=== PATIENT | female | born 1990 | race Caucasian/White ===

== ENCOUNTER 2019-08-29 10:24 | Emergency (ER) | payer OTHER, SELFPAY ==
[2019-08-29 10:51] VITALS: BP 126/85; PULSE 92; RESP 24; TEMP 36.7; O2SAT 100
--- NOTE | 2019-08-29 11:19 | ED.DENTAL ---
HPI - Dental/Oral General Chief complaint: Dental/Oral Stated complaint: . Time Seen by Provider: 08/29/19 11:19 Source: patient and family History of Present Illness HPI Narrative: NO FEVER. NO JAW SWELLING. NO NECK SWELLING. NO LIMITATION WITH SPEAKING OR SWALLOWING. HAS A HISTORY OF DENTAL CARIES. HAS NOT SEEN A DENTIST RECENTLY. 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 But was unable to get in any sooner. Location: Tooth # (31 [phone] 10) Related Data Allergies Allergy/AdvReac Type Severity Reaction Status Date / Time No Known Allergies Allergy Verified 08/29/19 10:59 Review of Systems Review of Systems: Narrative: CONSTITUTIONAL: Denies fever, chills, or sweats. EYES: Denies visual changes, redness, or discharge. ENT: Denies rhinorrhea, congestion, sore throat, or otalgia. NO FEVER. NO JAW SWELLING. NO NECK SWELLING. NO LIMITATION WITH SPEAKING OR SWALLOWING. HAS A HISTORY OF DENTAL CARIES. HAS NOT SEEN A DENTIST RECENTLY. CARDIOVASCULAR: Denies chest pain, palpitations, or edema. RESPIRATORY: Denies cough or dyspnea. GASTROINTESTINAL: Denies abdominal pain, nausea, vomiting, or diarrhea. GENITOURINARY: Denies dysuria or hematuria. SKIN: Denies rash or itching. MUSCULOSKELETAL: Denies back pain, joint pain, or myalgia. NEUROLOGIC: Denies headache, numbness, or weakness. PSYCHIATRIC: Denies anxiety or depression. PMFSH Past Medical History Medical History Anxiety Asthma Depression Gastroesophageal reflux disease Menometrorrhagia Migraine Morbid obesity with BMI of 50.0-59.9, adult Family History Family History Mother Family history of bipolar disorder Father Family history of chronic obstructive pulmonary disease Social History Social History Smoking status: Never smoker Second hand tobacco smoke exposure: Yes Alcohol intake: never Comments At time of signature, agree with nursing past medical, surgical, social and family history. There is no relevant family history pertinent to the presenting complaint Exam Narrative: Exam Narrative: GENERAL: Well-appearing, well-nourished, and in no acute distress. HEAD: Normocephalic, atraumatic. EYES: PERRLA and EOMI. ENT: Nares clear, no rhinorrhea or epistaxis. Mucous membranes moist. NO ALAYNA APICAL SWELLING, TOOTH TENDER TO PALPATION. NO FACIAL SWELLING. NO TRISMUS. ABLE TO OPEN MOUTH FULLY. NO NECK SWELLING OR LISA'S ANGINA. NO ABSCESS TO BE DRAINED. no drooling, trismus, facial asymmetry or significant neck swelling NECK: Supple. CHEST: Clear to auscultation. No respiratory distress. HEART: Regular rate and rhythm. No murmur heard. Normal peripheral pulses. ABDOMEN: Soft, nontender, nondistended, normal active bowel sounds. EXTREMITIES: Normal range of motion. No edema. SKIN: Warm, dry, no rash. NEURO: No focal deficits. Alert and oriented x3. [place] Coma Scale Eye Opening: Spontaneous 4 [place] Coma Scale Motor: Obeys Commands 6 [place] Coma Scale Verbal: Oriented 5 Larry Coma Scale Total 15 Course Vital Signs Vital signs: Vital Signs Temperature 36.7 C 08/29/19 10:51 Pulse Rate 92 08/29/19 10:51 Respiratory Rate 24 H 08/29/19 10:51 Blood Pressure 126/85 08/29/19 10:51 Pulse Oximetry 100 08/29/19 10:51 Temperature 36.7 C 08/29/19 10:51 Pulse Rate 92 08/29/19 10:51 Respiratory Rate 24 H 08/29/19 10:51 Blood Pressure 126/85 08/29/19 10:51 Pulse Oximetry 100 08/29/19 10:51 Please RICO schedule a followup visit with your personal physician for further evaluation and treatment. Including recheck and discussion of your blood pressure. If your symptoms persist, change or worsen significantly before you can contact your personal physician then please, without delay, go to the emergency department for further evaluation YURI [place]
== END 2019-08-29 11:26 | disposition home or self-care (01) ==
PROVIDERS: Emergency Provider Nurse Practitioner Family; PCP Internal Medicine
DX: K02.9 Dental caries, unspecified (principal); K08.89 Other specified disorders of teeth and supporting structures; J45.909 Unspecified asthma, uncomplicated; F32.9 Major depressive disorder, single episode, unspecified; K21.9 Gastro-esophageal reflux disease without esophagitis; E66.01 Morbid (severe) obesity due to excess calories; Z68.43 Body mass index [BMI] 50.0-59.9, adult
CPT/HCPCS: 99213; G0463

== ENCOUNTER 2019-10-09 10:21 | Outpatient (CLI) | payer OTHER, SELFPAY ==
[2019-10-09 11:02] LABS: Basophils Percent Auto 0.8 % (0.2-1.2); Eosinophils Absolute Auto 0.1 K/mm3 (0-0.3); Eosinophils Percent Auto 1.6 % (0-4.4); Hematocrit 42.1 % (37.0-47.0); Hemoglobin 12.7 g/dL (12.0-15.0); Immature Granulocyte Absolute 0.01 K/mm3 (0.00-0.031); Immature Granulocyte Percent A 0.3 % (0-0.5); Lymphocytes Absolute Auto 1.39 K/mm3 (0.9-3.2); Lymphocytes Percent Auto 37.5 % (18.3-44.2); Mean Corpuscular HGB Conc 30.2 g/dl (32-36); Mean Corpuscular Volume 86.3 fl (80-100); Mean Platelet Volume 9.9 fl (7.4-10.4); Monocytes Absolute Auto 0.4 K/mm3 (0.1-0.6); Monocytes Percent Auto 11.6 % (2.6-8.5); Neutrophils Absolute Auto 1.8 K/mm3 (1.3-6.7); Neutrophils Percent Auto 48.2 % (45.5-73.1); Platelet Count Result 248 k/mm3 (150-375); Red Blood Count 4.88 M/mm3 (4.2-5.4); Red Cell Distribution Width 14.6 % (11.5-14.5); White Blood Count 3.7 K/mm3 (4.5-10.0)
== END 2019-10-09 10:22 | disposition home or self-care (01) ==
LOC: ANHSURGERY 10:26
PROVIDERS: PCP Internal Medicine; Visit Provider Obstetrics & Gynecology
DX: R10.2 Pelvic and perineal pain (principal)
CPT/HCPCS: 36415; 85025; 86850; 86900; 86901

== ENCOUNTER 2019-11-02 01:51 | Day surgery (SDC) | payer OTHER, SELFPAY ==
[2019-10-04 11:31] VITALS: BMI 56.8
--- NOTE | 2019-10-31 09:16 | PM.IMHP ---
H&P: HPI History of Present Illness Chief complaint: Pain, Prolapse, Irregular Bleeding, Failed Ablatio Narrative: Merle Madrid is a 29 year old female 4 para 2 who was admitted for robotic total vessels rectum E and bilateral salpingo check to me he has. She complains of pain. She has irregular bleeding and has failed an ablation. She also has uterine prolapse. She has required narcotic pain medicine and is thus admitted for definitive repair. Risks and benefits. Risks and benefits of were reviewed including but not exclusive of , aspiration pneumonia bleeding, transfusion, perforation injury to bowel, bladder, ureters, or other internal organs with need for open laparotomy. She voiced good understanding. She had all questions answered. She received the [employer] handout entitled hysterectomy. She received CV the div and she handout concerning robotic hysterectomy technique. She had all questions answered. She asked to proceed Review of Systems Review of Systems: All systems reviewed & are unremarkable except as noted in HPI and below PMFSH Past Medical History Medical History Anxiety Asthma Depression Gastroesophageal reflux disease Menometrorrhagia Migraine Morbid obesity with BMI of 50.0-59.9, adult Family History Family History Mother Family history of bipolar disorder Father Family history of chronic obstructive pulmonary disease Social History Social History Smoking status: Never smoker Second hand tobacco smoke exposure: Yes Alcohol intake: never Meds Home Medications and Allergies Home Medications Medication Instructions Recorded Confirmed Type albuterol sulfate [ProAir HFA] 1 inh INHALATION QID PRN 10/04/19 10/29/19 History multivitamin 1 tablet PO DAILY 10/04/19 10/29/19 History hydrocodone-acetaminophen 1 tablet PO Q6H PRN 10/29/19 10/29/19 History Allergies Allergy/AdvReac Type Severity Reaction Status Date / Time No Known Allergies Allergy Verified 10/04/19 11:32 Exam Const: General: no acute distress Eyes: General: appearance normal, both eyes and all related structures Neck: Neck: supple and no JVD Thyroid: thyroid normal Resp: Effort & Inspection: normal respiratory effort Auscultation: clear to auscultation bilaterally Cardio: Rate: regular rate Rhythm: regular rhythm GI: Inspection: non-distended GI Palp: Yes Soft to palpation, No Tenderness to palpation present (GI) and No Guarding due to palpation present (GI) Auscultation: normal bowel sounds : General: Yes bladder normal to inspection External Female Exam: normal external appearance Speculum Exam - Vagina: normal appearance of the vagina Speculum Exam - Cervix: normal appearance of the cervix Bimanual exam- vagina & uterus: uterine size normal ( uterus is 12 weeks in size. Second-degree prolapse present) Skin: General skin exam: no rashes or lesions noted Extrem: General: normal to inspection and no edema Psych: Mental Status: mental status grossly normal Affect: normal affect Assessment and Plan Additional Plan impression: Pelvic pain, uterine prolapse, irregular bleeding following failed ablation, Plan: Robotic total vaginal hysterectomy and bilateral salpingectomies
--- NOTE | 2019-11-01 15:56 | P.PNAN_ITS ---
Anes - Initial Pre Proc Eval Procedure: Operation Date: 11/02/19 11:30 Proposed Procedures p Robotic Assisted Total Vaginal Hysterectomy, With Bilateral Salpingectomy - Tiago Lees MD Date/Time: 11/01/19 15:56 Surgeon: Tiago Lees MD Pre Op Diagnosis: Pain, Prolapse, Irregular Bleeding, Failed Ablatio Patient Data Age: 29 Gender: F Height: 1.55 m Weight: 136.53 kg Allergies Allergy/AdvReac Type Severity Reaction Status Date / Time No Known Allergies Allergy Verified 11/02/19 10:02 Home Medications Medication Instructions Recorded Confirmed Type albuterol sulfate [ProAir HFA] 1 inh INHALATION QID PRN 10/04/19 10/29/19 History multivitamin 1 tablet PO DAILY 10/04/19 11/02/19 History hydrocodone-acetaminophen 1 tablet PO Q6H PRN 10/29/19 10/29/19 History hydrocodone-acetaminophen [[place]] 1 tablet PO Q4H PRN #30 tablet 11/02/19 Rx Patient hx anesthesia problems: none Family hx anesthesia problems: none PMFSH Past Medical History Medical History (Updated 11/01/19 @ 15:57 by Bar Rivas MD) Abnormal uterine bleeding Anxiety Asthma Bipolar 1 disorder Depression Gastroesophageal reflux disease Kidney stones, calcium oxalate Menometrorrhagia Migraine Morbid obesity with BMI of 50.0-59.9, adult Family History Family History Mother Family history of bipolar disorder Father Family history of chronic obstructive pulmonary disease Social History Social History Smoking status: Never smoker Second hand tobacco smoke exposure: Yes Alcohol intake: never Anes - Eval Final PreProcedure Day of Procedure 11/01/19 15:56 Patient weight: morbidly obese Heart: regular rate and rhythm Lungs: clear to auscultation and normal air movement Airway: Mallampati scale class II Neurological: alert and oriented Last oral intake: >/= 8 hours ASA classification: III Emergent: no Anesthetic plan: proceed Anesthesia type and monitoring: general ETT Informed Consent: The patient's anesthetic plan and its attendant risks and benefits were discussed with the patient/family/POA. Questions were solicited and answers provided to the satisfaction of the patient/family/POA.
[2019-11-02] VITALS (14 sets, daily range): BP systolic 118–143; BP diastolic 74–89; PULSE 77–111; RESP 12–25; TEMP 36.2–36.9; O2SAT 96–100
--- NOTE | 2019-11-02 06:43 | WPDHPUPDATE1 ---
History and Physical Update Update Date/Time: 11/02/19 06:43 History and Physical has been reviewed, including an updated exam of the patient. There are NO changes in the patient's condition. Risks, benefits, and alternatives have been discussed and questions answered. Patient agrees to proceed with procedure.
[2019-11-02] MEDS: LACTATED RINGERS 1,000 ML 30 ML IV CONT ×2 (09:30→14:28)
[2019-11-02] MEDS: MIDAZOLAM HCL 2 MG/2 ML VIAL IV PUSH (10:05)
[2019-11-02] MEDS: ceFAZolin 3 GM/D5W 100 ML 100 ML IVPB (11:26)
--- NOTE | 2019-11-02 14:14 | PM.PROC ---
Procedure Note - Detailed Date of procedure: 11/02/19 Pre-op diagnosis: Pain, Prolapse, Irregular Bleeding, Failed Ablatio Surgeon: Tiago Lees MD Postop diagnosis: Pelvic pain, prolapse, irregular bleeding following failed ablation Procedure: Robotic supracervical hysterectomy bilateral salpingectomy and and lysis of adhesions EBL 600 Findings: Marked amount of adhesions. Enlarged uterus. Markedly obese abdomen which required a supracervical approach after difficulty in getting to the uterosacral ligaments. Complications: A supracervical hysterectomy was performed in light of the difficulty in removing her uterus Description of procedure: Patient was prepped and draped in the normal sterile fashion and placed in the dorsal lithotomy position. Under excellent general endotracheal anesthesia weighted speculum placed in posterior fornix vagina. Anterior lip of the cervix was grasped with a single-tooth tenaculum. Uterus sounded to 10cm. The 10. SVETLANA and the 3. And cold cup were placed. A 16 [place] catheter was then placed. The main instruments removed gloves were changed. A supraumbilical incision was made and the Veress needle passed in the abdomen. The abdomen was filled with CO2 gas [id number]. The 12mm trocar was advanced in the abdomen downside visualized with no injury seen. Left and right lateral quadrant incision made 8mm trocars advanced under direct position. A 10mm trocar was advanced in the right upper quadrant direct visualization assuring no injury. The robot was docked. Attention was turned to the treatment counselor. There was a marked amount of adhesions from the omentum to the anterior abdominal wall. Sharp dissection was necessary to bring this down and free the colon and omentum from the anterior wall uterus and the anterior wall. Once this was finally able to be undertaken left fallopian tube was excised passed off the table. The right fallopian tube was then incised past through the 12mm port. Next the left the left round ligament was grasped, burned, cut. Incision was made in the peritoneum and reflecting the bladder caudally away from the cervix and uterus. This was brought to the opposite round ligament which was clamped, burned, cut. Next conserving the left ovary is the utero-ovarian ligament was clamped, burned, cut and brought to the level of previously cut round ligament. In like fashion conserved in the right ovary the the utero-ovarian ligaments clamped, burned, cut. There was a fair amount adhesions and the patient's narrow pelvis made difficult due to her morbid obesity. The cardinal broad ligaments on the left were serially clamped, burned, cut and brought down the lateral edge of the cervix. the left uterine vessels were clamped were then grasped, burned, cut. In like fashion the cardinal and broad ligaments on the right were serially skeletonized. These were clamped, burned, cut and brought down lateral edge of the uterus until the uterine vessels were seen. These were serially clamped, burned, cut. Due to the marked amount of obesity and the preponderance of colon and omentum present it was not felt feasible to remove the entire cervix and uterus through the vagina. A supra [place]oul cervical incision was then made. And this was placed in an Endo-Catch. This was then brought through the 12 mm incision. On this required increase incision in the fascia. The fascia was then closed with continuous running 0V lock from lateral edge to lateral edge and back to the opposite edge again. Hemostasis was assured remainder of the sites were removed. The incision the robot was undocked. The incisions were then closed with 4 O Monocryl and glue throughout. Blood loss was estimated [id number]. All sponge, needle, instrument counts were correct. There were no immediate complications
--- NOTE | 2019-11-02 14:18 | SUR.OPER ---
Tck=[id number]
[2019-11-02] MEDS: HYDROMORPHONE HCL 1 MG/ML INJ 0.25 MG IV PUSH ×4 (14:39→15:02)
[2019-11-02] MEDS: ONDANSETRON INJ 4 MG/2 ML VIAL IV PUSH (15:08)
[2019-11-02] MEDS: KETOROLAC 30 MG/ML VIAL (*BKC) IV PUSH (17:27)
[2019-11-02] MEDS: IBUPROFEN 600 MG TABLET PO (23:01)
[2019-11-03 00:30] VITALS: BP 124/73; PULSE 110; RESP 12; TEMP 36.7
[2019-11-03] MEDS: IBUPROFEN 600 MG TABLET PO (05:13)
[2019-11-03 05:55] LABS: Basophils Percent Auto 0.1 % (0.2-1.2); Hematocrit 36.1 % (37.0-47.0); Hemoglobin 11.1 g/dL (12.0-15.0); Immature Granulocyte Absolute 0.05 K/mm3 (0.00-0.031); Immature Granulocyte Percent A 0.4 % (0-0.5); Lymphocytes Absolute Auto 1.59 K/mm3 (0.9-3.2); Lymphocytes Percent Auto 11.4 % (18.3-44.2); Mean Corpuscular HGB Conc 30.7 g/dl (32-36); Mean Corpuscular Hemoglobin 25.7 pg (26-34); Mean Corpuscular Volume 83.6 fl (80-100); Mean Platelet Volume 9.7 fl (7.4-10.4); Monocytes Absolute Auto 1.2 K/mm3 (0.1-0.6); Monocytes Percent Auto 8.3 % (2.6-8.5); Neutrophils Absolute Auto 11.2 K/mm3 (1.3-6.7); Neutrophils Percent Auto 79.8 % (45.5-73.1); Platelet Count Result 225 k/mm3 (150-375); Red Blood Count 4.32 M/mm3 (4.2-5.4); Red Cell Distribution Width 14.6 % (11.5-14.5)
[2019-11-03 06:13] VITALS: BP 121/61; PULSE 102; RESP 12; TEMP 36.6
[2019-11-03 07:45] VITALS: BP 140/84; PULSE 88; RESP 20; TEMP 36.7; O2SAT 97
[2019-11-03] MEDS: DOCUSATE SODIUM 100 MG CAPSULE PO (08:57)
--- NOTE | 2019-11-03 09:04 | PM.GYNPNOP ---
TELEVISION [employer]INTE[employer]CE [employer] - A/P Postoperative Procedures: Procedures Operation Date: 11/02/19 11:30 Actual Procedures Side Surgeon p Robotic Assisted SuperCervical Hysterectomy, With Bilateral Salpingectomy & Lysis of adhesions Bilateral Tiago Lees MD A: POD#1, doing well. P: Home to f/u 2 weeks. Time Spent With Patient Time with patient: less than 15 minutes [employer]LEVISION [employer]INTE[employer]- PN:Subj Post-Op Subjective Date/time seen: 11/03/19 09:04 Interval history: Pain OK. Tolerating diet. Voiding. Would like to go home. Exam Narrative: Exam Narrative: AVSS I/O OK ABD soft, nontender. Incisions c/d/i. EXT nontender [employer]VISION MAINTE[employer] - PN: Obj Data Vital Signs Vital Signs: Vital Signs - 24 hr 11/02/19 09:10 11/02/19 14:28 11/02/19 14:40 Temperature 36.2 C L 36.6 C Pulse Rate 77 85 84 Respiratory Rate 14 25 H 24 H Blood Pressure 142/86 H 139/82 135/80 Pulse Oximetry 98 98 100 11/02/19 14:55 11/02/19 15:10 11/02/19 15:25 Temperature Pulse Rate 87 88 94 Respiratory Rate 25 H 23 H 22 H Blood Pressure 133/84 118/78 139/84 Pulse Oximetry 100 98 99 11/02/19 15:45 11/02/19 15:52 11/02/19 16:00 Temperature 36.6 C Pulse Rate 96 81 Respiratory Rate 14 14 Blood Pressure 137/84 124/80 Pulse Oximetry 99 99 97 11/02/19 16:15 11/02/19 16:30 11/02/19 17:00 Temperature Pulse Rate 95 98 90 Respiratory Rate 14 14 16 Blood Pressure 138/81 134/82 143/89 H Pulse Oximetry 96 97 98 11/02/19 17:30 11/02/19 21:00 11/03/19 00:30 Temperature 36.9 C 36.7 C Pulse Rate 102 H 111 H 110 H Respiratory Rate 16 12 12 Blood Pressure 129/74 133/80 124/73 Pulse Oximetry 11/03/19 06:13 Temperature 36.6 C Pulse Rate 102 H Respiratory Rate 12 Blood Pressure 121/61 Pulse Oximetry Intake/Output Intake/Output: Intake & Output 10/31/19 11/01/19 11/02/19 11/03/19 23:59 23:59 23:59 23:59 Intake Total 400 1600 Output Total 120 2000 Balance 280 -400 Meds/Results Medications: Active Medications Generic Name Dose Route Start Last Admin Trade Name Freq PRN Reason Stop Dose Admin Hydrocodone Bitart/Acetaminophen 1 tab 11/02/19 15:37 [place] 5-325 Mg PO Q3H PRN Pain Rated 5 or Less Hydrocodone Bitart/Acetaminophen 1 tab 11/02/19 15:37 11/03/19 09:00 [place] 10-325 Mg PO 1 tab Q3H PRN Administration Pain Rated 6 or Greater Diphenhydramine HCl 50 mg 11/02/19 18:51 Benadryl Inj IV PUSH Q4H PRN Itching Diphenhydramine HCl 50 mg 11/02/19 18:52 Benadryl Cap PO Q6H PRN Itching Docusate Sodium 100 mg 11/02/19 17:00 11/03/19 08:57 Colace Capsule PO 100 mg BID CEDRIC Administration Enoxaparin Sodium 40 mg 11/03/19 09:00 Lovenox SUB-Q DAILY [facility] Dextrose/Lactated Ringer's 1,000 mls @ 125 mls/hr 11/02/19 15:37 Dextrose 5%/Lactated Ringers IV CONT .Q8H CEDRIC Ibuprofen 600 mg 11/02/19 15:37 11/03/19 05:13 Motrin PO 600 mg Q6H PRN Administration Cramping Ketorolac Tromethamine 30 mg 11/02/19 15:37 11/02/19 17:27 Toradol Inj IV PUSH 11/07/19 15:38 30 mg Q6H PRN Administration Pain Rated 4-6 Morphine Sulfate 4 mg 11/02/19 15:37 Morphine Sulfate Inj IV PUSH Q4H PRN Severe breakthrough pain Naloxone HCl 0.1 mg 11/02/19 15:37 Narcan IV PUSH Q2M PRN Respiratory rate less than 10 Ondansetron HCl 4 mg 11/02/19 15:37 Zofran Inj IV PUSH Q6H PRN Nausea And Vomiting Simethicone 80 mg 11/02/19 15:37 Mylicon PO Q2H PRN Gas Labs CBC & Chem 7: 11/03/19 05:17 Labs: Laboratory Results - last 24 hr 11/02/19 11/03/19 09:45 05:17 WBC 14.0 H RBC 4.32 Hgb 11.1 L Hct 36.1 L MCV 83.6 MCH 25.7 L MCHC 30.7 L RDW 14.6 H Plt Count 225 MPV 9.7 Immature Gran % (Auto) 0.4 Neut % (Auto) 79.8 H Lymph % (Auto) 11.4 L [place] % (Auto) 8.3 Eos % (Auto) 0.0 Baso % (Auto) 0.1 L Lymph # (Auto) 1.59 [place]
--- NOTE | 2019-11-03 09:05 | P.DS_ITS ---
DS: Diagnosis Admitting Diagnosis Admitting Diagnosis: Pelvic and perineal pain Discharge Diagnosis (1) Menometrorrhagia: Code(s): N92.1 - Excessive and frequent menstruation with irregular cycle Status: Acute DS: Summary Time Spent with Patient Time attestation: Total time spent providing and/or coordinating discharge services: DS: Data Data Completed and Pending Pending studies at discharge: Pending at discharge 11/02/19 12:58 Surgical [PTH] Routine Labs on day of discharge: Labs from last 24 hours 11/03/19 11/02/19 05:17 09:45 WBC 14.0 H RBC 4.32 Hgb 11.1 L Hct 36.1 L MCV 83.6 MCH 25.7 L MCHC 30.7 L RDW 14.6 H Plt Count 225 MPV 9.7 Immature Gran % (Auto) 0.4 Neut % (Auto) 79.8 H Lymph % (Auto) 11.4 L [place] % (Auto) 8.3 Eos % (Auto) 0.0 Baso % (Auto) 0.1 L Lymph # (Auto) 1.59 [place] # (Auto) 1.2 H Eos # (Auto) 0.0 Baso # (Auto) 0.0 Abs Immat Gran (auto) 0.05 H Absolute Neuts (auto) 11.2 H Absolute Nucleated RBC 0.0 Nucleated RBC % 0.0 Blood Type O Positive Antibody Screen Negative Discharge Plan Discharge Patient Disposition: Home, Self-Care Discharge Instructions: Call or return if temperature above 100.4? F, increased abdominal pain, increased vaginal bleeding or any new problems. Follow-up/Referrals: Tiago Lees MD [Physician] - (2 weeks) Discharge Medications: New hydrocodone-acetaminophen [[place]] 5-325 mg tablet 1 tablet PO Q4H PRN (Reason: pain) Qty: 30 RF: 0 No Action multivitamin Tablet 1 tablet PO DAILY RF: 0 albuterol sulfate [ProAir HFA] 90 mcg/actuation Hfa Aerosol Inhaler 1 inh INHALATION QID PRN (Reason: Shortness Of Breath) RF: 0 hydrocodone-acetaminophen 5-325 mg tablet 1 tablet PO Q6H PRN (Reason: Pain) RF: 0 Primary Care Provider: Antoni Galan Jr. Attending physician on admission: Tiago Lees
== END 2019-11-03 10:27 | disposition home or self-care (01) ==
LOC: ANHSURGERY 09:35 → ANHOB2 15:40
PROVIDERS: PCP Internal Medicine; Visit Provider Obstetrics & Gynecology
PROC: (CPT 58542; principal; 2019-11-02 11:30)
DX: N92.1 Excessive and frequent menstruation with irregular cycle (principal); R10.2 Pelvic and perineal pain; N81.4 Uterovaginal prolapse, unspecified; N73.6 Female pelvic peritoneal adhesions (postinfective); J45.909 Unspecified asthma, uncomplicated; K21.9 Gastro-esophageal reflux disease without esophagitis; F31.9 Bipolar disorder, unspecified; F41.9 Anxiety disorder, unspecified; E66.01 Morbid (severe) obesity due to excess calories; Z68.43 Body mass index [BMI] 50.0-59.9, adult
CPT/HCPCS: 58542; S2900; 36415; 85025; 86850; 86900; 86901; 88307; 99199; A9270; J0330; J0690; J1100; J1170; J1885; J2250; J2405; J2704; J2710; J3010; J7030; J7120

== ENCOUNTER 2020-02-07 13:27 | Outpatient (CLI) | payer OTHER, SELFPAY ==
--- NOTE | 2020-02-07 15:00 | NEURO_ITS ---
Patient Number: [id number] Impression: # Complains of pain and cramping of left hand. # Evolving left Carpal Tunnel Syndrome. # No ulnar neuropathy. # Needle/EMG exam not requested. Nerve Conduction Studies Anti Sensory Summary Table Stim Site NR Peak (ms) P-T Amp (?V) Site1 Site2 Delta-P (ms) Dist (cm) Mike (m/s) Left Median Anti Sensory (2-3nd Digit) Wrist 2.5 88.9 Wrist 2-3nd Digit 2.5 14.0 56 Wrist 2.6 95.7 Wrist 2-3nd Digit 2.5 14.0 56 Right Median Anti Sensory (2-3nd Digit) Wrist 2.4 94.1 Wrist 2-3nd Digit 2.4 14.0 58 Wrist 2.3 80.9 Wrist 2-3nd Digit 2.4 14.0 58 Left Radial Anti Sensory (Base 1st Digit) Wrist 1.7 23.6 Wrist Base 1st Digit 1.7 0.0 Right Radial Anti Sensory (Base 1st Digit) Wrist 1.8 33.5 Wrist Base 1st Digit 1.8 0.0 Left Ulnar Anti Sensory (5th Digit) Wrist 1.8 52.4 Wrist 5th Digit 1.8 14.0 78 Right Ulnar Anti Sensory (5th Digit) Wrist 1.8 84.2 Wrist 5th Digit 1.8 14.0 78 Motor Summary Table Stim Site NR Onset (ms) O-P Amp (mV) Site1 Site2 Delta-0 (ms) Dist (cm) Mike (m/s) Left Median Motor (Abd Poll Brev) Wrist 3.0 4.1 Elbow Wrist 4.3 27.0 63 Elbow 7.3 4.3 Right Median Motor (Abd Poll Brev) Wrist 2.8 7.7 Elbow Wrist 4.2 25.0 60 Elbow 7.0 6.9 Left Ulnar Motor (Abd Dig Minimi) Wrist 1.9 5.8 A Elbow Wrist 4.5 28.0 62 A Elbow 6.4 2.9 Right Ulnar Motor (Abd Dig Minimi) Wrist 2.1 5.8 A Elbow Wrist 4.2 26.0 62 A Elbow 6.3 4.6 F Wave Studies NR F-Lat (ms) L-R F-Lat (ms) Left Median (Mrkrs) (Abd Poll Brev) 24.92 0.39 Right Median (Mrkrs) (Abd Poll Brev) 25.31 0.39 Left Ulnar (Mrkrs) (Abd Dig Min) 24.06 0.00 Right Ulnar (Mrkrs) (Abd Dig Min) 24.06 0.00 MTDD
== END 2020-02-07 13:28 | disposition home or self-care (01) ==
LOC: ANHNEURO 13:30
PROVIDERS: PCP Internal Medicine; Visit Provider Plastic Surgery
DX: R53.1 Weakness (principal); R20.2 Paresthesia of skin; G56.02 Carpal tunnel syndrome, left upper limb
CPT/HCPCS: 95911

== ENCOUNTER 2020-02-19 08:09 | Emergency (ER) | payer OTHER, SELFPAY ==
[2020-02-19 08:15] VITALS: BP 145/78; PULSE 88; RESP 20; TEMP 36.3; O2SAT 99
--- NOTE | 2020-02-19 08:30 | ED.URI ---
HPI - URI/Sore Throat General Chief Complaint: Upper Respiratory Infection Stated Complaint: ear nose and throat Time Seen by Provider: 02/19/20 08:31 Source: patient and RN notes reviewed History of Present Illness HPI Narrative: Patient is a 29-year-old female who presents the urgent care with complaints of sore throat and bilateral ear pain. Patient states that it started approximately 2 days ago and she has been using Benadryl for her symptoms. Patient states that her kids were positive for strep approximately 1 week ago but she assumed her symptoms were due to allergies. Denies of any known fever, nausea, vomiting, abdominal pain. No other acute complaints. No acute distress noted. Patient read the plan of care. Related Data Allergies Allergy/AdvReac Type Severity Reaction Status Date / Time No Known Allergies Allergy Verified 02/19/20 08:25 Review of Systems Review of Systems: Narrative: CONSTITUTIONAL: Denies fever, chills, or sweats. EYES: Denies visual changes, redness, or discharge. ENT: Reports of sore throat, bilateral ear pain and postnasal drainage CARDIOVASCULAR: Denies chest pain, palpitations, or edema. RESPIRATORY: Denies cough or dyspnea. GASTROINTESTINAL: Denies abdominal pain, nausea, vomiting, or diarrhea. GENITOURINARY: Denies dysuria or hematuria. SKIN: Denies rash or itching. MUSCULOSKELETAL: Denies back pain, joint pain, or myalgia. NEUROLOGIC: Denies headache, numbness, or weakness. All other systems reviewed are negative, except as documented in HPI. [facility] Past Medical History Medical History (Updated 02/19/20 @ 08:48 by MITCH Wang) Abnormal uterine bleeding Anxiety Asthma Bipolar 1 disorder Depression Gastroesophageal reflux disease Kidney stones, calcium oxalate Menometrorrhagia Migraine Morbid obesity with BMI of 50.0-59.9, adult Social History Social History Smoking status: Never smoker Second hand tobacco smoke exposure: Yes Alcohol intake: never Comments At the time of my signature, I reviewed and agree with the nursing past medical, surgical, social, and family history. There is no relevant family history pertinent to the patient complaint. Exam Narrative: Exam Narrative: GENERAL: This is a well-nourished, well-developed patient, in no apparent distress. HEAD: normocephalic, atraumatic. EYES: PERRL. Sclera clear/white. Vision is grossly intact. EARS: External ears normal, auditory canals clear and without drainage, moderate fluid noted behind bilateral TMs,, TMs normal without perforation. Hearing grossly intact. NOSE: External nose normal with no obvious nasal discharge, nares without redness, no rhinorrhea. THROAT: Mucous membranes moist, moderate erythema noted posterior oropharynx with mild bilateral tonsillar edema without exudate or ulceration NECK: Neck supple CARDIOVASCULAR: Regular rate and rhythm without murmurs, gallops, or rubs. RESPIRATORY: Clear to auscultation. Breath sounds equal bilaterally. No wheezes, rales, or rhonchi. SKIN: warm, intact with no suspicious lesions or rash, good texture and turgor. NEURO: awake, alert, and oriented to person, place and time. There were no obvious focal neurologic abnormalities. EXTREMITIES: No clubbing, cyanosis, or edema. Course Vital Signs Vital signs: Vital Signs Temperature 97.3 F L 02/19/20 08:15 Pulse Rate 88 02/19/20 08:15 Respiratory Rate 20 02/19/20 08:15 Blood Pressure 145/78 H 02/19/20 08:15 Pulse Oximetry 99 02/19/20 08:15 Temperature 97.3 F L 02/19/20 08:15 Pulse Rate 88 02/19/20 08:15 Respiratory Rate 20 02/19/20 08:15 Blood Pressure 145/78 H 02/19/20 08:15 Pulse Oximetry 99 02/19/20 08:15 Reviewed-patient is informed that they may have pre-hypertension or hypertension based on a blood pressure reading in the department. I recommend the patient call the primary care provider listed on their discharge
== END 2020-02-19 08:50 | disposition home or self-care (01) ==
PROVIDERS: Emergency Provider Nurse Practitioner Family; PCP Internal Medicine
DX: J02.0 Streptococcal pharyngitis (principal); J45.909 Unspecified asthma, uncomplicated; K21.9 Gastro-esophageal reflux disease without esophagitis; E66.01 Morbid (severe) obesity due to excess calories; Z68.43 Body mass index [BMI] 50.0-59.9, adult
CPT/HCPCS: 87880; 99213; G0463

== ENCOUNTER 2020-03-17 00:19 | Outpatient (CLI) | payer OTHER, SELFPAY ==
[2020-03-17 19:34] LABS: SARS-CoV-2 RNA PCR Negative
== END 2020-03-17 00:20 | disposition home or self-care (01) ==
LOC: ANHCOVIDDT 00:19
PROVIDERS: PCP Internal Medicine; Visit Provider Plastic Surgery
DX: Z01.812 Encounter for preprocedural laboratory examination (principal); Z11.59 Encounter for screening for other viral diseases
CPT/HCPCS: 87635; C9803; U0003

== ENCOUNTER 2020-03-19 02:07 | Day surgery (SDC) | payer OTHER, SELFPAY ==
[2020-03-03 14:25] VITALS: BMI 54.1
--- NOTE | 2020-03-16 20:09 | P.HP_ITS ---
H&P: [facility] History of Present Illness Date/Time: 03/16/20 20:09 Chief complaint: Left Cubital Tunnel Syndrome Narrative: Merle Madrid is a 29 year old female with right cubital tunnel syndrome. She has had right cubital tunnel surgery and bilateral carpal tunnel surgery over the years. She is aware of complications such as nerve or tendon injury, infection, hematoma, scaring, persistent symptoms, possible anesthetic risks. Review of Systems Review of Systems: All systems reviewed & are unremarkable except as noted in HPI and below Eyes: Eyes: Reports no additional eye complaints ENT: Reports system reviewed and no additional complaints, except as documented Cardiovascular: Cardiovascular: Reports no additional cardiovascular complaints Respiratory: Respiratory: Reports no additional respiratory complaints Gastrointestinal: Gastrointestinal: Reports no additional gastrointestinal complaints Genitourinary: Genitourinary: Reports no additional female genitourinary complaints Musculoskeletal: Musculoskeletal: Reports as per HPI Integumentary/Breasts: Skin/Breast: Reports system reviewed and no additional complaints, except as docu Neurologic: Reports as per HPI Psychiatric: Psychiatric: Reports no additional psychiatric complaints [facility] Past Medical History Medical History (Updated 02/20/20 @ 00:00 by Background Adrianna) Abnormal uterine bleeding Anxiety Asthma Bipolar 1 disorder Depression Gastroesophageal reflux disease Kidney stones, calcium oxalate Menometrorrhagia Migraine Morbid obesity with BMI of 50.0-59.9, adult Social History Social History Smoking status: Never smoker Second hand tobacco smoke exposure: Yes Alcohol intake: never Drinks per week: 0 Substance use: never Gender identity (if verbalized by the patient): Female Spiritual care concerns: No Meds Home Medications and Allergies Home Medications Medication Instructions Recorded Confirmed Type No Home Medications 03/03/20 03/03/20 History Allergies Allergy/AdvReac Type Severity Reaction Status Date / Time No Known Allergies Allergy Verified 03/03/20 14:51 Exam Narrative: Exam Narrative: Thenar pain. Difficulty flexing thumb. Diffculty apposing thumb.. Tinel's at the wrist. Provocative wrist pain Const: General: no acute distress HENMT: Ears: TM's normal bilaterally Eyes: General: appearance normal, both eyes and all related structures Neck: Neck: no JVD Resp: Auscultation: clear to auscultation bilaterally Cardio: Rate: regular rate Rhythm: regular rhythm GI: GI Palp: Yes Soft to palpation : External Female Exam: normal external appearance Skin: General skin exam: normal color Psych: Mental Status: mental status grossly normal Assessment and Plan Additional Plan Right cubital tunnel syndrome. Release under sedation anesthetic.
--- NOTE | 2020-03-18 12:42 | P.PNAN_ITS ---
Anes - Initial Pre Proc Eval Procedure: Operation Date: 03/19/20 07:30 Proposed Procedures p Left Ulnar Neuroplasty At The Elbow - Nimesh Araujo MD Date/Time: 03/18/20 12:42 Surgeon: Nimesh Araujo MD Pre Op Diagnosis: Left Cubital Tunnel Syndrome Patient Data Age: 29 Gender: F Height: 5 ft 1 in Weight: 130 kg Allergies Allergy/AdvReac Type Severity Reaction Status Date / Time No Known Allergies Allergy Verified 03/03/20 14:51 Home Medications Medication Instructions Recorded Confirmed Type No Home Medications 03/03/20 03/03/20 History Patient hx anesthesia problems: none Family hx anesthesia problems: none PMFSH Past Medical History Medical History (Updated 02/20/20 @ 00:00 by Background Dacarlito) Abnormal uterine bleeding Anxiety Asthma Bipolar 1 disorder Depression Gastroesophageal reflux disease Kidney stones, calcium oxalate Menometrorrhagia Migraine Morbid obesity with BMI of 50.0-59.9, adult Social History Social History Smoking status: Never smoker Second hand tobacco smoke exposure: Yes Alcohol intake: never Drinks per week: 0 Substance use: never Living arrangements: with family Gender identity (if verbalized by the patient): Female Spiritual care concerns: No Anes - Eval Final PreProcedure Day of Procedure 03/18/20 12:42 Patient weight: super morbidly obese Heart: regular rate and rhythm Lungs: clear to auscultation Airway: Mallampati scale class III Neurological: alert and oriented Last oral intake: >/= 8 hours ASA classification: III Emergent: no Anesthetic plan: proceed Anesthesia type and monitoring: general (may use LMA if needed) GIVS and standard monitoring Informed Consent: The patient's anesthetic plan and its attendant risks and benefits were discussed with the patient/family/POA. Questions were solicited an d answers provided to the satisfaction of the patient/family/POA.
[2020-03-19] VITALS (8 sets, daily range): BP systolic 113–129; BP diastolic 62–105; PULSE 81–104; RESP 16–24; TEMP 36.2–36.5; O2SAT 94–100
[2020-03-19] MEDS: LACTATED RINGERS 1,000 ML 30 ML IV CONT ×2 (06:34→08:23)
--- NOTE | 2020-03-19 07:21 | WPDHPUPDATE1 ---
History and Physical Update Update Date/Time: 03/19/20 07:21 History and Physical has been reviewed, including an updated exam of the patient. There are NO changes in the patient's condition. Risks, benefits, and alternatives have been discussed and questions answered. Patient agrees to proceed with procedure.
--- NOTE | 2020-03-19 07:21 | WPDHPUPDATE1 ---
History and Physical Update Update Date/Time: 03/19/20 07:21The patient has come left cubital tunnel release. History and Physical has been reviewed, including an updated exam of the patient. There are NO changes in the patient's condition. Risks, benefits, and alternatives have been discussed and questions answered. Patient agrees to proceed with procedure.
[2020-03-19] MEDS: LIDO 1%/EPINEPHRINE 1:100,000 20 ML VIAL INFILTRATE (07:52)
--- NOTE | 2020-03-19 08:20 | PM.OP ---
Procedure Note - Brief Procedure Note - Brief Date of procedure: 03/19/20 Pre-op diagnosis: Left Cubital Tunnel Syndrome Post-op diagnosis: same Procedure performed: Left ulnar neuroplasty Anesthesia: MAC Surgeon: Nimesh Araujo MD Estimated blood loss (mL): 5 Tourniquet time (min): 30 Drains: No Packing: No Pathology: none sent Complications: No immediate complications Condition: stable Disposition: same day
--- NOTE | 2020-03-19 08:56 | P.OP_ITS ---
Procedure Note - Detailed Date of procedure: 03/19/20 Pre-op diagnosis: Left Cubital Tunnel Syndrome Post-op diagnosis: same Procedure performed: Left ulnar neuroplasty at the elbow Description of procedure: the site on the elbow was marked in preop. She was taken to the operating room and placed supine on the operating table. A time- out was held and confirmed. She was given IV sedation and the extremity was prepped and draped in usual fashion. The site was marked for the incision and locally infiltrated with 1% lidocaine with epinephrine. The elbow was supported on folded towels and externally rotated and flexed. The tourniquet was inflated to 250 mmHg. The incision was made as marked and dissection was carried carefully down to the interspace between the medial epicondyle and the olecranon. The cubital tunnel was accessed just proximal to the medial epicondyle. Rincon ligament was freed throughout its length. Additional exposure distally and proximally was accomplished to be sure no additional points of compression remained . Bleeding points were electrocoagulated on . The wound margins were approximated with intradermal 3-0 Monocryl suture and multiple points. The tourniquet was released and the wound was closed with a running intradermal 3-0 Monocryl. The usual bulky bandage was applied she was discharged with instructions in wound care and follow-up. She has a prescription for hydrocodone number 12 Surgeon: Nimesh Araujo MD
--- NOTE | 2020-03-19 09:48 | PM.OP ---
Procedure Note - Brief Procedure Note - Brief Date of procedure: 03/19/20 Pre-op diagnosis: Left Cubital Tunnel Syndrome Left cubital and carpal tunnel syndrom. Post-op diagnosis: same Procedure performed: Left carpal tunnel release and left ulnar neuroplasty at the elbow. Anesthesia: MAC Surgeon: Nimesh Araujo MD Estimated blood loss (mL): 10 Tourniquet time (min): 26 Drains: No Packing: No Pathology: none sent Complications: No immediate complications Condition: stable Disposition: same day
== END 2020-03-19 10:30 | disposition home or self-care (01) ==
PROVIDERS: PCP Internal Medicine; Visit Provider Plastic Surgery
PROC: (CPT 64718; principal; 2020-03-19 07:30)
DX: G56.22 Lesion of ulnar nerve, left upper limb (principal); F41.9 Anxiety disorder, unspecified; F31.9 Bipolar disorder, unspecified; E66.01 Morbid (severe) obesity due to excess calories; Z68.43 Body mass index [BMI] 50.0-59.9, adult
CPT/HCPCS: 64718; A9270; J1100; J2250; J2405; J2704; J3010; J7120

== ENCOUNTER 2020-04-22 10:51 | Outpatient (CLI) | payer OTHER, SELFPAY ==
--- NOTE | ~2020-04-22 | US_ITS ---
EXAMINATION: US soft tissue UE LT DATE: 04/22/2020 11:21 INDICATION: Left forearm mass TECHNIQUE: Multiple grayscale and Doppler ultrasound images of the region of concern at the left fore arm were obtained. COMPARISON: None FINDINGS: At the region of concern at the left forearm there is thickening and heterogeneous reticular pattern of decreased echogenicity in the subcutaneous fat suggesting edema. This extends over approximately 5 x 4 cm region. No discrete masses identified. No organized fluid collection to suggest abscess. The underlying musculature is unremarkable. IMPRESSION: 1. Nonspecific thickened edematous appearance to the subcutaneous fat suggestive of cellulitis extend ing over a 5 x 4 cm region at the site of the palpable abnormality. No discrete masses or loculated f luid collections identified. Reviewed, dictated and finalized at location A. IMPRESSION: 1. Nonspecific thickened edematous appearance to the subcutaneous fat suggestiv e of cellulitis extending over a 5 x 4 cm region at the site of the palpable ab normality. No discrete masses or loculated fluid collections identified.
--- NOTE | ~2020-04-22 | XR_ITS ---
XR forearm LT 2V DATE: 04/22/2020 11:23 INDICATION: Localized swelling, mass or lump of left upper extremity TECHNIQUE: AP and lateral views COMPARISON: None FINDINGS: There is nonspecific soft tissue swelling and subcutaneous adipose tissue soft tissue infil tration of the dorsal aspect of the forearm. No subcutaneous emphysema or radiopaque foreign body is identified. No fracture or dislocation, periosteal reaction or bone destruction of the radius or ulna. Normal ali gnment at the elbow and wrist joints. IMPRESSION: Nonspecific soft tissue swelling of the dorsal aspect of the forearm Reviewed, dictated and finalized at location B. IMPRESSION: Nonspecific soft tissue swelling of the dorsal aspect of the forear m
== END 2020-04-22 10:52 | disposition home or self-care (01) ==
PROVIDERS: PCP Internal Medicine; Visit Provider Internal Medicine
DX: R22.32 Localized swelling, mass and lump, left upper limb (principal)
CPT/HCPCS: 73090; 76882

== ENCOUNTER 2020-06-09 09:53 | Emergency (ER) | payer OTHER, SELFPAY ==
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
[2020-06-09 10:00] VITALS: BP 138/90; PULSE 84; RESP 18; TEMP 37.1; O2SAT 99
== END 2020-06-09 10:22 | disposition home or self-care (01) ==
PROVIDERS: Emergency Provider Nurse Practitioner Family; PCP Internal Medicine
DX: K08.89 Other specified disorders of teeth and supporting structures (principal); S02.5XXA Fracture of tooth (traumatic), initial encounter for closed fracture; X58.XXXA Exposure to other specified factors, initial encounter; J45.909 Unspecified asthma, uncomplicated; K21.9 Gastro-esophageal reflux disease without esophagitis; E66.01 Morbid (severe) obesity due to excess calories; Z68.43 Body mass index [BMI] 50.0-59.9, adult
CPT/HCPCS: 99213; G0463

== ENCOUNTER 2020-07-19 14:48 | Emergency (ER) | payer OTHER, SELFPAY ==
--- NOTE | ~2020-07-19 | XR_ITS ---
EXAMINATION: XR chest 2V 07/19/2020 16:06 INDICATION: Cough with upper respiratory infection PROCEDURE: 2 view chest COMPARISON: Comparison to multiple prior studies sequentially, with oldest reviewed study dated 11/01. FINDINGS: The lungs are clear. The cardiomediastinal silhouette is within normal limits. There are no pleural effusions. There is no pneumothorax suspected. IMPRESSION: 1: NO ACUTE CARDIOPULMONARY DISEASE. Reviewed, dictated and finalized at location A. 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
[2020-07-19 14:48] VITALS: BP 127/51; PULSE 98; RESP 18; TEMP 37.6; O2SAT 99
--- NOTE | 2020-07-19 15:48 | ED.URI ---
HPI - URI/Sore Throat General Chief Complaint: Upper Respiratory Infection Stated Complaint: sore throat ear pain Time Seen by Provider: 07/19/20 15:48 Source: patient Mode of arrival: ambulatory Limitations: no limitations History of Present Illness HPI Narrative: Merle Madrid is a 30 yo female with no PMH who is started developing fatigue shortness of breath cough 4 days ago and has progressively felt more fatigued. Denies nausea vomiting diarrhea. Has dry cough; does not smoke Related Data Home Medications Medication Instructions Recorded Confirmed estradiol 1 mg PO DAILY 07/19/20 07/19/20 Allergies Allergy/AdvReac Type Severity Reaction Status Date / Time cheese Allergy Severe angioedema Verified 06/09/20 10:12 Review of Systems Review of Systems: Narrative: CONSTITUTIONAL: Denies fever, chills, sweats. EYES: Denies visual changes, redness, discharge. ENT: Denies rhinorrhea, congestion, has sore throat, has bilateral otalgia. CARDIOVASCULAR: Denies chest pain, palpitations, edema. RESPIRATORY: Has dyspnea, wheezing, has cough GASTROINTESTINAL: Denies abdominal pain, nausea, vomiting, diarrhea. GENITOURINARY: Denies dysuria, hematuria, abnormal discharge SKIN: Denies rash or itching. NEUROLOGIC: Denies numbness, or focal weakness. PSYCHIATRIC: Denies anxiety or depression. PMFSH Past Medical History Medical History Abnormal uterine bleeding Anxiety Asthma Bipolar 1 disorder Depression Gastroesophageal reflux disease Kidney stones, calcium oxalate Mass of left forearm Menometrorrhagia Migraine Morbid obesity with BMI of 50.0-59.9, adult Family History Family History Mother Family history of bipolar disorder Father Family history of chronic obstructive pulmonary disease Social History Social History Smoking status: Never smoker Second hand tobacco smoke exposure: Yes Alcohol intake: never Drinks per week: 0 Substance use: never Gender identity (if verbalized by the patient): Female Spiritual care concerns: No Comments At time of signature, I agree with nursing past medical, surgical, social and family history. There is no relevant family history pertinent to the presenting complaint. Exam Narrative: Exam Narrative: GENERAL: This is a well-nourished, well-developed patient, in mild distress. HEAD: normocephalic, atraumatic. EYES: Sclera clear/white. Vision is grossly intact. EARS: External ears normal, auditory canals erythematous and with drainage, TMs normal without perforation. Hearing grossly intact. NOSE: External nose normal without nasal discharge, nares without redness, no rhinorrhea. THROAT: Mucous membranes moist, posterior pharynx mild erythema NECK: Neck supple, non-tender CARDIOVASCULAR: Regular rate and rhythm without murmurs, gallops, or rubs. RESPIRATORY: Diminished to auscultation. Breath sounds equal bilaterally. No wheezes, rales, or rhonchi. GASTROINTESTINAL: Abdomen soft, non-tender, SKIN: warm, intact with no suspicious lesions or rash, good texture and turgor. NEURO: awake, alert, and oriented to person, place and time. There were no obvious focal neurologic abnormalities. Steady gait EXTREMITIES: Normal range of motion. 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
== END 2020-07-19 16:13 | disposition home or self-care (01) ==
PROVIDERS: Emergency Provider Nurse Practitioner; PCP Internal Medicine
DX: Z20.828 Contact with and (suspected) exposure to other viral communicable diseases (principal); R05 Cough; H92.03 Otalgia, bilateral; J45.909 Unspecified asthma, uncomplicated; K21.9 Gastro-esophageal reflux disease without esophagitis
CPT/HCPCS: 71046; 87081; 87804; 87880; 99213; G0463

== ENCOUNTER 2020-11-14 19:10 | Emergency (ER) | payer OTHER, SELFPAY ==
[2020-11-14 19:15] VITALS: BP 149/74; PULSE 90; RESP 16; TEMP 37.2; O2SAT 100
--- NOTE | 2020-11-14 19:38 | ED.WOUNDLAC ---
HPI - Wound/Laceration General Chief Complaint: Wound/Laceration Stated Complaint: left hand lac Time Seen by Provider: 11/14/20 19:38 Source: patient and RN notes reviewed Mode of arrival: ambulatory Limitations: no limitations History of Present Illness HPI narrative: 30-year-old female presents to the [facility] with a laceration in the web between fingers 2 and 3 of the left hand approximately 0.5 cm. Patient reports approximately 45 minutes prior to arrival patient was opening a box with a kitchen knife and it slipped into her hand. States she is up-to-date on tetanus, 2019 she believes. Bleeding is controlled. Area is clean. Full range of motion of all 5 fingers. Sensation intact in all 5 fingers. Capillary refill under 2 seconds. Related Data Home Medications Medication Instructions Recorded Confirmed estradiol 1 mg PO DAILY 07/19/20 11/14/20 Allergies Allergy/AdvReac Type Severity Reaction Status Date / Time cheese Allergy Severe angioedema Verified 11/14/20 19:41 Review of Systems Review of Systems: Narrative: CONSTITUTIONAL: Denies fever, chills, or sweats. CARDIOVASCULAR: Denies chest pain, palpitations, or edema. RESPIRATORY: Denies cough or dyspnea. SKIN: Denies rash or itching. Laceration between fingers 2 and 3 left hand MUSCULOSKELETAL: Denies back pain, joint pain, or myalgia. NEUROLOGIC: Denies headache, numbness, or weakness. PSYCHIATRIC: Denies anxiety or depression. All other systems reviewed are negative, except as documented in HPI. [facility] Past Medical History Medical History Abnormal uterine bleeding Anxiety Asthma Bipolar 1 disorder Depression Gastroesophageal reflux disease Kidney stones, calcium oxalate Mass of left forearm Menometrorrhagia Migraine Morbid obesity with BMI of 50.0-59.9, adult Family History Family History Mother Family history of bipolar disorder Father Family history of chronic obstructive pulmonary disease Social History Social History Smoking status: Never smoker Second hand tobacco smoke exposure: Yes Alcohol intake: never Drinks per week: 0 Substance use: never Gender identity (if verbalized by the patient): Female Spiritual care concerns: No Comments At the time of my signature, I reviewed and agree with the nursing past medical, surgical, social, and family history. There is no relevant family history pertinent to the patient complaint. Exam Narrative: Exam Narrative: GENERAL: This is a well-nourished, well-developed patient, in no apparent distress. CARDIOVASCULAR: Regular rate and rhythm without murmurs, gallops, or rubs. RESPIRATORY: Clear to auscultation. Breath sounds equal bilaterally. No wheezes, rales, or rhonchi. SKIN: warm, Dry with no suspicious lesions or rash, good texture and turgor. 0.5 cm laceration between fingers 2 and 3, left hand, bleeding controlled, superficial NEURO: awake, alert, and oriented to person, place and time. There were no obvious focal neurologic abnormalities. EXTREMITIES: No joint tenderness, effusion, or edema noted. No calf tenderness. Negative Homans sign bilaterally. BACK: Nontender without deformity. No CVA tenderness. Course Vital Signs Vital signs: Vital Signs Temperature 98.9 F 11/14/20 19:15 Pulse Rate 90 11/14/20 19:15 Respiratory Rate 16 11/14/20 19:15 Blood Pressure 149/74 H 11/14/20 19:15 Pulse Oximetry 100 11/14/20 19:15 Temperature 98.9 F 11/14/20 19:15 Pulse Rate 90 11/14/20 19:15 Respiratory Rate 16 11/14/20 19:15 Blood Pressure 149/74 H 11/14/20 19:15 Pulse Oximetry 100 11/14/20 19:15 Reviewed Procedures Laceration Laceration 1: Date: 11/14/20 Time: 19:46 Site: hand (Web area between second and third finger left side) Side (If applicable): left Size (cm):
== END 2020-11-14 19:54 | disposition home or self-care (01) ==
PROVIDERS: Emergency Provider Nurse Practitioner
DX: S61.412A Laceration without foreign body of left hand, initial encounter (principal); W26.0XXA Contact with knife, initial encounter; J45.909 Unspecified asthma, uncomplicated; K21.9 Gastro-esophageal reflux disease without esophagitis; E66.01 Morbid (severe) obesity due to excess calories; Z68.43 Body mass index [BMI] 50.0-59.9, adult
CPT/HCPCS: 12001; 99212; G0463

== ENCOUNTER 2020-11-18 08:40 | Emergency (ER) | payer OTHER, SELFPAY ==
--- NOTE | 2020-11-18 08:42 | ED.URI ---
HPI - URI/Sore Throat General Chief Complaint: Upper Respiratory Infection Stated Complaint: chest congestion Time Seen by Provider: 11/18/20 08:42 Source: patient and RN notes reviewed History of Present Illness HPI Narrative: Patient is a 30-year-old female who presents the urgent care with complaints of chest congestion, face congestion, and ear pain, sore throat, postnasal drainage and cough. Reports of symptoms started on Tuesday. Patient states her cough has been slightly productive with green to yellow sputum. Patient states that her workplace was specifically requesting a rapid Covid swab. Patient denies of any fever, chills, body aches, nausea, vomiting. Patient has taken Tylenol for her ear pain. Denies of anyone else in the home that has been sick. Denies of any known exposure to Covid, flu or strep. No other acute complaints. No acute distress noted. Patient aware of the plan of care. Some parts of this dictation were generated by voice recognition software and may contain typographical and/or grammatical inaccuracies. Related Data Home Medications Medication Instructions Recorded Confirmed estradiol 1 mg PO DAILY 07/19/20 11/14/20 Allergies Allergy/AdvReac Type Severity Reaction Status Date / Time cheese Allergy Severe angioedema Verified 11/18/20 09:06 Review of Systems Review of Systems: Narrative: CONSTITUTIONAL: Denies fever, chills, or sweats. EYES: Denies visual changes, redness, or discharge. ENT: Reports of sinus congestion, sore throat and otalgia CARDIOVASCULAR: Denies chest pain, palpitations, or edema. RESPIRATORY: Reports a productive green to yellow cough without dyspnea GASTROINTESTINAL: Denies abdominal pain, nausea, vomiting, or diarrhea. GENITOURINARY: Denies dysuria or hematuria. SKIN: Denies rash or itching. MUSCULOSKELETAL: Denies back pain, joint pain, or myalgia. NEUROLOGIC: Denies headache, numbness, or weakness. All other systems reviewed are negative, except as documented in HPI. [facility] Past Medical History Medical History Abnormal uterine bleeding Anxiety Asthma Bipolar 1 disorder Depression Gastroesophageal reflux disease Kidney stones, calcium oxalate Mass of left forearm Menometrorrhagia Migraine Morbid obesity with BMI of 50.0-59.9, adult Family History Family History Mother Family history of bipolar disorder Father Family history of chronic obstructive pulmonary disease Social History Social History Smoking status: Never smoker Second hand tobacco smoke exposure: Yes Alcohol intake: never Drinks per week: 0 Substance use: never Gender identity (if verbalized by the patient): Female Spiritual care concerns: No Comments At the time of my signature, I reviewed and agree with the nursing past medical, surgical, social, and family history. There is no relevant family history pertinent to the patient complaint. Exam Narrative: Exam Narrative: GENERAL: This is a well-nourished, well-developed patient, morbidly obese HEAD: normocephalic, atraumatic. Mild frontal sinus tenderness EYES: PERRL. Sclera clear/white. Vision is grossly intact. EARS: External ears normal, auditory canals clear and without drainage, mild fluid noted behind bilateral TMs without otitis. TMs normal without perforation. Hearing grossly intact. NOSE: External nose normal with no obvious nasal discharge, mild bilateral erythemic nares with clear rhinorrhea. THROAT: Mucous membranes moist, mild erythema noted to posterior oropharynx without ulceration or exudate. NECK: Neck supple, non-tender without lymphadenopathy CARDIOVASCULAR: Regular rate and rhythm without murmurs, gallops, or rubs. RESPIRATORY: Clear to auscultation. Breath sounds equal bilaterally. No wheezes, rales, or rhonchi. SKIN: warm, intact with no suspicious lesions or loiue
[2020-11-18 08:46] VITALS: BP 136/71; PULSE 94; RESP 20; TEMP 37.1; O2SAT 99
== END 2020-11-18 09:12 | disposition home or self-care (01) ==
PROVIDERS: Emergency Provider Nurse Practitioner Family
DX: J32.9 Chronic sinusitis, unspecified (principal); J45.909 Unspecified asthma, uncomplicated; K21.9 Gastro-esophageal reflux disease without esophagitis; E66.01 Morbid (severe) obesity due to excess calories; Z68.43 Body mass index [BMI] 50.0-59.9, adult
CPT/HCPCS: 87081; 87804; 87880; 99213; G0463

== ENCOUNTER 2021-05-01 08:31 | Emergency (ER) | payer OTHER, SELFPAY ==
--- NOTE | ~2021-05-01 | CT_ITS ---
EXAMINATION: CT abdomen pelvis wo con EXAM DATE: 05/01/2021 09:27 INDICATION: Left flank pain, history kidney stones. TECHNIQUE: Spiral CT of the abdomen and pelvis was performed without contrast. Axial, coronal and sag ittal images were reviewed. The dose-length product (DLP) for this examination was 1613.44 mGy-cm. The exposure was tailored according to patient size (auto mA exposure control), and iterative reconst ruction (ASIR) was used as additional dose reduction technique. Comparison is made to prior examinati on from 02/07/2012. FINDINGS: There is no nephrolithiasis or hydronephrosis. The uterus is unremarkable. The bladder is unremarkable. The liver, spleen, adrenal glands and pancreas are unremarkable. There is a poorl y calcified gallstone identified, gallbladder otherwise unremarkable. There is no retroperitoneal or pelvic lymphadenopathy. Small umbilical fat-containing hernia. The appendix is normal. The stomach and small bowel are unremarkable. There is expected amount of c olonic stool. No free intraperitoneal gas. The heart is normal in size. There are no pericardial or pleural effusions. The lung bases are unremarkable. There are no osteoblastic or osteolytic les ions identified. IMPRESSION: No nephrolithiasis, hydronephrosis or acute intra-abdominal findings. Cholelithiasis. Reviewed, dictated and finalized at location G. IMPRESSION: No nephrolithiasis, hydronephrosis or acute intra-abdominal finding s. Cholelithiasis.
[2021-05-01 08:56] VITALS: BP 149/97; PULSE 80; RESP 18; TEMP 36.8; O2SAT 100
--- NOTE | 2021-05-01 09:03 | ED.ABDPAIN ---
HPI - Abdominal Pain General Chief Complaint: Abdominal Pain Stated Complaint: vag bleeding Time Seen by Provider: 05/01/21 08:42 Source: patient Mode of arrival: ambulatory Limitations: no limitations History of Present Illness HPI narrative: 31 years old white female presents with left abdominal pain, left flank pain started 2 days ago, pink color on the wipes after she urinate since yesterday, associated with nausea. Patient denies aggravating or relieving factors. History of section x2, complete hysterectomy and tubal ligation plus kidney stone. Patient drove herself to the emergency room this morning. Related Data Home Medications Medication Instructions Recorded Confirmed estradiol 1 mg PO DAILY 07/19/20 11/18/20 Allergies Allergy/AdvReac Type Severity Reaction Status Date / Time cheese Allergy Severe angioedema Verified 11/18/20 09:06 sulfamethoxazole Allergy Anaphylactic Verified 05/01/21 09:00 [From Bactrim] Shock trimethoprim [From Bactrim] Allergy Anaphylactic Verified 05/01/21 09:00 Shock Review of Systems Review of Systems: CONSTITUTIONAL: Denies fever, chills, or sweats. EYES: Denies visual changes, redness, or discharge. ENT: Denies rhinorrhea, congestion, sore throat, or otalgia. CARDIOVASCULAR: Denies chest pain, palpitations, or edema. RESPIRATORY: Denies cough or dyspnea. GASTROINTESTINAL: Denies abdominal pain, nausea, vomiting, or diarrhea. GENITOURINARY: Denies dysuria or hematuria. SKIN: Denies rash or itching. MUSCULOSKELETAL: Denies back pain, joint pain, or myalgia. NEUROLOGIC: Denies headache, numbness, or weakness. PSYCHIATRIC: Denies anxiety or depression. [facility] Past Medical History Medical History Abnormal uterine bleeding Anxiety Asthma Bipolar 1 disorder Depression Gastroesophageal reflux disease Kidney stones, calcium oxalate Mass of left forearm Menometrorrhagia Migraine Morbid obesity with BMI of 50.0-59.9, adult Family History Family History Mother Family history of bipolar disorder Father Family history of chronic obstructive pulmonary disease Social History Social History Smoking status: Never smoker Second hand tobacco smoke exposure: Yes Alcohol intake: never Drinks per week: 0 Substance use: never Gender identity (if verbalized by the patient): Female Spiritual care concerns: No Exam Narrative: General appearance: Well-developed, well-nourished, morbidly obese Skin: Normal color Head: Normocephalic, nontraumatic Eyes: Clear conjunctiva ENT: Oropharynx normal, ears normal, nose normal Neck: Supple, nontender Chest and respiratory: Airway patent, no respiratory distress, no accessory muscle use Heart: Regular rate/rhythm Abdomen: Diffuse tenderness left lower quadrant and left flank area Vascular: Normal peripheral pulses, normal capillary refill. Musculoskeletal: Normal range of motion, nontender back Neurologic: Alert and oriented ?3, PUBLIC AID ELIGIBILITY ASSISTANT is normal as tested, no gross motor deficit Course Course Emergency Course: Stable Vital Signs Vital signs: Vital Signs Temperature 36.8 C 05/01/21 08:56 Pulse Rate 80 05/01/21 08:56 Respiratory Rate 18 05/01/21 08:56 Blood Pressure 149/97 H 05/01/21 08:56 Pulse Oximetry 100 05/01/21 08:56 Temperature 36.8 C 05/01/21 08:56 Pulse Rate 80 05/01/21 08:56 Respiratory Rate 18 05/01/21 08:56 Blood Pressure 149/97 H 05/01/21 08:56 Pulse Oximetry 100 05/01/21 08:56 MDM - Abdominal Pain MDM Narrative Medical decis
[2021-05-01 09:35] LABS: Basophils Percent Auto 0.7 % (0.2-1.2); Eosinophils Absolute Auto 0.1 K/mm3 (0-0.3); Eosinophils Percent Auto 1.8 % (0-4.4); Hematocrit 42.7 % (37.0-47.0); Hemoglobin 13.3 g/dL (12.0-15.0); Immature Granulocyte Absolute 0.01 K/mm3 (0.00-0.031); Immature Granulocyte Percent A 0.2 % (0-0.5); Lymphocytes Absolute Auto 1.63 K/mm3 (0.9-3.2); Lymphocytes Percent Auto 37.3 % (18.3-44.2); Mean Corpuscular HGB Conc 31.1 g/dl (32-36); Mean Corpuscular Hemoglobin 26.6 pg (26-34); Mean Corpuscular Volume 85.4 fl (80-100); Mean Platelet Volume 9.8 fl (7.4-10.4); Monocytes Absolute Auto 0.4 K/mm3 (0.1-0.6); Monocytes Percent Auto 9.2 % (2.6-8.5); Neutrophils Absolute Auto 2.2 K/mm3 (1.3-6.7); Neutrophils Percent Auto 50.8 % (45.5-73.1); Platelet Count Result 247 k/mm3 (150-375); Red Cell Distribution Width 14.1 % (11.5-14.5); White Blood Count 4.4 K/mm3 (4.5-10.0)
[2021-05-01 09:49] LABS: Alanine Aminotransferase 37 U/L (4-35); Albumin Level 4.3 g/dL (3.5-5.1); Alkaline Phosphatase 98 U/L (38-126); Anion Gap 6 mmol/L (8-16); Aspartate Amino Transferase 30 U/L (14-36); Bilirubin,Total 0.2 mg/dL (0.2-1.3); Blood Urea Nitrogen 10 mg/dL (7-17); Calcium 8.8 mg/dL (8.4-10.2); Carbon Dioxide 30 mmol/L (22-30); Chloride 104 mmol/L (98-107); Estimated CRCL calculation 128 ml/min; Estimated Glomerular Filt Rate > 60; Glucose 105 mg/dL (65-110); Lipase 64 U/L (23-300); Potassium 3.8 mmol/L (3.4-5.0); Sodium 140 mmol/L (137-145)
[2021-05-01] MEDS: HYDROmorphone HCL INJ (*CRX) 1 MG/ML SYR 0.5 MG IV PUSH (10:02)
[2021-05-01] MEDS: SODIUM CHLORIDE 0.9% IV 1,000 ML 999 ML IV CONT (10:02)
[2021-05-01] MEDS: ONDANSETRON INJ 4 MG/2 ML VIAL IV PUSH (10:02)
--- NOTE | 2021-05-01 10:12 | PC.NURSE ---
Patient states she is still unable to urinate at this time.
[2021-05-01 10:32] VITALS: TEMP 36.8
[2021-05-01 10:44] VITALS: PULSE 86; RESP 18; O2SAT 97
[2021-05-01 11:24] LABS: Add Urine Microscopic? YES; Appearance Urine Cloudy (Clear); Bilirubin Urine Negative (Negative); Blood Urine Negative (Negative); Color Urine Yellow (Yellow); Glucose Urine UA Negative (Negative); Ketones Urine Negative (Negative); Leukocyte Esterase Ur Negative LEU/UL (Negative); Mucus Urine Rare /lpf; Nitrate Urine Negative (Negative); Protein Urine Negative (Negative); RBC Urine 0-2 /hpf (0-2); Squamous Epithelial Cell Urine Moderate /hpf (Few); Urobilinogen Urine Negative mg/dL (<2.0)
[2021-05-01 12:40] VITALS: BP 154/83; PULSE 76; RESP 18; O2SAT 98
== END 2021-05-01 12:40 | disposition home or self-care (01) ==
PROVIDERS: Emergency Provider Emergency Medicine; PCP Nurse Practitioner Adult Health
DX: R10.12 Left upper quadrant pain (principal); K21.9 Gastro-esophageal reflux disease without esophagitis; Z87.442 Personal history of urinary calculi; J45.909 Unspecified asthma, uncomplicated; E66.01 Morbid (severe) obesity due to excess calories; Z68.43 Body mass index [BMI] 50.0-59.9, adult; K80.20 Calculus of gallbladder without cholecystitis without obstruction
CPT/HCPCS: 36415; 74176; 80053; 81001; 83690; 85025; 96361; 96374; 96375; 99284; J1170; J2405; J7030

== ENCOUNTER 2021-05-28 14:25 | Outpatient (CLI) | payer OTHER, SELFPAY ==
--- NOTE | 2021-05-28 14:36 | ECG_ITS ---
Measurements Intervals Eighty Four Rate: 84 P: 43 PA: 162 QRS: 27 QRSD: 97 T: 38 QT: 378 QTc: 447 Interpretive Statements SINUS RHYTHM NORMAL ECG Electronically Signed On 05-28-2021 15:16:43 CDT by Nikhil Giang D.O.
== END 2021-05-28 14:26 | disposition home or self-care (01) ==
LOC: ANHSURGERY 14:34
PROVIDERS: PCP Nurse Practitioner Adult Health; Visit Provider Obstetrics & Gynecology
DX: Z01.818 Encounter for other preprocedural examination (principal); R10.2 Pelvic and perineal pain; E11.9 Type 2 diabetes mellitus without complications
CPT/HCPCS: 36415; 86850; 86900; 86901; 93005

== ENCOUNTER 2021-06-01 01:22 | Day surgery (SDC) | payer OTHER, SELFPAY ==
[2021-05-25 11:56] VITALS: BMI 52.0
--- NOTE | 2021-05-25 12:13 | PC.NURSE ---
Report to the Outpatient Waiting Room, entrance under the green pavilion located off [facility], at time 7:00 on date 06/01/21. OR Time: 9:00 - You and your visitor will be asked a series of questions to screen for COVID 19 for your protection. - A mask is required within the hospital. - Only one visitor is allowed at this time. Patient visitors will be guided where to wait when not with patient. Preoperative COVID Testing Requirements: No COVID Test needed if: (proof is required; if not received patient will have Rapid Test prior to entry) - Patient has received COVID Vaccine at least 14 days prior to procedure date or - Patient has positive COVID test result within last 90 days of surgery date. COVID Test needed if above criteria is not met If not COVID vaccinated a COVID test must be conducted within 72 hours of surgery and patient is asked to isolate self from time of testing until procedure. You will go to the [facility] for your COVID testing. The [facility] is located at the corner of [address] [facility]. You will only be called if COVID results are positive and your surgeon may reschedule your elective surgery date. Patients may have clear liquids (water, carbonated beverages, clear teas, apple juice) until 3 hours prior to surgery with a maximum of 20 ounces. - No food from midnight until time of surgery - Infants may have breast milk until 4 hours before surgery, infant formula 6 hours prior to surgery. - Children will be allowed to drink immediately following surgery. If applicable, please bring a bottle or sippy cup to assist with drinking. Juice, water, soda, and popsicles are readily available. For infants on formula, please bring formula the day of surgery. Pacifiers are allowed. Take the following medications with a SIP of water the morning of surgery: LEVOTHYROXINE, PAIN PILL Medications to discontinue per physician N/A Date to take last dose Please no make-up, nail ghanaian, hairspray, perfume, deodorant, or body powder the day of surgery. No jewelry (including any body piercings) or valuables the day of surgery, leave them at home. Please take a shower or bath the night before, or the morning of, surgery with an antibacterial soap. Wear comfortable, loose fitting clothing. Children are encouraged to wear pajamas. - Jewelry must be removed prior to entering the operating room. Rings and piercings that are not removed may be cut off. - The hospital will not accept responsibility for valuables. - Please leave all valuables, including medications, at home the day of surgery. If you are going home after surgery, a licensed route salesman and driver must drive you home. - NO public transportation without another adult. - We recommend that an adult stay with you for 24 hours following discharge. - We also recommend that you do not drive, make important decision, drink alcoholic beverages, or take any drugs that were not prescribed by your health care provider for at least 24 hours after your discharge time. For Pediatric surgeries, we recommend two adults accompany the child home (only one inside the building at this time). Follow any additional instructions given to you from your surgeon. Telephone instructions given to SUSANNA MOYA and asked if any additional questions and then verbalized understanding. Patient advised to call surgeon office or pre surgery nurse liaison [phone] if any additional questions.
--- NOTE | 2021-05-26 14:31 | PM.IMHP ---
H&P: HPI History of Present Illness Date/Time: 05/26/21 14:31 This is a 22-year-old 3 para 2 admitted for diagnostic laparoscopy. She has had pain discomfort and dyspareunia. She is status post supracervical hysterectomy has had some spotty bleeding as. The pain appears to be on the left than right. She has an ultrasound which shows remaining cervix appearing and but neither ovary was clearly seen. In light of her severe pain she is admitted for diagnostic laparoscopy. Risks and benefits reviewed including but not exclusive of , aspiration pneumonia, bleeding, transfusion, perforation injury to bowel, bladder, ureters, or other internal organs with the need for open laparotomy. She received the [employer] handout entitled laparoscopy. She had all questions answered. She asked to proceed Chief Complaint: Pelvic pain and dyspareunia Review of Systems Review of Systems: All systems reviewed & are unremarkable except as noted in HPI and below PMFSH Past Medical History Medical History Abnormal uterine bleeding Anxiety Asthma Bipolar 1 disorder Depression Gastroesophageal reflux disease Kidney stones, calcium oxalate Mass of left forearm Menometrorrhagia Migraine Morbid obesity with BMI of 50.0-59.9, adult Family History Family History Mother Family history of bipolar disorder Father Family history of chronic obstructive pulmonary disease Social History Social History Years smoked: 3 Smoking status: Former smoker Tobacco type: cigarettes and e-cigarettes/vaping Second hand tobacco smoke exposure: Yes Alcohol intake: current Drinks per week: 0 Alcohol use details: 3/YEAR Substance use: never Substance use type: does not use Gender identity (if verbalized by the patient): Female Spiritual care concerns: No Meds Home Medications and Allergies Home Medications Medication Instructions Recorded Confirmed Type acetaminophen-codeine 1 tablet PO Q6H PRN 05/25/21 05/25/21 History dextroamphetamine-amphetamine 25 mg PO DAILY 05/25/21 05/25/21 History [Adderall XR] hydrocodone-acetaminophen 1 tablet PO Q6H PRN 05/25/21 05/25/21 History levothyroxine 75 mcg PO DAILY 05/25/21 05/25/21 History phentermine 37.5 mg PO DAILY 05/25/21 05/25/21 History sitagliptin [Januvia] 100 mg PO DAILY 05/25/21 05/25/21 History Allergies Allergy/AdvReac Type Severity Reaction Status Date / Time sulfamethoxazole Allergy Anaphylactic Verified 05/25/21 11:54 [From Bactrim] Shock trimethoprim [From Bactrim] Allergy Anaphylactic Verified 05/25/21 11:54 Shock Exam Const: General: no acute distress Eyes: General: appearance normal, both eyes and all related structures Neck: Neck: supple and no JVD Thyroid: thyroid normal Resp: Effort & Inspection: normal respiratory effort Auscultation: clear to auscultation bilaterally Cardio: Rate: regular rate Rhythm: regular rhythm GI: Inspection: non-distended GI Palp: Yes Soft to palpation, No Tenderness to palpation present (GI) and No Guarding due to palpation present (GI) Auscultation: normal bowel sounds : Speculum Exam - Vagina: normal appearance of the vagina Speculum Exam - Cervix: normal appearance of the cervix Bimanual exam- vagina & uterus: uterus absent Bimanual Exam- Adnexa, other: tender bilaterally Skin: General skin exam: no rashes or lesions noted Extrem: General: normal to inspection and no edema Psych: Mental Status: mental status grossly normal Affect: normal affect Assessment and Plan Additional Plan Impression: Pelvic pain in a patient status post supracervical hysterectomy Plan: Diagnostic laparoscopy
[2021-06-01] VITALS (11 sets, daily range): BP systolic 126–148; BP diastolic 69–95; PULSE 61–88; RESP 8–20; TEMP 36.2–36.4; O2SAT 97–100
--- NOTE | 2021-06-01 07:11 | WPDHPUPDATE1 ---
History and Physical Update Update Date/Time: 06/01/21 07:11 History and Physical has been reviewed, including an updated exam of the patient. There are NO changes in the patient's condition. Risks, benefits, and alternatives have been discussed and questions answered. Patient agrees to proceed with procedure.
[2021-06-01] MEDS: LACTATED RINGERS 1,000 ML 30 ML IV CONT ×2 (07:23→10:02)
[2021-06-01] MEDS: KETOROLAC 15 MG/ML VIAL (*BKC) IV PUSH (07:24)
[2021-06-01] MEDS: ACETAMINOPHEN 500 MG TABLET 1000 MG PO (07:24)
[2021-06-01 07:26] LABS: Glucose Point of Care 89 mg/dl (65-105)
--- NOTE | 2021-06-01 07:28 | P.PNAN_ITS ---
Anes - Initial Pre Proc Eval Procedure: Operation Date: 06/01/21 09:00 Proposed Procedures p Diagnostic Laparoscopy - Tiago Lees MD Date/Time: 06/01/21 07:28 Surgeon: Tiago Lees MD Pre Op Diagnosis: pelvic pain, dyspareunia Patient Data Age: 31 Gender: F Height: 1.55 m Weight: 124.75 kg Allergies Allergy/AdvReac Type Severity Reaction Status Date / Time sulfamethoxazole Allergy Anaphylactic Verified 06/01/21 07:34 [From Bactrim] Shock trimethoprim [From Bactrim] Allergy Anaphylactic Verified 06/01/21 07:34 Shock Home Medications Medication Instructions Recorded Confirmed Type acetaminophen-codeine 1 tablet PO Q6H PRN 05/25/21 06/01/21 History dextroamphetamine-amphetamine 25 mg PO DAILY 05/25/21 06/01/21 History [Adderall XR] hydrocodone-acetaminophen 1 tablet PO Q6H PRN 05/25/21 06/01/21 History levothyroxine 75 mcg PO DAILY 05/25/21 06/01/21 History phentermine 37.5 mg PO DAILY 05/25/21 06/01/21 History sitagliptin [Januvia] 100 mg PO DAILY 05/25/21 06/01/21 History hydrocodone-acetaminophen 1 tablet PO Q4H PRN #20 tablet 06/01/21 Rx Laboratory Tests 06/01/21 07:20 POC Capillary Glucose 89 mg/dl mg/dl (65-105) Patient hx anesthesia problems: none Family hx anesthesia problems: none Results Review: All pre-operative results and documents have been reviewed as part of the pre-operative evaluation. [facility] Past Medical History Medical History Abnormal uterine bleeding Anxiety Asthma Bipolar 1 disorder Depression Gastroesophageal reflux disease Kidney stones, calcium oxalate Mass of left forearm Menometrorrhagia Migraine Morbid obesity with BMI of 50.0-59.9, adult Family History Family History Mother Family history of bipolar disorder Father Family history of chronic obstructive pulmonary disease Social History Social History Years smoked: 3 Smoking status: Former smoker Tobacco type: cigarettes and e-cigarettes/vaping Second hand tobacco smoke exposure: Yes Alcohol intake: current Drinks per week: 0 Alcohol use details: 3/YEAR Substance use: never Substance use type: does not use Living arrangements: with family Gender identity (if verbalized by the patient): Female Spiritual care concerns: No Anes - Eval Final PreProcedure Day of Procedure 06/01/21 07:28 Patient weight: super morbidly obese Heart: regular rate and rhythm Lungs: clear to auscultation and normal air movement Airway: Mallampati scale class II Neurological: alert and oriented Last oral intake: >/= 8 hours ASA classification: III Emergent: no Anesthetic plan: proceed Anesthesia type and monitoring: general ETT Results Review: All pre-operative results and documents have been reviewed as part of the pre-operative evaluation. Informed Consent: The patient's anesthetic plan and its attendant risks and benefits were discussed with the patient/family/POA. Questions were solicited and answers provided to the satisfaction of the patient/family/POA.
[2021-06-01] MEDS: ceFAZolin SODIUM 1 GM VIAL 3 GM IV PUSH (09:38)
--- NOTE | 2021-06-01 09:56 | W.PM.PROC2 ---
Procedure Note - Detailed Date of Procedure 06/01/21 Pre-op Diagnosis pelvic pain, dyspareunia Post-op Diagnosis other (adhesions) Procedure Performed Laparoscopic lysis of adhesions Surgeon Tiago Lees MD Anesthesia general Findings Uterus was surgically absent. The tubes were surgically absent. Been benign ovarian cyst were present. Adhesions on the left adnexa and right adnexa. This was consistent with findings on ultrasound. Description of Procedure The patient was prepped draped in normal sterile fashion placed in the dorsal lithotomy position. Under excellent general trach anesthesia weighted speculum placed in posterior fornix vagina. Anterior lip of the cervix grasped with a single-tooth tenaculum. In the bladder drained of clear urine. The weighted speculum was removed. Gloves were changed An infraumbilical incision made the Veress needle passed in the abdomen. The abdomen filled with CO2 gas [id number]. The 8mm trocar advanced under direct visualization assuring no injury. A left upper quadrant incision made assuring no injury. e 5mm trocar advanced under direct visualization 5mm trocar was advanced under direct visualization the left lower quadrant. Adhesions were seen to from the anterior abdominal wall which clotted visualization. Sharp dissection was undertaken and eventually this was cleared the left adnexa was completely encased in omentum and the bowel. Sharp dissection was undertaken avoiding injury to the underlying bowel. The left ovary appeared grossly within normal limits and photo documentation was undertaken. Vaginal cuff was adherent with adhesions and sharp dissection was used to. The cul-de-sac appeared within normal limits and cervical stump appeared within normal limits. The right lower quadrant was sharply dissected of adhesions and the right ovary appeared within normal limits. Photo documentation was undertaken. No evidence of endometriosis or other abnormalities were seen and irrigation undertaken until clear. The lower sites removed. The gas removed from the abdomen. The upper site removed and the incisions closed with 4 Monocryl and glue. The patient was awakened and went to recovery in satisfactory condition. All sponge, needle, instrument counts were correct. There were no immediate complications Estimated Blood Loss 5 Drains No Packing No Pathology none sent Complications No immediate complications Condition stable
[2021-06-01] MEDS: fentaNYL CITRATE INJ (*CRX) 100 MCG/2 ML VIAL 25 MCG IV PUSH ×4 (10:22→10:51)
--- NOTE | 2021-06-01 10:29 | SUR.PHASEI ---
Simple mask removed at 1028.
[2021-06-01] MEDS: oxyCODONE HCL (*CRX) 5 MG TAB IR PO (11:36)
== END 2021-06-01 12:25 | disposition home or self-care (01) ==
PROVIDERS: PCP Nurse Practitioner Adult Health; Visit Provider Obstetrics & Gynecology
PROC: (CPT 49320; principal; 2021-06-01 09:00)
DX: R10.2 Pelvic and perineal pain (principal); N94.10 Unspecified dyspareunia; E03.9 Hypothyroidism, unspecified; F41.9 Anxiety disorder, unspecified; J45.909 Unspecified asthma, uncomplicated; F31.9 Bipolar disorder, unspecified; F41.8 Other specified anxiety disorders; K21.9 Gastro-esophageal reflux disease without esophagitis; Z87.891 Personal history of nicotine dependence; E66.01 Morbid (severe) obesity due to excess calories; Z68.43 Body mass index [BMI] 50.0-59.9, adult; N83.209 Unspecified ovarian cyst, unspecified side; N73.6 Female pelvic peritoneal adhesions (postinfective); Z79.899 Other long term (current) drug therapy
CPT/HCPCS: 58660; 82948; A9270; J0330; J0690; J1100; J1885; J2250; J2405; J2704; J3010; J7030; J7120

== ENCOUNTER 2021-10-12 17:31 | Emergency (ER) | payer OTHER, SELFPAY ==
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
[2021-10-12 17:40] VITALS: BP 113/77; PULSE 76; RESP 16; TEMP 36.8; O2SAT 100
[2021-10-12 17:52] VITALS: BP 113/77; PULSE 76; RESP 16; TEMP 36.8; O2SAT 100
== END 2021-10-12 18:05 | disposition home or self-care (01) ==
PROVIDERS: Emergency Provider Nurse Practitioner Family; PCP Nurse Practitioner Adult Health
DX: R51.9 Headache, unspecified (principal); V49.40XA Driver injured in collision with unspecified motor vehicles in traffic accident, initial encounter; F41.9 Anxiety disorder, unspecified; K21.9 Gastro-esophageal reflux disease without esophagitis; E66.01 Morbid (severe) obesity due to excess calories; Z68.42 Body mass index [BMI] 45.0-49.9, adult; F17.210 Nicotine dependence, cigarettes, uncomplicated; F17.290 Nicotine dependence, other tobacco product, uncomplicated
CPT/HCPCS: 99213; G0463

== ENCOUNTER 2021-11-16 10:10 | Emergency (ER) | payer OTHER, SELFPAY ==
[2021-11-16 10:14] VITALS: BP 126/83; PULSE 109; RESP 20; TEMP 36.9; O2SAT 99
--- NOTE | 2021-11-16 10:14 | ED.URI ---
HPI - URI/Sore Throat General Chief Complaint: Upper Respiratory Infection Stated Complaint: congestion sore throat aches fever Time Seen by Provider: 11/16/21 10:15 Source: patient and RN notes reviewed History of Present Illness HPI Narrative: Patient is a 31-year-old female who presents the urgent care with complaints of congestion, body aches, sore throat, fever and cough. Patient states that started 4 days ago and she is also had a terrible headache that was worse today. Patient states she has been having a mild productive cough. Patient has been taking Tylenol, DayQuil and NyQuil. Denies of any known exposures. States that her last known temperature was 101.2 Fahrenheit. No other complaints. No acute distress noted. Patient aware of the plan of care. Some parts of this dictation were generated by voice recognition software and may contain typographical and/or grammatical inaccuracies. Related Data Home Medications Medication Instructions Recorded Confirmed dextroamphetamine-amphetamine 25 mg PO DAILY 05/25/21 10/12/21 [Adderall XR] levothyroxine 75 mcg PO DAILY 05/25/21 10/12/21 sitagliptin [Januvia] 100 mg PO DAILY 05/25/21 10/12/21 albuterol 90 mcg INHALATION Q4H PRN 10/12/21 10/12/21 alprazolam 0.25 mg PO DAILY 10/12/21 10/12/21 Allergies Allergy/AdvReac Type Severity Reaction Status Date / Time sulfamethoxazole Allergy Anaphylactic Verified 11/16/21 10:24 [From Bactrim] Shock trimethoprim [From Bactrim] Allergy Anaphylactic Verified 11/16/21 10:24 Shock Review of Systems Review of Systems: CONSTITUTIONAL: Reports a fever EYES: Denies visual changes, redness, or discharge. ENT: Reports of nasal congestion, sore throat CARDIOVASCULAR: Denies chest pain, palpitations, or edema. RESPIRATORY: Reports of cough without dyspnea GASTROINTESTINAL: Denies abdominal pain, nausea, vomiting, or diarrhea. GENITOURINARY: Denies dysuria or hematuria. SKIN: Denies rash or itching. MUSCULOSKELETAL: Denies back pain, joint pain. Reports of body aches NEUROLOGIC: Denies headache, numbness, or weakness. All other systems reviewed are negative, except as documented in HPI. [facility] Past Medical History Medical History Abnormal uterine bleeding Anxiety Asthma Bipolar 1 disorder Depression Gastroesophageal reflux disease Kidney stones, calcium oxalate Mass of left forearm Menometrorrhagia Migraine Morbid obesity with BMI of 50.0-59.9, adult Family History Family History Mother Family history of bipolar disorder Father Family history of chronic obstructive pulmonary disease Social History Social History Years smoked: 3 Smoking status: Former smoker Tobacco type: cigarettes and e-cigarettes/vaping Second hand tobacco smoke exposure: Yes Alcohol intake: current Drinks per week: 0 Alcohol use details: 3/YEAR Substance use: never Substance use type: does not use Gender identity (if verbalized by the patient): Female Spiritual care concerns: No Comments At the time of my signature, I reviewed and agree with the nursing past medical, surgical, social, and family history. There is no relevant family history pertinent to the patient complaint. Exam Narrative: GENERAL: This is a well-nourished, well-developed patient, in no apparent distress. HEAD: normocephalic, atraumatic. EYES: PERRL. Sclera clear/white. Vision is grossly intact. EARS: External ears normal, auditory canals clear and without drainage, TMs normal without perforation. Hearing grossly intact. NOSE: External nose normal with no obvious nasal discharge, nares without redness, no rhinorrhea. THROAT: Mucous membranes moist. Scattered ulcerations noted posterior oropharynx with moderate erythema and moderate postnasal drainage. No exudate NECK: Neck sup
== END 2021-11-16 11:29 | disposition home or self-care (01) ==
PROVIDERS: Emergency Provider Nurse Practitioner Family; PCP Nurse Practitioner Adult Health
DX: B34.9 Viral infection, unspecified (principal); Z20.822 Contact with and (suspected) exposure to COVID-19; K21.9 Gastro-esophageal reflux disease without esophagitis; F41.9 Anxiety disorder, unspecified; E66.01 Morbid (severe) obesity due to excess calories; Z68.42 Body mass index [BMI] 45.0-49.9, adult; J45.909 Unspecified asthma, uncomplicated
CPT/HCPCS: 87081; 87426; 87804; 87880; 99213; C9803; G0463

== ENCOUNTER 2021-12-25 10:21 | Emergency (ER) | payer OTHER, SELFPAY ==
[2021-12-25 10:25] VITALS: BP 146/67; PULSE 91; RESP 20; TEMP 36.6; O2SAT 99
--- NOTE | 2021-12-25 10:25 | ED.URI ---
HPI - URI/Sore Throat General Chief Complaint: Upper Respiratory Infection Stated Complaint: sore throat hard to swallow Time Seen by Provider: 12/25/21 10:25 Source: patient and RN notes reviewed History of Present Illness HPI Narrative: Patient is a 31-year-old female who presents the urgent care with complaints of a sore throat, difficulty swallowing and bilateral otalgia. Patient states that started 4 days ago and she has been using Advil and Chloraseptic spray. Denies any fever or vomiting. States that she is had intermittent nausea due to the pain. Denies of any exposures to illness. No other acute complaints. No acute distress noted. Patient aware of the plan of care. Some parts of this dictation were generated by voice recognition software and may contain typographical and/or grammatical inaccuracies. Related Data Home Medications Medication Instructions Recorded Confirmed dextroamphetamine-amphetamine ER 25 mg PO DAILY 05/25/21 12/25/21 25 mg 24hr capsule,extend release (Adderall XR) alprazolam 0.25 mg tablet 0.25 mg PO DAILY 10/12/21 12/25/21 albuterol sulfate 90 mcg/actuation 2 puff inhalation QID PRN 12/25/21 12/25/21 aerosol inhaler Shortness Of Breath Or Wheezing Allergies Allergy/AdvReac Type Severity Reaction Status Date / Time sulfamethoxazole Allergy Anaphylactic Verified 12/25/21 10:30 [From Bactrim] Shock trimethoprim [From Bactrim] Allergy Anaphylactic Verified 12/25/21 10:30 Shock Review of Systems Review of Systems: CONSTITUTIONAL: Denies fever, chills, or sweats. EYES: Denies visual changes, redness, or discharge. ENT: Reports of sore throat, difficulty swallowing and bilateral otalgia CARDIOVASCULAR: Denies chest pain, palpitations, or edema. RESPIRATORY: Denies cough or dyspnea. GASTROINTESTINAL: Denies abdominal pain, nausea, vomiting, or diarrhea. GENITOURINARY: Denies dysuria or hematuria. SKIN: Denies rash or itching. MUSCULOSKELETAL: Denies back pain, joint pain, or myalgia. NEUROLOGIC: Denies headache, numbness, or weakness. All other systems reviewed are negative, except as documented in HPI. [facility] Past Medical History Medical History Abnormal uterine bleeding Anxiety Asthma Bipolar 1 disorder Depression Gastroesophageal reflux disease Kidney stones, calcium oxalate Mass of left forearm Menometrorrhagia Migraine Morbid obesity with BMI of 50.0-59.9, adult Family History Family History Mother Family history of bipolar disorder Father Family history of chronic obstructive pulmonary disease Social History Social History Years smoked: 3 Smoking status: Former smoker Tobacco type: cigarettes and e-cigarettes/vaping Second hand tobacco smoke exposure: Yes Alcohol intake: current Drinks per week: 0 Alcohol use details: 3/YEAR Substance use: never Substance use type: does not use Gender identity (if verbalized by the patient): Female Spiritual care concerns: No Comments At the time of my signature, I reviewed and agree with the nursing past medical, surgical, social, and family history. There is no relevant family history pertinent to the patient complaint. Exam Narrative: GENERAL: This is a well-nourished, well-developed patient, in no apparent distress. HEAD: normocephalic, atraumatic. EYES: PERRL. Sclera clear/white. Vision is grossly intact. EARS: External ears normal, auditory canals clear and without drainage, TMs normal without perforation. Hearing grossly intact. NOSE: External nose normal with no obvious nasal discharge, nares without redness, no rhinorrhea. THROAT: Mucous membranes moist. Moderate erythema to the posterior pharynx with mild postnasal drainage NECK: Neck supple, non-tender without lymphadenopathy CARDIOVASCULAR: Regular rate and rhythm
== END 2021-12-25 10:57 | disposition home or self-care (01) ==
PROVIDERS: Emergency Provider Nurse Practitioner Family; PCP Nurse Practitioner Adult Health
DX: J02.9 Acute pharyngitis, unspecified (principal); Z20.822 Contact with and (suspected) exposure to COVID-19; J45.909 Unspecified asthma, uncomplicated; K21.9 Gastro-esophageal reflux disease without esophagitis; E66.01 Morbid (severe) obesity due to excess calories; Z68.42 Body mass index [BMI] 45.0-49.9, adult
CPT/HCPCS: 87081; 87426; 87880; 99213; C9803; G0463

== ENCOUNTER 2022-01-04 17:02 | Emergency (ER) | payer OTHER, SELFPAY ==
[2022-01-04 17:14] VITALS: BP 132/83; PULSE 93; RESP 20; O2SAT 100
[2022-01-04 17:30] VITALS: TEMP 36.7
--- NOTE | 2022-01-04 17:43 | ED.DENTAL ---
HPI - Dental/Oral General Chief complaint: Dental/Oral Stated complaint: tooth pain Time Seen by Provider: 01/04/22 17:40 Source: patient Mode of arrival: ambulatory Limitations: no limitations History of Present Illness HPI Narrative: 31-year-old female presents with concern for dental pain. She reports she had a broken tooth on the lower right side, reports that it broke more yesterday and she began having acute pain. She reports also left upper dental pain. She reports she has been taking Tylenol and ibuprofen like it is candy . She reports the pain is lessened briefly with those medications. She reports she has a dentist appointment on Tuesday. She denies trouble swallowing, fever, headache. MD Complaint: tooth pain Related Data Home Medications Medication Instructions Recorded Confirmed dextroamphetamine-amphetamine ER 25 mg PO DAILY 05/25/21 01/04/22 25 mg 24hr capsule,extend release (Adderall XR) alprazolam 0.25 mg tablet 0.25 mg PO DAILY 10/12/21 01/04/22 albuterol sulfate 90 mcg/actuation 2 puff inhalation QID PRN 12/25/21 01/04/22 aerosol inhaler Shortness Of Breath Or Wheezing Allergies Allergy/AdvReac Type Severity Reaction Status Date / Time sulfamethoxazole Allergy Anaphylactic Verified 01/04/22 17:41 [From Bactrim] Shock trimethoprim [From Bactrim] Allergy Anaphylactic Verified 01/04/22 17:41 Shock Review of Systems Review of Systems: CONSTITUTIONAL: Denies malaise, chills, sweats, or fever. EYES: Denies visual changes ENT: Denies rhinorrhea, congestion, sinus pain, otalgia or sore throat. Reports right lower dental pain, left upper dental pain CARDIOVASCULAR: Denies chest pain, palpitations RESPIRATORY: Denies cough or dyspnea. SKIN: Denies rash or itching. MUSCULOSKELETAL: Denies myalgia. NEUROLOGIC: Denies numbness, weakness, or headache. All systems reviewed & are unremarkable except as noted in HPI and below PMFSH Past Medical History Medical History Abnormal uterine bleeding Anxiety Asthma Bipolar 1 disorder Depression Gastroesophageal reflux disease Kidney stones, calcium oxalate Mass of left forearm Menometrorrhagia Migraine Morbid obesity with BMI of 50.0-59.9, adult Family History Family History Mother Family history of bipolar disorder Father Family history of chronic obstructive pulmonary disease Social History Social History Years smoked: 3 Smoking status: Former smoker Tobacco type: cigarettes and e-cigarettes/vaping Second hand tobacco smoke exposure: Yes Alcohol intake: current Drinks per week: 0 Alcohol use details: 3/YEAR Substance use: never Substance use type: does not use Gender identity (if verbalized by the patient): Female Spiritual care concerns: No Comments At time of signature, agree with nursing past medical, surgical, social and family history. There is no relevant family history pertinent to the presenting complaint Exam Narrative: GENERAL: Well-appearing, well-nourished, and in no acute distress. HEAD: Normocephalic, atraumatic. EYES: PERRLA, sclera clear ENT: Nares clear, turbinates pink, no rhinorrhea or epistaxis. Mucous membranes moist. TM pearly mix with sharp light reflex bilaterally; no tragal tenderness. Oropharynx without erythema or lesions. Tonsils not enlarged and without exudate. Missing teeth, broken teeth, caries thoroughly tooth #30 is broken with purulent material NECK: Supple. No lymphadenopathy. CHEST: No respiratory distress. Speaks in full sentences. HEART: Regular rate and rhythm. SKIN: Warm, dry, no visible rash. NEURO: Alert and oriented x3. PSYCH: Normal mood and affect Course Course Emergency Course: Patient dental block, she refused Patient is aware of diagnosis, understands and agrees to treatmen
== END 2022-01-04 17:56 | disposition home or self-care (01) ==
PROVIDERS: Emergency Provider Nurse Practitioner; PCP Nurse Practitioner Adult Health
DX: K08.89 Other specified disorders of teeth and supporting structures (principal); J45.909 Unspecified asthma, uncomplicated; E66.01 Morbid (severe) obesity due to excess calories; Z68.42 Body mass index [BMI] 45.0-49.9, adult; F41.9 Anxiety disorder, unspecified
CPT/HCPCS: 99213; G0463

== ENCOUNTER 2022-04-26 19:09 | Emergency (ER) | payer OTHER, SELFPAY ==
[2022-04-26 19:37] VITALS: BP 132/78; PULSE 88; RESP 18; TEMP 36.5; O2SAT 100
[2022-04-26 20:22] LABS: Basophils Percent Auto 0.4 % (0.2-1.2); Eosinophils Absolute Auto 0.1 K/mm3 (0-0.3); Eosinophils Percent Auto 1.2 % (0-4.4); Hematocrit 43.5 % (37.0-47.0); Hemoglobin 13.7 g/dL (12.0-15.0); Immature Granulocyte Absolute 0.02 K/mm3 (0.00-0.031); Immature Granulocyte Percent A 0.3 % (0-0.5); Lymphocytes Absolute Auto 2.39 K/mm3 (0.9-3.2); Mean Corpuscular HGB Conc 31.5 g/dl (32-36); Mean Corpuscular Hemoglobin 27.9 pg (26-34); Mean Corpuscular Volume 88.6 fl (80-100); Mean Platelet Volume 9.1 fl (7.4-10.4); Monocytes Absolute Auto 0.5 K/mm3 (0.1-0.6); Monocytes Percent Auto 7.1 % (2.6-8.5); Neutrophils Absolute Auto 4.4 K/mm3 (1.3-6.7); Platelet Count Result 282 k/mm3 (150-375); Red Blood Count 4.91 M/mm3 (4.2-5.4); Red Cell Distribution Width 13.7 % (11.5-14.5); White Blood Count 7.5 K/mm3 (4.5-10.0)
[2022-04-26 20:43] LABS: Alanine Aminotransferase 26 U/L (6-35); Albumin Level 4.6 g/dL (3.5-5.1); Alkaline Phosphatase 109 U/L (38-126); Anion Gap 8 mmol/L (8-16); Aspartate Amino Transferase 25 U/L (14-36); Bilirubin,Total 0.4 mg/dL (0.2-1.3); Blood Urea Nitrogen 16 mg/dL (7-17); Calcium 8.9 mg/dL (8.4-10.2); Carbon Dioxide 27 mmol/L (22-30); Chloride 104 mmol/L (98-107); Estimated CRCL calculation 107 ml/min; Estimated Glomerular Filt Rate > 60; Glucose 96 mg/dL (65-110); Lipase 56 U/L (23-300); Potassium 3.8 mmol/L (3.4-5.0); Sodium 139 mmol/L (137-145)
[2022-04-26 21:14] LABS: Appearance Urine Cloudy (Clear); Bilirubin Urine Negative (Negative); Blood Urine 2+ (Negative); Color Urine Yellow (Yellow); Glucose Urine UA Negative (Negative); Ketones Urine Trace mg/dL (Negative); Leukocyte Esterase Ur Negative LEU/UL (Negative); Nitrate Urine Negative (Negative); Protein Urine Negative (Negative); Specific Grav Ur >= 1.030 (1.001-1.035)
[2022-04-26 21:21] LABS: Bacteria Urine Trace /hpf; Mucus Urine Moderate /lpf; Squamous Epithelial Cell Urine Many /hpf (Few)
[2022-04-26 21:32] LABS: Add Urine Microscopic? YES
--- NOTE | 2022-04-26 22:07 | PC.NURSE ---
Pt called for room, no answer.
--- NOTE | 2022-04-26 22:15 | PC.NURSE ---
Pt called for room for second time, no answer.
== END 2022-04-26 22:07 | disposition left against medical advice (07) ==
LOC: ANHED 22:21
PROVIDERS: Emergency Provider Emergency Medicine; PCP Nurse Practitioner Adult Health
DX: N93.9 Abnormal uterine and vaginal bleeding, unspecified (principal)
CPT/HCPCS: 36415; 80053; 81001; 83690; 85025; 87086; 87088; 99199

== ENCOUNTER 2022-10-16 14:20 | Emergency (ER) | payer OTHER, SELFPAY ==
[2022-10-16 14:30] VITALS: BP 143/86; PULSE 100; RESP 20; TEMP 36.8; O2SAT 99
--- NOTE | 2022-10-16 14:36 | ED.URI ---
HPI - URI/Sore Throat General Chief Complaint: Upper Respiratory Infection Stated Complaint: sinus pressure chest congestion throat Time Seen by Provider: 10/16/22 14:38 History of Present Illness HPI Narrative: Patient presents with a 4 day history of nasal congestion and runny nose. Patient has tried 1 dose of Claritin with minimal relief in her symptoms. No shortness of breath no chest pain normally healthy individual. Patient states she did home COVID-19 test yesterday and today and both were negative. Patient denies any exposure is eating and drinking well. Related Data Home Medications Medication Instructions Recorded Confirmed dextroamphetamine-amphetamine ER 25 mg PO DAILY 05/25/21 01/04/22 25 mg 24hr capsule,extend release (Adderall XR) alprazolam 0.25 mg tablet 0.25 mg PO DAILY 10/12/21 01/04/22 albuterol sulfate 90 mcg/actuation 2 puff inhalation QID PRN 12/25/21 01/04/22 aerosol inhaler Shortness Of Breath Or Wheezing albuterol sulfate 90 mcg/actuation inhalation 10/16/22 aerosol inhaler cyclobenzaprine 10 mg tablet mg 10/16/22 dextroamphetamine-amphetamine ER PO 10/16/22 25 mg 24hr capsule,extend release fluoxetine 40 mg capsule mg 10/16/22 levothyroxine 100 mcg tablet mcg 10/16/22 quetiapine 50 mg tablet mg 10/16/22 Allergies Allergy/AdvReac Type Severity Reaction Status Date / Time sulfamethoxazole Allergy Anaphylactic Verified 04/26/22 19:41 [From Bactrim] Shock trimethoprim [From Bactrim] Allergy Anaphylactic Verified 04/26/22 19:41 Shock Review of Systems Review of Systems: CONSTITUTIONAL: Denies chills, or sweats. Reports fever and generalized body aches EYES: Denies visual changes, redness, or discharge. ENT: Denies otalgia. Reports nasal congestion runny nose and sore throat CARDIOVASCULAR: Denies chest pain, palpitations, or edema. RESPIRATORY: Denies dyspnea. Reports occasional cough GASTROINTESTINAL: Denies abdominal pain, nausea, vomiting, or diarrhea. GENITOURINARY: Denies dysuria or hematuria. SKIN: Denies rash or itching. MUSCULOSKELETAL: Denies back pain, joint pain, or myalgia. Reports generalized body aches NEUROLOGIC: Denies headache, numbness, or weakness. PSYCHIATRIC: Denies anxiety or depression. [facility] Past Medical History Medical History Abnormal uterine bleeding Anxiety Asthma Bipolar 1 disorder Depression Gastroesophageal reflux disease Kidney stones, calcium oxalate Mass of left forearm Menometrorrhagia Migraine Morbid obesity with BMI of 50.0-59.9, adult Family History Family History Mother Family history of bipolar disorder Father Family history of chronic obstructive pulmonary disease Social History Social History Years smoked: 3 Smoking status: Former smoker Tobacco type: cigarettes and e-cigarettes/vaping Second hand tobacco smoke exposure: Yes Alcohol intake: current Drinks per week: 0 Alcohol use details: 3/YEAR Substance use: never Substance use type: does not use Living arrangements: with family Gender identity (if verbalized by the patient): Female Spiritual care concerns: No Comments At time of signature, agree with nursing past medical, surgical, social and family history. There is no relevant family history pertinent to the presenting complaint Exam Narrative: The patient is a well-developed, well-nourished in no acute distress. SKIN: Skin is warm and dry without erythema, swelling or exudate. There is good turgor. No tenting. HEAD: Atraumatic. Normocephalic. No temporal or scalp tenderness. EYES: Moist and bright. Sclera and conjunctivae normal. No discharge. PERRLA. Extraocular motions intact. Gross visual acuity intact. EARS: Pinna is normal shape and contour. Clear external auditory canals. TM pearly holder with goo
== END 2022-10-16 14:41 | disposition home or self-care (01) ==
PROVIDERS: Emergency Provider Nurse Practitioner Family
DX: J06.9 Acute upper respiratory infection, unspecified (principal); Z87.891 Personal history of nicotine dependence; J45.909 Unspecified asthma, uncomplicated; K21.9 Gastro-esophageal reflux disease without esophagitis; E66.01 Morbid (severe) obesity due to excess calories; Z68.43 Body mass index [BMI] 50.0-59.9, adult; F41.9 Anxiety disorder, unspecified
CPT/HCPCS: 99211; G0463

== ENCOUNTER 2022-12-15 07:29 | Outpatient (CLI) | payer OTHER, SELFPAY ==
--- NOTE | ~2022-12-15 | NM_ITS ---
EXAMINATION: NM hepatobiliary wo pharm DATE: 12/15/2022 12:35 INDICATION: Abdominal discomfort. COMPARISON: CT 05/01/2021 TECHNIQUE: 5 mCi Tc-99m mebrofenin (Choletec) was administered intravenously. Scintigraphic images o f the abdomen were obtained for one hour. Then, the patient drank 8 oz Ensure, and imaging was contin ued for 60 minutes. FINDINGS: There is normal clearance of radiotracer from the blood pool. There is homogeneous tracer u ptake by the liver. Activity progresses to the bowel and gallbladder. Gallbladder ejection fraction (GBEF) was 53%. Note that with this technique, normal GBEF >= 33%. IMPRESSION: 1. Normal hepatobiliary scintigraphy. Reviewed, dictated and finalized at location A.
== END 2022-12-15 07:30 | disposition home or self-care (01) ==
PROVIDERS: Visit Provider Internal Medicine
DX: R10.9 Unspecified abdominal pain (principal); K80.20 Calculus of gallbladder without cholecystitis without obstruction
CPT/HCPCS: 78226; A9537

== ENCOUNTER 2023-01-24 10:24 | Emergency (ER) | payer OTHER, SELFPAY ==
--- NOTE | 2023-01-24 10:30 | ED.URI ---
HPI - URI/Sore Throat General Chief Complaint: Upper Respiratory Infection Stated Complaint: cough/chest congestion Source: patient and RN notes reviewed History of Present Illness HPI Narrative: 32 yo F Presents to urgent care with complaints of a productive cough x 4 days. Pt states she will cough so hard, she has vomited. Pt states she was up all night last night coughing and needs a work note for today. Pt reports associated SOB and upper chest pain that worsens with coughing. Denies any congestion, ear pain, sore throat, diarrhea, fevers, or chills. Pt has attempted taking Mucinex, [place]qu[place], and a humidifier in the bedroom without relief. Related Data Home Medications Medication Instructions Recorded Confirmed dextroamphetamine-amphetamine ER 25 mg PO DAILY 05/25/21 01/04/22 25 mg 24hr capsule,extend release (Adderall XR) alprazolam 0.25 mg tablet 0.25 mg PO DAILY 10/12/21 01/04/22 albuterol sulfate 90 mcg/actuation 2 puff inhalation QID PRN 12/25/21 01/04/22 aerosol inhaler Shortness Of Breath Or Wheezing albuterol sulfate 90 mcg/actuation inhalation 10/16/22 aerosol inhaler cyclobenzaprine 10 mg tablet mg 10/16/22 dextroamphetamine-amphetamine ER PO 10/16/22 25 mg 24hr capsule,extend release fluoxetine 40 mg capsule mg 10/16/22 levothyroxine 100 mcg tablet mcg 10/16/22 quetiapine 50 mg tablet mg 10/16/22 Allergies Allergy/AdvReac Type Severity Reaction Status Date / Time sulfamethoxazole Allergy Anaphylactic Verified 04/26/22 19:41 [From Bactrim] Shock trimethoprim [From Bactrim] Allergy Anaphylactic Verified 04/26/22 19:41 Shock Review of Systems Review of Systems: Pertinent positives and pertinent negatives per HPI. [facility] Past Medical History Medical History Abnormal uterine bleeding Anxiety Asthma Bipolar 1 disorder Depression Gastroesophageal reflux disease Kidney stones, calcium oxalate Mass of left forearm Menometrorrhagia Migraine Morbid obesity with BMI of 50.0-59.9, adult Family History Family History Mother Family history of bipolar disorder Father Family history of chronic obstructive pulmonary disease Social History Social History Years smoked: 3 Smoking status: Former smoker Tobacco type: cigarettes and e-cigarettes/vaping Second hand tobacco smoke exposure: Yes Alcohol intake: current Drinks per week: 0 Alcohol use details: 3/YEAR Substance use: never Substance use type: does not use Living arrangements: with family Gender identity (if verbalized by the patient): Female Spiritual care concerns: No Comments At the time of my signature, I reviewed and agree with the nursing past medical, surgical, social, and family history. There is no relevant family history pertinent to the patient complaint. Exam Narrative: GENERAL: This is a well-nourished, well-developed patient, in no apparent distress. HEAD: normocephalic, atraumatic. EYES: Sclera clear/white. Vision is grossly intact. EARS: External ears normal, auditory canals clear and without drainage. Hearing grossly intact. NOSE: External nose normal with no obvious nasal discharge, nares without redness, no rhinorrhea. THROAT: Mucous membranes moist, posterior pharynx clear. NECK: Neck supple, non-tender without lymphadenopathy, masses or thyromegaly. CARDIOVASCULAR: Regular rate and rhythm without murmurs, gallops, or rubs. RESPIRATORY: Clear to auscultation. Breath sounds equal bilaterally. No wheezes, rales, or rhonchi. GASTROINTESTINAL: Abdomen soft, non-tender, nondistended. Bowel sounds are active. No hepato-splenomegaly, or palpable masses. No guarding. SKIN: warm, intact with no suspicious lesions or rash, good texture and turgor. NEURO: awake, alert, and oriented to person, place and time. Th
[2023-01-24 10:34] VITALS: BP 138/73; PULSE 73; RESP 16; TEMP 36.2; O2SAT 100
== END 2023-01-24 10:45 | disposition home or self-care (01) ==
PROVIDERS: Emergency Provider Nurse Practitioner Family
DX: J40 Bronchitis, not specified as acute or chronic (principal); Z87.891 Personal history of nicotine dependence; J45.909 Unspecified asthma, uncomplicated; K21.9 Gastro-esophageal reflux disease without esophagitis; E66.01 Morbid (severe) obesity due to excess calories; F41.9 Anxiety disorder, unspecified
CPT/HCPCS: 99213; G0463

== ENCOUNTER 2023-02-10 19:25 | Emergency (ER) | payer OTHER, SELFPAY ==
[2023-02-10 19:33] VITALS: BP 128/94; PULSE 112; RESP 16; TEMP 36.6; O2SAT 100
--- NOTE | 2023-02-10 19:38 | ED.BURNSMOKE ---
HPI - Burn/Smoke Inhalation General Chief complaint: Burn/Smoke Inhalation Stated complaint: burn on breast Time Seen by Provider: 02/10/23 19:38 Source: patient Mode of arrival: ambulatory Limitations: no limitations Related Data Home Medications Medication Instructions Recorded Confirmed dextroamphetamine-amphetamine ER 25 mg PO DAILY 05/25/21 01/04/22 25 mg 24hr capsule,extend release (Adderall XR) alprazolam 0.25 mg tablet 0.25 mg PO DAILY 10/12/21 01/04/22 albuterol sulfate 90 mcg/actuation 2 puff inhalation QID PRN 12/25/21 01/04/22 aerosol inhaler Shortness Of Breath Or Wheezing albuterol sulfate 90 mcg/actuation inhalation 10/16/22 aerosol inhaler cyclobenzaprine 10 mg tablet mg 10/16/22 dextroamphetamine-amphetamine ER PO 10/16/22 25 mg 24hr capsule,extend release fluoxetine 40 mg capsule mg 10/16/22 levothyroxine 100 mcg tablet mcg 10/16/22 quetiapine 50 mg tablet mg 10/16/22 doxycycline hyclate 100 mg capsule mg 02/10/23 Allergies Allergy/AdvReac Type Severity Reaction Status Date / Time sulfamethoxazole Allergy Anaphylactic Verified 04/26/22 19:41 [From Bactrim] Shock trimethoprim [From Bactrim] Allergy Anaphylactic Verified 04/26/22 19:41 Shock PMFSH Past Medical History Medical History Abnormal uterine bleeding Anxiety Asthma Bipolar 1 disorder Depression Gastroesophageal reflux disease Kidney stones, calcium oxalate Mass of left forearm Menometrorrhagia Migraine Morbid obesity with BMI of 50.0-59.9, adult Family History Family History Mother Family history of bipolar disorder Father Family history of chronic obstructive pulmonary disease Social History Social History Years smoked: 3 Smoking status: Former smoker Tobacco type: cigarettes and e-cigarettes/vaping Second hand tobacco smoke exposure: Yes Alcohol intake: current Drinks per week: 0 Alcohol use details: 3/YEAR Substance use: never Substance use type: does not use Living arrangements: with family Gender identity (if verbalized by the patient): Female Spiritual care concerns: No Course Vital Signs Vital signs: Vital Signs Temperature 36.6 C 02/10/23 19:33 Pulse Rate 112 H 02/10/23 19:33 Respiratory Rate 16 02/10/23 19:33 Blood Pressure 128/94 H 02/10/23 19:33 Pulse Oximetry 100 02/10/23 19:33 Oxygen Delivery Room Air 02/10/23 19:33 Temperature 36.6 C 02/10/23 19:33 Pulse Rate 112 H 02/10/23 19:33 Respiratory Rate 16 02/10/23 19:33 Blood Pressure 128/94 H 02/10/23 19:33 Pulse Oximetry 100 02/10/23 19:33 Oxygen Delivery Room Air 02/10/23 19:33 Discharge Plan Discharge Prescriptions: No Action alprazolam 0.25 mg Tablet 0.25 mg PO DAILY benzonatate 200 mg capsule 200 mg PO TID PRN (Reason: cough) Qty: 20 0RF prednisone 20 mg tablet 40 mg PO DAILY 5 Days Qty: 10 0RF albuterol sulfate 90 mcg/actuation Hfa Aerosol Inhaler 2 puff INHALATION QID PRN (Reason: Shortness Of Breath Or Wheezing) fluoxetine 40 mg capsule cyclobenzaprine 10 mg tablet levothyroxine 100 mcg tablet albuterol sulfate 90 mcg/actuation HFA aerosol inhaler INHALATION dextroamphetamine-amphetamine 25 mg capsule,extended release 24hr PO quetiapine 50 mg tablet doxycycline hyclate 100 mg capsule dextroamphetamine-amphetamine [Adderall XR] 25 mg Capsule,Extended Release 24hr 25 mg PO DAILY Follow-up/Referrals: PHYSICIAN[facility] [Primary Care Provider] -
--- NOTE | 2023-02-10 19:42 | ED.SKABFB ---
HPI - Skin/Abscess/Foreign Bdy General Chief complaint: Burn/Smoke Inhalation Stated complaint: burn on breast Time Seen by Provider: 02/10/23 19:38 History of Present Illness HPI narrative: 32 yo F presents with c/o sunburn to R breast for 1 wk. Pt states has been peeling and shes been scratching it. Past two days pain worse with increased redness. Pt states she did wear sunscreeen but that it was low SPF and did not reapply. All systems reviewed and negative except as noted above. Related Data Home Medications Medication Instructions Recorded Confirmed dextroamphetamine-amphetamine ER 25 mg PO DAILY 05/25/21 02/10/23 25 mg 24hr capsule,extend release (Adderall XR) alprazolam 0.25 mg tablet 0.25 mg PO DAILY 10/12/21 02/10/23 fluoxetine 40 mg capsule 40 mg PO DAILY 10/16/22 02/10/23 levothyroxine 100 mcg tablet 100 mcg PO DAILY 10/16/22 02/10/23 lamotrigine 100 mg tablet 100 mg PO DAILY 02/10/23 02/10/23 Allergies Allergy/AdvReac Type Severity Reaction Status Date / Time sulfamethoxazole Allergy Anaphylactic Verified 02/10/23 19:42 [From Bactrim] Shock trimethoprim [From Bactrim] Allergy Anaphylactic Verified 02/10/23 19:42 Shock Review of Systems Review of Systems: CONSTITUTIONAL: Denies fever, chills, or sweats. EYES: Denies visual changes, redness, or discharge. ENT: Denies rhinorrhea, congestion, sore throat, or otalgia. CARDIOVASCULAR: Denies chest pain, palpitations, or edema. RESPIRATORY: Denies cough or dyspnea. GASTROINTESTINAL: Denies abdominal pain, nausea, vomiting, or diarrhea. GENITOURINARY: Denies dysuria or hematuria. SKIN: Denies rash or itching. Reports redness and pain to R breast from sunburn MUSCULOSKELETAL: Denies back pain, joint pain, or myalgia. NEUROLOGIC: Denies headache, numbness, or weakness. PSYCHIATRIC: Denies anxiety or depression. All other systems reviewed are negative, except as documented in HPI. [facility] Past Medical History Medical History Abnormal uterine bleeding Anxiety Asthma Bipolar 1 disorder Depression Gastroesophageal reflux disease Kidney stones, calcium oxalate Mass of left forearm Menometrorrhagia Migraine Morbid obesity with BMI of 50.0-59.9, adult Family History Family History Mother Family history of bipolar disorder Father Family history of chronic obstructive pulmonary disease Social History Social History Years smoked: 3 Smoking status: Former smoker Tobacco type: cigarettes and e-cigarettes/vaping Second hand tobacco smoke exposure: Yes Alcohol intake: current Drinks per week: 0 Alcohol use details: 3/YEAR Substance use: never Substance use type: does not use Living arrangements: with family Gender identity (if verbalized by the patient): Female Spiritual care concerns: No Comments At time of signature, agree with nursing past medical, surgical, social and family history. There is no relevant family history pertinent to the presenting complaint. Exam Narrative: GENERAL: This is a well-nourished, well-developed patient, in no apparent distress. HEAD: normocephalic, atraumatic. EYES: PERRL. Sclera clear/white. Vision is grossly intact. EARS: External ears normal NOSE: External nose normal NECK: Neck supple, non-tender without lymphadenopathy, masses or thyromegaly. CARDIOVASCULAR: Regular rate and rhythm without murmurs, gallops, or rubs. RESPIRATORY: Clear to auscultation. Breath sounds equal bilaterally. No wheezes, rales, or rhonchi. SKIN: warm, Dry, intact with no suspicious lesions or rash, good texture and turgor. erythema to R breast. skin peeling. mild swelling, warm on palpation. no fluctuance or drainage. NEURO: awake, alert, and oriented to person, place and time. There were no obvious focal neurologic abnormalities
== END 2023-02-10 19:54 | disposition home or self-care (01) ==
PROVIDERS: Emergency Provider Nurse Practitioner Family
DX: L55.9 Sunburn, unspecified (principal); N61.0 Mastitis without abscess; Z87.891 Personal history of nicotine dependence; J45.909 Unspecified asthma, uncomplicated; K21.9 Gastro-esophageal reflux disease without esophagitis; E66.01 Morbid (severe) obesity due to excess calories; Z68.43 Body mass index [BMI] 50.0-59.9, adult; F41.9 Anxiety disorder, unspecified; F31.9 Bipolar disorder, unspecified
CPT/HCPCS: 99213; G0463

== ENCOUNTER 2023-06-06 08:01 | Emergency (ER) | payer OTHER, SELFPAY ==
--- NOTE | 2023-06-06 08:09 | ED.URI ---
HPI - URI/Sore Throat General Chief Complaint: Upper Respiratory Infection Stated Complaint: Sore Throat/Sinus Congestion Time Seen by Provider: 06/06/23 08:31 Source: patient and RN notes reviewed Mode of arrival: ambulatory Limitations: no limitations History of Present Illness HPI Narrative: 33-year-old female presents with concern for 3-4 day history of nasal congestion, rhinorrhea, sore throat, ear pain, cough, body aches, fever. Reports her daughter has similar symptoms. Reports she has taken multiple [id number] medications without relief. Reports she took negative COVID test yesterday MD elicited complaint: cough and sore throat Related Data Home Medications Medication Instructions Recorded Confirmed dextroamphetamine-amphetamine ER 25 mg PO DAILY 05/25/21 06/06/23 25 mg 24hr capsule,extend release (Adderall XR) alprazolam 0.25 mg tablet 0.25 mg PO DAILY 10/12/21 06/06/23 fluoxetine 40 mg capsule 40 mg PO DAILY 10/16/22 06/06/23 levothyroxine 100 mcg tablet 100 mcg PO DAILY 10/16/22 06/06/23 lamotrigine 100 mg tablet 200 mg PO DAILY 02/10/23 06/06/23 Allergies Allergy/AdvReac Type Severity Reaction Status Date / Time sulfamethoxazole Allergy Anaphylactic Verified 06/06/23 08:28 [From Bactrim] Shock trimethoprim [From Bactrim] Allergy Anaphylactic Verified 06/06/23 08:28 Shock Review of Systems Review of Systems: CONSTITUTIONAL: Reports malaise, fever. EYES: Denies visual changes, redness, or discharge. ENT: Reports rhinorrhea, congestion, otalgia and sore throat. CARDIOVASCULAR: Denies chest pain, palpitations, or edema. RESPIRATORY: Reports cough. Denies dyspnea. GASTROINTESTINAL: Denies abdominal pain, nausea, vomiting, diarrhea SKIN: Denies rash or itching. MUSCULOSKELETAL: Reports myalgia. NEUROLOGIC: Reports headache. All systems reviewed & are unremarkable except as noted in HPI and below PMFSH Past Medical History Medical History Abnormal uterine bleeding Anxiety Asthma Bipolar 1 disorder Depression Gastroesophageal reflux disease Kidney stones, calcium oxalate Mass of left forearm Menometrorrhagia Migraine Morbid obesity with BMI of 50.0-59.9, adult Family History Family History Mother Family history of bipolar disorder Father Family history of chronic obstructive pulmonary disease Social History Social History Years smoked: 3 Smoking status: Former smoker Tobacco type: cigarettes and e-cigarettes/vaping Second hand tobacco smoke exposure: Yes Alcohol intake: current Drinks per week: 0 Alcohol use details: 3/YEAR Substance use: never Substance use type: does not use Living arrangements: with family Gender identity (if verbalized by the patient): Female Spiritual care concerns: No Comments At time of signature, agree with nursing past medical, surgical, social and family history. There is no relevant family history pertinent to the presenting complaint Exam Narrative: GENERAL: Nontoxic-appearing and in no acute distress. HEAD: Normocephalic EYES: PERRLA, conjunctivae clear ENT: Nares clear, turbinates edematous and erythematous, clear discharge. Mucous membranes moist. TM pearly mix with sharp light reflex bilaterally; no tragal tenderness. Oropharynx not erythematous without lesions. Tonsils not enlarged and without exudate, no drooling, no hoarseness, no trismus, uvula midline. NECK: Supple. No lymphadenopathy CHEST: Clear to auscultation, breath sounds equal. No wheezing, rhonchi, rales, or stridor. No respiratory distress, speaks in full sentences. HEART: Regular rate and rhythm. No murmur heard. SKIN: Warm, dry, no rash. NEURO: Alert and oriented x3. PSYCH: Normal mood and affect Course Course Emergency Course: Patient is aware of diagnosis,
[2023-06-06 08:14] VITALS: BP 114/72; PULSE 78; RESP 20; TEMP 36.6; O2SAT 98
== END 2023-06-06 09:12 | disposition home or self-care (01) ==
PROVIDERS: Emergency Provider Nurse Practitioner
DX: J11.1 Influenza due to unidentified influenza virus with other respiratory manifestations (principal); Z20.822 Contact with and (suspected) exposure to COVID-19; F17.210 Nicotine dependence, cigarettes, uncomplicated; F17.290 Nicotine dependence, other tobacco product, uncomplicated; J45.909 Unspecified asthma, uncomplicated; K21.9 Gastro-esophageal reflux disease without esophagitis; E66.01 Morbid (severe) obesity due to excess calories; Z68.43 Body mass index [BMI] 50.0-59.9, adult; F41.9 Anxiety disorder, unspecified; F31.9 Bipolar disorder, unspecified
CPT/HCPCS: 87081; 87426; 87804; 87880; 99213; C9803; G0463

== ENCOUNTER 2024-01-04 14:20 | Emergency (ER) | payer OTHER, SELFPAY ==
[2024-01-04 14:25] VITALS: BP 132/89; PULSE 89; RESP 14; TEMP 36.9; O2SAT 99
--- NOTE | 2024-01-04 14:58 | ED.URI ---
HPI - URI/Sore Throat General Chief Complaint: Upper Respiratory Infection Stated Complaint: Chest Contestion/Cough/Sore Throat/Ear Pain Time Seen by Provider: 01/04/24 14:59 Source: patient Mode of arrival: ambulatory Limitations: no limitations History of Present Illness HPI Narrative: 33-year-old female presented for complaint of cough and chest congestion for about 4 days. Endorses exposure to influenza. Denies shortness of breath, wheezing nausea, vomiting, diarrhea, fevers or chills. She has a history of asthma and has been using her albuterol inhaler, Sudafed and Tylenol without significant improvement symptoms. She states the cough is forceful, nonproductive, feels like she is about to vomit. Related Data Home Medications Medication Instructions Recorded Confirmed alprazolam 0.25 mg tablet 0.25 mg PO DAILY 10/12/21 01/04/24 fluoxetine 40 mg capsule 40 mg PO DAILY 10/16/22 01/04/24 levothyroxine 100 mcg tablet 100 mcg PO DAILY 10/16/22 01/04/24 lamotrigine 100 mg tablet 200 mg PO DAILY 02/10/23 01/04/24 dextroamphetamine-amphetamine ER 30 mg PO DAILY 01/04/24 01/04/24 30 mg 24hr capsule,extend release Allergies Allergy/AdvReac Type Severity Reaction Status Date / Time sulfamethoxazole Allergy Severe Anaphylactic Verified 01/04/24 14:44 [From Bactrim] Shock trimethoprim [From Bactrim] Allergy Severe Anaphylactic Verified 01/04/24 14:44 Shock Review of Systems Review of Systems: CONSTITUTIONAL: Denies body aches, fever, chills, or sweats. EYES: Denies visual changes, redness, or discharge. ENT: Reports rhinorrhea, congestion, denies sore throat, or otalgia. CARDIOVASCULAR: Denies chest pain, palpitations, or edema. RESPIRATORY: Reports cough, denies sob, wheezing. GASTROINTESTINAL: Denies abdominal pain, nausea, vomiting, or diarrhea. SKIN: Denies rash, itching, or wounds. MUSCULOSKELETAL: Denies back pain, joint pain, or myalgia. NEUROLOGIC: Denies headache, numbness, tingling, or weakness. All systems reviewed & are unremarkable except as noted in HPI and below PMFSH Past Medical History Medical History Abnormal uterine bleeding Anxiety Asthma Bipolar 1 disorder Depression Gastroesophageal reflux disease Kidney stones, calcium oxalate Mass of left forearm Menometrorrhagia Migraine Morbid obesity with BMI of 50.0-59.9, adult Family History Family History Mother Family history of bipolar disorder Father Family history of chronic obstructive pulmonary disease Social History Social History Years smoked: 3 Smoking status: Former smoker Tobacco type: cigarettes and e-cigarettes/vaping Second hand tobacco smoke exposure: Yes Alcohol intake: current Drinks per week: 0 Alcohol use details: 3/YEAR Substance use: never Substance use type: does not use Living arrangements: with family Gender identity (if verbalized by the patient): Female Spiritual care concerns: No Comments At time of signature, I have reviewed and agree with nursing past medical, surgical, social and family history unless otherwise noted. Please see nursing chart for further information. There is no relevant family history pertinent to the presenting complaint Exam Narrative: GENERAL: Well-appearing, in no acute distress. EYES: EOMI. No redness or drainage. Conjunctivae normal. ENT: Mucous membranes pink and moist. No rhinorrhea. right TM normal, left TM intact with clear effusion; canal not erythematous, no drainage. Throat normal. Uvula midline. NECK: Normal AROM. Supple. CHEST: No respiratory distress. lungs clear to all pereira. HEART: Regular rate and rhythm. No murmur appreciated. ABDOMEN: Soft, nontender, nondistended, normal active bowel sounds. SKIN: Warm, dry, no rash. Capillary refill normal. Normal
== END 2024-01-04 15:06 | disposition home or self-care (01) ==
PROVIDERS: Emergency Provider Nurse Practitioner Family; PCP Internal Medicine
DX: B34.9 Viral infection, unspecified (principal); Z20.822 Contact with and (suspected) exposure to COVID-19; J45.909 Unspecified asthma, uncomplicated; K21.9 Gastro-esophageal reflux disease without esophagitis; F41.9 Anxiety disorder, unspecified; F31.9 Bipolar disorder, unspecified
CPT/HCPCS: 87426; 87804; 99213; G0463

== ENCOUNTER 2024-07-14 09:29 | Emergency (ER) | payer OTHER, SELFPAY ==
[2024-07-14 09:44] VITALS: BP 124/78; PULSE 72; RESP 18; TEMP 36.2; O2SAT 100
--- NOTE | 2024-07-14 09:54 | ED.URI ---
HPI - URI/Sore Throat General Chief Complaint: Upper Respiratory Infection Stated Complaint: Cough/Chest Congestion Time Seen by Provider: 07/14/24 09:54 Source: patient, RN notes reviewed and old records reviewed Mode of arrival: ambulatory Limitations: no limitations History of Present Illness HPI Narrative: 34-year-old female presents to [facility] care with complaints of cough and some fevers for the past 3 days with fatigue and sinus congestion and drainage. Patient reports that she does have history of asthma and has been using her inhaler. She reports that she has been taking Flaqu[place] cold medication and also has been taking NyQuil. Patient reports no acute shortness of breath with respirations nonlabored and no tachypnea, SAO2 100% on room air. MD elicited complaint: cough and other (Congestion) Onset (ago): day(s) (3) Severity: moderate Able to tolerate fluids by mouth: Yes Treatments prior to arrival: cold medicine and other (NyQuil and inhaler) Related Data Home Medications ?Medication ?Instructions ?Recorded ?Confirmed ?Last Taken ?Type alprazolam 0.25 mg tablet 0.25 mg PO DAILY 10/12/21 01/04/24 Unknown History fluoxetine 40 mg capsule 40 mg PO DAILY 10/16/22 01/04/24 Unknown History lamotrigine 100 mg tablet 200 mg PO DAILY 02/10/23 01/04/24 Unknown History dextroamphetamine-amphetamine ER 30 mg PO DAILY 01/04/24 01/04/24 Unknown History 30 mg 24hr capsule,extend release Allergies Allergy/AdvReac Type Severity Reaction Status Date / Time sulfamethoxazole (From Allergy Severe Anaphylactic Verified 01/04/24 14:44 Bactrim) Shock trimethoprim (From Bactrim) Allergy Severe Anaphylactic Verified 01/04/24 14:44 Shock Review of Systems Review of Systems: CONSTITUTIONAL:Reports malaise, chills, sweats, or fever. EYES: Denies visual changes, redness, or discharge. ENT: Reports rhinorrhea, congestion, no sinus pain,no otalgia and no sore throat. CARDIOVASCULAR: Denies chest pain, palpitations, or edema. RESPIRATORY: Reports cough.? Denies dyspnea. GASTROINTESTINAL: Denies abdominal pain, nausea, vomiting, diarrhea SKIN: Denies rash or itching. MUSCULOSKELETAL: Denies myalgia. NEUROLOGIC: Denies headache. All systems reviewed & are unremarkable except as noted in HPI and below PMFSH Past Medical History Medical History Mass of left forearm Kidney stones, calcium oxalate Abnormal uterine bleeding Bipolar 1 disorder Menometrorrhagia Depression Anxiety Gastroesophageal reflux disease Asthma Migraine Morbid obesity with BMI of 50.0-59.9, adult Family History Family History Mother Family history of bipolar disorder Father Family history of chronic obstructive pulmonary disease Social History Social History Years smoked: 3 Smoking status: Current every day smoker Tobacco type: e-cigarettes/vaping Second hand tobacco smoke exposure: Yes Additional smoking assessment comments: former cigarette smoker now vapes Alcohol intake: current Drinks per week: 0 Alcohol use details: 3/YEAR Substance use: never Substance use type: does not use Living arrangements: with family Gender identity (if verbalized by the patient): Female Spiritual care concerns: No Comments At time of signature, agree with nursing past medical, surgical, social and family history. There is no relevant family history pertinent to the presenting complaint Exam Narrative: GENERAL: Well-appearing, well-nourished,morbidly obese, and in no acute distress. HEAD: Normocephalic EYES: PERRLA, conjunctivae clear ENT: Nares clear, turbinates edematous and erythematous, yellow discharge. Mucous membranes moist. TM pearly mix with dull light reflex bilaterally; no tragal tenderness. Oropharynx erythematous without lesions. Tonsils not enlarged and without exudate, no drooling, no hoarseness, no trismus, uvula midline.post nasal drainage NECK: Supple. No lymphadenopathy CHEST: Clear to auscultation, breath sounds equal. No wheezing, rhonchi, rales, or stridor. No respiratory distress, speaks in full sentences.cough present SAO2 100% on room air HEART: Regular rate and rhythm. No murmur heard. SKIN: Warm, dry, no rash. NEURO: Alert and oriented x3. PSYCH: Normal mood and affect Course Course Emergency Course: Patient is aware of diagnosis, understands and agrees to treatment plan.? Anticipatory guidance given.? Patient agrees to follow-up as directed and is aware of reasons to seek care at the emergency department. Portions of this record may have been created with voice recognition software Level of Care: Express Care Visit Vital Signs Vital signs: Vital Signs Temperature 36.2 C L 07/14/24 09:44 Pulse Rate 72 07/14/24 09:44 Respiratory Rate 18 07/14/24 09:44 Blood Pressure 124/78 07/14/24 09:44 Pulse Oximetry 100 07/14/24 09:44 Oxygen Delivery Room Air 07/14/24 09:44 Temperature 36.2 C L 07/14/24 09:44 Pulse Rate 72 07/14/24 09:44 Respiratory Rate 18 07/14/24 09:44 Blood Pressure 124/78 07/14/24 09:44 Pulse Oximetry 100 07/14/24 09:44 Oxygen Delivery Room Air 07/14/24 09:44 Reviewed MDM - URI/Sore Throat MDM Narrative Medical decision making narrative: Differential diagnosis considered: Davila virus, strep pharyngitis, allergic rhinitis, upper respiratory tract infection, sinusitis, rhinosinusitis, nasopharyngitis. viral pharyngitis, otitis media, otitis externa, pneumonia, bronchitis, viral cough syndrome, viral syndrome, and influenza.? Exam findings show no acute concerns or changes; patient is non-toxic appearing and is in no distress.? Patient is appropriate for outpatient treatment and follow-up. Differential Diagnosis Differential diagnosis: Likely upper respiratory infection, viral infection, bronchitis, influenza, pharyngitis and other (strep pharyngitis, COVID) Medical Records Attestation: I reviewed the patient's medical records. Lab Data Attestation: I reviewed the patient's lab results. Lab results narrative: strep screen negative, culture sent,Influenza A negative, Influenza B negative, COVID antigen negative Labs: Lab Results 07/14/24 Range/Units 09:45 POC Influenza A Ag Negative (Negative) POC Influenza B Ag Negative (Negative) POC SARS CoV-2 Ag Negative (Negative) POC Grp A Strep Screen Negative (Negative) Critical Care Time Critical Care Time Critical Care Time: No Discharge Plan Discharge Clinical Impression: Upper respiratory infection with cough and congestion Patient Disposition: Home, Self-Care Condition: Stable Instructions: Antibiotic Form, Upper Respiratory Infection (ED) Additional Instructions: Increase fluids especially juices and water [id number] cough and cold medicine of your choice for your symptoms Zyrtec or Claritin daily or Sharon Continue your inhaler/nebulizer as directed Steroids as directed--take with food heat to the face 20-30 minutes 4-6 times a day for pain Salt water gargles, throat lozenges or throat sprays as desired If your symptoms persist, change or worsen significantly before you can contact your personal physician then please, without delay, go to the emergency department for further evaluation. Follow-up with PCP in 7-10 days or sooner if needed Follow up with PCP soon in regards to your blood pressure which is elevated above threshold for referral. Blood pressure above 120/80 may indicate pre-hypertension. STOP VAPING Patient Language: Romanian Prescriptions: New prednisone 20 mg tablet 20 mg PO BID Qty: 10 0RF cetirizine [Zyrtec] 10 mg tablet 10 mg PO DAILY Qty: 30 0RF No Action alprazolam 0.25 mg Tablet 0.25 mg PO DAILY fluoxetine 40 mg capsule 40 mg PO DAILY lamotrigine 100 mg Tablet 200 mg PO DAILY dextroamphetamine-amphetamine 30 mg capsule,extended release 24hr 30 mg PO DAILY Follow-up/Referrals: Barry Beltran MD [Primary Care Provider] - Time of Disposition: 10:19 Quality Larry Coma Scale Eyes: Open Verbal: Oriented and Alert Motor: Follows Commands [place] Coma Total Score: 15
[2024-07-14 10:19] LABS: EDCOVIDSCREEN Negative (Negative); EDINFLUASCREEN Negative (Negative); EDINFLUBSCREEN Negative (Negative); EDSTREPNEGPOS1 Negative (Negative)
--- OUTSIDE RECORDS SUMMARY | 2024-07-21 11:33 | XMS_ITS ---
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
--- OUTSIDE RECORDS SUMMARY | 2024-07-21 11:35 | XMS_ITS | Encounter Summary ---
Author Organization [facility] Address [address] [place] [address]. [place], [place] [id number] [place] [id number] Care Team Providers Care Junior Assistant Manager Name Role Phone Barry Beltran MD Primary Care Provider [phone] Reason for Visit * Reason Comments Headache Vomiting Diarrhea Encounter Details Date Type Department Care Team (Late st Contact Info) Description 03/17/2023 11:12 PM CDT - 03/18/2023 12:47 AM CDT Emergency [facility] Emergency Room [address] [place] [address] Barbara Yan MD [address] [place] [id number] Headache; Vomiting; Diarrhea Discharge Disposition: Home or Self Care (Routine Discharge) Social History Tobacco Use Types Packs/Day Years Used Date Smoking Tobacco: Never Assessed Comments No Sex and Gender Information Value Date Recorded Sex Assigned at Female 03/14/2024 7:53 AM CDT Legal Sex Female 10:22 PM [employer] Gender Identity Female 03/14/2024 7:53 AM CDT Sexual Orientation Lesbian 03/14/2024 7: 53 AM CDT documented as of this encounter Last Filed Vital Signs Vital Sign Reading Time Taken Comments Blood Pressure 135/59 03/17/2023 11:15 PM CDT Pulse 71 03/17/2023 11:15 PM CDT Temperature 36.9 ??C (98.4 ??F) 03/17/2023 11:15 PM C DT Respiratory Rate 20 03/17/2023 11:15 PM CDT Oxygen Saturation 97% 03/17/2023 11:15 PM CDT Inhaled Oxygen Concentration - - Weight - - Height - - Body Mass Index - - documented in this encounter Discharge Instructions * Discharge Instructions* Barbara Yan MD - 03/18/2023 12:33 AM CDT Please followup with your PCP. Drink plenty of fluids. Good handwashing. Return to ED if worse in any way * Attachments The following attachments cannot be sent through Care Everywhere. * Migraines Discharge Instructions (Montenegrin) * Diarrhea, Adult ED (Montenegrin) documented in this encounter ED Notes * Barbara Yan MD - 03/17/2023 11:14 PM CDT Chief Complaint Chief Complaint Patient presents with Headache Vomiting Diarrhea History of Present Illness 32yo female with hx of migraines presenting with migraine headache with nausea and also complains of diarrhea that have been going on for the last 5 days. Denies any recent antibiotics. Denies any photophobia or phonophobia. States this feels like previous migraines except for the diarrhea. She denies this being the worst headache of her life. Denies any fevers or chills. Denies any abdominal pain. Denies any neck pain. Medical History ALLERGIES: Review of patient's allergies indicates: Allergen Reactions Bactrim [Sulfamethoxazole-Trimethoprim] Anaphylaxis MEDICATIONS: Prior to Admission medications Not on File PAST MEDICAL HISTORY: No past medical history on file. PAST SURGICAL HISTORY: No past surgical history on file. FAMILY HISTORY: No family history on file. SOCIAL HISTORY: Review of Systems Review of Systems Constitutional: Negative for chills and fever. HENT: Negative for congestion, ear pain, sinus pain and sore throat. Eyes: Negative for photophobia and visual disturbance. Respiratory: Negative for chest tightness and shortness of breath. Cardiovascular: Negative for chest pain. Gastrointestinal: Positive for diarrhea and nausea. Negative for vomiting. Genitourinary: Negative for dysuria. Neurological: Positive for headaches. Negative for weakness. All other systems reviewed and are negative. Physical Exam Filed Vitals: 03/17/23 2315 BP: 135/59 Pulse: 71 Resp: 20 Temp: 98.4 ??F (36.9 ??C) SpO2: 97% Physical Exam Vitals and nursing note reviewed. Constitutional: Appearance: Normal appearance. HENT: Head: Normocephalic and atraumatic. Right Ear: External ear normal. Left Ear: External ear normal. Nose: Nose normal. Mouth/Throat: Mouth: Mucous membranes are moist. Eyes: Conjunctiva/sclera: Conjunctivae normal. Pupils: Pupils are equal, round, and reactive to light. Cardiovascular: Rate and Rhythm: Normal rate and regular rhythm. Pulses: Normal pulses. Pulmonary: Effort: Pulmonary effort is normal. Breath sounds: Normal breath sounds. Abdominal: General: Bowel sounds are normal. Palpations: Abdomen is soft. Tenderness: There is no abdominal tenderness. There is no right CVA tenderness, left CVA tenderness, guarding or rebound. Musculoskeletal: General: Normal range of motion. Cervical back: Normal range of motion and neck supple. No rigidity. Skin: General: Skin is warm and dry. Capillary Refill: Capillary refill takes less than 2 seconds. Neurological: Mental Status: She is alert and oriented to person, place, and time. Diagnostic Studies / Procedures ELECTROCARDIOGRAMS: No results found for this visit on 03/17/23. LABORATORY STUDIES: Results for orders placed or performed during the hospital encounter of 03/17/23 CBC W/DIFF AUTOMATED Result Value Ref Range WBC 6.04 4.4 - 11.0 x10'3/uL RBC 4.63 4.50 - 5.10 x10'6/uL HGB 12.7 12.3 - 15.3 G/DL HCT 39.8 35.9 - 44.6 % MCV 86.0 80.0 - 96.0 FL MCH 27.4 25.3 - 30.9 PG MCHC 31.9 31.0 - 34.1 G/DL RDW 13.5 12.4 - 15.1 % PLT 223 151 - 353 x10'3/uL MPV 9.7 9.6 - 12.0 FL RBC MORPHOLOGY NORMAL PLT MORPH. NORMAL WBC MORPHOLOGY NORMAL LYMPHOCYTES 33.8 15.8 - 45.0 % NEUTROPHILS 54.7 42.1 - 71.9 % MONOCYTES 8.8 5.7 - 12.5 % EOSINOPHILS 1.7 0.0 - 5.6 % BASOPHILS 0.7 0.0 - 1.3 % ABS. NEUTROPHILS 3.31 1.40 - 6.00 x10'3/uL IMMATURE GRANS 0.3 0.0 - 0.5 % ABS. LYMPHOCYTES 2.04 0.80 - 4.70 x10'3/uL COMPREHENSIVE METABOLIC PANEL Result Value Ref Range GLUCOSE 97 70 - 99 MG/DL BUN 9 7 - 18 MG/DL CREATININE S/P/B 0.79 0.55 - 1.02 MG/DL SODIUM S/P/B 144 136 - 145 MMOL/L POTASSIUM S/P/B 3.4 (L) 3.5 - 5.1 MMOL/L CHLORIDE S/P/B 108 100 - 108 MMOL/L CO2 28.5 21 - 32 MMOL/L CALCIUM S/P/B 8.6 8.5 - 10.1 MG/DL BILIRUBIN TOTAL S/P/B 0.2 0.2 - 1.2 MG/DL TOTAL PROTEIN S/P/B 6.5 6.4 - 8.2 G/DL ALBUMIN S/P/B 3.1 (L) 3.4 - 5.0 G/DL AST 23 15 - 37 U/L ALT 39 14 - 55 U/L ALKALINE PHOSPHATASE S/P/B 89 50 - 136 U/L ANION GAP 7.5 5 - 15 MMOL/L BUN CREATININE RATIO 11.4 6 - 26 A/G RATIO 0.9 (L) 1.0 - 2.0 RATIO GFR ESTIMATE >90 >90 ML/MIN/1.73 M2 MAGNESIUM Result Value Ref Range MAGNESIUM 1.7 (L) 1.8 - 2.4 MG/DL IMAGING STUDIES No orders to display ED Course / Medical Decision Making Medical Decision Making 32-year-old female presenting with migraine and diarrhea. Regarding the diarrhea, I do wonder if this is more of a viral illness. She does not have any abdominal tenderness on exam and her vital signs are stable without fevers or chills and also denies any recent antibiotics or travel. Laboratory studies will be obtained to evaluate for possible dehydration or electrolyte abnormalities. Patient will be given IV fluids in regards to her migraine as well as Toradol, Benadryl, Compazine. This is not the worst headache of her life so I think it is unlikely to be a subarachnoid hemorrhage. She is not experiencing any meningismus or neck pain or fevers or chills so I think this is unlikely to be m eningitis. Amount and/or Complexity of Data Reviewed Independent Historian: spouse External Data Reviewed: notes. Details: previous visits for migraine Labs: ordered. Decision-making details documented in ED Course. Risk Prescription drug management. ED Course as of 03/18/23 003TueMar 18, 2023 0027 MAGNESIUM(!) Magnesium mildly low at 1.7 [GJ] 0027 POTASSIUM S/P/B(!): 3.4 K mildly low at 3.4 [GJ] 0027 Will replete both K and Mag orally [GJ] 0028 COMPREHENSIVE METABOLIC PANEL(!) Normal creatinine. Normal bicarb. Normal anion gap. Patient does not show evidence of dehydration on her laboratory studies [GJ] 0031 CBC W/DIFF AUTOMATED No leukocytosis. No anemia [GJ] 0031 Patient feeling improved on re-evaluation. She requests a work note for today which will be provided. Encouraged followup with PCP and discussed reasons to return to ED. Discharged home in stable condition [GJ] ED Course User Index [GJ] Barbara Yan MD Clinical Impression Migraine without status migrainosus, not intractable, unspecified migraine type (Primary) Diarrhea, unspecified type Disposition: Discharge Barbara Yan MD 03/18/2333 documented in this encounter Plan of Treatment Not on file documented as of this encounter Procedures Procedure Name Priority Date/Time Associated Diagnosis Comments COMPREHENSIVE METABOLIC PANEL STAT 03/18/2023 12:05 AM CDT CBC W/DIFF AUTOMATED STAT 03/18/2023 12:05 AM CDT MAGNESIUM STAT 03/18/2023 12:05 AM CDT documented in this encounter Results * (ABNORMAL) MAGNESIUM (03/18/2023 12:05 AM CDT) MAGNESIUM 1.7(L) 1.8 - 2.4 MG/DL 03/18/2023 12:26 AM CDT [facility] 03/18/2023 12:0 5 AM CDT us Barbara Yan MD LABORATORY Final Resu lt [facility] [address] [place] [address], [place] [phone] * (ABNORMAL) COMPREHENSIVE METABOLIC PANEL (03/18/2023 12:05 AM CDT) [facility] GLUCOSE 97 70 - 99 MG/DL 03/18/2023 12:26 AM CDT [facility] BUN 9 7 - 18 MG/DL 03/18/2023 12:26 AM T [facility] CREATININE S/P/B 0.79 0.55 - 1.02 MG/DL 03/18/2023 12:26 AM CDT [facility] SODIUM S/P/B 144 136 - 145 MMOL/L 03/18/2023 12:26 AM T [facility] POTASSIUM S/P/B 3.4(L) 3.5 - 5.1 MMOL/L 03/18/2023 12:26 AM T [facility] CHLORIDE S/P/B 108 100 - 108 MMOL/L 03/18/2023 12:26 AM T [facility] CO2 28.5 21 - 32 MMOL/L 03/18/2023 12:26 AM T [facility] CALCIUM S/P/B 8.6 8.5 - 10.1 MG/DL 03/18/2023 12:26 AM T [facility] BILIRUBIN TOTAL S/P/B 0.2 0.2 - 1.2 MG/DL 03/18/2023 12:26 AM T [facility] TOTAL PROTEIN S/P/B 6.5 6.4 - 8.2 G/DL 03/18/2023 12:26 AM T [facility] ALBUMIN S/P/B 3.1(L) 3.4 - 5.0 G/DL 03/18/2023 12:26 AM CDT [facility] AST 23 15 - 37 U/L 03/18/2023 12:26 AM CDT [facility] ALT 39 14 - 55 U/L 03/18/2023 12:26 AM CDT [facility] ALKALINE PHOSPHATASE S/P/B 89 50 - 136 U/L 03/18/2023 12:26 AM CDT [facility] ANION GAP 7.5 5 - 15 MMOL/L 03/18/2023 12:26 AM T [facility] BUN CREATININE RATIO 11.4 6 - 26 03/18/2023 12:26 AM T [facility] A/G RATIO 0.9(L) 1.0 - 2.0 RATIO 03/18/2023 12:26 AM T [facility] GFR ESTIMATE >90 >90 ML/MIN/1.7 3 M2 03/18/2023 12:26 AM T [facility] Comment: NOTE: eGFR is not calculated for patients <18 years of age. This is an estimated GFR calculation using the new CKD EPI creatinine equation without race and so does not require a correction factor for race. This estimated GFR should not be used for calculating drug doses. 03/18/2023 12:0 5 AM CDT us Barbara Yan MD LABORATORY Final Resu lt [facility] [address] [place] [address], * CBC W/DIFF AUTOMATED (03/18/2023 12:05 AM CDT) WBC 6.04 4.4 - 11.0 x10'3/uL 03/18/2023 12:29 AM CDT [facility] RBC 4.63 4.50 - 5.10 x10'6/uL 03/18/2023 12:29 AM CDT [facility] HGB 12.7 12.3 - 15.3 G/DL 03/18/2023 12:29 AM CDT [facility] HCT 39.8 35.9 - 44.6 % 03/18/2023 12:29 AM CDT [facility] MCV 86.0 80.0 - 96.0 FL 03/18/2023 12:29 AM CDT [facility] MCH 27.4 25.3 - 30.9 PG 03/18/2023 12:29 AM CDT [facility] MCHC 31.9 31.0 - 34.1 G/DL 03/18/2023 12:29 AM T [facility] RDW 13.5 12.4 - 15.1 % 03/18/2023 12:29 AM T [facility] PLT 223 151 - 353 x10'3/uL 03/18/2023 12:29 AM T [facility] MPV 9.7 9.6 - 12.0 FL 03/18/2023 12:29 AM CDT [facility] RBC MORPHOLOGY NORMAL 03/18/2023 12:29 AM T [facility] PLT MORPH. NORMAL 03/18/2023 12:29 AM T [facility] WBC MORPHOLOGY NORMAL 03/18/2023 12:29 AM T [facility] LYMPHOCYTES % 33.8 15.8 - 45.0 % 03/18/2023 12:29 AM CDT [facility] NEUTROPHILS % 54.7 42.1 - 71.9 % 03/18/2023 12:29 AM CDT [facility] MONOCYTES % 8.8 5.7 - 12.5 % 03/18/2023 12:29 AM CDT [facility] EOSINOPHILS 1.7 0.0 - 5.6 % 03/18/2023 12:29 AM CDT [facility] BASOPHILS 0.7 0.0 - 1.3 % 03/18/2023 12:29 AM CDT [facility] ABS. NEUTROPHILS 3.31 1.40 - 6.00 x10'3/uL 03/18/2023 12:29 AM CDT [facility] IMMATURE GRANS % 0.3 0.0 - 0.5 % 03/18/2023 12:29 AM CDT [facility] ABS. LYMPHOCYTES 2.04 0.80 - 4.70 x10'3/uL 03/18/2023 12:29 AM CDT [facility] 03/18/2023 12:0 5 AM CDT us Barbara Yan MD LABORATORY Final Resu lt [facility] [address] [place] [id number], documented in this encounter Visit Diagnoses Diagnosis Migraine without status migrainosus, not intractable, unspecified migraine type- Primary Diarrhea, unspecified type documented in this encounter Administered Medications Inactive Administered Medications - up to 3 most recent administrations Medication Order MAR Action Action Date Dose Rate Site diphenhydrAMINE (BENADRYL) injection 25 mg 25 mg, Intravenous, Once, 1 dose, On Naomi 03/17/23 at 2330, For IV administration, give no faster than 25 mg/min. Given 03/18/2023 12:09 AM CDT 25 mg ketorolac (TORADOL) injection 15 mg 15 mg, Intravenous, Once, 1 dose, On Naomi 8/24/23 at 2330, For IV administration, give over 15 seconds. Given 03/18/2023 12:08 AM CDT 15 mg magnesium oxide (MAG-OX) tablet 400 mg 400 mg, Oral, Once, 1 dose, On Tue03/18/23 at 0030 Given 03/18/2023 12:41 AM CDT 400 mg potassium chloride CR (KLOR-CON M) tablet 20 mEq 20 mEq, Oral, Once, 1 dose, On Tue03/18/23 at 0030, Do not chew, crush, or suck on tablet. May break in half. May dissolve whole tablet in 120 mL of water and drink immediately. Given 03/18/2023 12:41 AM CDT 20 mEq prochlorperazine (COMPAZINE) injection 10 mg 10 mg, Intravenous, Once, 1 dose, On Naomi 03/17/23 at 2330, If giving IV, administer diluted or undiluted by slow IV push at a maximum rate of 5 mg/minute. To reduce the risk of hypotension the patient must remain lying down and be observed for 30 minutes after receiving the medication. Given 03/18/2023 12:08 AM CDT 10 mg sodium chloride 0.9% bolus infusion 1,000 mL 1,000 mL, Intravenous, Administer over 60 Minutes, Once, 1 dose, On Naomi 03/17/23 at 2330 New Bag 03/18/2023 12:08 AM CDT 1,000 mLs documented in this encounter Active and Recently Administered Medications Times are shown in CDT. Scheduled Medication Order 03/16/2023 03/17/2023 03/18/2023 diphenhydrAMINE (BENADRYL) injection 25 mg (COMPLETED) 25 mg, Intravenous, Once, 1 dose, On Naomi 03/17/23 at 2330, For IV administration, give no faster than 25 mg/min. 0009 (Given - Provid er: Saulo Henderson RN) ketorolac (TORADOL) injection 15 mg (COMPLETED) 15 mg, Intravenous, Once, 1 dose, On Naomi 03/17/23 at 2330, For IV administration, give over 15 seconds. 0008 (Given - Provid er: Saulo Henderson RN) magnesium oxide (MAG-OX) tablet 400 mg (COMPLETED) 400 mg, Oral, Once, 1 dose, On Tue03/18/23 at 0030 0041 (Given - Provid er: Bree Fraser RN) potassium chloride CR (KLOR-CON M) tablet 20 mEq (COMPLETED) 20 mEq, Oral, Once, 1 dose, On 03/18/23 at 0030, Do not chew, crush, or suck on tablet. May break in half. May dissolve whole tablet in 120 mL of water and drink immediately. 0041 (Given - Provid er: Bree Fraser RN) prochlorperazine (COMPAZINE) injection 10 mg (COMPLETED) 10 mg, Intravenous, Once, 1 dose, On Naomi 03/17/23 at 2330, If giving IV, administer diluted or undiluted by slow IV push at a maximum rate of 5 mg/minute. To reduce the risk of hypotension the patient must remain lying down and be observed for 30 minutes after receiving the medication. 0008 (Given - Provid er: Saulo Henderson RN) sodium chloride 0.9% bolus infusion 1,000 mL (COMPLETED) 1,000 mL, Intravenous, Administer over 60 Minutes, Once, 1 dose, On Naomi 03/17/23 at 2330 0008 (New Bag - Prov ider: Saulo Henderson RN)0035 (Infusion Stop Time - Provider: Bree Fraser RN) documented in this encounter Care Teams Junior Assistant Manager Relationship Specialty Start Date End Date Barry Beltran MD [address] [facility] [address] [place] [id number] PCP - General INTERNAL MEDICINE 03/17/23 documented as of this encounter
--- OUTSIDE RECORDS SUMMARY | 2024-07-21 11:35 | XMS_ITS | Encounter Summary ---
Author Organization [facility] Address [address] [place] [address]. [place] [address] [place] [address] Care Team Providers Care Tobacco Stripper Name Role Phone Unavailable Primary Care Provider Unavailabl e Encounter Details Date Type Department Care Team (Late st Contact Info) Description 06/15/2018 Abstract [facility] Emergency Room [address] [place], [place] [id number] Jorge Luis Montilla MD [address] [place] [id number] Social History Tobacco Use Types Packs/Day Years Used Date Smoking Tobacco: Never Assessed Comments Unknown Sex and Gender Information Value Date Recorded Sex Assigned at Female 03/14/2024 7:53 AM CDT Legal Sex Female 10:22 PM TRANSMISSIONS SYSTEMS OPERATOR Gender Identity Female 03/14/2024 7:53 AM CDT Sexual Orientation Lesbian 03/14/2024 7 :53 AM CDT documented as of this encounter Plan of Treatment Not on file documented as of this encounter Procedures Procedure Name Priority Date/Time Associated Diagnosis Comments URINALYSIS WI REFLEX TO CULTURE STAT 06/15/2018 10:29 PM TRANSMISSIONS SYSTEMS OPERATOR COMPREHENSIVE METABOLIC PANEL STAT 06/15/2018 10:29 PM TRANSMISSIONS SYSTEMS OPERATOR HCG QUANT (SERUM)-CHORIONIC GONADOTROPIN STAT 06/15/2018 10:29 PM TRANSMISSIONS SYSTEMS OPERATOR CBC W/DIFF AUTOMATED STAT 06/15/2018 10:29 PM TRANSMISSIONS SYSTEMS OPERATOR documented in this encounter Results * URINALYSIS WI REFLEX TO CULTURE (06/15/2018 10:29 PM TRANSMISSIONS SYSTEMS OPERATOR) COLOR (U) YELLOW 06/16/2018 12:22 AM [facility] TRANSPARENCY CLEAR 06/16/2018 12:22 AM [facility] SPECIFIC GRAVITY (U) 1.020 1.000 - 1.030 06/16/2018 12:22 AM [facility] U PH 5.5 5.0 - 9.0 06/16/2018 12:22 AM [facility] LEUKOCYTES (U) NEGATIVE NEGATIVE 06/16/2018 12:22 AM [facility] NITRITES NEGATIVE NEGATIVE 06/16/2018 12:22 AM [facility] PROTEIN (U) NEGATIVE NEGATIVE 06/16/2018 12:22 AM [facility] URINE GLUCOSE NEGATIVE NEGATIVE 06/16/2018 12:22 AM [facility] KETONES MG/DL (U) NEGATIVE NEGATIVE 06/16/2018 12:22 AM [facility] BILIRUBIN (U) NEGATIVE NEGATIVE 06/16/2018 12:22 AM [facility] BLOOD (U) NEGATIVE NEGATIVE 06/16/2018 12:22 AM [facility] WBC/HPF NONE SEEN 0 - 5 /HPF 06/16/2018 12:22 AM [facility] RBC/HPF NONE SEEN 0 - 5 /HPF 06/16/2018 12:22 AM [facility] EPI/HPF FEW /HPF 06/16/2018 12:22 AM [facility] CULTURE & SENSITIVITY INDICATED? CULTURE IS NOT INDICATED 06/16/2018 12:22 AM [facility] 06/15/2018 10:2 9 PM TRANSMISSIONS SYSTEMS OPERATOR 06/15/2018 11:30 PM TRANSMISSIONS SYSTEMS OPERATOR us Generic Conversion Md ZABALA URINE ORDERABLES Final Result [facility] [address] [place] [address], [place] [phone] * (ABNORMAL) COMPREHENSIVE METABOLIC PANEL (06/15/2018 10:29 PM TRANSMISSIONS SYSTEMS OPERATOR) GLUCOSE 87 70 - 99 MG/DL 06/16/2018 12:05 AM [facility] BUN 7 7 - 18 MG/DL 06/16/2018 12:05 AM [facility] CREATININE S/P/B 0.77 0.55 - 1.02 MG/DL 06/16/2018 12:05 AM [facility] SODIUM S/P/B 137 136 - 145 MMOL/L 06/16/2018 12:05 AM [facility] POTASSIUM S/P/B 3.9 3.5 - 5.1 MMOL/L 06/16/2018 12:05 AM [facility] CHLORIDE S/P/B 102 100 - 108 MMOL/L 06/16/2018 12:05 AM [facility] CO2 27.2 21 - 32 MMOL/L 06/16/2018 12:05 AM [facility] CALCIUM S/P/B 9.0 8.5 - 10.1 MG/DL 06/16/2018 12:05 AM [facility] BILIRUBIN TOTAL S/P/B 0.2 0.2 - 1.2 MG/DL 06/16/2018 12:05 AM [facility] TOTAL PROTEIN S/P/B 7.4 6.4 - 8.2 G/DL 06/16/2018 12:05 AM [facility] ALBUMIN S/P/B 3.4 3.4 - 5.0 G/DL 06/16/2018 12:05 AM [facility] AST 18 15 - 37 U/L 06/16/2018 12:05 AM [facility] ALT 42 14 - 55 U/L 06/16/2018 12:05 AM [facility] ALKALINE PHOSPHATASE S/P/B 85 50 - 136 U/L 06/16/2018 12:05 AM [facility] ANION GAP 11.7 8 - 20 MMOL/L 06/16/2018 12:05 AM [facility] BUN CREATININE RATIO 9.1 6 - 26 06/16/2018 12:05 AM [facility] A/G RATIO 0.8(L) 1.0 - 2.0 RATIO 06/16/2018 12:05 AM [facility] EGFR NON-AFR. AMER. >90 >90 ML/MIN/1.7 3 M2 06/16/2018 12:05 AM [facility] EGFR AFR. AMER. >90 >90 ML/MIN/1.7 3 M2 06/16/2018 12:05 AM [facility] Comment: NOTE: eGFR is not calculated for patients <18 years of age. This is an estimated GFR (CKD EPI) and should not be used for calculating drug doses. 06/15/2018 10:2 9 PM TRANSMISSIONS SYSTEMS OPERATOR 06/15/2018 11:30 PM TRANSMISSIONS SYSTEMS OPERATOR us Generic Conversion Md ZABALA LABORATORY Final R esult [facility] [address] [place] [address], * CBC W/DIFF AUTOMATED (06/15/2018 10:29 PM TRANSMISSIONS SYSTEMS OPERATOR) WBC 8.8 4.4 - 11.0 x10'3/uL 06/15/2018 11:34 PM [facility] RBC 4.92 4.50 - 5.10 x10'6/uL 06/15/2018 11:34 PM [facility] HGB 13.4 12.3 - 15.3 G/DL 06/15/2018 11:34 PM [facility] HCT 42.4 35.9 - 44.6 % 06/15/2018 11:34 PM [facility] MCV 86.2 80.0 - 96.0 FL 06/15/2018 11:34 PM [facility] MCH 27.2 25.3 - 30.9 PG 06/15/2018 11:34 PM [facility] MCHC 31.6 31.0 - 34.1 G/DL 06/15/2018 11:34 PM [facility] RDW 14.3 12.4 - 15.1 % 06/15/2018 11:34 PM [facility] PLT 279 151 - 353 x10'3/uL 06/15/2018 11:34 PM [facility] MPV 10.0 9.6 - 12.0 FL 06/15/2018 11:34 PM [facility] RBC MORPHOLOGY NORMAL 06/15/2018 11:34 PM [facility] PLT MORPH. NORMAL 06/15/2018 11:34 PM [facility] WBC MORPHOLOGY NORMAL 06/15/2018 11:34 PM [facility] LYMPHOCYTES % 29.7 15.8 - 45.0 % 06/15/2018 11:34 PM [facility] NEUTROPHILS % 59.9 42.1 - 71.9 % 06/15/2018 11:34 PM [facility] MONOCYTES % 8.9 5.7 - 12.5 % 06/15/2018 11:34 PM [facility] EOSINOPHILS 0.8 0.0 - 5.6 % 06/15/2018 11:34 PM [facility] BASOPHILS 0.5 0.0 - 1.3 % 06/15/2018 11:34 PM [facility] ABS. NEUTROPHILS TOTAL 5.28 1.40 - 6.00 x10'3/uL 06/15/2018 11:34 PM [facility] IMMATURE GRANS % 0.2 0.0 - 0.5 % 06/15/2018 11:34 PM [facility] ABS. LYMPHOCYTES 2.62 0.80 - 4.70 x10'3/uL 06/15/2018 11:34 PM [facility] 06/15/2018 10:2 9 PM TRANSMISSIONS SYSTEMS OPERATOR 06/15/2018 11:30 PM TRANSMISSIONS SYSTEMS OPERATOR us Generic Conversion Md ZABALA LABORATORY Final R esult [facility] [address] [place] [address], * (ABNORMAL) HCG QUANT (SERUM)-CHORIONIC GONADOTROPIN (06/15/2018 10:29 PM TRANSMISSIONS SYSTEMS OPERATOR) HCG QUANTITATIVE 54,869(H) 0 - 6 MIU/ML 06/16/2018 12:05 AM [facility] Comment: WEEKS OF ? REFERENCE RANGES NON- FEMALE ?0-6 ?0.2 - 1 ? 5 - 50 ? 1 - 2 ? 50 - 500 ? 2 - 3 ?100 - 5000 ? 3 - 4 ? 500 - 10,000 ? 4 - 5 ?1000 - 50,000 ? 5 - 6 ? 10,000 - 100,000 ? 6 - 8 ? 15,000 - 200,000 ? 2 - 3 MONTHS ?10,000 - 100,000 SERUM OR PLASMA SPECIMEN / Unknown 06/15/2018 10:29 PM TRANSMISSIONS SYSTEMS OPERATOR 06/15/2018 11:30 PM TRANSMISSIONS SYSTEMS OPERATOR us Generic Conversion Md ZABALA LABORATORY Final R esult Performing Organization Address City/State/[facility] Co de Phone Number [facility] [address] [place] [address], documented in this encounter Visit Diagnoses Diagnosis Other specified diseases and conditions complicating , childbirth and the puerperium documented in this encounter
--- OUTSIDE RECORDS SUMMARY | 2024-07-21 11:35 | XMS_ITS | Encounter Summary ---
Author Organization [facility] Address [address] [place] [address]. 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
--- OUTSIDE RECORDS SUMMARY | 2024-07-21 11:35 | XMS_ITS | Clinical Summary ---
Author Organization [facility] Address [address] [place] [address]. 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 Gender Identity Female 03/14/2024 7:53 AM CDT Sexual Orientation Lesbian 03/14/2024 7: 53 AM CDT Last Filed Vital Signs Vital Sign Reading Time Taken Comments Blood Pressure 135/59 03/17/2023 11:15 PM CDT Pulse 71 03/17/2023 11:15 PM CDT Temperature 36.9 ??C (98.4 ??F) 03/17/2023 11:15 PM C DT Respiratory Rate 20 03/17/2023 11:15 PM CDT Oxygen Saturation 97% 03/17/2023 11:15 PM CDT Inhaled Oxygen Concentration - - Weight - - Height - - Body Mass Index - - Plan of Treatment Health Maintenance Due Date Last Done Comments Cervical Cancer Screening Pap Smear (Age 30 to 64) Every 3 Years 1992 Annual Physical 1995 Hepatitis C 2010 Cervical Cancer Screening Pap with HPV Testing (Age 30 to 64) Every 5 Years 2022 Cervical Cancer Screening with HPV 2022 COVID-19 Vaccine ( season) 2024 11/12/2022, 02/11/2022, 04/06/2021, Additional history exists Influenza Adult (#1) 2024 06/07/2022, 06/15/2021, 05/02/2018 DTaP, Tdap and Td Vaccines (8 - Td or Tdap) 12/06/2028 12/06/2018, 07/06/2005, 04/12/2003, Additional history exists Hepatitis B Vaccines Completed 08/24/1993, 1992, 1992 HPV Vaccines Aged Out No longer eligi ble based on patient's age to complete this topic Meningococcal Vaccine Aged Out No marv catherine eligible based on patient's age to complete this topic Pneumococcal Vaccine: Pediatrics (0 to 5 Years) and At-Risk Patients (6 to 64 Years) Aged Out No longer eligible based on patient's age to complete this topic RSV Immunizations Under 20 Months Aged Out No longer eligible based on patient's age to complete this topic Insurance [employer] Care Teams Fine Grader Relationship Specialty Start Date End Date Barry Beltran MD [address] [address] PCP - General INTERNAL MEDICINE 03/17/23
--- OUTSIDE RECORDS SUMMARY | 2024-07-21 11:36 | XMS_ITS | Referral Summary ---
Author Organization [facility] Address [address] [place] [address] Care Team Providers Care Juice Weigher Name Role Phone Barry Beltran MD Primary Care Provider [phone] Allergies Active Allergy Reactions Criticality Noted Date Comments Sulfa (Sulfonamide Antibiotics) Other (See comments) Low 06/09/2020 Sulfamethoxazole-Trimethoprim Anaphylaxis High 08/16 Medications EPINEPHrine (EpiPen) 0.3 mg/0.3 mL auto-injection syringeIndications :Anaphylaxis Inject 0.3 mL (0.3 mg total) into the muscle as instructed as needed for anaphylaxis 1 each 1 05/04/20 20 Active ALPRAZolam (XANAX) 0.25 mg tablet Take 0.5 tablets (0.125 mg total) by mouth 2 (two) times a day 08/14/19 23 Active cyanocobalamin (Vitamin B-12) 1,000 mcg/mL injection 1 mL (1,000 mcg total) Active nystatin powder Nystop 100,000 unit/gram topical powder APPLY TO THE AFFECTED AREA TWICE DAILY Active traMADoL (ULTRAM) 50 mg tablet Take 1 tablet (50 mg total) by mouth every 8 (eight) hours as needed 04/27/20 22 Active albuterol HFA (PROVENTIL HFA,VENTOLIN HFA,PROAIR HFA) 90 mcg/actuation inhaler Inhale 2 puffs every 4 (four) hours as needed for wheezing 1 each 3 08/16/19 23 Active dextroamphetamine- amphetamine XR (ADDERALL XR) 25 mg 24 hr capsule Take 1 capsule (25 mg total) by mouth every morning 30 capsule 08/16/19 23 Active FLUoxetine (PROzac) 40 mg capsule Take 1 capsule (40 mg total) by mouth nightly 90 capsule 3 08/16/19 Active levothyroxine (SYNTHROID) 100 mcg tablet Take 1 tablet (100 mcg total) by mouth inseam trimmer before breakfast 90 tablet 3 08/16/19 Active orphenadrine ER (NORFLEX) 100 mg 12 hr tabletIndications: Muscle Spasm Take 1 tablet (100 mg total) by mouth 2 (two) times a day for 5 days 10 tablet 09/30/19 Active ondansetron ODT (ZOFRAN-ODT) 4 mg disintegrating tablet Dissolve 1 tablet oral every 4 hours as needed for nausea or vomiting. 15 tablet 01/25/20 24 Active HYDROcodone-acetam inophen (NORCO) 5-325 mg per tabletIndications: Pain Take 1 tablet by mouth every 8 (eight) hours as needed for pain for up to 8 doses 8 tablet 04/19/20 24 Active Active Problems Problem Noted Date Diagnosed Date Gallstones 11/02/2022 Assessment & Plan (11/02/2022 1:36 PM CDT): Asymptomatic galstone. Remedy diet and return prn Acquired hypothyroidism 08/19/2022 Anxiety and depression 08/19/2022 Attention deficit hyperactiv ity disorder (ADHD), predominantly inattentive type 08/19/2022 Chronic right-sided low back pain with right-joss ed sciatica 08/19/2022 Class 3 severe obesity due t o excess calories without serious comorbidity with body mass index (BMI) of 50.0 to 59.9 in adult 08/19/2022 Mild intermittent asthma without complication Social History Tobacco Use Types Packs/Day Years Used Date Smoking Tobacco: Former Cigarettes Q uit: 2016 Smokeless Tobacco: Never Tobacco Cessation:Counseling Given: Not Answered Alcohol Use Standard Drinks/Week Comments No 0 (1 standard drink = 0.6 oz pur e alcohol) AUDIT-C Answer Date Recorded Q1: How often do you have a drink containing alc ohol? Monthly or less 08/16/2022 Q2: How many drinks containi ng alcohol do you have on a typical day when you are drinking? 3 or 4 08/16/2022 Q3: How often do you have si x or more drinks on one occasion? Less than monthly 08/16/2022 PHQ-2 Answer Date Recorded PHQ-2 Total Score (If total score is 3 or more points, staff should administer the PHQ-9) 1 08/16/2022 Personal Safety Answer Date Recorded Have you ever been in or are you currently in a harmful physical or emotional relationship or is someone making you feel afraid or unsafe? 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 Gender Identity Female 10/26/2022 1:11 PM CDT Sexual Orientation Lesbian 10/26/2022 1: 11 PM CDT Last Filed Vital Signs Vital Sign Reading Time Taken Comments Blood Pressure 140/85 04/18/2024 10:15 PM CDT Pulse 94 04/18/2024 10:15 PM CDT Temperature 36.7 ??C (98 ??F) 04/18/2024 9:02 PM CDT Respiratory Rate 18 04/18/2024 10:15 PM CDT Oxygen Saturation 98% 04/18/2024 10:15 PM CDT Inhaled Oxygen Concentration - - Weight 145.6 kg (321 lb) 04/18/2024 9:02 PM CDT Height 154.9 cm (5' 1 ) 04/18/2024 9:02 PM CDT Body Mass Index 60.65 04/18/2024 9:02 PM CDT Plan of Treatment Not on file Insurance Pending sale to [facility] [address] Care Teams Juice Weigher Relationship Specialty Start Date End Date Barry Beltran MD [address] [place] [id number] PCP - General Internal Medicine 10/28/23
--- OUTSIDE RECORDS SUMMARY | 2024-07-21 11:36 | XMS_ITS | Encounter Summary ---
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 Name Role Phone Barry Beltran MD Primary Care Provider [phone] Reason for Visit * Reason Comments Abdominal Pain Encounter Details Date Type Department Care Team (Late st Contact Info) Description 01/25/2024 12:49 AM CDT - 01/25/2024 3:37 AM CDT Emergency [facility] Emergency Department [address] [place] [id number] Devin Lamar MD [address] [place] [id number] Viral gastroenteritis (Primary Dx) Discharge Disposition: Discharge to home or self care Social History Tobacco Use Types Packs/Day Years Used Date Smoking Tobacco: Former Cigarettes Q uit: 2016 Smokeless Tobacco: Never Alcohol Use Standard Drinks/Week Comments No 0 [...] making you feel afraid or unsafe? 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 Gender Identity Female 10/26/2022 1:11 PM CDT Sexual Orientation Lesbian 10/26/2022 1: 11 PM CDT documented as of this encounter Last Filed Vital Signs Vital Sign Reading Time Taken Comments Blood Pressure 133/86 01/25/2024 3:30 AM CDT Pulse 84 01/25/2024 3:30 AM CDT Temperature 36.4 ??C (97.6 ??F) 01/25/2024 1 2:50 AM CDT Respiratory Rate 18 01/25/2024 3:30 AM CDT Oxygen Saturation 98% 01/25/2024 3:30 AM CDT Inhaled Oxygen Concentration - - Weight 148.6 kg (327 lb 9.6 oz) 024 12:50 AM CDT Height 154.9 cm (5' 1 ) 01/25/2024 12:5 0 AM CDT Body Mass Index 61.9 01/25/2024 12:50 AM CDT documented in this encounter Discharge Instructions * Discharge Instructions* Devin Lamar MD - 01/25/2024 3:26 AM CDT Take nausea medicine as needed. Take pain medicine as needed. Follow up with your primary care doctor. Drink plenty of fluids. Avoid milk. * Attachments The following attachments cannot be sent through Care Everywhere. * Gastroenteritis, Viral (Adult) (Telugu) documented in this encounter Medications at Time of Discharge albuterol HFA (PROVENTIL HFA,VENTOLIN HFA,PROAIR HFA) 90 mcg/actuation inhaler Inhale 2 puffs every 4 (four) hours as needed for wheezing 1 each 3 08/16/2022 ALPRAZolam (XANAX) 0.25 mg tablet Take 0.5 tablets (0.125 mg total) by mouth 2 (two) times a day 08/14/2022 cyanocobalamin (Vitamin B-12) 1,000 mcg/mL injection 1 mL (1,000 mcg total) dextroamphetamine-a mphetamine XR (ADDERALL XR) 25 mg 24 hr capsule Take 1 capsule (25 mg total) by mouth every morning 30 capsule 08/16/2022 EPINEPHrine (EpiPen) 0.3 mg/0.3 mL auto-injection syringeIndications: Anaphylaxis Inject 0.3 mL (0.3 mg total) into the muscle as instructed as needed for anaphylaxis 1 each 1 05/04/2020 FLUoxetine (PROzac) 40 mg capsule Take 1 capsule (40 mg total) by mouth nightly 90 capsule 3 08/16/2022 levothyroxine (SYNTHROID) 100 mcg tablet Take 1 tablet (100 mcg total) 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 15 tablet 01/25/2024 traMADoL (ULTRAM) 50 mg tablet Take 1 tablet (50 mg total) by mouth every 8 (eight) hours as needed 04/27/2022 HYDROcodone-acetami nophen (NORCO) 5-325 mg per tabletIndications:P ain Take 1 tablet by mouth every 6 (six) hours as needed for pain 8 tablet 01/25/2024 04/18/20 24 documented as of this encounter Ordered Prescriptions Prescription Sig Dispense Quantity Refills Last Filled Start Date End Date ondansetron ODT (ZOFRAN-ODT) 4 mg disintegrating tablet Dissolve 1 tablet oral every 4 hours as needed for nausea or vomiting. 15 tablet 01/25/2024 HYDROcodone-acetamin ophen (NORCO) 5-325 mg per tabletIndications:Pa in Take 1 tablet by mouth every 6 (six) hours as needed for pain 8 tablet 01/25/2024 4 documented in this encounter Discharge Disposition Disposition Code Departure Means Destination Comment s Discharge to home or self care documented in this encounter ED Notes * Devin Lamar MD - 01/25/2024 1:00 AM CDT HPI Chief Complaint Patient presents with Abdominal Pain Patient started having diarrhea yesterday. Tonight she developed vomiting and abdominal pain. Pain is in the epigastric region radiating to right upper quadrant and left upper quadrant. No fever. No urinary difficulty. Patient taking Advil for the pain. Status post hysterectomy. 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 FETA cheese Anxiety and depression 08/19/2022 CTS (carpal tunnel syndrome) Kidney stone Migraine Recurrent loss, antepartum condition or complication Past Surgical History: Procedure Laterality Date ABLATION CARPAL TUNNEL RELEASE Right 2006 CARPAL TUNNEL RELEASE Left 2017 CARPAL TUNNEL RELEASE SECTION DILATION AND CURETTAGE OF UTERUS 2011 ELBOW SURGERY 2015 HYSTERECTOMY TONSILLECTOMY/ADENOIDECTOMY 1998 Family History Problem Relation Age of Onset Cancer Mother Social History Tobacco Use Smoking status: Former Current packs/day: 0.00 Types: Cigarettes Quit date: 2015 Years since quittin.5 Smokeless tobacco: Never Vaping Use Vaping status: Every Day Substance and Sexual Activity Alcohol use: No Drug use: No Sexual activity: Yes Partners: Male Social History Social History Narrative Not on file Review of Systems Review of Systems Constitutional: Negative for chills and fever. HENT: Negative for congestion, rhinorrhea and sore throat. Eyes: Negative for pain. Respiratory: Negative for cough and shortness of breath. Cardiovascular: Negative for chest pain and leg swelling. Gastrointestinal: Positive for abdominal pain, diarrhea, nausea and vomiting. Genitourinary: Negative for difficulty urinating. Musculoskeletal: Negative for myalgias. Skin: Negative for rash. Neurological: Negative for dizziness and headaches. Psychiatric/Behavioral: Negative for behavioral problems. Physical Exam ED Triage Vitals [01/25/24 0050] Temp Pulse Resp BP SpO2 36.4 ??C (97.6 ??F) 100 20 156/77 100 % Temp src Heart Rate Source Patient Position BP Location FiO2 (%) Oral -- -- -- -- Height Height Method Weight Weight Method 1.549 m (5' 1 ) Stated (!) 148.6 kg (327 lb 9.6 oz) Bed scale Physical Exam Vitals and nursing note reviewed. Constitutional: General: She is not in acute distress. Appearance: She is well-developed. HENT: Head: Normocephalic and atraumatic. Eyes: Conjunctiva/sclera: Conjunctivae normal. Cardiovascular: Rate and Rhythm: Normal rate and regular rhythm. Heart sounds: No murmur heard. Pulmonary: Effort: Pulmonary effort is normal. No respiratory distress. Breath sounds: Normal breath sounds. Abdominal: Palpations: Abdomen is soft. Tenderness: There is abdominal tenderness in the epigastric area. Musculoskeletal: General: No swelling. Cervical back: Neck supple. Skin: General: Skin is warm and dry. Capillary Refill: Capillary refill takes less than 2 seconds. Neurological: Mental Status: She is alert. Psychiatric: Mood and Affect: Mood normal. Labs Reviewed URINALYSIS AND REFLEX TO MICROSCOPIC AND CULTURE - Abnormal Result Value Color, ur Yellow Clarity, ur Turbid (*) Specific gravity, ur 1.031 (*) pH, urine 6.0 Protein, ur ql 1+ (*) Glucose, ur ql Negative Ketones, ur Negative Bilirubin, ur Negative Blood, ur Negative Urobilinogen, ur 2.0 (*) Nitrite, ur Negative Leukocyte esterase, ur Negative UA reflex comment Reflex to microscopic UA will be performed. CBC WITH AUTO DIFFERENTIAL - Abnormal WBC 7.8 Hgb 12.7 Hct 40.9 Plt 234 MPV 9.7 RBC 4.70 MCV 87.0 MCH 27.0 (*) MCHC 31.1 (*) RDW CV 14.0 RDW SD 44.4 NRBC abs 0.00 COMPREHENSIVE METABOLIC PANEL - Abnormal Sodium 140 Potassium, pl 3.7 Chloride 105 CO2 26 Anion gap 8 BUN 9 Creatinine 0.90 Glucose 124 Calcium 8.2 (*) Bilirubin, total 0.3 Protein, pl 5.6 (*) Albumin 3.4 (*) Alk phos 89 ALT 47 (*) AST 60 (*) URINALYSIS, MICROSCOPIC ONLY - Abnormal WBC, ur 0-5 RBC, ur 0-2 Epithelial cells, squamous, ur 21-50 (*) Bacteria, ur Trace (*) Mucous, ur Present (*) Calcium oxalate crystals, ur 1+ (*) Hyaline casts, ur 6-10 Culture Reflex Comment Value: Reflex conditions for urine culture (WBC >10) not met. LIPASE Lipase 29 DIFFERENTIAL AUTO Neutrophil abs 3.8 Imm gran abs 0.0 Lymphocyte abs 3.0 Monocyte abs 0.8 Eosinophil abs 0.1 Basophil abs 0.0 Neutrophil pct 49.4 Imm gran pct 0.5 Lymphocyte pct 37.9 Monocyte pct 9.9 Eosinophil pct 1.8 Basophil pct 0.[address] Abdomen Pelvis W Contrast Final Result MDM Medical Decision Making Patient presents with abdominal pain, diarrhea, vomiting. Amount and/or Complexity of Data Reviewed Labs: ordered. Details: ALT 47, AST 60 (likely fatty liver) Radiology: ordered. Details: CT abdomen: Negative Discussion of management or test interpretation with external provider(s): Differential diagnosis: Viral gastroenteritis, colitis, other abdominal infection. CT was negative. Patient improved. Will discharge on pain medicine, Zofran. Follow up with PCP. Risk Prescription drug management. Final diagnoses: Viral gastroenteritis Devin Lamar MD 01/25/24 0454 * Narda Christopher RN - 01/25/2024 12:49 AM CDT Pt arrives via AFD from home with c/o abdominal pain, n/v/d. 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 * Yen Roach EMT - 01/25/2024 12:49 AM CDT Bed: ED09 Expected date: 01/25/24 Expected time: Means of arrival: Comments: AFD 1842 Yen Roach 01/25/24 0049 documented in this encounter Plan of Treatment Not on file documented as of this encounter Procedures Procedure Name Priority Date/Time Associated Diagnosis Comments CT ABDOMEN PELVIS W CONTRAST ED 01/25/2024 2:07 AM CDT URINALYSIS AND REFLEX TO MICROSCOPIC AND CULTURE STAT 01/25/2024 1:57 AM CDT URINALYSIS, MICROSCOPIC ONLY STAT 01/25/2024 1:57 AM CDT EGFR STAT 01/25/2024 1:07 AM CDT DIFFERENTIAL AUTO STAT 01/25/2024 1:0 7 AM CDT CBC WITH AUTO DIFFERENTIAL STAT 01/25/2024 1:07 AM CDT LIPASE STAT 01/25/2024 1:07 AM CDT COMPREHENSIVE METABOLIC PANEL STAT 01/25/2024 1:07 AM CDT documented in this encounter Results * CT Abdomen Pelvis W Contrast (01/25/2024 2:07 AM CDT) Anatomical Region Laterality Modality Body N/A Computed Tomogra phy 01/25/2024 2:12 AM CDT Narrative 01/25/2024 2:28 AM CDT EXAM DESCRIPTION: ?? CT ABDOMEN PELVIS W CONTRAST REASON FOR STUDY: ?? Abdominal pain, acute, nonlocalized ?? Pt arrives via AFD from home with c/o abdominal pain, n/v/d. 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 ?? Hx of partial hysterectomy, section, and several ablations per pt. ??Hx of hypothyroidism ??Hx of renal stones ??No hx of cancer ?? TECHNIQUE: CT scan of the abdomen and pelvis was performed with intravenous and ?? without ??oral contrast using helical scanning technique with dynamic intravenous contrast injection. Reconstructed coronal and sagittal MPR images were reviewed. All images stored on PACS. Automated exposure control was used as a dose optimization technique for this examination. CONTRAST TYPE/DOSE: ?? 125mL of IOVERSOL 350 MG IODINE/ML INTRAVENOUS SYRINGE ?? injected via ?? right arm IV . COMPARISON: None Available . REFERENCE: Per ACR white paper recommendations, unless otherwise specified no follow-up imaging is recommended for incidental renal and adrenal lesions per consensus recommendations based on imaging criteria. Further lab evaluation could be pursued based on clinical findings. FINDINGS: LOWER CHEST: ?? No significant findings. LIVER: ?? Normal size. ??No cystic or solid masses. GALLBLADDER: ?? Unremarkable. BILE DUCTS: ?? No intrahepatic or extrahepatic biliary ductal dilatation. SPLEEN: ?? Normal size. ??No focal lesions. PANCREAS: ?? No cystic or solid masses. No significant calcifications. No adjacent inflammation or peripancreatic fluid collections. Pancreatic duct not dilated. ?? ADRENALS: ?? Normal. KIDNEYS/URINARY TRACT: ?? No significant cystic or solid masses. No evidence of nephrolithiasis. ??No hydronephrosis or hydroureter. Symmetric enhancement. ? The urinary bladder is unremarkable. GI: ?? No dilated bowel loops. No evidence of bowel wall thickening. ??No significant diverticular disease. ?? There is ??a normal ??appendix. PERITONEUM: ?? No ascites or pneumoperitoneum RETROPERITONEUM: ?? No mass or adenopathy. REPRODUCTIVE: ?? No adnexal masses. ??Uterus surgically absent. VASCULATURE: ?? No abdominal aortic aneurysm. MUSCULOSKELETAL: ?? No significant abnormality. OTHER: ?? Small periumbilical hernia containing fat. IMPRESSION: ??No acute findings in the abdomen or pelvis. THIS IS AN ELECTRONICALLY VERIFIED FINAL REPORT 01/25/2024 2:28 AM - Electronically signed by ??Hermilo Santiago M.D. RW: SANTIAGO D: ??01/25/2024 2:28 AM T: ??01/25/2024 2:28 AM Report ID: [id number] Reading Location: ??[id number] Procedure Note Hermilo Santiago MD - 01/25/2024 EXAM DESCRIPTION: CT ABDOMEN PELVIS W CONTRAST REASON FOR STUDY: Abdominal pain, acute, nonlocalized Pt arrives via AFD from home with c/o abdominal pain, n/v/d. 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 Hx of partial hysterectomy, section, and several ablations per pt. Hx of hypothyroidism Hx of renal stones No hx of cancer TECHNIQUE: CT scan of the abdomen and pelvis was performed withintravenous and without oral contrast using helical scanning technique with dynamic intravenous contrast injection. Reconstructed coronal and sagittal MPRimages were reviewed. All images stored on PACS. Automated exposure control was used as a dose optimization technique forthis examination. CONTRAST TYPE/DOSE: 125mL of IOVERSOL 350 MG IODINE/ML INTRAVENOUSSYRINGE injected via right arm IV . COMPARISON: None Available . REFERENCE: Per ACR white paper recommendations, unless otherwise specifiedno follow-up imaging is recommended for incidental renal and adrenal lesionsper consensus recommendations based on imaging criteria. Further labevaluation could be pursued based on clinical findings. FINDINGS: LOWER CHEST: No significant findings. LIVER: Normal size. No cystic or solid masses. GALLBLADDER: Unremarkable. BILE DUCTS: No intrahepatic or extrahepatic biliary ductal dilatation. SPLEEN: Normal size. No focal lesions. PANCREAS: No cystic or solid masses. No significant calcifications. No adjacent inflammation or peripancreatic fluid collections. Pancreatic ductnot dilated. ADRENALS: Normal. KIDNEYS/URINARY TRACT: No significant cystic or solid masses. Noevidence of nephrolithiasis. No hydronephrosis or hydroureter. Symmetric enhancement. The urinary bladder is unremarkable. GI: No dilated bowel loops. No evidence of bowel wall thickening. No significant diverticular disease. There is a normal appendix. PERITONEUM: No ascites or pneumoperitoneum RETROPERITONEUM: No mass or adenopathy. REPRODUCTIVE: No adnexal masses. Uterus surgically absent. VASCULATURE: No abdominal aortic aneurysm. MUSCULOSKELETAL: No significant abnormality. OTHER: Small periumbilical hernia containing fat. IMPRESSION: No acute findings in the abdomen or pelvis. THIS IS AN ELECTRONICALLY VERIFIED FINAL REPORT 01/25/2024 2:28 AM - Electronically signed by Hermilo Santiago M.D. RW: SANTIAGO Report ID: [id number] Reading Location: [id number] us Devin Lamar MD IMG CT PROCEDURES Final Resu lt * (ABNORMAL) Urinalysis, microscopic only (01/25/2024 1:57 AM CDT) WBC, ur 0-5 0 - 5 /HPF RBC, ur 0-2 0 - 2 /HPF [facility] ([place]) Epithelial cells, squamous, ur 21-50(A) 0 - 5 /HPF [facility] ([place]) Bacteria, ur Trace(A) [facility] ([place]) Mucous, ur Present(A) [facility] ([place]) Calcium oxalate crystals, ur 1+(A) [facility] ([place]) Hyaline casts, ur 6-10 0 - 10 /LPF [facility] ([place]) Culture Reflex Comment Reflex conditions for urine culture (WBC >10) not met. [facility] Urine 01/25/2024 1:57 AM CDT 01/25/2024 2:11 AM CDT us Devin Lamar MD LAB URINE ORDERABLES Final R esult [facility] ([place]) 1 [facility] Department [place] [address] * (ABNORMAL) Urinalysis reflex to microscopic and culture Urine (01/25/2024 1:57 AM CDT) Color, ur Yellow Yellow Clarity, ur Turbid(A) Clear [facility] ([place]) Specific gravity, ur 1.031(H) 1.003 - 1.030 [facility] ([place]) pH, urine 6.[address] [facility] ([place]) Comment: Interpretive Data ? Urine pH is affected by diet, medications, systemic acid-base disturbances, and renal tubular function. ??pH may affect urinary stone formation. ??For example, urine pH below 6.0 may help reduce the tendency for calcium phosphate stones and pH greater than 6.0 may reduce the tendency for uric acid stone formation. Source: [facility] [email or web address] Current Interpretive Data was last revised on 2017 Protein, ur ql 1+(A) Negative [facility] ([place]) Glucose, ur ql Negative Negative [facility] ([place]) Ketones, ur Negative Negative [facility] ([place]) Bilirubin, ur Negative Negative [facility] ([place]) Blood, ur Negative Negative [facility] ([place]) Urobilinogen, ur 2.0(A) <2.0 mg/dL [facility] ([place]) Nitrite, ur Negative Negative [facility] ([place]) Leukocyte esterase, ur Negative Negative [facility] ([place]) UA reflex comment Reflex to microscopic UA will be performed. [facility] ([place] Urine 01/25/2024 1:57 AM CDT 01/25/2024 2:11 AM CDT us Devin Lamar MD LAB MICROBIOLOGY - GENERAL O RDERABLES Final Result [facility] ([place] 1 [facility] Department [place] [address] * eGFR (01/25/2024 1:07 AM CDT) eGFR 88 >=60 mL/min/1. 73 m2 Comment: Interpretive Data Reference Interval Normal ?>/= 90 mL/min/1.73m2 Mildly decreased* ? 60 - 89 mL/min/1.73m2 Mildly to moderately decreased ?45 - 59 mL/min/1.73m2 Moderately to severely decreased ??30 - 44 mL/min/1.73m2 Severely decreased ?15 - 29 mL/min/1.73m2 Kidney Failure ?< 15 ??mL/min/1.73m2 *Relative to young adult level Estimated glomerular filtration rate is determined by the 2020 CKD-EPI equation recommended by the National Kidney Foundation (A Unifying Approach to GFR Estimation: Recommendations of the NKF-ASK Task Force on Reassessing the Inclusion of Race in Diagnosing Kidney Disease, JASN 202). The CKD-EPI equation should not be used for patients with unstable renal function and has not been validated in children and those over 70. Current interpretive data was last reviewed 2021. Blood 01/25/2024 1:07 AM CDT 01/25/2024 1:08 AM CDT us Devin Lamar MD LAB BLOOD ORDERABLES Final R esult [facility] ([place]) 1 [facility] Department [place] [address] * Differential, auto (01/25/2024 1:07 AM CDT) Neutrophil abs 3.8 1.5 - 6.5 K/cumm Imm gran abs 0.0 0.0 - 0.1 K/cumm [facility] ([place]) Lymphocyte abs 3.0 0.8 - 3.3 K/cumm [facility] ([place]) Monocyte abs 0.8 0.2 - 0.8 K/cumm [facility] ([place]) Eosinophil abs 0.1 0.0 - 0.5 K/cumm [facility] ([place]) Basophil abs 0.0 0.0 - 0.1 K/cumm [facility] ([place]) Neutrophil pct 49.4 % [facility] ([place]) Comment: Interpretive Data Percent cell count reference ranges are not reported, since discordance with absolute values may lead to misinterpretation of CBC data. Current Interpretive Data was last revised on 2017. Imm gran pct 0.5 % [facility] ([place]) Comment: Interpretive Data Percent cell count reference ranges are not reported, since discordance with absolute values may lead to misinterpretation of CBC data. Current Interpretive Data was last revised on 2017. Lymphocyte pct 37.9 % [facility] ([place]) Comment: Interpretive Data Percent cell count reference ranges are not reported, since discordance with absolute values may lead to misinterpretation of CBC data. Current Interpretive Data was last revised on 2017. Monocyte pct 9.9 % [facility] ([place]) Comment: Interpretive Data Percent cell count reference ranges are not reported, since discordance with absolute values may lead to misinterpretation of CBC data. Current Interpretive Data was last revised on 2017. Eosinophil pct 1.8 % [facility] ([place]) Comment: Interpretive Data Percent cell count reference ranges are not reported, since discordance with absolute values may lead to misinterpretation of CBC data. Current Interpretive Data was last revised on 2017. Basophil pct 0.5 % [facility] ([place]) Comment: Interpretive Data Percent cell count reference ranges are not reported, since discordance with absolute values may lead to misinterpretation of CBC data. Current Interpretive Data was last revised on 2017. Blood 01/25/2024 1:07 AM CDT 01/25/2024 1:08 AM CDT Devin Lamar MD LAB BLOOD ORDERABLES Final R esult Performing Organization Address City/[facility]/ZIP Co de Phone Number [facility] ([place]) 1 [facility] [email or web address] [address] * Lipase (01/25/2024 1:07 AM CDT) Lipase 29 10 - 99 Units/L Blood 01/25/2024 1:07 AM CDT 01/25/2024 1:08 AM CDT Devin Lamar MD LAB BLOOD ORDERABLES Final R esult Performing Organization Address City/[facility] de Phone Number [facility] ([place]) [address] [place] [address] * (ABNORMAL) Comprehensive metabolic panel (01/25/2024 1:07 AM CDT) Sodium 140 135 - 145 mmol/L Potassium, pl 3.7 3.3 - 4.9 mmol/L [facility] ([place]) Chloride 105 97 - 110 mmol/L [facility] ([place]) CO2 26 22 - 32 mmol/L [facility] ([place]) Anion gap 8 2 - 15 mmol/L [facility] ([place]) BUN 9 6 - 25 mg/dL [facility] ([place]) Creatinine 0.90 0.60 - 1.10 mg/dL [facility] ([place]) Glucose 124 70 - 199 mg/dL [facility] ([place]) Comment: Interpretive Data Fasting glucose >/= 126 mg/dl is diagnostic for diabetes. ?? Fasting is defined as no caloric intake for at least 8 hours. Fasting glucose between 100 mg/dl to 125 mg/dl is diagnostic of prediabetes. In a patient with classic symptoms of hyperglycemia or hyperglycemic crisis, a random glucose >/= 200 mg/dl is diagnostic for diabetes. In the absence of unequivocal hyperglycemia, results should be confirmed by repeat testing. The classification and Diagnosis of Diabetes Diabetes Care 2021; 46: S19-S40. Current interpretive data was last revised 2022. Calcium 8.2(L) 8.5 - 10.3 mg/dL [facility] ([place]) Bilirubin, total 0.3 0.1 - 1.2 mg/dL [facility] ([place]) Protein, pl 5.6(L) 6.5 - 8.5 g/dL [facility] ([place]) Albumin 3.4(L) 3.5 - 5.0 g/dL [facility] ([place]) Alk phos 89 40 - 130 Units/L [facility] ([place]) ALT 47(H) 7 - 45 Units/L [facility] ([place]) AST 60(H) 10 - 45 Units/L [facility] ([place]) Blood 01/25/2024 1:07 AM CDT 01/25/2024 1:08 AM CDT us Devin Lamar MD LAB BLOOD ORDERABLES Final R esult [facility] ([place] 1 [facility] Department [place] [address] * (ABNORMAL) CBC with auto differential (01/25/2024 1:07 AM CDT) WBC 7.8 3.8 - 9.9 K/cumm Hgb 12.7 11.9 - 15.5 g/dL [facility] ([place]) Hct 40.9 35.6 - 45.5 % [facility] ([place]) Plt 234 150 - 400 K/cumm [facility] ([place]) MPV 9.7 9.1 - 12.3 fL [facility] ([place]) RBC 4.70 3.90 - 5.20 M/cumm [facility] ([place]) MCV 87.0 81.3 - 96.4 fL [facility] ([place]) MCH 27.0(L) 27.1 - 33.3 pg [facility] ([place]) MCHC 31.1(L) 32.3 - 35.7 g/dL [facility] ([place]) RDW CV 14.0 11.1 - 14.9 % [facility] ([place]) RDW SD 44.4 35.7 - 48.1 fL [facility] ([place]) NRBC abs 0.00 0.00 - 0.01 K/cumm [facility] ([place]) Blood 01/25/2024 1:07 AM CDT 01/25/2024 1:08 AM CDT us Devin Lamar MD LAB BLOOD ORDERABLES Final R esult [facility] ([place]) [facility] [facility] Department [place] [address] documented in this encounter Visit Diagnoses Diagnosis Viral gastroenteritis- Primary Intestinal infection due to other organism, NEC documented in this encounter Administered Medications Inactive Administered Medications - up to 3 most recent administrations Medication Order MAR Action Action Date Dose Rate Site HYDROmorphone (DILAUDID) injection 0.5 mg 0.5 mg, intravenous, Administer over 2 Minutes, Once, On Tue01/25/24 at 0101, For 1 dose Given 01/25/2024 1:07 AM CDT 0.5 mg ioversoL (OPTIRAY 350) syringe 125 mL 125 mL, intravenous, Once in imaging, contrast, Starting on Tue01/25/24 at 0155, For 1 dose Contrast Given 01/25/2024 2:07 AM CDT 125 mL ondansetron (ZOFRAN) injection 4 mg 4 mg, intravenous, Administer over 2 Minutes, Once, On Tue01/25/24 at 0101, For 1 dose Given 01/25/2024 1:07 AM CDT 4 mg sodium chloride 0.9% bolus 1,000 mL 1,000 mL, intravenous, Once, On Tue01/25/24 at 0101, For 1 dose New Bag 01/25/2024 1:07 AM CDT 1,000 mL documented in this encounter Active and Recently Administered Medications Times are shown in CDT. Scheduled Medication Order 01/23/2024 01/24/2024 01/25/2024 HYDROmorphone (DILAUDID) injection 0.5 mg (COMPLETED) 0.5 mg, intravenous, Administer over 2 Minutes, Once, On Tue01/25/24 at 0101, For 1 dose 0107 (Given - Provid er: Carmella Freitas RN) ondansetron (ZOFRAN) injection 4 mg (COMPLETED) 4 mg, intravenous, Administer over 2 Minutes, Once, On Tue01/25/24 at 0101, For 1 dose 0107 (Given - Provid er: Carmella Freitas RN) sodium chloride 0.9% bolus 1,000 mL (COMPLETED) 1,000 mL, intravenous, Once, On Tue01/25/24 at 0101, For 1 dose 0107 (New Bag - Prov ider: Carmella Freitas RN)[id number] (Stopped - Provider: Carmella Freitas RN) PRN Medication Order 01/23/2024 01/24/2024 01/25/2024 ioversoL (OPTIRAY 350) syringe 125 mL (COMPLETED) 125 mL, intravenous, Once in imaging, contrast, Starting on Tue01/25/24 at 0155, For 1 dose 0207 (Contrast Given - Provider: Gertrude Walls, RT) documented in this encounter Care Teams Recreation Therapist Relationship Specialty Start Date End Date Barry Beltran MD [address] [place] [id number] PCP - General Internal Medicine 10/28/23 documented as of this encounter
--- OUTSIDE RECORDS SUMMARY | 2024-07-21 11:36 | XMS_ITS | Encounter Summary ---
Author Organization [facility] Address [address] [place] [address] Care Team Providers Care Research Kennel Supervisor Name Role Phone LenoraLizet Amanda GUTIERREZ Primary Care Provider Reason for Visit * Reason Comments Migraine Migraine x 4 days Encounter Details Date Type Department Care Team (Late st Contact Info) Description 01/25/2023 12:02 AM CDT - 01/25/2023 4:59 AM CDT Emergency [facility] Emergency Department [address] [place] [address] Helen Mulligan MD [address] [place] [address] Acute nonintractable headache, unspecified headache type (Primary Dx) Discharge Disposition: Discharge to home [...] making you feel afraid or unsafe? 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 Gender Identity Female 10/26/2022 1:11 PM CDT Sexual Orientation Lesbian 10/26/2022 1: 11 PM CDT documented as of this encounter Last Filed Vital Signs Vital Sign Reading Time Taken Comments Blood Pressure 125/68 01/24/2023 11:55 PM CDT Pulse 89 01/24/2023 11:55 PM CDT Temperature 36.7 ??C (98.1 ??F) 01/24/2023 11:55 PM C DT Respiratory Rate 18 01/24/2023 11:55 PM CDT Oxygen Saturation 96% 01/24/2023 11:55 PM CDT Inhaled Oxygen Concentration - - Weight 133.8 kg (295 lb) 01/24/2023 11:55 PM CDT Height 154.9 cm (5' 1 ) 01/24/2023 11:55 PM CDT Body Mass Index 55.74 01/24/2023 11:55 PM CDT documented in this encounter Discharge Instructions * Attachments The following attachments cannot be sent through Care Everywhere. * Migraine Headache (AfterCare(R) Instructions(ER/ED)) (Arabic) documented in this encounter Medications at Time of Discharge albuterol HFA (PROVENTIL HFA,VENTOLIN HFA,PROAIR HFA) 90 mcg/actuation inhaler Inhale 2 puffs every 4 (four) hours as needed for wheezing 1 each 3 08/16/2022 ALPRAZolam (XANAX) 0.25 mg tablet Take 0.5 tablets (0.125 mg total) by mouth 2 (two) times a day 08/14/2022 cyanocobalamin (Vitamin B-12) 1,000 mcg/mL injection 1 mL (1,000 mcg total) dextroamphetamin e-amphetamine XR (ADDERALL XR) 25 mg 24 hr capsule Take 1 capsule (25 mg total) by mouth every morning 30 capsule 08/16/2022 EPINEPHrine (EpiPen) 0.3 mg/0.3 mL auto-injection syringeIndicatio ns:Anaphylaxis Inject 0.3 mL (0.3 mg total) into the muscle as instructed as needed for anaphylaxis 1 each 1 05/04/2020 FLUoxetine (PROzac) 40 mg capsule Take 1 capsule (40 mg total) by mouth nightly 90 capsule 3 08/16/2022 levothyroxine (SYNTHROID) 100 mcg tablet Take 1 tablet (100 mcg total) by mouth early childhood coordinator before breakfast 90 tablet 3 08/16/2022 nystatin powder Nystop 100,000 unit/gram topical powder APPLY TO THE AFFECTED AREA TWICE DAILY traMADoL (ULTRAM) 50 mg tablet Take 1 tablet (50 mg total) by mouth every 8 (eight) hours as needed 04/27/2022 documented as of this encounter Discharge Disposition Disposition Code Departure Means Destination Comment s Discharge to home or self care documented in this encounter ED Notes * Helen Mulligan MD - 01/25/2023 4:34 AM CDT Triage Chief Complaint: Chief Complaint Patient presents with Migraine Migraine x 4 days HPI: Merle Tiwari is a 32 y.o. female with history of migraines who presents for headache that feels just like previous migraines that she is had for 4 days despite taking ibuprofen and acetaminophen. No numbness or weakness or changes in vision or fever or stiff neck. Not worst headache of life feels very similar to previous migraine headaches. Has seen Neurology previously for these migraines. Nursing Triage Notes Reviewed Physical Exam: ED Triage Vitals [01/24/23 2355] Temp Pulse Resp BP SpO2 36.7 ??C (98.1 ??F) 89 18 125/68 96 % Temp src Heart Rate Source Patient Position BP Location FiO2 (%) Tympanic -- -- -- -- Height Height Method Weight Weight Method 1.549 m (5' 1 ) Stated 133.8 kg (295 lb) -- GENERAL APPEARANCE: Awake and alert. No acute distress. HEAD: Normocephalic. Atraumatic. EYES: Sclera anicteric. ENT: Tolerates saliva. NECK: Supple. Trachea midline. No meningismus. LUNGS: Respirations unlabored. EXTREMITIES: No acute deformities. No lower extremity edema SKIN: Warm and dry, no visible rashes, appears well perfused. NEUROLOGICAL: No gross facial drooping. Moves all 4 extremities spontaneously. Normal speech and mental status. Symmetrical smile. Extraocular movements intact and pupils equal round responsive to light. Symmetrical 5/5 footwear stitcher strength. Normal gait. PSYCHIATRIC: Normal mood. Labs Reviewed - No data to display No orders to display Procedures ED COURSE/MDM/independent results review and interpretation/outside records review: ED Course as of 01/25/23433 Time: 01/25 433 Comment: Patient's symptoms have completely resolved she would like to be discharged home and needsa work note. By: Helen Mulligan MD Vitals: 01/24/23 2355 BP: 125/68 Pulse: 89 Resp: 18 Temp: 36.7 ??C (98.1 ??F) TempSrc: Tympanic SpO2: 96% Weight: 133.8 kg (295 lb) Height: 154.9 cm (5' 1 ) MDM: Not worst headache of life. No fevers. No neck stiffness. No numbness or weakness. No rash or jointpain. No syncope. No trauma. No jaw claudication. No vision changes. Normal/nonfocal reassuring neuro exam. I estimate there is LOW risk for BACTERIAL MENINGITIS & SUBARACHNOID HEMORRHAGE. Unlikely venous sinus thrombosis, giant cell arteritis, or other emergent cause of headache. No indicationfor head CT and LP at this time. I consider the discharge disposition reasonable. Merle Tiwari and I have discussed the diagnosis and risks, and we agree with discharging home with close follow-up. We also discussed returning to the Emergency Department immediately if new or worsening symptoms occur. We have discussed the symptoms which are most concerning that necessitate immediate return. Clinical Impression: 1. Acute nonintractable headache, unspecified headache type Disposition: Discharge (Please note that portions of this note may have been completed with a voice recognition program. Occasionally words are mis-transcribed.) Helen Mulligan MD 01/25/236 * Roberto Joseph RN - 01/24/2023 11:55 PM CDT Pt c/o migraine x 4 days documented in this encounter Plan of Treatment Not on file documented as of this encounter Visit Diagnoses Diagnosis Acute nonintractable headache, unspecified headache type- Primary documented in this encounter Administered Medications Inactive Administered Medications - up to 3 most recent administrations Medication Order MAR Action Action Date Dose Rate Site acetaminophen (TYLENOL) tablet 1,000 mg 1,000 mg, oral, Once, On Tue01/25/23 at 0229, For 1 dose Given 01/25/2023 2:55 AM CDT 1,000 mg dexAMETHasone (DECADRON) 4 mg/mL injection 6 mg 6 mg, intravenous, Administer over 2 Minutes, Once, On Tue01/25/23 at 0229, For 1 dose Given 01/25/2023 2:47 AM CDT 6 mg ketorolac (TORADOL) 15 mg/mL injection 15 mg 15 mg, intravenous, Once, On Tue01/25/23 at 022, For 1 dose, For Adult IV push, administer over 15 seconds, Indications: PainIndications:Pain Given 01/25/2023 2:44 AM CDT 15 mg magnesium sulfate 2 g/50 mL in water (premix) 2 g 2 g, intravenous, Administer over 60 Minutes, Once, On Tue01/25/23 at 0229, For 1 dose New Bag 01/25/2023 2:49 AM CDT 2 g prochlorperazine (COMPAZINE) injection 10 mg 10 mg, intravenous, Administer over 2 Minutes, Once, On Tue01/25/23 at 0229, For 1 dose Given 01/25/2023 2:47 AM CDT 10 mg sodium chloride 0.9% bolus 1,000 mL 1,000 mL, intravenous, at 1,000 mL/hr, Administer over 1 Hours, Once, On Tue01/25/23 at 0229, For 1 dose New Bag 01/25/2023 2:44 AM CDT 1,000 mL 1000 mL/hr documented in this encounter Active and Recently Administered Medications Times are shown in CDT. Scheduled Medication Order 01/23/2023 01/24/202301/25/2023 acetaminophen (TYLENOL) tablet 1,000 mg (COMPLETED) 1,000 mg, oral, Once, On Tue01/25/23 at 022, For 1 dose 0255 (Given - Provid er: Sharmaine Gomez RN) dexAMETHasone (DECADRON) 4 mg/mL injection 6 mg (COMPLETED) 6 mg, intravenous, Administer over 2 Minutes, Once, On Tue01/25/23 at 0229, For 1 dose 0247 (Given - Provid er: Sharmaine Gomez RN) ketorolac (TORADOL) 15 mg/mL injection 15 mg (COMPLETED) 15 mg, intravenous, Once, On Tue01/25/23 at 0229, For 1 dose, For Adult IV push, administer over 15 seconds, Indications: Pain 0244 (Given - Provid er: Sharmaine Gomez RN) magnesium sulfate 2 g/50 mL in water (premix) 2 g (COMPLETED) 2 g, intravenous, Administer over 60 Minutes, Once, On Tue01/25/23 at 022, For 1 dose 0249 (New Bag - Prov ider: Sharmaine Gomez RN)[id number] (Stopped - Provider: Sharmaine Gomez RN) prochlorperazine (COMPAZINE) injection 10 mg (COMPLETED) 10 mg, intravenous, Administer over 2 Minutes, Once, On Tue01/25/23 at 0229, For 1 dose 0247 (Given - Provid er: Sharmaine Gomez RN) sodium chloride 0.9% bolus 1,000 mL (COMPLETED) 1,000 mL, intravenous, at 1,000 mL/hr, Administer over 1 Hours, Once, On Tue01/25/23 at 0229, For 1 dose 0244 (New Bag - Prov ider: Sharmaine Gomez RN)[id number] (Stopped - Provider: Sharmaine Gomez RN) documented in this encounter Care Teams Research Kennel Supervisor Relationship Specialty Start Date End Date Lizet Cooley DNP PCP - General Family Medicine 11/02/22 10/27/23 documented as of this encounter
--- OUTSIDE RECORDS SUMMARY | 2024-07-21 11:36 | XMS_ITS | Clinical Summary ---
Author Organization [facility] Address [address] [place] [address] Care Team Providers Care Mold Shifter Name Role Phone Barry Beltran MD Primary Care Provider Allergies Active Allergy Reactions Criticality Noted Date [...] 1 tablet (100 mcg total) by mouth thaw shed heater tender before breakfast 90 tablet 3 08/16/19 23 Active orphenadrine ER (NORFLEX) 100 mg 12 hr tabletIndications: Muscle Spasm Take 1 tablet (100 mg total) by mouth 2 (two) times a day for 5 days 10 tablet 09/30/19 23 Active ondansetron ODT (ZOFRAN-ODT) 4 mg disintegrating [...] adult 08/19/2022 Mild intermittent asthma without complication Surgical History Surgery Date Site/Laterality Comments TONSILLECTOMY/ADENOIDECTOMY 07/25/1998 - 07/24/1999 CARPAL TUNNEL RELEASE 07/25/2005 - 07/24/2006 Right CARPAL TUNNEL RELEASE 07/25/2016 - 07/24/2017 Left ELBOW SURGERY 07/25/2014 - 07/24/2015 SECTION DILATION AND CURETTAGE OF UTERUS 07/25/2010 - 07/24/2011 HYSTERECTOMY CARPAL TUNNEL RELEASE ABLATION Medical History Medical History Date Comments CTS (carpal tunnel syndrome) Migraine Kidney stone Recurrent loss, 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 Acquired hypothyroidism 08/19/2022 Anxiety and depression 08/19/2022 Family History Medical History Relation Name Comments Cancer Mother Relation Name Status Comments Father Mother Alive Social History Tobacco Use Types Packs/Day Years [...] on file Legal Sex Female 2:59 PM MANAGER LAUNDRY Gender Identity Female 10/26/2022 1:11 PM CDT Sexual Orientation Lesbian 10/26/2022 1: 11 PM CDT Obstetrics History Para Term AB IAB SAB Ectopic Multiple Livin g Live Births 6 1 4 1 Date Outcome GA Total Labor Labor/2nd/3rd Weight Sex Type Anes PTL Doretha A1 A5 Name Clin AB AB AB AB Para Last Filed Vital Signs Vital Sign Reading [...] 04/18/2024 9:02 PM CDT Plan of Treatment Health Maintenance Due Date Last Done Comments Hepatitis C Screening 1992 Pneumococcal vaccine <65 (1 of 2 - PCV) 1998 Varicella Vaccines (1 of 2 - 13+ 2-dose series) 2005 Regular Well Visit/Exam 18-64 2010 Depression Screening 08/16/2023 08/16/2022 DTaP/Tdap/Td Vaccine (8 - Td or Tdap) 12/06/2028 12/06/2018, 07/06/2005, 04/12/2003, Additional history exists Influenza Vaccine Completed 05/17/2024, 05/02/2018 HPV Vaccines Aged Out No longer eligi ble based on patient's age to complete this topic [place] [address] [facility] Member Subscriber Plan / Payer (Ef fective 2018-Present) Name:Merle Tiwari Relation to Subscriber:Self Name:Merle Tiwari Payer ID:[id number] (NAIC) Group ID:Not on file Type:MEDICAID RISK OTHER [address]: [address] [place] [address] [place] [address] [place] [address] Member Subscriber Plan / Payer (Ef fective 2021-Present) Name:Te Mrele M Relation to Subscriber:Self Name:Merle Tiwari Soledad Payer ID:[id number] (NAIC) Group ID:Not on file Type:MEDICAID RISK OTHER Address: ATTN: CLAIMS DEPT [address] [facility] [place] [id number] Care Teams Mold Shifter Relationship Specialty Start Date End Date Barry Beltran MD [address] [place] [address] PCP - General Internal Medicine 10/28/23
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
--- OUTSIDE RECORDS SUMMARY | 2024-07-21 11:36 | XMS_ITS | Encounter Summary ---
Author Organization [facility] Healthcare Address [address] [place] [address] Care Team Providers Care Medical Insurance Claims Specialist Name Role Phone Barry Beltran MD Primary Care Provider [phone] Reason for Visit * Reason Comments Abdominal Pain Knee Pain Encounter Details Date Type Department Care Team (Late st Contact Info) Description 04/18/2024 9:03 PM CDT - 04/18/2024 11:36 PM CDT Emergency [facility] Emergency Department [address] [place] [address] Devin Lamar MD [address] [place] [id number] Knee effusion, left (Primary Dx); Abdominal pain, generalized Discharge Disposition: Discharge to home or self [...] on file 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 Follow up with your primary care doctor. Keep Erick wrap on. * Attachments The following attachments cannot be sent through Care Everywhere. 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 90 tablet 3 08/16/2022 nystatin [...] 6 (six) hours as needed for pain 12 tablet 04/18/2024 04/19/20 24 documented as of this encounter Ordered Prescriptions Prescription Sig Dispense Quantity Refills Last Filled Start Date End Date HYDROcodone-acetam inophen (NORCO) 5-325 mg per tabletIndications: Pain Take 1 tablet by mouth every 8 (eight) hours as needed for pain for up to 8 doses 8 tablet 04/19/2024 HYDROcodone-acetam inophen (NORCO) 5-325 mg per tabletIndications: Pain Take 1 tablet by mouth every 6 (six) hours as needed for pain 12 tablet 04/18/2024 04/19/2024 HYDROcodone-acetam inophen (NORCO) 5-325 mg per tabletIndications: Pain Take 1 tablet by mouth every 6 (six) hours as needed for pain 12 tablet 04/18/2024 04/18/2024 documented in this encounter Discharge Disposition Disposition Code Departure Means Destination Comment s Discharge to home or self care documented in this encounter ED Notes * Devin Lamar MD - 04/18/2024 9:20 PM CDT HPI Chief Complaint Patient presents with Abdominal Pain Knee Pain Patient fell yesterday. She tripped over her foot and fell up some concrete stairs. She has abdominal pain with some bruising to the abdomen. Also has swelling to left knee with some pain in the leftbig toe and little toe. Pain in the big toe is chronic. She is having some vaginal spotting. Patient History: Patient Active Problem List Diagnosis [...] Current packs/day: 0.00 Types: Cigarettes Quit date: 2016 Years since quittin.7 Smokeless tobacco: Never Vaping Use Vaping status: [...] and leg swelling. Gastrointestinal: Positive for abdominal pain. Negative for diarrhea, nausea and vomiting. Genitourinary: Positive for vaginal bleeding. Negative for difficulty urinating. Musculoskeletal: Positive for arthralgias. Negative for myalgias. Skin: Negative for rash. Neurological: Negative for dizziness and headaches. Psychiatric/Behavioral: Negative for behavioral problems. Physical Exam ED Triage Vitals [04/18/24 2102] Temp Pulse Resp BP SpO2 36.7 ??C (98 ??F) 100 18 158/89 99 % Temp src Heart Rate Source Patient Position BP Location FiO2 (%) -- -- -- -- -- Height Height Method Weight Weight Method 1.549 m (5' 1 ) Stated (!) 145.6 kg (321 lb) -- Physical Exam Vitals and nursing note reviewed. Constitutional: General: She is not in acute distress. Appearance: She is well-developed. She is obese. HENT: Head: Normocephalic and atraumatic. Eyes: Conjunctiva/sclera: Conjunctivae normal. Cardiovascular: Rate and Rhythm: Normal rate and regular rhythm. Heart sounds: No murmur heard. Pulmonary: Effort: Pulmonary effort is normal. No respiratory distress. Breath sounds: Normal breath sounds. Abdominal: Palpations: Abdomen is soft. Tenderness: There is generalized abdominal tenderness. Musculoskeletal: General: No swelling. Cervical back: Neck supple. Comments: Tenderness to left big toe. Tenderness, erythema, small laceration to left little toe. Tenderness, swelling to left knee. Skin: General: Skin is warm and dry. Capillary Refill: Capillary refill takes less than 2 seconds. Neurological: Mental Status: She is alert. Psychiatric: Mood and Affect: Mood normal. Labs Reviewed CBC WITH AUTO DIFFERENTIAL - Abnormal Result Value WBC 7.5 Hgb 13.2 Hct 42.0 Plt 247 MPV 9.4 RBC 4.85 MCV 86.6 MCH 27.2 MCHC 31.4 (*) RDW CV 13.4 RDW SD 42.6 NRBC abs 0.00 COMPREHENSIVE METABOLIC PANEL - Abnormal Sodium 138 Potassium, pl 3.9 Chloride 101 CO2 28 Anion gap 10 BUN 9 Creatinine 0.92 Glucose 124 Calcium 8.4 (*) Bilirubin, total <0.2 Protein, pl 6.2 (*) Albumin 3.6 Alk phos 94 ALT 37 AST 24 HCG, BLOOD, QUANTITATIVE hCG, quant <5.0 DIFFERENTIAL AUTO Neutrophil abs 4.1 Imm gran abs 0.0 Lymphocyte abs 2.5 Monocyte abs 0.7 Eosinophil abs 0.2 Basophil abs 0.1 Neutrophil pct 53.9 Imm gran pct 0.4 Lymphocyte pct 33.5 Monocyte pct 8.8 Eosinophil pct 2.7 Basophil pct 0.7 EGFR eGFR 85 XR Foot Left 3 or More Views Final Result XR Knee Left 1 or [address] Abdomen Pelvis W Contrast Final Result MDM Medical Decision Making Patient presents with fall, abdominal pain, knee pain, left foot pain. Amount and/or Complexity of Data Reviewed Labs: ordered. Radiology: ordered. Details: Left foot: Negative Left knee x-ray: Negative CT abdomen: Negative (fatty liver) Discussion of management or test interpretation with external provider(s): Differential diagnosis: Fracture, contusion, abdominal trauma. X-rays, CT negative. Will discharge on pain medicine. Risk Prescription drug management. Final diagnoses: Knee effusion, left Abdominal pain, generalized Devin Lamar MD 04/18/242326 * Alicia Ureña RN - 04/18/2024 9:00 PM CDT Fell up some concrete stairs yesterday. Hurt her L knee down to her foot. Pt is ambulatory on arrival. She is also having abdominal pain after hitting the stairs, and light bleeding. She has been rotating tyl and IBU. documented in this encounter Plan of Treatment Not on file documented as of this encounter Procedures Procedure Name Priority Date/Time Associated Diagnosis Comments XR FOOT LEFT 3 OR MORE VIEWS ED 04/18/2024 10:47 PM CDT XR KNEE LEFT 1 OR 2 VIEWS ED 04/18/2024 10:[address] ABDOMEN PELVIS W CONTRAST ED 04/18/2024 10:40 PM CDT EGFR STAT 04/18/2024 9:56 PM CDT DIFFERENTIAL AUTO STAT 04/18/2024 9:5 6 PM CDT CBC WITH AUTO DIFFERENTIAL STAT 04/18/2024 9:56 PM CDT HCG, BLOOD, QUANTITATIVE STAT 04/18/2024 9:56 PM CDT COMPREHENSIVE METABOLIC PANEL STAT 04/18/2024 9:56 PM CDT documented in this encounter Results * XR Knee Left 1 or 2 Views (04/18/2024 10:47 PM CDT) Anatomical Region Laterality Modality Lower Extremities, Knee Left Computed Radiography 04/18/2024 10:5 5 PM CDT Narrative 04/18/2024 10:56 PM CDT EXAM DESCRIPTION: XR KNEE LEFT 1 OR 2 VIEWS REASON FOR STUDY: accidental fall ?Fell up some concrete stairs yesterday. Hurt her L knee down to her foot. Pt is ambulatory on arrival. She is also having abdominal pain after hitting the stairs, and light bleeding. She has been rotating tyl and IBU. ? TECHNIQUE: ?? Frontal and lateral ??views of the ??left knee . COMPARISON: 10/11/2017 FINDINGS: BONES/JOINTS: ??No fracture, malalignment, or suspicious osseous lesion is identified. ?? Joint spaces are preserved. ?? SOFT TISSUES: ??Unremarkable. ?? IMPRESSION: No fracture or malalignment identified. ?? THIS IS AN ELECTRONICALLY VERIFIED FINAL REPORT 04/18/2024 10:56 PM - Electronically signed by ??Von Akhtar M.D. AR: FAN D: ??04/18/2024 10:56 PM T: ??04/18/2024 10:56 PM Report ID: [id number] Reading Location: ??[id number] Procedure Note Von Akhtar MD - 04/18/2024 EXAM DESCRIPTION: XR KNEE LEFT 1 OR 2 VIEWS REASON FOR STUDY: accidental fall Fell up some concrete stairs yesterday. Hurt her L knee down to herfoot. Pt is ambulatory on arrival. She is also having abdominal pain after hittingthe stairs, and light bleeding. She has been rotating tyl and IBU. TECHNIQUE: Frontal and lateral views of the left knee . COMPARISON: 10/11/2017 FINDINGS: BONES/JOINTS: No fracture, malalignment, or suspicious osseous lesion is identified. Joint spaces are preserved. SOFT TISSUES: Unremarkable. IMPRESSION: No fracture or malalignment identified. THIS IS AN ELECTRONICALLY VERIFIED FINAL REPORT 04/18/2024 10:56 PM - Electronically signed by Von Akhtar M.D. AR: FAN Report ID: [id number] Reading Location: [id number] us Devin Lamar MD IMG XR PROCEDURES Final Resu lt * XR Foot Left 3 or More Views (04/18/2024 10:47 PM CDT) Anatomical Region Laterality Modality Lower Extremities, Foot Left Computed Radiography 04/18/2024 10:5 4 PM CDT Narrative 04/18/2024 10:55 PM CDT EXAM DESCRIPTION: XR FOOT LEFT 3 OR MORE VIEWS REASON FOR STUDY: accidental fall ?Fell up some concrete stairs yesterday. Hurt her L knee down to her foot. Pt is ambulatory on arrival. She is also having abdominal pain after hitting the stairs, and light bleeding. She has been rotating tyl and IBU. ? TECHNIQUE: ?? Frontal, oblique, and lateral ??views of the ??left foot . COMPARISON: 10/11/2017 FINDINGS: BONES/JOINTS: ??No fracture, malalignment, or suspicious osseous lesion is identified. ?? Joint spaces are preserved. ?? SOFT TISSUES: ??Unremarkable. ?? IMPRESSION: No fracture or malalignment identified. ?? THIS IS AN ELECTRONICALLY VERIFIED FINAL REPORT 04/18/2024 10:55 PM - Electronically signed by ??Von Akhtar M.D. AR: FAN D: ??04/18/2024 10:55 PM T: ??04/18/2024 10:55 PM Report ID: [id number] Reading Location: ??[id number] Procedure Note Von Akhtar MD - 04/18/2024 EXAM DESCRIPTION: XR FOOT LEFT 3 OR MORE VIEWS REASON FOR STUDY: accidental fall Fell up some concrete stairs yesterday. Hurt her L knee down to herfoot. Pt is ambulatory on arrival. She is also having abdominal pain after hittingthe stairs, and light bleeding. She has been rotating tyl and IBU. TECHNIQUE: Frontal, oblique, and lateral views of the left foot . COMPARISON: 10/11/2017 FINDINGS: BONES/JOINTS: No fracture, malalignment, or suspicious osseous lesion is identified. Joint spaces are preserved. SOFT TISSUES: Unremarkable. IMPRESSION: No fracture or malalignment identified. THIS IS AN ELECTRONICALLY VERIFIED FINAL REPORT 04/18/2024 10:55 PM - Electronically signed by Von Akhtar M.D. AR: FAN Report ID: [id number] Reading Location: [id number] us Devin Lamar MD IMG XR PROCEDURES Final Resu lt * CT Abdomen Pelvis W Contrast (04/18/2024 10:40 PM CDT) Anatomical Region Laterality Modality Body N/A Computed Tomogra phy 04/18/2024 10:4 3 PM CDT Narrative 04/18/2024 10:53 PM CDT EXAM DESCRIPTION: ?? CT ABDOMEN PELVIS W CONTRAST REASON FOR STUDY: ?? Abdominal pain, acute, nonlocalized ?? Abdominal pain after falling against concrete stairs X1 day ago ??Nausea ??Lt side pain ?? TECHNIQUE: CT scan of the abdomen and pelvis performed with intravenous and ?? without ??oral contrast using helical scanning technique with dynamic intravenous contrast injection. Reconstructed coronal and sagittal MPR images reviewed. All images stored on PACS. Automated exposure control was used as a dose optimization technique for this examination. CONTRAST TYPE/DOSE: ?? 100mL of IOVERSOL 350 MG IODINE/ML INTRAVENOUS SYRINGE ?? injected via ?? intravenous COMPARISON: ?? 01/25/2024. FINDINGS: LOWER CHEST: ?? No significant pulmonary abnormalities. No effusion. LIVER: ?? Normal size. ??Diffusely hypodense. ??No identified cystic or solid masses. GALLBLADDER: ?? Unremarkable. BILE DUCTS: ?? No intrahepatic or extrahepatic ductal dilatation. SPLEEN: ?? Normal size. ??No focal lesions. PANCREAS: ?? No identified cystic or solid masses. No significant calcifications. No adjacent inflammation or peripancreatic fluid collections. Pancreatic duct not dilated. ?? ADRENALS: ?? Normal. KIDNEYS/URINARY TRACT: ?? No identified significant cystic or solid masses. No visualized stones. No hydronephrosis or hydroureter. Symmetric enhancement. ? Urinary bladder is unremarkable. GI: ?? There are few scattered diverticula without adjacent inflammation to suggest diverticulitis. ??The appendix is normal in appearance. ??Small bowel appears within normal limits. PERITONEUM: ?? No ascites or free air. ??There is a small umbilical hernia containing only fat. RETROPERITONEUM: ?? No mass or adenopathy. REPRODUCTIVE: ?? The uterus appears to be surgically absent. VASCULATURE: ?? No abdominal aortic aneurysm. MUSCULOSKELETAL: ?? No significant abnormality. OTHER: ?? No other abnormality. IMPRESSION: No evidence of acute trauma to the abdomen or pelvis. Hepatic steatosis. Mild diverticulosis. THIS IS AN ELECTRONICALLY VERIFIED FINAL REPORT 04/18/2024 10:53 PM - Electronically signed by ??Chetan Blunt M.D., D.O. Chetan Blunt M.D., D.O. MW: CHRIS D: ??04/18/2024 10:53 PM T: ??04/18/2024 10:53 PM Report ID: [id number] Reading Location: ??[id number] Procedure Note Chetan Blunt MD - 04/18/2024 EXAM DESCRIPTION: CT ABDOMEN PELVIS W CONTRAST REASON FOR STUDY: Abdominal pain, acute, nonlocalized Abdominal pain after falling against concrete stairs X1 day ago NauseaLt side pain TECHNIQUE: CT scan of the abdomen and pelvis performed with intravenousand without oral contrast using helical scanning technique with dynamic intravenous contrast injection. Reconstructed coronal and sagittal MPRimages reviewed. All images stored on PACS. Automated exposure control was usedas a dose optimization technique for this examination. CONTRAST TYPE/DOSE: 100mL of IOVERSOL 350 MG IODINE/ML INTRAVENOUSSYRINGE injected via intravenous COMPARISON: 01/25/2024. FINDINGS: LOWER CHEST: No significant pulmonary abnormalities. No effusion. LIVER: Normal size. Diffusely hypodense. No identified cystic or solid masses. GALLBLADDER: Unremarkable. BILE DUCTS: No intrahepatic or extrahepatic ductal dilatation. SPLEEN: Normal size. No focal lesions. PANCREAS: No identified cystic or solid masses. No significant calcifications. No adjacent inflammation or peripancreatic fluidcollections. Pancreatic duct not dilated. ADRENALS: Normal. KIDNEYS/URINARY TRACT: No identified significant cystic or solid masses.No visualized stones. No hydronephrosis or hydroureter. Symmetricenhancement. Urinary bladder is unremarkable. GI: There are few scattered diverticula without adjacent inflammation to suggest diverticulitis. The appendix is normal in appearance. Smallbowel appears within normal limits. PERITONEUM: No ascites or free air. There is a small umbilical hernia containing only fat. RETROPERITONEUM: No mass or adenopathy. REPRODUCTIVE: The uterus appears to be surgically absent. VASCULATURE: No abdominal aortic aneurysm. MUSCULOSKELETAL: No significant abnormality. OTHER: No other abnormality. IMPRESSION: No evidence of acute trauma to the abdomen or pelvis. Hepatic steatosis. Mild diverticulosis. THIS IS AN ELECTRONICALLY VERIFIED FINAL REPORT 04/18/2024 10:53 PM - Electronically signed by Chetan Blunt M.D., D.O. Chetan Blunt M.D., D.O. MW: CHRIS Report ID: [id number] Reading Location: [place] [address] Devin Lamar MD IMG CT PROCEDURES Final Resu lt * eGFR (04/18/2024 9:56 PM CDT) eGFR 85 >=60 mL/min/1. 73 m2 Comment: Interpretive Data [...] of Race in Diagnosing Kidney Disease, JASN 2020). The CKD-EPI equation should not be used for patients with unstable renal function and has not been validated in children and those over 70. Current interpretive data was last reviewed 2021. Blood 04/18/2024 9:56 PM CDT 04/18/2024 9:59 PM CDT us Devin Lamar MD LAB BLOOD ORDERABLES Final R esult [facility] ([place]) [facility] Department of Laboratories [place], [place] [id number] * Differential, auto (04/18/2024 9:56 PM CDT) Neutrophil abs 4.1 1.5 - 6.5 K/cumm Imm gran abs 0.0 0.0 - 0.1 K/cumm [facility] ([place]) Lymphocyte abs 2.5 0.8 - 3.3 K/cumm [facility] ([place]) Monocyte abs 0.7 0.2 - 0.8 K/cumm [facility] ([place]) Eosinophil abs 0.2 0.0 - 0.5 K/cumm [facility] ([place]) Basophil abs 0.1 0.0 - 0.1 K/cumm [facility] ([place]) Neutrophil pct 53.9 % [facility] ([place]) Comment: Interpretive Data Percent cell count reference ranges are not reported, since discordance with absolute values may lead to misinterpretation of CBC data. Current Interpretive Data was last revised on 2017. Imm gran pct 0.4 % [facility] ([place]) Comment: Interpretive Data Percent cell count reference ranges are not reported, since discordance with absolute values may lead to misinterpretation of CBC data. Current Interpretive Data was last revised on 2017. Lymphocyte pct 33.5 % [facility] ([place]) Comment: Interpretive Data Percent cell count reference ranges are not reported, since discordance with absolute values may lead to misinterpretation of CBC data. Current Interpretive Data was last revised on 2017. Monocyte pct 8.8 % [facility] ([place]) Comment: Interpretive Data Percent cell count reference ranges are not reported, since discordance with absolute values may lead to misinterpretation of CBC data. Current Interpretive Data was last revised on 2017. Eosinophil pct 2.7 % [facility] ([place]) Comment: Interpretive Data Percent cell count reference ranges are not reported, since discordance with absolute values may lead to misinterpretation of CBC data. Current Interpretive Data was last revised on 2017. Basophil pct 0.7 % [facility] ([place]) Comment: Interpretive Data Percent cell count reference ranges are not reported, since discordance with absolute values may lead to misinterpretation of CBC data. Current Interpretive Data was last revised on 2017. Blood 04/18/2024 9:56 PM CDT 04/18/2024 9:59 PM CDT Devin Lamar MD LAB BLOOD ORDERABLES Final R esult [facility] ([place]) [facility] [place] [address] * hCG, blood, quantitative (04/18/2024 9:56 PM CDT) hCG, quant <5.0 0.0 - 5.0 IUnits/L Comment: Interpretive Data Male: < 5 IU/L Non- premenopausal Female: <5 IU/L The Mickey hCG Beta Quant assay procedure was used. Results from different manufacturers or methods may not be comparable. ??Serial testing should be performed using the same method. Interpretive Data was last revised on 2023 Blood 04/18/2024 9:56 PM CDT 04/18/2024 9:59 PM CDT us Devin Lamar MD LAB BLOOD ORDERABLES Final R esult [facility] ([place] [place] [address] * (ABNORMAL) Comprehensive metabolic panel (04/18/2024 9:56 PM CDT) Sodium 138 135 - 145 mmol/L Potassium, pl 3.9 3.3 - 4.9 mmol/L [facility] Chloride 101 97 - 110 mmol/L [facility] CO2 28 22 - 32 mmol/L [facility] ([place]) Anion gap 10 2 - 15 mmol/L [facility] ([place]) BUN 9 6 - 25 mg/dL [facility] ([place]) Creatinine 0.92 0.60 - 1.10 mg/dL [facility] ([place]) Glucose 124 70 - 199 mg/dL [facility] ([place]) Comment: Interpretive Data Fasting glucose >/= [...] classification and Diagnosis of Diabetes Diabetes Care 202; 46: S19-S40. Current interpretive data was last revised 2022. Calcium 8.4(L) 8.5 - 10.3 mg/dL [facility] ([place]) Bilirubin, total <0.2 0.1 - 1.2 mg/dL [facility] ([place]) Protein, pl 6.2(L) 6.5 - 8.5 g/dL [facility] ([place]) Albumin 3.6 3.5 - 5.0 g/dL [facility] ([place]) Alk phos 94 40 - 130 Units/L [facility] ([place]) ALT 37 7 - 45 Units/L [facility] ([place]) AST 24 10 - 45 Units/L [facility] ([place]) Comment:Slightly Hemolyzed S pecimen Blood 04/18/2024 9:56 PM CDT 04/18/2024 9:59 PM CDT Devin Lamar MD LAB BLOOD ORDERABLES Final R esult [facility] ([place]) [facility] [place] [address] * (ABNORMAL) CBC with auto differential (04/18/2024 9:56 PM CDT) WBC 7.5 3.8 - 9.9 K/cumm Hgb 13.2 11.9 - 15.5 g/dL [facility] ([place]) Hct 42.0 35.6 - 45.5 % [facility] ([place]) Plt 247 150 - 400 K/cumm [facility] ([place]) MPV 9.4 9.1 - 12.3 fL [facility] ([place]) RBC 4.85 3.90 - 5.20 M/cumm [facility] ([place]) MCV 86.6 81.3 - 96.4 fL [facility] ([place]) MCH 27.2 27.1 - 33.3 pg [facility] ([place]) MCHC 31.4(L) 32.3 - 35.7 g/dL [facility] ([place]) RDW CV 13.4 11.1 - 14.9 % [facility] ([place]) RDW SD 42.6 35.7 - 48.1 fL [facility] ([place]) NRBC abs 0.00 0.00 - 0.01 K/cumm [facility] ([place]) Blood 04/18/2024 9:56 PM CDT 04/18/2024 9:59 PM CDT Devin Lamar MD LAB BLOOD ORDERABLES Final R esult [facility]) [facility] Department of [facility] [place], [place] [id number] documented in this encounter Visit Diagnoses Diagnosis Knee effusion, left- Primary Effusion of lower leg joint Abdominal pain, generalized documented in this encounter Administered Medications Inactive Administered Medications - up to 3 most recent administrations Medication Order MAR Action Action Date Dose Rate Site ioversoL (OPTIRAY 350) syringe 100 mL 100 mL, intravenous, Once in imaging, contrast, Starting on Tue04/18/24 at 2200, For 1 dose Contrast Given 04/18/2024 10:01 PM CDT 100 mL ketorolac (TORADOL) 30 mg/mL injection 30 mg 30 mg, intravenous, Once, On Tue04/18/24 at 2120, For 1 dose, For Adult IV push, administer over 15 seconds Given 04/18/2024 9:59 PM CDT 30 mg documented in this encounter Discontinued Medications Medication Sig Discontinue Reason Start Date End Da te HYDROcodone-acetaminophe n (NORCO) 5-325 mg per tabletIndications:Pain Take 1 tablet by mouth every 6 (six) hours as needed for pain 01/25/2024 04/18/2024 HYDROcodone-acetaminophe n (NORCO) 5-325 mg per tabletIndications:Pain Take 1 tablet by mouth every 6 (six) hours as needed for pain 04/18/2024 04/18/2024 HYDROcodone-acetaminophe n (NORCO) 5-325 mg per tabletIndications:Pain Take 1 tablet by mouth every 6 (six) hours as needed for pain 04/18/2024 04/19/2024 documented as of this encounter Active and Recently Administered Medications Times are shown in CDT. Scheduled Medication Order 04/16/2024 04/17/2024 04/18/2024 ketorolac (TORADOL) 30 mg/mL injection 30 mg (COMPLETED) 30 mg, intravenous, Once, On Tue04/18/24 at 2120, For 1 dose, For Adult IV push, administer over 15 seconds 2158 (Given - Provid er: Celeste Bermudez RN) PRN Medication Order 04/16/2024 04/17/2024 04/18/2024 ioversoL (OPTIRAY 350) syringe 100 mL (COMPLETED) 100 mL, intravenous, Once in imaging, contrast, Starting on Tue04/18/24 at 2200, For 1 dose 2201 (Contrast Given - Provider: Tom Jacobs RT) documented in this encounter Orders Nursing Count Last Ordered Date First Orde red Date APPLY ERICK WRAP 1 04/18/2024 documented in this encounter Care Teams Medical Insurance Claims Specialist Relationship Specialty Start Date End Date Barry Beltran MD [address] [place] [id number] PCP - General Internal Medicine 10/28/23 documented as of this encounter
--- OUTSIDE RECORDS SUMMARY | 2024-07-21 11:36 | XMS_ITS | Encounter Summary ---
Author Organization [facility] Address [address] [facility] [address] [place] [address] Care Team Providers Care Felt Puller Name Role Phone Lizet Cooley DNP Primary Care Provider Reason for Visit * Reason Comments New Patient Abdominal Pain Patient states that she has been having major abdominal pain that radiates across her whole abdomen Cholelithiasis Patient has had a re cent ct that showed gallstones * Consultation (Routine) - Closed Specialty Diagnoses / Procedures Referred By Jael donato Referred To Contact Gastroenterology Diagnoses Gallstones Alka Macias NP Phone: tel: fax: Alejandro Mojica MD [address] [place] [address] [place] [address] Phone: tel: fax: Referral ID Status Reason Start Date Expiration Date V isits Requested Visits Authorized [id number] Closed Specialty Services Required 10/13/2022 11/12/2023 1 1 Encounter Details Date Type Department Care Team (Late st Contact Info) Description 11/02/2022 1:30 PM CDT Office Visit [facility] G[facility]ology at [place] [address] [facility] [address] [place] [id number] Alejandro Mojica MD [address] [place] [address] [place] [address] Gallstones Social History Tobacco Use Types Packs/Day Years [...] staff should administer the PHQ-9) 1 08/16/2022 Comments Unknown Sex and Gender Information Value Date Recorded Sex Assigned at Not on file 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[employer] Gender Identity Female 10/26/2022 1:11 PM CDT Sexual Orientation Lesbian 10/26/2022 1: 11 PM CDT documented as of this encounter Last Filed Vital Signs Vital Sign Reading Time Taken Comments Blood Pressure - - Pulse 91 11/02/2022 1:19 PM CDT Temperature - - Respiratory Rate 96 11/02/2022 1:19 PM CDT Oxygen Saturation - - Inhaled Oxygen Concentration - - Weight 129.3 kg (285 lb 1.6 oz) 11/02/2022 1:19 PM CDT Height 154.9 cm (5' 1 ) 11/02/2022 1:19 PM CDT Body Mass Index 53.87 11/02/2022 1:19 PM CDT documented in this encounter Progress Notes * Alejandro Mojica MD - 11/02/2022 1:30 PM CDT Subjective/Objective Patient ID: Merle Tiwari is a 32 y.o. female. Chief Complaint New Patient, Abdominal Pain (Patient states that she has been having major abdominal pain that radiates across her whole abdomen), and Cholelithiasis (Patient has had a recent ct that showed gallstones) 3 weeks of dailly epiwodes of RUQ abd sharp pains radiating to Luq and L back. No inciting/relieving factors. No N/V. No relation to any GI function. Bms changed from multiple/d to once/d. Diet is terrible no B, no L, no fiber. I reviewed all blood work and CT scan and discussed asymptomatic gallstones should be left geovany and do not require surgery and hav nothing to do with her pain which I think is functional and related to poor diet and overall physical condition. I recommended improve diet and return prn Abdominal Pain Associated symptoms include abdominal pain. Pertinent negatives include no arthralgias, chest pain,fatigue, joint swelling, myalgias, nausea, rash, sore throat or vomiting. Review of Systems Constitutional: Negative for appetite change, fatigue and unexpected weight change. HENT: Negative for dental problem, sore throat and trouble swallowing. Eyes: Negative for photophobia. Respiratory: Negative for shortness of breath and wheezing. Cardiovascular: Negative for chest pain, palpitations and leg swelling. Gastrointestinal: Positive for abdominal pain. Negative for blood in stool, constipation, diarrhea,nausea, rectal pain and vomiting. Endocrine: Negative. Negative for polydipsia and polyphagia. Genitourinary: Negative for difficulty urinating. Musculoskeletal: Negative for arthralgias, back pain, gait problem, joint swelling and myalgias. Skin: Negative. Negative for pallor and rash. Allergic/Immunologic: Negative for food allergies and immunocompromised state. Neurological: Negative. Hematological: Negative. Psychiatric/Behavioral: Negative. Physical Exam Constitutional: Appearance: Normal appearance. She is well-developed. She is obese. HENT: Nose: Nose normal. Eyes: General: Lids are normal. Conjunctiva/sclera: Conjunctivae normal. Neck: Thyroid: No thyroid mass or thyromegaly. Trachea: Trachea normal. Cardiovascular: Rate and Rhythm: Normal rate and regular rhythm. Pulses: Normal pulses. Pulmonary: Effort: Pulmonary effort is normal. Breath sounds: Normal breath sounds. Abdominal: General: Bowel sounds are normal. Palpations: Abdomen is soft. Skin: General: Skin is warm and dry. Neurological: Mental Status: She is alert and oriented to person, place, and time. Assessment/Plan Diagnoses and all orders for this visit: Gallstones (K80.20) Assessment & Plan: Asymptomatic galstone. Remedy diet and return prn Orders: - Ambulatory referral to Gastroenterology documented in this encounter Miscellaneous Notes * Assessment & Plan Note - Alejandro Mojica MD - 11/02/2022 1:36 PM CDT Associated Problem(s): Gallstones Asymptomatic galstone. Remedy diet and return prn documented in this encounter Plan of Treatment Not on file documented as of this encounter Visit Diagnoses Diagnosis Gallstones Calculus of gallbladder without mention of cholecystitis or obstruction documented in this encounter Orders Outpatient Referral Count Last Ordered Date Fir st Ordered Date AMB REFERRAL TO GASTROENTEROLOGY 1 11/03/19 documented in this encounter Care Teams Felt Puller Relationship Specialty Start Date End Date Lizet Cooley DNP PCP - General Family Medicine 11/02/22 10/27/23 documented as of this encounter
--- OUTSIDE RECORDS SUMMARY | 2024-07-21 11:37 | XMS_ITS | Encounter Summary ---
Author Organization [facility] Healthcare Address [address] [place] [address] Care Team Providers Care Furniture Polisher Name Role Phone Angelia Goyal MD, Antoni Valentin Primary Care Provider Reason for Visit * Reason Comments Allergic Reaction Encounter Details Date Type Department Care Team (Late st Contact Info) Description 05/04/2020 12:49 AM CDT - 05/04/2020 4:13 AM CDT Emergency [facility] Emergency Department [address] [place] [address] Jenn Pepe MD [address] [place] [id number] Anaphylaxis, initial encounter (Primary Dx) Discharge Disposition: Discharge to home or self care Social History Tobacco Use Types Packs/Day Years Used Date Smoking Tobacco: Former Cigarettes Q uit: 2016 Smokeless Tobacco: Never Alcohol Use Standard Drinks/Week Comments No 0 (1 standard drink = 0.6 oz pur e alcohol) Comments No Sex and Gender Information Value Date Recorded Sex Assigned at Not on file 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 Gender Identity Female 10/26/2022 1:11 PM CDT Sexual Orientation Lesbian 10/26/2022 1: 11 PM CDT documented as of this encounter Last Filed Vital Signs Vital Sign Reading Time Taken Comments Blood Pressure 104/90 05/04/2020 4:00 AM CDT Pulse 92 05/04/2020 4:00 AM CDT Temperature 36.1 ??C (96.9 ??F) 05/04/2020 1:00 AM CD T Respiratory Rate 16 05/04/2020 4:00 AM CDT Oxygen Saturation 98% 05/04/2020 4:00 AM CDT Inhaled Oxygen Concentration - - Weight 140.6 kg (310 lb) 05/04/2020 1:00 AM CDT Height 154.9 cm (5' 1 ) 05/04/2020 1:00 AM CDT Body Mass Index 58.57 05/04/2020 1:00 AM CDT documented in this encounter Discharge Diagnoses Diagnosis Anaphylactic reaction due to milk and dairy products, initial encounter - ANAPHYLACTIC REACTION DUE TO MILK AND DAIRY PRODUCTS, INITIAL ENCOUNTER Personal history of nicotine dependence - PERSONAL HISTORY OF NICOTINE DEPENDENCE Exposure to other specified factors, initial encounter - EXPOSURE TO OTHER SPECIFIED FACTORS, INITIAL ENCOUNTER Other place in unspecified non-institutional (private) residence as the place of occurrence of the external cause - OTHER PLACE IN UNSPECIFIED NON-INSTITUTIONAL (PRIVATE) RESIDENCE THE PLACE OF OCCURRENCE OF THE E documented in this encounter Discharge Instructions * Discharge Instructions* Jenn Pepe MD - 05/04/2020 3:43 AM CDT Prednisone as directed. Benadryl and pepcid as directed. Carry an epipen and use as directed if similar symptoms should occur in the future. Do not eat the food that caused this reaction. * Attachments The following attachments cannot be sent through Care Everywhere. * Anaphylaxis (Martiniquais) documented in this encounter Medications at Time of Discharge EPINEPHrine (EpiPen) 0.3 mg/0.3 mL auto-injection syringeIndications: Anaphylaxis Inject 0.3 mL (0.3 mg total) into the muscle as instructed as needed for anaphylaxis 1 each 1 05/04/2020 predniSONE (DELTASONE) 20 mg tablet Take 2 tablets (40 mg) by mouth daily for 5 days 10 tablet 05/04/2020 05/09/20 20 butalbital-acetamin ophen-caffeine (ESGIC) 50-325-40 mg per tablet Take 1-2 tablets by mouth every 6 (six) hours as needed 10/20/2018 08/16/19 23 diphenhydrAMINE (diphenhydrAMINE) 25 mg capsule Take 2 tablet/capsule (50 mg total) by mouth every 6 (six) hours as needed for itching or allergies 20 capsule 05/04/2020 08/16/19 23 famotidine (PEPCID) 40 mg tablet Take 1 tablet (40 mg total) by mouth nightly as needed for heartburn 20 tablet 05/04/2020 08/16/19 23 labetalol (NORMODYNE,TRANDATE ) 100 mg tablet Take 100 mg by mouth 2 (two) times a day 08/16/19 23 ondansetron ODT (ZOFRAN-ODT) 4 mg disintegrating tablet Take 4 mg by mouth every 8 (eight) hours as needed for nausea or vomiting 08/16/19 [id number] 25 mg iron-1 mg -400 mg combo pack Take by mouth documented as of this encounter Ordered Prescriptions Prescription Sig Dispense Quantity Refills Last Filled Start Date End Date EPINEPHrine (EpiPen) 0.3 mg/0.3 mL auto-injection syringeIndications :Anaphylaxis Inject 0.3 mL (0.3 mg total) into the muscle as instructed as needed for anaphylaxis 1 each 1 05/04/2020 famotidine (PEPCID) 40 mg tablet Take 1 tablet (40 mg total) by mouth nightly as needed for heartburn 20 tablet 05/04/2020 3 diphenhydrAMINE (diphenhydrAMINE) 25 mg capsule Take 2 tablet/capsule (50 mg total) by mouth every 6 (six) hours as needed for itching or allergies 20 capsule 05/04/2020 3 predniSONE (DELTASONE) 20 mg tablet Take 2 tablets (40 mg) by mouth daily for 5 days 10 tablet 05/04/2020 0 documented in this encounter Discharge Disposition Disposition Code Departure Means Destination Discharge to home or self care documented in this encounter ED Notes * Mable Delgado RN - 05/04/2020 1:17 AM CDT Pt presents to the ED from home. Pt reports waterproof bag sewer she ate a creamy chicken wrap 45 mintute. Pt began to have hives all over her body as well as oral edema. Pts lips were swollen and she c/o of difficulty breathing triage. Pt brought back to ED ERP called to bedside. IV access obtained. * Jenn Pepe MD - 05/04/2020 12:52 AM CDT HPI Chief Complaint Patient presents with ??? Allergic Reaction HPI 12:52 AM 30 y/o female former smoker with no pertinent medical history presents to the [facility] private vehicle for evaluation secondary to a moderate allergic reaction s/p eating feta cheesean hour ago. Pt reports an associated sx of rash (hives), angioedema (mouth and tongue), and NV. She denies having any known food allergies. There are no reported moderating factors. Pt has no further concerns at this time. Patient History: Past Medical History: Diagnosis Date ??? CTS (carpal tunnel syndrome) ??? Kidney stone ??? Migraine ??? Recurrent loss, antepartum condition or complication Past Surgical History: Procedure Laterality Date ??? CARPAL TUNNEL RELEASE Right 2005 ??? CARPAL TUNNEL RELEASE Left 2016 ??? SECTION ??? DILATION AND CURETTAGE OF UTERUS 2010 ??? ELBOW SURGERY 2014 ??? TONSILLECTOMY/ADENOIDECTOMY 1998 Family History Problem Relation Age of Onset ??? Cancer Mother Social History Tobacco Use ??? Smoking status: Former Smoker Quit date: 2016 Years since quittin.7 ??? Smokeless tobacco: Never Used Substance Use Topics ??? Alcohol use: No ??? Drug use: No Review of Systems Review of Systems Constitutional: Negative for chills and fever. HENT: Negative for congestion and sore throat. +angioedema Eyes: Negative for pain and visual disturbance. Respiratory: Negative for cough, shortness of breath and wheezing. Cardiovascular: Negative for chest pain, palpitations and leg swelling. Gastrointestinal: Positive for nausea and vomiting. Negative for abdominal pain and diarrhea. Genitourinary: Negative for difficulty urinating, dysuria and frequency. Skin: Positive for rash. Neurological: Negative for weakness and headaches. All other systems reviewed and are negative. Physical Exam ED Triage Vitals [05/04/20 0100] Temp Pulse Resp BP SpO2 36.1 ??C (96.9 ??F) 100 18 (!) 89/63 95 % Temp src Heart Rate Source Patient Position BP Location FiO2 (%) Temporal -- -- -- -- Physical Exam Vitals signs and nursing note reviewed. Constitutional: Appearance: She is obese. HENT: Head: Normocephalic and atraumatic. Nose: Nose normal. Mouth/Throat: Mouth: Mucous membranes are moist. Pharynx: No oropharyngeal exudate or posterior oropharyngeal erythema. Comments: Mild swelling of tongue and lips noted. No stridor noted. Eyes: Extraocular Movements: Extraocular movements intact. Pupils: Pupils are equal, round, and reactive to light. Neck: Musculoskeletal: Normal range of motion and neck supple. Cardiovascular: Rate and Rhythm: Normal rate and regular rhythm. Pulses: Normal pulses. Heart sounds: Normal heart sounds. Pulmonary: Effort: Pulmonary effort is normal. Breath sounds: Normal breath sounds. Abdominal: General: Bowel sounds are normal. Palpations: Abdomen is soft. Musculoskeletal: Normal range of motion. Skin: General: Skin is warm and dry. Capillary Refill: Capillary refill takes less than 2 seconds. Comments: Diffuse urticarial rash noted. Neurological: General: No focal deficit present. Mental Status: She is alert and oriented to person, place, and time. Psychiatric: Mood and Affect: Mood normal. [facility] Vitals: 05/04/20 0100 05/04/20 0120 05/04/20 0330 05/04/20 0400 BP: (!) 89/63 98/77 116/72 104/90 Pulse: 100 103 86 92 Resp: 18 (!) 35 20 16 Temp: 36.1 ??C (96.9 ??F) TempSrc: Temporal SpO2: 95% 96% 97% 98% Weight: (!) 140.6 kg (310 lb) Height: 154.9 cm (5' 1 ) Labs Reviewed - No data to display No orders to display Procedures MDM ED Course as of May 04 814 Time: 05/04 240 Comment: Reevaluated pt who states that she is feeling much better at this time. Her rash has resolved and her angioedema shows marked improvement. By: Christopher Monteiro Clinical Impression: Anaphylaxis, initial encounter Christopher Monteiro scribed for Jenn Pepe MD in the doctor's presence. I electronically signed this note at 8:14 AM on 05/04/2020. I, Jenn Pepe MD, have personally performed the services described in the documentation , reviewed the documentation, as recorded by the scribe in my presence, and it accurately and completely records my words and actions. Any errors in translation of speech to the EMR are related to software and not the clinician. Jenn Pepe MD 05/04/20 08 documented in this encounter Plan of Treatment Not on file documented as of this encounter Visit Diagnoses Diagnosis Anaphylaxis, initial encounter- Primary documented in this encounter Administered Medications Inactive Administered Medications - up to 3 most recent administrations Medication Order MAR Action Action Date Dose Rate Site diphenhydrAMINE (BENADRYL) injection 50 mg 50 mg, intravenous, Administer over 2 Minutes, Once, On 05/04/20 at 0055, For 1 dose Given 05/04/2020 1:09 AM CDT 50 mg EPINEPHrine injection 0.3 mg 0.3 mg, subcutaneous, Once, On 05/04/20 at 0056, For 1 dose Given 05/04/2020 1:04 AM CDT 0.3 mg Left Lower Abdomen famotidine (PEPCID) injection 40 mg 40 mg, intravenous, Administer over 2 Minutes, Once, On 05/04/20 at 0055, For 1 dose Given 05/04/2020 1:09 AM CDT 40 mg methylPREDNISolone sodium succinate (SOLU-medrol) preservative free injection 125 mg 125 mg, intravenous, Administer over 3 Minutes, Once, On 05/04/20 at 0055, For 1 dose Given 05/04/2020 1:09 AM CDT 125 mg ondansetron (ZOFRAN) injection 4 mg 4 mg, intravenous, Administer over 2 Minutes, Once, On 05/04/20 at 0055, For 1 dose, Indications: Nausea, VomitingIndications:Na usea,Vomiting Given 05/04/2020 1:10 AM CDT 4 mg sodium chloride 0.9% bolus 1,000 mL 1,000 mL, intravenous, at 1,000 mL/hr, Administer over 1 Hours, Once, On 05/04/20 at 0055, For 1 dose New Bag 05/04/2020 1:09 AM CDT 1,000 mL 1000 mL/hr documented in this encounter Active and Recently Administered Medications Times are shown in CDT. Scheduled Medication Order 05/02/2020 05/03/2020 05/04/2020 diphenhydrAMINE (BENADRYL) injection 50 mg (COMPLETED) 50 mg, intravenous, Administer over 2 Minutes, Once, On 05/04/20 at 0055, For 1 dose 0109 (Given - Provid er: Mable Delgado RN) EPINEPHrine injection 0.3 mg (COMPLETED) 0.3 mg, subcutaneous, Once, On 05/04/20 at 0056, For 1 dose 0104 (Given - Provid er: Mable Delgado RN) famotidine (PEPCID) injection 40 mg (COMPLETED) 40 mg, intravenous, Administer over 2 Minutes, Once, On 05/04/20 at 0055, For 1 dose 0109 (Given - Provid er: Mable Delgado RN) methylPREDNISolone sodium succinate (SOLU-medrol) preservative free injection 125 mg (COMPLETED) 125 mg, intravenous, Administer over 3 Minutes, Once, On 05/04/20 at 0055, For 1 dose 0109 (Given - Provid er: Mable Delgado RN) ondansetron (ZOFRAN) injection 4 mg (COMPLETED) 4 mg, intravenous, Administer over 2 Minutes, Once, On 05/04/20 at 0055, For 1 dose, Indications: Nausea, Vomiting 0110 (Given - Provid er: Mable Delgado RN) sodium chloride 0.9% bolus 1,000 mL (COMPLETED) 1,000 mL, intravenous, at 1,000 mL/hr, Administer over 1 Hours, Once, On 05/04/20 at 0055, For 1 dose 0109 (New Bag - Prov ider: Mable Delgado RN)[id number] (Stopped - Provider: Mable Delgado RN) documented in this encounter Care Teams Furniture Polisher Relationship Specialty Start Date End Date Antoni Galan Jr., MD [address] [place] [address] PCP - General 05/04/20 08/15/22 documented as of this encounter
--- OUTSIDE RECORDS SUMMARY | 2024-07-21 11:37 | XMS_ITS | Encounter Summary ---
Author Organization [facility] Address [address] [facility] [address] [place] [address] Care Team Providers Care Lines Tender Name Role Phone Barry Beltran MD Primary Care Provider [phone] Reason for Visit * Reason Comments Pain Test Results Follow-up Encounter Details Date Type Department Care Team (Late st Contact Info) Description 04/05/2018 10:00 AM CDT Office Visit [facility] [address] [place] [address] Darrel Cantu MD [address] [address] Sprain of posterior talofibular ligament of left ankle, initial encounter (Primary Dx); Tendinitis of left ankle Social History Tobacco Use Types Packs/Day Years Used Date Smoking Tobacco: Never Smokeless Tobacco: Never Alcohol Use Standard Drinks/Week Comments No 0 (1 standard drink = 0.6 oz pur e alcohol) Comments Unknown Sex and Gender Information Value Date Recorded Sex Assigned at Not on file 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 Gender Identity Female 10/26/2022 1:11 PM CDT Sexual Orientation Lesbian 10/26/2022 1: 11 PM CDT documented as of this encounter Last Filed Vital Signs Vital Sign Reading Time Taken Comments Blood Pressure 120/80 04/05/2018 10:05 AM CDT Pulse 80 04/05/2018 10:05 AM CDT Temperature - - Respiratory Rate - - Oxygen Saturation - - Inhaled Oxygen Concentration - - Weight 108 kg (238 lb) 04/05/2018 10:05 AM CDT Height 154.9 cm (5' 1 ) 04/05/2018 10:05 AM CDT Body Mass Index 44.97 04/05/2018 10:05 AM CDT documented in this encounter Ordered Prescriptions Prescription Sig Dispense Quantity Refills Last Filled Start Date End Date methylPREDNISolone (MEDROL, MISA,) 4 mg Dosepack Take as directed on package 21 packet 04/05/2018 9 documented in this encounter Progress Notes * Darrel Cantu MD - 04/05/2018 10:00 AM CDT Patient returns today with no significant improvement. Her worst day in a while was yesterday with things improved a little bit today. Patient's physical findings are unaltered. X-rays are negative. MRI scan which is now [place] a bowl for my review confirms chronic lateral inflammation suggestive of sprain along with tibialis posterior tendinitis and a small amount of extravasated tissue in the soft tissues which has a cystic appearance. There is no structural abnormality otherwise. Diagnosis-chronic left ankle soft tissue injury/tendinitis without tear. Plan-Medrol Dosepak. Return to this office in 2-3 weeks. documented in this encounter Plan of Treatment Not on file documented as of this encounter Visit Diagnoses Diagnosis Sprain of posterior talofibular ligament of left ankle, initial encounter- Primary Tendinitis of left ankle documented in this encounter Care Teams Lines Tender Relationship Specialty Start Date End Date Barry Beltran MD PCP - General 09/15/16 05/03/20 documented as of this encounter
--- OUTSIDE RECORDS SUMMARY | 2024-07-21 11:37 | XMS_ITS | Encounter Summary ---
Author Organization [facility] Address [address] [place] [address] Phone Care Team Providers Care Dye Padder Operator Name Role Phone Barry Beltran MD Primary Care Provider [phone] Encounter Details Date Type Department Care Team (Late st Contact Info) Description 04/05/2018 Orders Only [facility] [address] [place] [address] Scanning, Provider Social History Tobacco Use Types Packs/Day Years Used Date Smoking Tobacco: Never Smokeless Tobacco: Never Alcohol Use Standard Drinks/Week Comments No 0 (1 standard drink = 0.6 oz pur e alcohol) Comments Unknown Sex and Gender Information Value Date Recorded Sex Assigned at Not on file 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 Gender Identity Female 10/26/2022 1:11 PM CDT Sexual Orientation Lesbian 10/26/2022 1: 11 PM CDT documented as of this encounter Plan of Treatment Not on file documented as of this encounter Procedures Procedure Name Priority Date/Time Associated Diagnosis Comments SCAN - RADIOLOGY/IMAGING 04/05/2018 12:35 PM CDT documented in this encounter Results * SCAN - RADIOLOGY/IMAGING (04/05/2018 12:35 PM CDT) Anatomical Region Laterality Modality Other us Provider Scanning Final Result documented in this encounter Visit Diagnoses Not on filedocumented in this encounter Care Teams Dye Padder Operator Relationship Specialty Start Date End Date Barry Beltran MD PCP - General 09/15/16 05/03/20 documented as of this encounter
--- OUTSIDE RECORDS SUMMARY | 2024-07-21 11:37 | XMS_ITS | Encounter Summary ---
Author Organization [facility] Healthcare Address [address] [place] [address] Care Team Providers Care Coke Inspector Name Role Phone Unavailable Primary Care Provider Unavailabl e Encounter Details Date Type Department Care Team (Late st Contact Info) Description 06/24/2013 3:05 PM [facility] - 06/24/2013 11:59 PM [facility] Hospital Encounter [facility] Social History Tobacco Use Types Packs/Day Years Used Date Smoking Tobacco: Never Assessed Comments Unknown Sex and Gender Information Value Date Recorded Sex Assigned at Not on file Legal Sex Female 2:59 PM [facility] Gender Identity Female 10/26/2022 1:11 PM CDT Sexual Orientation Lesbian 10/26/2022 1: 11 PM CDT documented as of this encounter Plan of Treatment Not on file documented as of this encounter Visit Diagnoses Not on filedocumented in this encounter
--- OUTSIDE RECORDS SUMMARY | 2024-07-21 11:37 | XMS_ITS | Encounter Summary ---
Author Organization [facility] Address [address] [place] [id number] Care Team Providers Care Superintendent Power Name Role Phone Barry Beltran MD Primary Care Provider [phone] Reason for Visit * Reason Comments Pain Follow-up Encounter Details Date Type Department Care Team (Late st Contact Info) Description 04/21/2018 10:30 AM CDT Office Visit [facility] [address] [place] [address] Darrel Cantu MD [address] [address] Sprain of posterior talofibular ligament of left ankle, initial encounter (Primary Dx) Social History Tobacco Use Types Packs/Day Years Used Date Smoking Tobacco: Never Smokeless Tobacco: Never Alcohol Use Standard Drinks/Week Comments No 0 (1 standard drink = 0.6 oz pur e alcohol) Comments Unknown Sex and Gender Information Value Date Recorded Sex Assigned at Not on file Legal Sex Female 2:59 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 Gender Identity Female 10/26/2022 1:11 PM CDT Sexual Orientation Lesbian 10/26/2022 1: 11 PM CDT documented as of this encounter Last Filed Vital Signs Vital Sign Reading Time Taken Comments Blood Pressure 120/80 04/21/2018 10:32 AM CDT Pulse 80 04/21/2018 10:32 AM CDT Temperature - - Respiratory Rate - - Oxygen Saturation - - Inhaled Oxygen Concentration - - Weight 108 kg (238 lb) 04/21/2018 10:32 AM CDT Height 154.9 cm (5' 1 ) 04/21/2018 10:32 AM CDT Body Mass Index 44.97 04/21/2018 10:32 AM CDT documented in this encounter Progress Notes * Darrel Cantu MD - 04/21/2018 10:30 AM CDT Patient returns today having done much better. The Dosepak was very helpful and her pain has dropped down to a 3 from a 9 on a scale 0-10. She is receiving physical therapy from her sister Examination is benign. Gait pattern is essentially normal. There is no instability and only very slight tenderness. Diagnosis-left ankle sprain-recovering nicely. Plan-continue with activities as tolerated. OTC NSAIDs p.r.n.. Return to this office p.r.n.. documented in this encounter Plan of Treatment Not on file documented as of this encounter Visit Diagnoses Diagnosis Sprain of posterior talofibular ligament of left ankle, initial encounter- Primary documented in this encounter Care Teams Superintendent Power Relationship Specialty Start Date End Date Barry Beltran MD PCP - General 09/15/16 05/03/20 documented as of this encounter
--- OUTSIDE RECORDS SUMMARY | 2024-07-21 11:37 | XMS_ITS | Encounter Summary ---
Author Organization [facility] Healthcare Address [address] [place] [id number] Care Team Providers Care Subpoena Server Name Role Phone Jj Gerber MD Primary Care Provider [phone] Reason for Visit * Reason Comments Back Pain Encounter Details Date Type Department Care Team (Late st Contact Info) Description 09/29/2022 1:55 PM ASBESTOS WORKER - 09/29/2022 3:56 PM ASBESTOS WORKER Emergency [facility] Emergency Department [address] [place] [address] Albert Clark MD [address] [place] [address] Acute left-sided low back pain without sciatica (Primary Dx) Discharge Disposition: Discharge to home [...] on file Legal Sex Female 2:59 PM ASBESTOS WORKER Gender Identity Female 10/26/2022 1:11 PM CDT Sexual Orientation Lesbian 10/26/2022 1: 11 PM CDT documented as of this encounter Last Filed Vital Signs Vital Sign Reading Time Taken Comments Blood Pressure 117/74 09/29/2022 3:00 PM ASBESTOS WORKER Pulse 80 09/29/2022 3:15 PM ASBESTOS WORKER Temperature 36.7 ??C (98 ??F) 09/29/2022 1:32 PM ASBESTOS WORKER Respiratory Rate 18 09/29/2022 1:32 PM ASBESTOS WORKER Oxygen Saturation 98% 09/29/2022 3:15 PM ASBESTOS WORKER Inhaled Oxygen Concentration - - Weight 126.6 kg (279 lb) 09/29/2022 1:32 PM ASBESTOS WORKER Height 154.9 cm (5' 1 ) 09/29/2022 1:32 PM ASBESTOS WORKER Body Mass Index 52.72 09/29/2022 1:32 PM ASBESTOS WORKER documented in this encounter Discharge Instructions * Attachments The following attachments cannot be sent through Care Everywhere. * Acute Low Back Pain (Discharge Care) (Armenian) documented in this encounter Medications at Time [...] 1 tablet (100 mcg total) by mouth special education assistant before breakfast 90 tablet 3 08/16/2022 nystatin powder Nystop 100,000 unit/gram topical powder APPLY TO THE AFFECTED AREA TWICE DAILY orphenadrine ER (NORFLEX) 100 mg 12 hr tabletIndication s:Muscle Spasm Take 1 tablet (100 mg total) by mouth 2 (two) times a day for 5 days 10 tablet 09/29/2022 traMADoL (ULTRAM) 50 mg tablet Take 1 tablet (50 mg total) by mouth every 8 (eight) hours as needed 04/27/2022 documented as of this encounter Ordered Prescriptions Prescription Sig Dispense Quantity Refills Last Filled Start Date End Date orphenadrine ER (NORFLEX) 100 mg 12 hr tabletIndications:M uscle Spasm Take 1 tablet (100 mg total) by mouth 2 (two) times a day for 5 days 10 tablet 09/29/2022 documented in this encounter Discharge Disposition Disposition Code Departure Means Destination Comment s Discharge to home or self care documented in this encounter ED Notes * Albert Clark MD - 09/29/2022 2:32 PM CST HPI Chief Complaint Patient presents with Back Pain This is a 32-year-old female with history of chronic low back pain, herniated disc, kidney stone atage 18, who has come complaining of left-sided low back pain for 3 days. Initially coming going, but the last 24 hours has been more constant. He went to see a primary care provider, who suggested that the quickest way to have a diagnosis given to come to the emergency room according to the patient. The patient denies any vomiting, had some nausea. She has history of hysterectomy due to persistent vaginal bleed. She denies history of appendectomy and cholecystectomy. The patient is alert oriented x3, she is not on respiratory distress. She does say that she tried to take Tylenol and Motrin, last time was this morning 6:00 a.m., and last meal was 1 hour ago. She is having normal bowel movements. She denies stronguri, denies burning sensation when urinating, and did not see any blood in theurine. History provided by: Patient Patient History: Patient Active Problem List Diagnosis Date Noted Acquired hypothyroidism 08/19/2022 Anxiety and depression 08/19/2022 [...] Social History Tobacco Use Smoking status: Former Types: Cigarettes Quit date: 2015 Years since quittin.1 Smokeless tobacco: Never Vaping Use Vaping Use: Every day Substance and Sexual Activity Alcohol use: No Drug use: No Sexual activity: Yes Partners: Male Social History Social History Narrative Not on file Review of Systems Review of Systems All other systems reviewed and are negative. Physical Exam ED Triage Vitals [09/29/22 1332] Temp Pulse Resp BP SpO2 36.7 ??C (98 ??F) 84 18 138/98 100 % Temp src Heart Rate Source Patient Position BP Location FiO2 (%) Temporal -- -- -- -- Height Height Method Weight Weight Method 1.549 m (5' 1 ) Stated 126.6 kg (279 lb) Stated Physical Exam Vitals and nursing note reviewed. Constitutional: Appearance: Normal appearance. HENT: Head: Normocephalic. Nose: Nose normal. Mouth/Throat: Mouth: Mucous membranes are moist. Eyes: Pupils: Pupils are equal, round, and reactive to light. Cardiovascular: Rate and Rhythm: Normal rate. Pulses: Normal pulses. Pulmonary: Effort: Pulmonary effort is normal. Breath sounds: Normal breath sounds. Abdominal: General: Bowel sounds are normal. There is no distension. Palpations: Abdomen is soft. There is no mass. Tenderness: There is no abdominal tenderness. There is left CVA tenderness. There is no right CVA tenderness, guarding or rebound. Hernia: No hernia is present. Musculoskeletal: General: Normal range of motion. Cervical back: Normal range of motion. Skin: General: Skin is warm. Capillary Refill: Capillary refill takes less than 2 seconds. Neurological: General: No focal deficit present. Mental Status: She is alert and oriented to person, place, and time. Mental status is at baseline. MDM Medical Decision Making And the differential diagnosis could suggest pro Ashley kidney stone, urinary tract infection, pyelonephritis, a muscular pain, or pain due to her previous history of kidney disease. Amount and/or Complexity of Data Reviewed Radiology: ordered. Risk Prescription drug management. ED Course as of 09/29/221544 Time: 09/30 1543 Comment: The patient states she is feeling better after the medication. She looks more comfortable. By: Albert Clark MD Time: 09/29 1544 Comment: She has been explained that the urine shows no blood, no signs of urinary tract infection,in the CT scan of the abdomen and pelvis without contrast showed nonobstructive kidney stone. She was explained probably the pain is more muscular. We will treat with muscle relaxants, and recommended follow with the primary care physician. By: Albert Clark MD Final diagnoses: None Albert Clark MD 09/29/22 1434 Albert Clark MD 09/29/22 1435 Albert Clark MD 09/29/22 1547 STOS WORKER STOS WORKER STOS WORKER * Anaya Torres RN - 09/29/2022 1:30 PM CST Pt ambulatory to triage for c/o left sided back pain x 3 days. Pt reports increased frequency in urination. Pt also reports nausea. Pt was sent in by PCP. STOS WORKER documented in this encounter Plan of Treatment Not on file documented as of this encounter Procedures Procedure Name Priority Date/Time Associated Diagnosis Comments CT ABDOMEN PELVIS WO CONTRAST ED 09/29/2022 2:44 PM ASBESTOS WORKER URINALYSIS AND REFLEX TO MICROSCOPIC AND CULTURE STAT 09/29/2022 2:32 PM ASBESTOS WORKER documented in this encounter Results * CT Abdomen Pelvis WO Contrast (09/29/2022 2:44 PM ASBESTOS WORKER) Anatomical Region Laterality Modality Body N/A Computed Tomogra phy 09/29/2022 2:49 PM ASBESTOS WORKER Narrative 09/29/2022 3:07 PM ASBESTOS WORKER EXAM DESCRIPTION: ?? CT ABDOMEN PELVIS WO CONTRAST REASON FOR STUDY: ?? Flank pain, kidney stone suspected ?? Pt ambulatory to triage for c/o left sided back pain x 3 days. Pt reports increased frequency in urination. Pt also reports nausea ?? TECHNIQUE: CT scan of the abdomen and pelvis performed without intravenous and ??without ??oral contrast using helical scanning technique. Reconstructed coronal and sagittal MPR images reviewed. All images stored on PACS. ?? Automated exposure control was used as a dose optimization technique for this examination. COMPARISON: 01/02/2017. REFERENCE: Per ACR white paper recommendations, unless otherwise specified no follow-up imaging is recommended for incidental renal and adrenal lesions per consensus recommendations based on imaging criteria. Further lab evaluation could be pursued based on clinical findings. FINDINGS: The sensitivity for detection of visceral lesions is diminished without the use of intravenous contrast. LOWER CHEST: ?? Lung bases are predominantly clear. ??There is no pleural effusion. LIVER: ?? Liver size and contour are normal. ??No focal hepatic lesions. GALLBLADDER: ?? Prominent gallstone. ??No overt inflammatory change. BILE DUCTS: ?? No biliary ductal dilation. SPLEEN: ?? Spleen size normal. ??No focal lesion. PANCREAS: ?? No pancreatic mass or inflammatory change. ADRENALS: ?? Normal KIDNEYS/URINARY TRACT: ?? No right renal calculus. ??No right hydronephrosis or hydroureter. ??Punctate calculus upper pole left kidney. ??No left hydronephrosis or hydroureter. ??Small amount of fluid is present urinary bladder. ?? GI: ?? The terminal ileum and appendix are normal. ??The stomach and duodenum are normal. ??No abnormal bowel wall thickening. ??There is no pneumatosis. PERITONEUM: ?? No ascites or free air is seen. ??No mesenteric mass or lymphadenopathy. RETROPERITONEUM: ?? There are a few minimally prominent lymph nodes in the inguinal region, for example the right 1.8 x 0.9 cm (image 147) and on the left 1.6 x 1.0 cm (image 151) nonspecific but may be reactive. REPRODUCTIVE: ?? Status post hysterectomy. ??The adnexa appear symmetric. ??No pelvic mass. VASCULATURE: ?? Abdominal aorta is nonaneurysmal. ??Retroaortic left renal vein is noted MUSCULOSKELETAL: ?? Bone windows demonstrate no acute or aggressive osseous abnormality. OTHER: ?? No other abnormality. IMPRESSION: 1. ?? No evidence of obstructive uropathy. 2. ?? Nonobstructing punctate calculus upper pole left kidney. 3. ?? Mildly prominent inguinal lymph nodes are most likely reactive. THIS IS AN ELECTRONICALLY VERIFIED FINAL REPORT 09/29/2022 3:07 PM - Electronically signed by ??Jorge Keenan M.D. CH: D: ??09/29/2022 3:07 PM T: ??09/29/2022 3:07 PM Report ID: [id number] Reading Location: ??[id number] Procedure Note Jorge Keenan Jr., MD - 09/29/2022 EXAM DESCRIPTION: CT ABDOMEN PELVIS WO CONTRAST REASON FOR STUDY: Flank pain, kidney stone suspected Pt ambulatory to triage for c/o left sided back pain x 3 days. Pt reports increased frequency in urination. Pt also reports nausea TECHNIQUE: CT scan of the abdomen and pelvis performed without intravenousand without oral contrast using helical scanning technique. Reconstructed coronal and sagittal MPR images reviewed. All images stored on PACS. Automated exposure control was used as a dose optimization technique forthis examination. COMPARISON: 01/02/2017. REFERENCE: Per ACR white paper recommendations, unless otherwise specifiedno follow-up imaging is recommended for incidental renal and adrenal lesionsper consensus recommendations based on imaging criteria. Further labevaluation could be pursued based on clinical findings. FINDINGS: The sensitivity for detection of visceral lesions is diminished withoutthe use of intravenous contrast. LOWER CHEST: Lung bases are predominantly clear. There is no pleural effusion. LIVER: Liver size and contour are normal. No focal hepatic lesions. GALLBLADDER: Prominent gallstone. No overt inflammatory change. BILE DUCTS: No biliary ductal dilation. SPLEEN: Spleen size normal. No focal lesion. PANCREAS: No pancreatic mass or inflammatory change. ADRENALS: Normal KIDNEYS/URINARY TRACT: No right renal calculus. No right hydronephrosisor hydroureter. Punctate calculus upper pole left kidney. No left hydronephrosis or hydroureter. Small amount of fluid is present urinary bladder. GI: The terminal ileum and appendix are normal. The stomach andduodenum are normal. No abnormal bowel wall thickening. There is no pneumatosis. PERITONEUM: No ascites or free air is seen. No mesenteric mass or lymphadenopathy. RETROPERITONEUM: There are a few minimally prominent lymph nodes in the inguinal region, for example the right 1.8 x 0.9 cm (image 147) and on the left 1.6 x 1.0 cm (image 151) nonspecific but may be reactive. REPRODUCTIVE: Status post hysterectomy. The adnexa appear symmetric.No pelvic mass. VASCULATURE: Abdominal aorta is nonaneurysmal. Retroaortic left renalvein is noted MUSCULOSKELETAL: Bone windows demonstrate no acute or aggressive osseous abnormality. OTHER: No other abnormality. IMPRESSION: 1. No evidence of obstructive uropathy. 2. Nonobstructing punctate calculus upper pole left kidney. 3. Mildly prominent inguinal lymph nodes are most likely reactive. THIS IS AN ELECTRONICALLY VERIFIED FINAL REPORT 09/29/2022 3:07 PM - Electronically signed by Jorge Keenan M.D. CH: ABDIAS Report ID: [id number] Reading Location: [id number] us Albert Clark MD IMG CT PROCEDURES Final Resu lt * (ABNORMAL) Urinalysis reflex to microscopic and culture Urine (09/29/2022 2:32 PM ASBESTOS WORKER) Color, ur Yellow Yellow [facility] ([facility]) Clarity, ur Turbid(A) Clear [facility] ([facility]) Specific gravity, ur 1.026 1.003 - 1.030 [facility] ([facility]) pH, urine 5.5 [facility] ([facility]) Protein, ur ql Negative Negative [facility] ([facility]) Glucose, ur ql Negative Negative [facility] ([facility]) Ketones, ur Negative Negative [facility] ([facility]) Bilirubin, ur Negative Negative [facility] ([facility]) Blood, ur Negative Negative [facility] ([facility]) Urobilinogen, ur <2.0 <2.0 mg/dL [facility] ([facility]) Nitrite, ur Negative Negative [facility] ([facility]) Leukocyte esterase, ur Negative Negative [facility] ([facility]) UA reflex comment Reflex conditions for microscopic UA and culture not met. [facility] ([facility]) Urine 09/29/2022 2:32 PM ASBESTOS WORKER 09/29/2022 2:36 PM ASBESTOS WORKER Narrative [facility] ([facility]) - 09/29/2022 2:39 PM ASBESTOS WORKER ?? Urine pH is affected by diet, medications, systemic acid-base disturbances, and renal tubular function. ??pH may affect urinary stone formation. ??For example, urine pH below 6.0 may help reduce the tendency for calcium phosphate stones and pH greater than 6.0 may reduce the tendency for uric acid stone formation. Source: [place]. Last revised 08-04-2017 Shanti Levine MD LAB MICROBIOLOGY - GENERAL ORDERABLES Final Result [facility] ([facility]) [address] [facility] Department [place] [address] documented in this encounter Visit Diagnoses Diagnosis Acute left-sided low back pain without sciatica- Primary documented in this encounter Administered Medications Inactive Administered Medications - up to 3 most recent administrations Medication Order MAR Action Action Date Dose Rate Site ketorolac (TORADOL) 60 mg/2 mL intramuscular injection 60 mg 60 mg, intramuscular, Once, On Tue09/29/22 at 1424, For 1 dose Given 09/29/2022 2:26 PM ASBESTOS WORKER 60 mg Left Deltoid documented in this encounter Active and Recently Administered Medications Times are shown in ASBESTOS WORKER. Scheduled Medication Order 09/27/2022 09/28/2022 09/29/2022 ketorolac (TORADOL) 60 mg/2 mL intramuscular injection 60 mg (COMPLETED) 60 mg, intramuscular, Once, On Tue09/29/22 at 1424, For 1 dose 1426 (Given - Provid er: Cherelle Whitley NP) documented in this encounter Orders Medications Ordered That Ronald ht Not Have Been Administered Count Last Ordered Date First Ordered Date ketorolac (TORADOL) 60 mg/2 mL intramuscular injection 60 mg 1 09/29/2022 documented in this encounter Care Teams Subpoena Server Relationship Specialty Start Date End Date Jj Gerber MD [address] [place] [address] PCP - General Family Medicine 08/16/22 11/01/22 documented as of this encounter
--- OUTSIDE RECORDS SUMMARY | 2024-07-21 11:37 | XMS_ITS | Encounter Summary ---
Author Organization [facility] Address [address] [facility] [address] [place] [id number] Care Team Providers Care Taxation Inspector Name Role Phone Jj Gerber MD Primary Care Provider [phone] Reason for Visit * Reason Comments New Patient Pt here to establish care. Anxiety/Depression ADHD Thyroid Problem Pt has been on levot hyroxine Encounter Details Date Type Department Care Team (Late st Contact Info) Description 08/16/2022 10:00 AM [facility] BOX TENDER Office Visit [facility] [address] [phone] Carmen Momin, NURSE [employer] [address] [place] [id number] Encounter to establish care (Primary Dx); Attention deficit hyperactivity disorder (ADHD), predominantly inattentive type; Anxiety and depression; Acquired hypothyroidism; Class 3 severe obesity due to excess calories without serious comorbidity with body mass index (BMI) of 50.0 to 59.9 in adult (HCC); Chronic right-sided low back pain with right-sided sciatica; Screening for lipid disorders; Mild intermittent asthma without complication Social History [...] on file Legal Sex Female 2:59 PM [employer]IA BOX TENDER Gender Identity Female 10/26/2022 1:11 PM CDT Sexual Orientation Lesbian 10/26/2022 1: 11 PM CDT documented as of this encounter Last Filed Vital Signs Vital Sign Reading Time Taken Comments Blood Pressure 118/76 08/16/2022 9:50 AM [employer] BOX TENDER Pulse 117 08/16/2022 9:50 AM [employer] BOX TENDER Temperature 36.7 ??C (98 ??F) 08/16/2022 9:50 AM [employer]IA BOX TENDER Respiratory Rate 28 08/16/2022 9:50 AM [employer]IA BOX TENDER Oxygen Saturation 97% 08/16/2022 9:50 AM [employer]IA BOX TENDER Inhaled Oxygen Concentration - - Weight 126.1 kg (278 lb) 08/16/2022 9:50 AM [employer]IA BOX TENDER Height 154.9 cm (5' 0.98 ) 08/16/2022 9:50 AM CS T Body Mass Index 52.56 08/16/2022 9:50 AM [employer]IA BOX TENDER documented in this encounter Ordered Prescriptions Prescription Sig Dispense Quantity Refills Last Filled Start Date End Date levothyroxine (SYNTHROID) 100 mcg tablet Take 1 tablet (100 mcg total) by mouth 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 Patient ID: Merle Tiwari is a 32 y.o. female Chief Complaint. Chief Complaint Patient presents with New Patient Pt here to establish care. Anxiety/Depression ADHD Thyroid Problem Pt has been on levothyroxine HPI: Merle Tiwari presents today to establish care. Previous pt of [facility] and she left practice. Working through court custody wright with ex over kids. Increased stress and anxiety. Denies SI / HI upon direct questioning. Taking phentermine for wt loss along with portion control. Has been taking since April- down 10 pounds. Also took it intermittently prior.Heart rate mildly elevated today. Recommend discontinuing. Adderall for ADHD to help focus with school. [employer] school. Helps her to focus at work. Taking tramadol for back pain. Taking synthroid for hypothyroid. Taking xanax for anxiety PRN. Mild intermittent asthma. Good relief with p.r.n. albuterol. 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 Unsure of fathers medical hx. Mother- uterine CA. Otherwise no fam hx. 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 FETA cheese Anxiety and depression 08/19/2022 CTS (carpal tunnel syndrome) Kidney stone Migraine Recurrent loss, antepartum condition or complication Past Surgical History: Procedure Laterality Date ABLATION CARPAL TUNNEL RELEASE Right 2006 CARPAL TUNNEL RELEASE Left 2017 CARPAL TUNNEL RELEASE SECTION DILATION AND CURETTAGE OF UTERUS 2010 ELBOW SURGERY 2015 HYSTERECTOMY TONSILLECTOMY/ADENOIDECTOMY 1998 HOME MEDICATIONS : ALPRAZolam (XANAX) 0.25 mg tablet cyanocobalamin (Vitamin B-12) 1,000 mcg/mL injection EPINEPHrine (EpiPen) 0.3 mg/0.3 mL auto-injection syringe nystatin powder traMADoL (ULTRAM) 50 mg tablet phentermine (ADIPEX-P) 37.5 mg tablet albuterol HFA (PROVENTIL HFA,VENTOLIN HFA,PROAIR HFA) 90 mcg/actuation inhaler dextroamphetamine-amphetamine XR (ADDERALL XR) 25 mg 24 hr capsule FLUoxetine (PROzac) 40 mg capsule levothyroxine (SYNTHROID) 100 mcg tablet Allergies Allergen Reactions Sulfamethoxazole-Trimethoprim Anaphylaxis Sulfa (Sulfonamide Antibiotics) Other (See comments) Social History Tobacco Use Smoking status: Former Types: Cigarettes Quit date: 2016 Years since quittin.0 Smokeless tobacco: Never Substance and Sexual Activity Drug use: No Sexual activity: Yes Partners: Male Alcohol Use: Heavy Drinker Frequency of Alcohol Consumption: Monthly or less Average Number of Drinks: 3 or 4 Frequency of Binge Drinking: Less than monthly Family History Problem Relation Age of Onset Cancer Mother Review of Systems: Review of Systems Constitutional: Negative for fatigue and fever. HENT: Negative. Respiratory: Negative for shortness of breath. Cardiovascular: Negative for chest pain and palpitations. Gastrointestinal: Negative. Genitourinary: Negative. Musculoskeletal: Negative for arthralgias. Psychiatric/Behavioral: Positive for decreased concentration and dysphoric mood. Negative for agitation, hallucinations, sleep disturbance and suicidal ideas. The patient is nervous/anxious. Vitals: 08/16/22 0950 BP: 118/76 BP Location: Right arm Patient Position: Sitting Pulse: 117 Resp: 28 Temp: 36.7 ??C (98 ??F) TempSrc: Oral SpO2: 97% Weight: 126.1 kg (278 lb) Height: 154.9 cm (5' 0.98 ) Physical Exam: Physical Exam Vitals and nursing note reviewed. Constitutional: General: She is not in acute distress. Appearance: She is well-developed. She is obese. HENT: Head: Normocephalic and atraumatic. Right Ear: External ear normal. Left Ear: External ear normal. Nose: Nose normal. Eyes: Conjunctiva/sclera: Conjunctivae normal. Pupils: Pupils are equal, round, and reactive to light. Neck: Thyroid: No thyroid mass or thyromegaly. Vascular: No JVD. Trachea: No tracheal deviation. Cardiovascular: Rate and Rhythm: Normal rate and regular rhythm. Heart sounds: Normal heart sounds. Pulmonary: Effort: Pulmonary effort is normal. No respiratory distress. Breath sounds: Normal breath sounds. Abdominal: General: Bowel sounds are normal. There is no distension. Palpations: Abdomen is soft. There is no mass. Tenderness: There is no abdominal tenderness. Musculoskeletal: General: Normal range of motion. Cervical back: Normal range of motion and neck supple. Lymphadenopathy: Cervical: No cervical adenopathy. Skin: General: Skin is warm and dry. Capillary Refill: Capillary refill takes less than 2 seconds. Neurological: Mental Status: She is alert and oriented to person, place, and time. Assessment/Plan Diagnoses and all orders for this visit: Encounter to establish care History is reviewed. Previous notes from previous PCP reviewed. Attention deficit hyperactivity disorder (ADHD), predominantly inattentive type (Primary) - Comprehensive metabolic panel; Future - Drugs of Abuse Screen, Urine with Reflex Confirmation; Future - Ambulatory referral to Psychiatry; Future Controlled with Adderall. Will continue. Encouraged establishing with Psychiatry. She is in agreement with plan and states understanding. Follow-up in 3 months. Sooner for any concerns. Anxiety and depression - Comprehensive metabolic panel; Future - Drugs of Abuse Screen, Urine with Reflex Confirmation; Future - Ambulatory referral to Psychiatry; Future Will continue fluoxetine. Again highly encouraged Psychiatry. Referral placed. Red flags reviewed. Will continue to monitor. Acquired hypothyroidism - Comprehensive metabolic panel; Future - TSH reflex to free T4; Future Compliant with levothyroxine. Will order TSH and plan accordingly. Class 3 severe obesity due to excess calories without serious comorbidity with body mass index (BMI) of 50.0 to 59.9 in adult (HCC) - Lipid panel; Future - Comprehensive metabolic panel; Future Weight loss would be beneficial for future health. Keep up the great work! Chronic right-sided low back pain with right-sided sciatica - Ambulatory referral to Pain Management; Future - Drugs of Abuse Screen, Urine with Reflex Confirmation; Future Chronic pain. Recommend seeing Pain Management. Recommend seeing Pain Management for tramadol. 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 Patient offered no further complaints and was in agreement with plan of care. Patientwas advised regarding dosage, use, and side effects of any new medications. Patient was advised to f/u in office with any worsening or little to no improvement of symptoms. Patient was advised to follow-up regarding the results of testing ordered in office today and that they should hear from us regarding the results in 2-3 business days, discussed benefits of MyChart in regard to patient experience. The patient was given the opportunity to have all questions answered today and was in agreementwith the plan of care. BMI Follow-up includes: nutrition counseling, exercise counseling, and education provided. Body mass index is 52.56 kg/m??. Carmen Momin NP Cosigned by Jj Gerber MD at 09/17/2022 7:49 AM AM[employer]IA BOX TENDER NIA BOX TENDER NIA BOX TENDER documented in this encounter Plan of Treatment Not on file documented as of this encounter Procedures Procedure Name Priority Date/Time Associated Diagnosis Comments POCT LIPID PANEL Routine 08/16/2022 10:4 6 AM [employer] BOX TENDER Screening for lipid disorders documented in this encounter Results * POCT lipid panel (08/16/2022 10:46 AM [employer] BOX TENDER) Cholesterol, POC 218 mg/dL Comment:Glucose 100 mg/dL HDL, POC 39 mg/dL Triglycerides, POC 270 mg/dL LDL Cholesterol POC 124 mg/dL Chol/HDL Ratio, POC 3.2 Non-HDL Cholesterol, POC 178 mg/dL Cholesterol Total, POC 218 mg/dL Capillary blood 08/16/2022 1 0:46 AM [employer] BOX TENDER us Carmen Momin NP POINT OF CARE TEST ORDERAB LES Final Result documented in this encounter Visit Diagnoses Diagnosis Encounter to establish care- Primary Attention deficit hyperactivity disorder (ADHD), predominantly inattentive type Anxiety and depression Acquired hypothyroidism Unspecified hypothyroidism Class 3 severe obesity due to excess calories without serious comorbidity with body mass index (BMI) of 50.0 to 59.9 in adult (HCC) Chronic right-sided low back pain with right-sided sciatica Screening for lipid disorders Mild intermittent asthma without complication documented in this encounter Discontinued Medications Medication Sig Discontinue Reason Start Date End Da te levothyroxine (SYNTHROID) 50 mcg tablet Dose adjustment 02/07/2021 08/16/2022 ondansetron ODT (ZOFRAN-ODT) 4 mg disintegrating tablet Take 4 mg by mouth every 8 (eight) hours as needed for nausea or vomiting Therapy completed 08/16/2022 [id number] 25 mg iron-1 mg -400 mg combo pack Take by mouth Therapy completed 08/16/2022 labetalol (NORMODYNE,TRANDATE) 100 mg tablet Take 100 mg by mouth 2 (two) times a day Therapy completed 08/16/2022 Januvia 100 mg tablet Therapy completed 02/03/2021 08/16/19 metFORMIN XR (GLUCOPHAGE XR) 500 mg 24 hr tablet Therapy completed 01/07/20212022 famotidine (PEPCID) 40 mg tablet Take 1 tablet (40 mg total) by mouth nightly as needed for heartburn Therapy completed 05/04/2020 08/16/2022 benzonatate (TESSALON) 100 mg capsuleIndications:Cough Take 1 capsule (100 mg total) by mouth every 8 (eight) hours Therapy completed 07/19/2022 08/16/2022 butalbital-acetaminophen- caffeine (ESGIC) 50-325-40 mg per tablet Take 1-2 tablets by mouth every 6 (six) hours as needed Therapy completed 10/20/2018 08/16/2022 albuterol HFA (PROVENTIL HFA,VENTOLIN HFA,PROAIR HFA) 90 mcg/actuation inhaler albuterol sulfate HFA 90 mcg/actuation aerosol inhaler Reorder 08/16/2022 diphenhydrAMINE (diphenhydrAMINE) 25 mg capsule Take 2 tablet/capsule (50 mg total) by mouth every 6 (six) hours as needed for itching or allergies Therapy completed 05/04/2020 08/16/2022 dextroamphetamine-ampheta mine XR (ADDERALL XR) 25 mg 24 hr capsule Reorder 12/10/2020 08/16/2022 FLUoxetine (PROzac) 20 mg capsule Take 1 capsule by mouth nightly Reorder 07/04/2022 08/16/2022 levothyroxine (SYNTHROID) 100 mcg tablet Take 100 mcg by mouth 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
--- OUTSIDE RECORDS SUMMARY | 2024-07-21 11:37 | XMS_ITS | Encounter Summary ---
Author Organization [facility] Healthcare Address [address] [place] [id number] Care Team Providers Care [employer] Scout Name Role Phone Barry Beltran MD Primary Care Provider [phone] Reason for Visit * Reason Comments Fall Encounter Details Date Type Department Care Team (Late st Contact Info) Description 10/11/2017 5:43 PM CDT - 10/11/2017 8:48 PM CDT Emergency [facility] Emergency Department [address] [place] [id number] Alejandro Olguin MD [address] [place] [address] Abrasion of left knee, initial encounter (Primary Dx); Sprain of left ankle, unspecified ligament, initial encounter; Fall down stairs, initial encounter; Left foot pain Discharge Disposition: Discharge to home or self care Social History Tobacco Use Types Packs/Day Years Used Date Smoking Tobacco: Never Smokeless Tobacco: Never Alcohol Use Standard Drinks/Week Comments No 0 (1 standard drink = 0.6 oz pur e alcohol) Comments No Sex and Gender Information Value Date Recorded Sex Assigned at Not on file 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 Gender Identity Female 10/26/2022 1:11 PM CDT Sexual Orientation Lesbian 10/26/2022 1: 11 PM CDT documented as of this encounter Last Filed Vital Signs Vital Sign Reading Time Taken Comments Blood Pressure 118/58 10/11/2017 7:58 PM CDT Pulse 66 10/11/2017 7:58 PM CDT Temperature 36.4 ??C (97.6 ??F) 10/11/2017 7:58 PM CD T Respiratory Rate 18 10/11/2017 7:58 PM CDT Oxygen Saturation 100% 10/11/2017 7:58 PM CDT Inhaled Oxygen Concentration - - Weight 104.3 kg (230 lb) 10/11/2017 5:45 PM CDT Height - - Body Mass Index - - documented in this encounter Discharge Instructions * Discharge Instructions* Yeni Vizcaino NP - 10/11/2017 8:33 PM CDT Use over the counter Tylenol and Motrin per manufacturers guidelines for relief of pain and fever. Use Biofreeze, icy hot, bengay, epsom salt baths, ice and heat for muscle pain relief * Attachments The following attachments cannot be sent through Care Everywhere. * Abrasion (AfterCare(R) Instructions(ER/ED)) (Welsh) * SPRAIN, ANKLE, WITH X-RAY (TAIWANESE) documented in this encounter Medications at Time of Discharge Medication Sig Dispense Quantity Refills Last Filled Start D ate End Date dextroamphetamine-amp hetamine XR (ADDERALL XR) 25 mg 24 hr capsule 0 08/14/2017 09/24/2018 documented as of this encounter Discharge Disposition Disposition Code Departure Means Destination Discharge to home or self care documented in this encounter ED Notes * Yeni Vizcaino NP - 10/11/2017 5:50 PM CDT Images from the original note were not included. HPI Chief Complaint Patient presents with ??? Fall 27 y.o. year old female with PMHX History reviewed. No pertinent past medical history.; accompaniedby family via EMS presents to ED with c/o Fall down 3 [address] stairs. Denies fever, chills, nausea, vomiting, diarrhea, SOB, CP, numbness, tingling. Pt has pain to left foot and ankle. + LOC. Pt is unsure of head injury. No loss of bowel or bladder. Abrasion to left knee. Pt was given 4mg MorphineIV via EMS. LMP 09/08/17. Patient History There are no active problems to display for this patient. History reviewed. No pertinent past medical history. History reviewed. No pertinent surgical history. History reviewed. No pertinent family history. Social History Substance Use Topics ??? Smoking status: Never Smoker ??? Smokeless tobacco: Never Used ??? Alcohol use No Social History Social History Narrative ??? No narrative on file Review of Systems Review of Systems Constitutional: Negative. Negative for chills and fever. HENT: Negative. Negative for ear pain and sore throat. Eyes: Negative. Negative for pain and visual disturbance. Respiratory: Negative. Negative for cough and shortness of breath. Cardiovascular: Negative. Negative for chest pain and palpitations. Gastrointestinal: Negative. Negative for abdominal pain and vomiting. Genitourinary: Negative. Negative for dysuria and hematuria. Musculoskeletal: Negative for arthralgias and back pain. Left foot and ankle pain. Skin: Negative for color change and rash. Abrasion to left knee. Neurological: Negative. Negative for seizures and syncope. Psychiatric/Behavioral: Negative. All other systems reviewed and are negative. Physical Exam ED Triage Vitals [10/11/17 1745] Temp Pulse Resp BP SpO2 36.7 ??C (98.1 ??F) 87 18 129/84 98 % Temp src Heart Rate Source Patient Position BP Location FiO2 (%) Tympanic -- -- -- -- Physical Exam Constitutional: She is oriented to person, place, and time. She appears well- developed and well-nourished. Non-toxic appearance. She does not have a sickly appearance. She does not appear ill. No distress. She is not intubated. HENT: Head: Normocephalic and atraumatic. Right Ear: Hearing and external ear normal. Left Ear: Hearing and external ear normal. Nose: Nose normal. Right sinus exhibits no maxillary sinus tenderness and no frontal sinus tenderness. Left sinus exhibits no maxillary sinus tenderness and no frontal sinus tenderness. Mouth/Throat: Uvula is midline, oropharynx is clear and moist and mucous membranes are normal. No oropharyngeal exudate. Tonsils are 1+ on the right. Tonsils are 1+ on the left. No tonsillar exudate. Eyes: Conjunctivae and EOM are normal. Pupils are equal, round, and reactive to light. Neck: Trachea normal, normal range of motion, full passive range of motion without pain and phonation normal. Neck supple. Cardiovascular: Normal rate, regular rhythm, normal heart sounds, intact distal pulses and normal pulses. Exam reveals no gallop, no friction rub and no decreased pulses. No murmur heard. Pulmonary/Chest: Effort normal and breath sounds normal. No accessory muscle usage. No apnea, no tachypnea and no bradypnea. She is not intubated. No respiratory distress. She has no decreased breathsounds. She has no wheezes. She has no rhonchi. She has no rales. She exhibits no tenderness. Abdominal: Soft. Normal appearance and bowel sounds are normal. She exhibits no shifting dullness, no distension, no pulsatile liver, no fluid wave, no abdominal bruit, no ascites, no pulsatile midline mass and no mass. There is no hepatosplenomegaly, splenomegaly or hepatomegaly. There is no tenderness. There is no rigidity, no rebound, no guarding, no CVA tenderness, no tenderness at McBurney'spoint and negative Ceja's sign. No hernia. Hernia confirmed negative in the ventral area, confirmed negative in the right inguinal area and confirmed negative in the left inguinal area. Musculoskeletal: She exhibits tenderness. She exhibits no edema or deformity. Left knee: She exhibits normal range of motion, no swelling, no effusion, no ecchymosis, no deformity, no laceration, no erythema, normal alignment, no LCL laxity, normal patellar mobility, no bony tenderness, normal meniscus and no MCL laxity. No tenderness found. Left ankle: She exhibits normal range of motion, no swelling, no ecchymosis, no deformity, no laceration and normal pulse. Tenderness. Medial malleolus tenderness found. Cervical back: Normal. She exhibits normal range of motion, no tenderness, no bony tenderness, no swelling, no edema, no deformity, no laceration, no pain, no spasm and normal pulse. Thoracic back: She exhibits normal range of motion, no tenderness, no bony tenderness, no swelling,no edema, no deformity, no laceration, no pain, no spasm and normal pulse. Lumbar back: She exhibits normal range of motion, no tenderness, no bony tenderness, no swelling, no edema, no deformity, no laceration, no pain, no spasm and normal pulse. Legs: Feet: Left ankle: No erythema. No bruising. No swelling. No warmth. + Tenderness to palpation medially. No crepitus with movement. Decrease range of motion due to pain. + pain with passive/active ROM. Normal strength. Distal pulses in tact. Negative talar tilt test. Negative anterior drawer test. Left pedal pulse 2+, distal sensation intact and capillary refill less than 2 seconds. Neurological: She is alert and oriented to person, place, and time. No cranial nerve deficit. Skin: Skin is warm and dry. Capillary refill takes less than 2 seconds. No rash noted. She is not diaphoretic. No erythema. No pallor. Psychiatric: She has a normal mood and affect. Her behavior is normal. Nursing note and vitals reviewed. ED Course & MDM ED Course as of Oct 11 2033 Tue Oct 11, 20172030 Discussed x-ray results with patient. Advised to use Tylenol and Motrin for relief of fever and pain, to follow up with PMD for further evaluation and treatment. Pt verbalized understanding. Allquestions answered at this time. [GV] 2027 Following application of екатерина wrap, air splint and crutches, neurovascular checked and found mike intact. [GV] ED Course User Index [GV] Yeni Vizcaino NP MDM Abrasion of left knee, initial encounter Sprain of left ankle, unspecified ligament, initial encounter Fall down stairs, initial encounter Left foot pain Yeni Vizcaino NP 10/11/172032 Yeni Vizcaino NP 10/11/172033 Cosigned by Chelsey Nicolas MD at 10/11/2017 9:05 PM CDT Associated attestation - Chelsey Nicolas - 10/11/2017 9:05 PM CDT ED Attestation Based on the medical record the care appears appropriate. * Mitzi Leyva RN - 10/11/2017 5:46 PM CDT Pt presents to SER with C/O fall. Pt said she fell down three stairs and landed on her left knee and felt a pop to her right ankle. Pt said she now has pain to her left foot, ankle and knee. Pt NV status intact. * Alma Trujillo RN - 10/11/2017 5:43 PM CDT Bed: [id number] Expected date: 10/11/17 Expected time: 5:21 PM Means of arrival: Comments: [email or web address] Alma Trujillo RN 10/11/17 1743 documented in this encounter Plan of Treatment Not on file documented as of this encounter Procedures Procedure Name Priority Date/Time Associated Diagnosis Comments XR KNEE LEFT 4 OR MORE VIEWS ED 10/11/2017 7:[address] CERVICAL SPINE WO CONTRAST ED 10/11/2017 7:[address] HEAD WO CONTRAST ED 10/11/2017 7 :38 PM CDT XR ANKLE LEFT 3 OR MORE VIEWS ED 10/11/2017 6:42 PM CDT XR FOOT LEFT 3 OR MORE VIEWS ED 10/11/2017 6:41 PM CDT documented in this encounter Results * XR Knee Left 4 or More Views (10/11/2017 7:44 PM CDT) Anatomical Region Laterality Modality Lower Extremities, Knee Left Computed Radiography Impressions 10/11/2017 9:39 PM CDT NORMAL. Electronically signed by: Barry Kevin M.D. Narrative 10/11/2017 9:39 PM CDT XR KNEE LEFT 4 OR MORE VIEWS HISTORY: Left knee pain status post fall COMPARISON: None available. Views: 4 FINDINGS: There is no acute fracture, dislocation, joint effusion or focal bone abnormality. Procedure Note Barry Kevin MD - 10/11/2017 XR KNEE LEFT 4 OR MORE VIEWS HISTORY: Left knee pain status post fall COMPARISON: None available. Views: 4 FINDINGS: There is no acute fracture, dislocation, joint effusion or focal bone abnormality. IMPRESSION: NORMAL. Electronically signed by: Barry Kevin M.D. Yeni Petar Vizcaino SOLID WASTE TECHNICIAN IMG XR PROCEDURES Final Res ult * CT Cervical Spine WO Contrast (10/11/2017 7:38 PM CDT) Anatomical Region Laterality Modality Spine N/A Computed Tomogra phy Impressions 10/11/2017 7:40 PM CDT NO ACUTE CERVICAL SPINE FRACTURE OR MALALIGNMENT. Electronically signed by: Barry Kevin M.D. Narrative 10/11/2017 7:[address] CERVICAL SPINE WO CONTRAST HISTORY: ??Cervical pain post fall. TECHNIQUE: Serial axial images of the cervical spine with reconstructed coronal and sagittal views obtained. ??There is some degree of image compromise secondary to body habitus limitations. COMPARISON: None available. FINDINGS: There is no acute cervical spine fracture. ??There is no malalignment. ??There is no significant spinal canal or neural foraminal stenosis. ??Cervical disc space heights appear normally maintained. Procedure Note Barry Kevin MD - 10/11/2017 CT CERVICAL SPINE WO CONTRAST HISTORY: Cervical pain post fall. TECHNIQUE: Serial axial images of the cervical spine with reconstructed coronal and sagittal views obtained. There is some degree of image compromise secondary to body habitus limitations. COMPARISON: None available. FINDINGS: There is no acute cervical spine fracture. There is no malalignment. There is no significant spinal canal or neural foraminal stenosis. Cervical disc space heights appear normally maintained. IMPRESSION: NO ACUTE CERVICAL SPINE FRACTURE OR MALALIGNMENT. Electronically signed by: Barry Kevin M.D. Yeni Vizcaino SOLID WASTE TECHNICIAN IMG CT PROCEDURES Final Res ult * CT Head WO Contrast (10/11/2017 7:38 PM CDT) Anatomical Region Laterality Modality Head and Neck N/A Computed Tomogra phy Impressions 10/11/2017 7:41 PM CDT 1. ??NO ACUTE INTRACRANIAL ABNORMALITY OR SKULL FRACTURE Electronically signed by: Barry Kevin M.D. Narrative 10/11/2017 7:41 PM CDT PROCEDURE: CT HEAD WO CONTRAST HISTORY: Fell. ??Head trauma. ??Head pain. COMPARISON: None. TECHNIQUE: Serial axial images of the brain were obtained without contrast. ?? FINDINGS: There is no acute intracranial hemorrhage midline shift or mass effect. ??CSF spaces appear normal. ??There are no focal brain parenchymal lesions. There is no acute skull fracture. There is minimal mucosal thickening in the left ethmoid sinus. The mastoids are clear bilaterally. Procedure Note Barry Kevin MD - 10/11/2017 PROCEDURE: CT HEAD WO CONTRAST HISTORY: Fell. Head trauma. Head pain. COMPARISON: None. TECHNIQUE: Serial axial images of the brain were obtained without contrast. FINDINGS: There is no acute intracranial hemorrhage midline shift or mass effect. CSF spaces appear normal. There are no focal brain parenchymal lesions. There is no acute skull fracture. There is minimal mucosal thickening in the left ethmoid sinus. The mastoids are clear bilaterally. IMPRESSION: 1. NO ACUTE INTRACRANIAL ABNORMALITY OR SKULL FRACTURE Electronically signed by: Barry Kevin M.D. Yeni Vizcaino NP IMG CT PROCEDURES Final Res ult * XR Ankle Left 3+ views (10/11/2017 6:42 PM CDT) Anatomical Region Laterality Modality Lower Extremities, Ankle Left Compute d Radiography Impressions 10/11/2017 8:21 PM CDT NO ACUTE LEFT ANKLE FRACTURE OR DISLOCATION. Electronically signed by: Barry Kevin M.D. Narrative 10/11/2017 8:21 PM CDT XR ANKLE LEFT 3 OR MORE VIEWS HISTORY: Left ankle and foot pain status post fall. COMPARISON: None available. Views: 3 FINDINGS: There is no fracture or dislocation. ??There is a tiny plantar calcaneal spur. ??There are small calcifications in the anterior lower leg. Procedure Note Barry Kevin MD - 10/11/2017 XR ANKLE LEFT 3 OR MORE VIEWS HISTORY: Left ankle and foot pain status post fall. COMPARISON: None available. Views: 3 FINDINGS: There is no fracture or dislocation. There is a tiny plantar calcaneal spur. There are small calcifications in the anterior lower leg. IMPRESSION: NO ACUTE LEFT ANKLE FRACTURE OR DISLOCATION. Electronically signed by: Barry Kevin M.D. Yeni Vizcaino SOLID WASTE TECHNICIAN IMG XR PROCEDURES Final Res ult * XR Foot Left 3+ views (10/11/2017 6:41 PM CDT) Anatomical Region Laterality Modality Lower Extremities, Foot Left Computed Radiography Impressions 10/11/2017 8:23 PM CDT NO ACUTE LEFT FOOT FRACTURE OR DISLOCATION. Electronically signed by: Barry Kevin M.D. Narrative 10/11/2017 8:23 PM CDT XR FOOT LEFT 3 OR MORE VIEWS HISTORY: Fell. ??Diffuse foot and ankle pain. COMPARISON: None available. Views: 3 FINDINGS: There is no acute left foot fracture or dislocation. ??There is a tiny plantar calcaneal spur. ??The distal and middle phalanges of digit 5 are fused, an anatomic variant. ??There are small soft tissue calcifications in the anterior distal leg. Procedure Note Barry Kevin MD - 10/11/2017 XR FOOT LEFT 3 OR MORE VIEWS HISTORY: Fell. Diffuse foot and ankle pain. COMPARISON: None available. Views: 3 FINDINGS: There is no acute left foot fracture or dislocation. There is a tiny plantar calcaneal spur. The distal and middle phalanges of digit 5 are fused, an anatomic variant. There are small soft tissue calcifications in the anterior distal leg. IMPRESSION: NO ACUTE LEFT FOOT FRACTURE OR DISLOCATION. Electronically signed by: Barry Kevin M.D. Yeni Vizcaino NP IMG XR PROCEDURES Final Res ult documented in this encounter Visit Diagnoses Diagnosis Abrasion of left knee, initial encounter- Primary Sprain of left ankle, unspecified ligament, initial encounter Fall down stairs, initial encounter Left foot pain Pain in soft tissues of limb documented in this encounter Administered Medications Inactive Administered Medications - up to 3 most recent administrations Medication Order MAR Action Action Date Dose Rate Site HYDROcodone-acetaminophen (NORCO) 5-325 mg per tablet 1 tablet 1 tablet, oral, Once, On 10/11/17 at 1830, For 1 dose, Indications: PainIndications:Pain Given 10/11/2017 6:42 PM CDT 1 tablet ondansetron (ZOFRAN) injection 4 mg 4 mg, intravenous, Once, On 10/11/17 at 1830, For 1 dose, Indications: Nausea, VomitingIndications:Nausea,Vomit ing Given 10/11/2017 6:42 PM CDT 4 mg documented in this encounter Historical Medications * This list may reflect changes made after this encounter. Medication Sig Dispense Quantity Refills Last Filled Start D ate End Date dextroamphetamine-amp hetamine XR (ADDERALL XR) 25 mg 24 hr capsule 0 08/14/2017 09/24/2018 added in this encounter Active and Recently Administered Medications Times are shown in CDT. Scheduled Medication Order 10/09/2017 10/10/2017 10/11/2017 HYDROcodone-acetaminophen (NORCO) 5-325 mg per tablet 1 tablet (COMPLETED) 1 tablet, oral, Once, On 10/11/17 at 1830, For 1 dose, Indications: Pain 184 (Given - Provid er: Mitzi Leyva RN) ondansetron (ZOFRAN) injection 4 mg (COMPLETED) 4 mg, intravenous, Once, On 10/11/17 at 1830, For 1 dose, Indications: Nausea, Vomiting 1842 (Given - Provid er: Mitzi Leyva RN) documented in this encounter Orders General Supply Count Last Ordered Date First Or dered Date CRUTCH ADULT MEDIUM (P16806) 1 10/11/2017 Nursing Count Last Ordered Date First Orde red Date APPLY ЕКАТЕРИНА WRAP 1 10/11/2017 APPLY ICE TO AFFECTED AREA 1 10/11/2017 APPLY SPLINT (SPECIFY) 1 10/11/2017 documented in this encounter Care Teams [employer] Scout Relationship Specialty Start Date End Date Barry Beltran MD PCP - General 09/15/16 05/03/20 documented as of this encounter
--- OUTSIDE RECORDS SUMMARY | 2024-07-21 11:37 | XMS_ITS | Encounter Summary ---
Author Organization [facility] Healthcare Address [address] [place] [address] Care Team Providers Care Skating Rink Ice Maker Name Role Phone Angelia Goyal MD, Antoni Valentin Primary Care Provider Encounter Details Date Type Department Care Team (Late st Contact Info) Description 02/26/2021 Patient Self-Triage [facility] HealthCare/ Physicians [address] [place] [address] Mychart, [facility] Provider [address] [place], [place] [id number] Social History Tobacco Use Types Packs/Day Years Used Date Smoking Tobacco: Former Cigarettes Q uit: 2016 Smokeless Tobacco: Never Alcohol Use Standard Drinks/Week Comments No 0 (1 standard drink = 0.6 oz pur e alcohol) Comments No Sex and Gender Information Value Date Recorded Sex Assigned at Not on file 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
--- OUTSIDE RECORDS SUMMARY | 2024-07-21 11:37 | XMS_ITS | Encounter Summary ---
Author Organization [facility] Healthcare Address [address] [place] [address] Care Team Providers Care Quality Assurance Supervisor Trim Name Role Phone Unavailable Primary Care Provider Unavailabl e Encounter Details Date Type Department Care Team (Late st Contact Info) Description 06/24/2013 11:49 AM DOUBLE END PRODUCTION GRINDER - 06/24/2013 3:30 PM DOUBLE END PRODUCTION GRINDER Hospital Encounter [facility] Jesús Larson MD [address] [facility] [address] HOUSER [address] [place] [id number] state, incidental Social History Tobacco Use Types Packs/Day Years Used Date Smoking Tobacco: Never Assessed Comments Unknown Sex and Gender Information Value Date Recorded Sex Assigned at Not on file Legal Sex Female 2:59 PM DOUBLE END PRODUCTION GRINDER Gender Identity Female 10/26/2022 1:11 PM CDT Sexual Orientation Lesbian 10/26/2022 1: 11 PM CDT documented as of this encounter Plan of Treatment Not on file documented as of this encounter Procedures Procedure Name Priority Date/Time Associated Diagnosis Comments DISCHARGE CUMULATIVE SUMMARY ADDENDUM Routine 06/28/2013 12:28 AM DOUBLE END PRODUCTION GRINDER URINALYSIS Routine 06/24/2013 2:41 PM DOUBLE END PRODUCTION GRINDER GENITAL FLUID GONORRHEA DNA SCREEN Routine 06/24/2013 2:30 PM DOUBLE END PRODUCTION GRINDER GENITAL FLUID CHLAMYDIA DNA SCREEN Routine 06/24/2013 2:30 PM DOUBLE END PRODUCTION GRINDER MICROBIOLOGY SUMMARY Routine 06/24/2013 12:00 AM DOUBLE END PRODUCTION GRINDER DISCHARGE LABORATORY CUMULATIVE REPORT Routine 06/24/2013 12:00 AM DOUBLE END PRODUCTION GRINDER documented in this encounter Results * Discharge Cumulative Summary Addendum (06/28/2013 12:28 AM DOUBLE END PRODUCTION GRINDER) 06/28/2013 12:2 8 AM DOUBLE END PRODUCTION GRINDER Narrative HISTORICAL RESULTS - 06/28/2013 12:28 AM DOUBLE END PRODUCTION GRINDER Patient No: [id number] ? [facility] Patient Name: SUSANNA MOYA ?[facility] Age: 23 YRS ?: 1990 ?Sex:F ?[address] )[phone] ?? Adm Dt: 06/24/2013 ?[place], [place] ??[address] Created: 06/28/2013 ??0028 ?? Pt. Type: E ? Discharge Dt: 06/24/2013 ? Pathologists: Madalyn Arroyo MD Admit Attend Dr: JESÚS GRULLON MD ? SEROLOGY ?Collection Date: ?06/24/13 ?Collection Time: ?1430 ? Ref Range: ?? Units: ?CHLAM AMP PROB @ ?SEE REPT ?GC AMP PROBE @ ?SEE REPT @ = CHLAM AMP PROB, GC AMP PROBE Performed at ??[facility] ?[place], [place] ?? END OF CHART ? Page: ?? 1 us Historical Provider MD LAB MICROBIOLOGY - GENERA L ORDERABLES Final Result HISTORICAL RESULTS * Urinalysis (06/24/2013 2:41 PM DOUBLE END PRODUCTION GRINDER) Color, ur YELLOW YELLOW HISTORICAL RESULTS Clarity, ur CLEAR CLEAR HISTORIC AL RESULTS Specific gravity, ur 1.012 1.000 - 1.030 gu HISTORICAL RESULTS Leukocyte esterase, ur Negative NEGATIVE HISTORICAL RESULTS Nitrites, ur Negative NEGATIVE HISTORI TAY RESULTS pH, ur 7.0 6.0 HISTORICAL RESULTS Protein, ur Negative NEGATIVE HISTORIC AL RESULTS Glucose, ur Negative NEGATIVE HISTORIC AL RESULTS Ketones, ur Negative NEGATIVE HISTORIC AL RESULTS Urobilinogen, quant, ur 0.2 0.2 - 1.0 mg/dl HISTORICAL RESULTS Bilirubin, ur Negative NEGATIVE HISTOR ICAL RESULTS U Blood Negative NEGATIVE HISTORICAL RESULTS Urine 06/24/2013 2:41 PM DOUBLE END PRODUCTION GRINDER Jesús Grullon MD LAB BLOOD ORDERABLES Final Res ult Performing Organization Address [facility] de Phone Number HISTORICAL RESULTS * Genital fluid Gonorrhea DNA screen (06/24/2013 2:30 PM DOUBLE END PRODUCTION GRINDER) Gonorrheae (GC) DNA, genital swab See Report HISTORICAL RESULTS Genital 06/24/2013 2:30 PM DOUBLE END PRODUCTION GRINDER Jesús Grullon MD LAB BLOOD ORDERABLES Final Res ult Performing Organization Address [facility] de Phone Number HISTORICAL RESULTS * Genital fluid Chlamydia DNA screen (06/24/2013 2:30 PM DOUBLE END PRODUCTION GRINDER) Chlamydia trachomatis, PCR, genital swab See Report HISTORICAL RESULTS Genital 06/24/2013 2:30 PM DOUBLE END PRODUCTION GRINDER Jesús Grullon MD LAB BLOOD ORDERABLES Final Res ult Performing Organization Address [facility] de Phone Number HISTORICAL RESULTS * Microbiology Summary (06/24/2013 12:00 AM DOUBLE END PRODUCTION GRINDER) 06/24/2013 Narrative HISTORICAL RESULTS - 06/25/2013 12:27 AM DOUBLE END PRODUCTION GRINDER ? [facility] ?CLINICAL LABORATORIES ? MICROBIOLOGY REPORT PATIENT NAME: ??FERNYSHLOMOSUSANNA ?MED RECORD#: ??[id number] BIRTHDATE: ??1990 ?? AGE: ??23 YRS SEX: F ?PATIENT#: ? [id number] ADMITTING DR: ??JESÚS GRULLON MD ? ATTENDING DR: ??JESÚS GRULLON MD ? ACCESSION#: ?? [id number] CREATED: ??06/25/13 ?? 0023 ? ADMIT DATE: ?? 06/24/13 ?MICRO - GENITAL TRICHOMONAS WET PREP ?Collected: 06/24/13 1430 ? Received: 06/24/13 1450 Source: VAGINAL SMEAR ? Started: 06/24/13 1504 ?Vaginal ?06/24/13 1505 ? NO TRICHOMONAS SEEN ?MICRO - FUNGUS ORDERABLE ELBA PREP ?Collected: 06/24/13 1430 ? Received: 06/24/13 1450 Source: VAGINAL SMEAR ? Started: 06/24/13 1504 ?Vaginal ?06/24/13 1504 ? NO YEAST OR FUNGAL ELEMENTS SEEN ?PENDING ORDERS [id number] ??06/24/13 1448 GC AMP PROBE ? RECVD [id number] ??06/24/13 1448 CHLAMYDIA TRACH AMP PROBE ?RECVD ?? END OF CHART us Historical Provider MD LAB MICROBIOLOGY - GENERA L ORDERABLES Final Result HISTORICAL RESULTS * Discharge Laboratory Cumulative Report (06/24/2013 12:00 AM DOUBLE END PRODUCTION GRINDER) 06/24/2013 Narrative HISTORICAL RESULTS - 06/25/2013 12:23 AM DOUBLE END PRODUCTION GRINDER Patient No: [id number] ? [facility] Patient Name: SUSANNA MOYA ?[facility] Age: 23 YRS ?: 1990 ?Sex:F ?[address] )[phone] ?? Adm Dt: 06/24/2013 ?[place] ??[id number] Created: 06/25/2013 ??0023 ?? Pt. Type: E ? Discharge Dt: 06/24/2013 ? Pathologists: Madalyn Arroyo MD Admit Dr. Victor Dr: JESÚS GRULLON MD ?URINALYSIS ?Collection Date: ?06/24/13 ?Collection Time: ?1441 ? Ref Range: ?? Units: [YELLOW] ? U COLOR ? YELLOW ??[CLEAR] ? U APPEARANCE ? CLEAR [1.000-1.030] ? U SPEC GRAVITY ? 1.012 [NEGATIVE] ?U LEUKO ESTRASE ? NEGATIVE [NEGATIVE] ?U NITRITE ? NEGATIVE ?? [6.0] ?U PH ? 7.0 [NEGATIVE] ?U PROTEIN ? NEGATIVE [NEGATIVE] ?U GLUCOSE ? NEGATIVE [NEGATIVE] ?U KETONES ? NEGATIVE [0.2- 1.0] ?UROBILINOGEN ? 0.2 [NEGATIVE] ?U BILIRUBIN ? NEGATIVE [NEGATIVE] ?U BLOOD ? NEGATIVE ?MICRO - GENITAL TRICHOMONAS WET PREP ?Collected: 06/24/13 1430 ? Received: 06/24/13 1450 Source: VAGINAL SMEAR ? Started: 06/24/13 1504 ?Vaginal ? FINAL REPORT ?06/24/13 1505 ? NO TRICHOMONAS SEEN ?? CONTINUED ?Page: ?? 1 Patient No: [id number] ? [facility] Patient Name: SUSANNA MOYA ?[facility] Age: 23 YRS ?: 1990 ?Sex:F ?[address] )[phone] ?? Adm Dt: 06/24/2013 ?[place] ??[id number] Created: 06/25/2013 ??0023 ?? Pt. Type: E ? Discharge Dt: 06/24/2013 ? Pathologists: Madalyn Arroyo MD Admit Dr. Victor Dr: JESÚS GRULLON MD ?MICRO - FUNGUS ORDERABLE ELBA PREP ?Collected: 06/24/13 1430 ? Received: 06/24/13 1450 Source: VAGINAL SMEAR ? Started: 06/24/131503 ?Vaginal ? FINAL REPORT ?06/24/131503 ? NO YEAST OR FUNGAL ELEMENTS SEEN ?? END OF CHART ? Page: ?? 2 us Historical Provider MD LAB BLOOD ORDERABLES Danielle l Result HISTORICAL RESULTS documented in this encounter Visit Diagnoses Diagnosis state, incidental documented in this encounter
--- OUTSIDE RECORDS SUMMARY | 2024-07-21 11:37 | XMS_ITS | Encounter Summary ---
Author Organization [facility] Healthcare Address [address] [place] [address] Care Team Providers Care Director Of Market Intelligence Name Role Phone Barry Beltran MD Primary Care Provider [phone] Reason for Visit * Reason Comments Rash Encounter Details Date Type Department Care Team (Late st Contact Info) Description 02/01/2018 3:54 PM CDT - 02/01/2018 5:09 PM CDT Emergency [facility] Emergency Department [address] [place] [id number] Rash and other nonspecific skin eruption (Primary Dx); Folliculitis Discharge Disposition: Discharge to home or self care Social History Tobacco Use Types Packs/Day Years Used Date Smoking Tobacco: Never Smokeless Tobacco: Never Alcohol Use Standard Drinks/Week Comments No 0 (1 standard drink = 0.6 oz pur e alcohol) Comments Unknown Sex and Gender Information Value Date Recorded Sex Assigned at Not on file Legal Sex Female 2:59 PM PACS SPECIALIST Gender Identity Female 10/26/2022 1:11 PM CDT Sexual Orientation Lesbian 10/26/2022 1: 11 PM CDT documented as of this encounter Last Filed Vital Signs Vital Sign Reading Time Taken Comments Blood Pressure 120/80 02/01/2018 4:17 PM CDT Pulse 83 02/01/2018 4:17 PM CDT Temperature 36.4 ??C (97.6 ??F) 02/01/2018 4:17 PM CD T Respiratory Rate 17 02/01/2018 4:17 PM CDT Oxygen Saturation 100% 02/01/2018 4:17 PM CDT Inhaled Oxygen Concentration - - Weight 117.9 kg (260 lb) 02/01/2018 4:17 PM CDT Height 160 cm (5' 3 ) 02/01/2018 4:17 PM CDT Body Mass Index 46.06 02/01/2018 4:17 PM CDT documented in this encounter Discharge Instructions * Attachments The following attachments cannot be sent through Care Everywhere. * Folliculitis (AfterCare(R) Instructions(ER/ED)) (Micronesian) * Acute Rash (Administrator Of Home Health) (Micronesian) documented in this encounter Medications at Time of Discharge doxycycline (doxycycline hyclate) 100 mg capsuleIndication s:Skin/Soft Tissue Infection Take 1 tablet/capsul e (100 mg total) by mouth 2 (two) times a day for 10 days. 20 capsule 02/01/2018 02/11/2018 predniSONE (DELTASONE) 20 mg tablet Take 2 tablets (40 mg total) by mouth daily for 5 days. 10 tablet 02/01/2018 02/06/2018 dextroamphetamine -amphetamine XR (ADDERALL XR) 25 mg 24 hr capsule 0 08/14/2017 09/25/19 19 diphenhydrAMINE (diphenhydrAMINE) 25 mg capsule Take 1 tablet/capsul e (25 mg total) by mouth every 6 (six) hours as needed for itching. 20 capsule 02/01/2018 09/24/2018 naproxen (NAPROSYN) 500 mg tabletIndications :Pain Take 1 tablet (500 mg total) by mouth 2 (two) times a day as needed for pain. Take with food. 30 tablet 02/01/2018 09/24/2018 documented as of this encounter Ordered Prescriptions Prescription Sig Dispense Quantity Refills Last Filled Start Date End Date diphenhydrAMINE (diphenhydrAMINE) 25 mg capsule Take 1 tablet/capsul e (25 mg total) by mouth every 6 (six) hours as needed for itching. 20 capsule 02/01/2018 9 naproxen (NAPROSYN) 500 mg tabletIndications: Pain Take 1 tablet (500 mg total) by mouth 2 (two) times a day as needed for pain. Take with food. 30 tablet 02/01/2018 9 doxycycline (doxycycline hyclate) 100 mg capsuleIndications :Skin/Soft Tissue Infection Take 1 tablet/capsul e (100 mg total) by mouth 2 (two) times a day for 10 days. 20 capsule 02/01/2018 8 predniSONE (DELTASONE) 20 mg tablet Take 2 tablets (40 mg total) by mouth daily for 5 days. 10 tablet 02/01/2018 8 documented in this encounter Discharge Disposition Disposition Code Departure Means Destination Discharge to home or self care documented in this encounter ED Notes * Deedee Fowler RN - 02/01/2018 4:16 PM CDT Pt to ED c/o rash to back of neck since yesterday, states today she has developed pustules and pain. * Yeni Vizcaino NP - 02/01/2018 4:16 PM CDT Images from the original note were not included. HPI Chief Complaint Patient presents with ??? Rash 27 y.o. year old female with PMHX History reviewed. No pertinent past medical history.; accompaniedby self presents to ED with c/o Rash to back of neck. Denies fever, chills, nausea, vomiting, diarrhea, SOB, CP, numbness, tingling. Pt states 1 day ago she noticed redness and today noticed white pustules. Pt has pain with palpation. Pt has not taken OTC medication for relief of pain. LMP 10/2017. Patient History There are no active problems to display for this patient. History reviewed. No pertinent past medical history. History reviewed. No pertinent surgical history. No family history on file. Social History Substance Use Topics ??? Smoking [...] Negative. Negative for abdominal pain and vomiting. Endocrine: Negative. Genitourinary: Negative. Negative for dysuria and hematuria. Musculoskeletal: Negative. Negative for arthralgias and back pain. Skin: Positive for wound. Negative for color change and rash. Neurological: Negative. Negative for seizures and syncope. Psychiatric/Behavioral: Negative. All other systems reviewed and are negative. Physical Exam ED Triage Vitals [02/01/18 1617] Temp Pulse Resp BP SpO2 36.4 ??C (97.6 ??F) 83 17 120/80 100 % Temp src Heart Rate Source Patient Position BP Location FiO2 (%) Temporal -- -- -- -- Physical Exam Constitutional: She is oriented to person, place, and time. Vital signs are normal. She appears well-developed and well-nourished. Non-toxic appearance. She does not [...] mucous membranes are normal. No oropharyngeal exudate. Eyes: Conjunctivae and EOM are normal. Pupils are equal, round, and reactive to light. Neck: Normal range of motion. Neck supple. Cardiovascular: Normal rate, regular rhythm, normal heart sounds, intact distal pulses and normal pulses. PMI is not displaced. Exam reveals no gallop, no friction rub [...] bowel sounds are normal. She exhibits no distension and no mass. There is no tenderness. There is no rebound and no guarding. No hernia. Musculoskeletal: Normal range of motion. She exhibits no edema or deformity. Neurological: She is alert and oriented to person, place, and time. She has normal strength and normal reflexes. She is not disoriented. No cranial nerve deficit or sensory deficit. GCS eye subscore is 4. GCS verbal subscore is 5. GCS motor subscore is 6. Skin: Skin is warm, dry and intact. Capillary refill takes less than 2 seconds. Rash noted. Rash ispustular. She is not diaphoretic. There is erythema. No pallor. Psychiatric: She has a normal mood and affect. Her behavior is normal. Nursing note and vitals reviewed. [facility] ED Course as of Feb 01 1705 Time: 02/01 1703 Comment: Discussed lab results with patient. Advised to use Tylenol and Motrin for relief of fever and pain, to follow up with PMD for further evaluation and treatment. Pt verbalized understanding. All questions answered at this time. By: Yeni Vizcaino NP Rash and other nonspecific skin eruption Folliculitis Yeni Vizcaino NP 02/01/181704 Cosigned by Jesús Hope MD at 02/01/2018 6:36 PM CDT Associated attestation - Jesús Hope MD - 02/01/2018 6:36 PM CDT ED Attestation Based on the medical record the care appears appropriate. documented in this encounter Plan of Treatment Not on file documented as of this encounter Procedures Procedure Name Priority Date/Time Associated Diagnosis Comments HCG, BLOOD, QUANTITATIVE Routine 02/01/2018 4:23 PM CDT documented in this encounter Results * hCG, blood, quantitative (02/01/2018 4:23 PM CDT) hCG, quant <5 0 - 5 mIUnits/mL [facility] ([facility]) Comment: Interpretive Data Negative: ? <5 mIU/mL ? Borderline: ??6-25 mIU/mL Positive: ? >25 mIU/mL Approx Gest Age ? Approx HCG Concentration 3 - 4 Weeks ?9 - 130 4 - 5 Weeks ?75 - 2600 5 - 6 Weeks ?850 - 20,800 6 - 7 Weeks ?4000 - 100,200 7 - 12 Weeks ? 21106 - 289,000 16 - 29 Weeks ? 85270 - 137,000 29 - 41 Weeks ? 900 - 60,000 Current interpretive data was last revised on 2015 Blood specimen (specimen) 02/01/2018 4:23 PM CDT 02/01/2018 4:28 PM CDT Narrative [facility] ([facility]) - 02/01/2018 5:12 PM CDT Yeni Vizcaino NP LAB BLOOD ORDERABLES Edited Result - Final [facility] (SURFSIDE) 1 [facility] Department [place] [address] documented in this encounter Visit Diagnoses Diagnosis Rash and other nonspecific skin eruption- Primary Folliculitis Other specified disease of hair and hair follicles documented in this encounter Administered Medications Inactive Administered Medications - up to 3 most recent administrations Medication Order MAR Action Action Date Dose Rate Site acetaminophen (TYLENOL) tablet 1,000 mg 1,000 mg, oral, Once, On Tue02/01/18 at 1614, For 1 dose Given 02/01/2018 4:25 PM CDT 1,000 mg documented in this encounter Active and Recently Administered Medications Times are shown in CDT. Scheduled Medication Order 01/30/2018 01/31/2018 02/01/2018 acetaminophen (TYLENOL) tablet 1,000 mg (COMPLETED) 1,000 mg, oral, Once, On Tue02/01/18 at 1614, For 1 dose 1625 (Given - Provid er: Deedee Fowler RN) documented in this encounter Orders Medications Ordered That Ronald ht Not Have Been Administered Count Last Ordered Date First Ordered Date acetaminophen (TYLENOL) tablet 1,000 mg 1 0 02/01/2018 documented in this encounter Care Teams Director Of Market Intelligence Relationship Specialty Start Date End Date Barry Beltran MD PCP - General 09/15/16 05/03/20 documented as of this encounter
--- OUTSIDE RECORDS SUMMARY | 2024-07-21 11:37 | XMS_ITS | Encounter Summary ---
Author Organization [facility] Healthcare Address [address] [place] [address] Care Team Providers Care Horseradish Grinder Name Role Phone Unavailable Primary Care Provider Unavailabl e Encounter Details Date Type Department Care Team (Late st Contact Info) Description 10/14/2013 11:25 AM CDT - 10/14/2013 11:59 PM CDT Hospital Encounter [facility] Other threatened labor, antepartum Social History Tobacco Use Types Packs/Day Years Used Date Smoking Tobacco: Never Assessed Comments Unknown Sex and Gender Information Value Date Recorded Sex Assigned at Not on file Legal Sex Female 2:59 PM 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
--- OUTSIDE RECORDS SUMMARY | 2024-07-21 11:37 | XMS_ITS | Encounter Summary ---
Author Organization [facility] Healthcare Address [address] [place] [address] Care Team Providers Care Collar Stitcher Name Role Phone Joseluis Beltran MD Primary Care Provider [phone] Encounter Details Date Type Department Care Team (Late st Contact Info) Description 01/02/2017 2:50 PM CDT - 01/02/2017 5:03 PM CDT Emergency [facility] Emergency Department [address] [place] [address] Shanti Levine MD [address] [place] [address] Discharge Disposition: Discharge to home or self care Social History Tobacco Use Types Packs/Day Years Used Date Smoking Tobacco: Never Assessed Comments Unknown Sex and Gender Information Value Date Recorded Sex Assigned at Not on file 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 Gender Identity Female 10/26/2022 1:11 PM CDT Sexual Orientation Lesbian 10/26/2022 1: 11 PM CDT documented as of this encounter Discharge Disposition Disposition Code Departure Means Destination Discharge to home or self care documented in this encounter Plan of Treatment Not on file documented as of this encounter Procedures Procedure Name Priority Date/Time Associated Diagnosis Comments CT ABDOMEN PELVIS WO CONTRAST Routine 01/02/2017 9:06 PM CDT URINALYSIS AND REFLEX TO MICROSCOPIC AND CULTURE STAT 01/02/2017 3:21 PM CDT HCG, URINE, QUALITATIVE STAT 01/02/2017 3:21 PM CDT URINALYSIS, MICROSCOPIC ONLY STAT 01/02/2017 3:21 PM CDT URINE CULTURE STAT 01/02/2017 3:21 PM CDT DISCHARGE LABORATORY CUMULATIVE REPORT 01/02/2017 documented in this encounter Results * CT Abdomen Pelvis WO Contrast (01/02/2017 9:06 PM CDT) Anatomical Region Laterality Modality Body N/A Computed Tomogra phy 01/02/2017 9:06 PM CDT Narrative 01/02/2017 9:[address] [place] ??[id number] ??Acc#: ??[id number] DATE OF EXAM: ??Jan 02 2017 ?? [place] ??[id number] HISTORY: Bilateral flank and back pain. ??History of renal stones in the past.. TECHNIQUE: Serial axial images of the abdomen and pelvis obtained without contrast per renal stone protocol. COMPARISON: 10/12/[address] FINDINGS: There is no renal, ureter or bladder stone. ??There is no hydronephrosis. ??There is no perinephric edema. Evaluation of the solid abdominal organs is limited by the lack of intravenous contrast. The aorta is normal in caliber. ??There is a left retroaortic renal vein. The partially visualized liver appears normal. There is a tiny calcified gallstone within a nondilated gallbladder. There is no pericholecystic fluid. The partially visualized spleen is normal. Adrenal glands are normal. Partially visualized pancreas is normal. ??There is no dilatation of the common bile duct. There are several colon diverticula but no CT changes of diverticulitis are evident. Appendix is normal. There is no free air, free fluid or adenopathy. There are no acute osseous abnormalities. ??There is mild diffuse disc bulging at L5-S1. IMPRESSION: 1. ??NO RENAL, URETER OR BLADDER STONE OR HYDRONEPHROSIS. ?? 2. ??NO ACUTE INTRA-ABDOMINAL OR INTRAPELVIC ABNORMALITY. 3. ??MILD L5-S1 DIFFUSE DISC BULGING. ?? 4. ??SEVERAL COLON DIVERTICULA BUT NO CT CHANGES OF DIVERTICULITIS. 5. ??TINY CALCIFIED GALLSTONE. Electronically signed by: Joseluis Kevin M.D. Interpreting Physician: ??JOSELUIS KEVIN M.D. ??Read on: ??Jan 02 2017 ??4:22P Transcribed by: ??KIRSTEN ??On: Jan 02 2017 ??4:19P Approved Electronically by: ??JOSELUIS KEVIN M.D. ??on: ??Jan 02 2017 ??4:19P Ordering DR: VERA BORJA Attending DR: DR WAGNER RBODY Attending: ??DR WAGNER BRODY Requesting: ??VERA BORJA PA-C Requesting Fax: ??[phone] Attending Fax: ??-- Attending ID: ??[id number] Requesting ID: ??[id number] Report To 1 ID: ??[id number] Report To 1 Name: ??DR WAGNER BRODY Report To 1 FAX: ??-- NextGen Order #: ?? Procedure Note Miscellaneous, Not In File / Provider, MD Roberto - 01/06/[address] [place] [id number] Acc#: [id number] DATE OF EXAM: Jan [address] [place] [id number] HISTORY: Bilateral flank and back pain. History of renal stones in the past.. TECHNIQUE: Serial axial images of the abdomen and pelvis obtained without contrast per renal stone protocol. COMPARISON: 10/12/[address] FINDINGS: There is no renal, ureter or bladder stone. There is no hydronephrosis. There is no perinephric edema. Evaluation of the solid abdominal organs is limited by the lack of intravenous contrast. The aorta is normal in caliber. There is a left retroaortic renal vein. The partially visualized liver appears normal. There is a tiny calcified gallstone within a nondilated gallbladder. There is no pericholecystic fluid. The partially visualized spleen is normal. Adrenal glands are normal. Partially visualized pancreas is normal. There is no dilatation of the common bile duct. There are several colon diverticula but no CT changes of diverticulitis are evident. Appendix is normal. There is no free air, free fluid or adenopathy. There are no acute osseous abnormalities. There is mild diffuse disc bulging at L5-S1. IMPRESSION: 1. NO RENAL, URETER OR BLADDER STONE OR HYDRONEPHROSIS. 2. NO ACUTE INTRA-ABDOMINAL OR INTRAPELVIC ABNORMALITY. 3. MILD L5-S1 DIFFUSE DISC BULGING. 4. SEVERAL COLON DIVERTICULA BUT NO CT CHANGES OF DIVERTICULITIS. 5. TINY CALCIFIED GALLSTONE. Electronically signed by: Joseluis Kevin M.D. Interpreting Physician: JOSELUIS KEVIN M.D. Read on: Jan 02 2017 4:22P Transcribed by: [facility] On: Jan 02 2017 4:19P Approved Electronically by: JOSELUIS KEVIN M.D. on: Jan 02 2017 4:19P Ordering DR: VERA BORJA Attending DR: DR WAGNER BRODY Attending: DR WAGNER BRODY Requesting: VERA BORJA PA-C Requesting Attending Fax: -- Attending ID: [id number] Requesting ID: [id number] Report To 1 ID: [id number] Report To 1 Name: DR WAGNER BRODY Report To 1 FAX: -- NextGen Order #: us Not In File Miscellaneous IMG CT PROCEDURES Danielle l Result * Urine culture (01/02/2017 3:21 PM CDT) Report Final Report: Insignifican t growth based on current clinical standards. [facility] ([place]) Comment:Testing performed by : [facility], [address] [facility] [place] [address] Urine, clean voided 01/02/2017 3:21 PM CDT 01/02/2017 7:18 PM CDT Narrative [facility] ([facility]) - 01/03/2017 12:18 PM CDT us [facility] MICROBIOLOGY - GENERAL O RDERABLES Final Result [facility] ([place]) [address] [facility] [place] [address] * (ABNORMAL) Urinalysis, microscopic (01/02/2017 3:21 PM CDT) RBC, ur 2-5(A) 0 - 2 [facility] ([place]) WBC, ur 5-10(A) 0 - 2 [facility] ([facility]) Bacteria, ur 1+(A) Negative [facility] ([facility]) Hyaline casts, ur 0-2 0 - 2 [facility] ([place]) Epithelial cells, ur 10-25(A) 0 - 2 [facility] ([place]) Urine 01/02/2017 3:21 PM CDT 01/02/2017 3:28 PM CDT [facility] URINE ORDERABLES Final R esult [facility] ([facility]) [address] [facility] [place] [address] * (ABNORMAL) Urinalysis reflex to microscopic and culture (01/02/2017 3:21 PM CDT) Color, ur Yellow Yellow [facility] ([facility]) Clarity, ur Cloudy(A) Clear [facility] ([facility]) Specific gravity, ur 1.018 1.003 - 1.030 [facility] ([place]) Comment:Normal Ranges: 1.003 -1.030 pH, ur 6.5 4.5 - 8.0 [facility] ([place]) Comment:Normal ranges: 4.5-8 .0 Protein, ur ql Negative Negative mg/dL [facility] ([facility]) Glucose, ur ql Negative Negative mg/dL [facility] ([facility]) Ketones, ur Negative Negative [facility] ([place]) Bilirubin, ur Negative Negative [facility] ([facility]) Blood, ur Negative Negative [facility] ([facility]) Urobilinogen, ur 0.2 0.2 - 1.0 [facility] ([place]) Comment:Normal Ranges: 0.2-1 .0 EU/dL Nitrites, ur Negative Negative [facility] ([facility]) Leukocyte esterase, ur Trace(A) Negative [facility] ([place]) Urine 01/02/2017 3:21 PM CDT 01/02/2017 3:28 PM CDT [facility] MICROBIOLOGY - GENERAL O RDERABLES Final Result [facility] ([place]) [address] [facility] [place] [address] * HCG, urine, qualitative (01/02/2017 3:21 PM CDT) HCG, ur Negative Negative [facility] ([place]) Urine 01/02/2017 3:21 PM CDT 01/02/2017 3:28 PM CDT us [facility] URINE ORDERABLES Final R esult Performing Organization Address City/[facility]/ZIP Co de Phone Number [facility] ([place]) [address] [facility] [place] [address] * DISCHARGE LABORATORY CUMULATIVE REPORT (01/02/2017) us Provider Scanning LAB BLOOD ORDERABLES Edited Re sult - Final documented in this encounter Visit Diagnoses Not on filedocumented in this encounter Care Teams Collar Stitcher Relationship Specialty Start Date End Date Joseluis Beltran MD PCP - General 09/15/16 05/03/20 documented as of this encounter
--- OUTSIDE RECORDS SUMMARY | 2024-07-21 11:37 | XMS_ITS | Encounter Summary ---
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 NG EQUIPMENT OPERATOR * Telephone Encounter - Nikkie Tang - 08/16/2022 12:51 PM CST Message for mammogram entered in error. NG EQUIPMENT OPERATOR * Telephone Encounter - Carmen Momin NP - 08/16/2022 12:21 PM DRYING EQUIPMENT OPERATOR If completed at [facility] it should have been in the computer? NG EQUIPMENT OPERATOR * Telephone Encounter - Carmen Momin NP - 08/16/2022 12:20 PM DRYING EQUIPMENT OPERATOR I do not see a previous mammogram. Would you please request previous mammogram? NG EQUIPMENT OPERATOR * Telephone Encounter - Nikkie Tang - 08/16/2022 11:29 AM CST Yogesh at [facility] Mammography called: Patient is due for 6 mo follow up. Requests order for bilateral diagnostic mammogram with ultrasound. NG EQUIPMENT OPERATOR documented in this encounter Plan of Treatment Not on file documented as of this encounter Visit Diagnoses Not on filedocumented in this encounter Care Teams Door Attendant Relationship Specialty Start Date End Date [place] [address] PCP - General Family Medicine 08/16/22 11/01/22 documented as of this encounter
--- OUTSIDE RECORDS SUMMARY | 2024-07-21 11:37 | XMS_ITS | Encounter Summary ---
Author Organization [facility] Healthcare Address [address] [place] [address] Care Team Providers Care Warehouse Distribution Specialist Name Role Phone Barry Beltran MD Primary Care Provider [phone] Encounter Details Date Type Department Care Team (Late st Contact Info) Description 09/24/2018 - 09/24/2018 12:34 PM GAMING HOST Emergency [facility] Emergency Department [address] [place] [address] Discharge Disposition: Still a patient Social History Tobacco Use Types Packs/Day Years Used Date Smoking Tobacco: Former Cigarettes Q uit: 2016 Smokeless Tobacco: Never Alcohol Use Standard Drinks/Week Comments No 0 (1 standard drink = 0.6 oz pur e alcohol) Comments Yes Sex and Gender Information Value Date Recorded Sex Assigned at Not on file 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 Gender Identity Female 10/26/2022 1:11 PM CDT Sexual Orientation Lesbian 10/26/2022 1: 11 PM CDT documented as of this encounter Medications at Time of Discharge labetalol (NORMODYNE,TRANDATE) 100 mg tablet Take 100 mg by mouth 2 (two) times a day 3 ondansetron ODT (ZOFRAN-ODT) 4 mg disintegrating tablet Take 4 mg by mouth every 8 (eight) hours as needed for nausea or vomiting 3 [id number] 3 25 mg iron-1 mg -400 mg combo pack Take by mouth 3 documented as of this encounter Discharge Disposition Disposition Code Departure Means Destination Comment s Still a patient ob documented in this encounter Plan of Treatment Not on file documented as of this encounter Visit Diagnoses Not on filedocumented in this encounter Care Teams Warehouse Distribution Specialist Relationship Specialty Start Date End Date Barry Beltran MD PCP - General 09/15/16 05/03/20 documented as of this encounter
--- OUTSIDE RECORDS SUMMARY | 2024-07-21 11:37 | XMS_ITS | Encounter Summary ---
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 Name Role Phone Unavailable Primary Care Provider Unavailabl e Encounter Details Date Type Department Care Team (Late st Contact Info) Description 10/12/2014 5:06 PM CDT - 10/12/2014 7:36 PM CDT Hospital Encounter [facility] Peg Yu Abdominal pain of other specified site; Personal history of urinary calculi Social History Tobacco Use Types Packs/Day Years Used Date Smoking Tobacco: Never Assessed Comments Unknown Sex and Gender Information Value Date Recorded Sex Assigned at Not on file 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 Gender Identity Female 10/26/2022 1:11 PM CDT Sexual Orientation Lesbian 10/26/2022 1: 11 PM CDT documented as of this encounter Plan of Treatment Not on file documented as of this encounter Procedures Procedure Name Priority Date/Time Associated Diagnosis Comments RENAL COMPUTED TOMOGRAPHY (CT) WITHOUT CONTRAST, STONE PROTOCOL Routine 10/12/2014 6:52 PM CDT SERUM COMPREHENSIVE METABOLIC PANEL Routine 10/12/2014 5:57 PM CDT BLOOD WBC CELL MORPHOLOGIC EXAM, AUTO Routine 10/12/2014 5:57 PM CDT BLOOD CELL COUNT (CBC) Routine 5 5:57 PM CDT URINE MICROSCOPY Routine 10/12/2014 5:21 PM CDT URINE CHORIONIC GONADOTROPIN (HCG) Routine 10/12/2014 5:21 PM CDT URINALYSIS Routine 10/12/2014 5:21 PM CDT SERUM CHORIONIC GONADOTROPIN (HCG), QUANTITATIVE Routine 10/12/2014 12:57 PM CDT DISCHARGE LABORATORY CUMULATIVE REPORT Routine 10/12/2014 12:00 AM CDT documented in this encounter Results * RENAL COMPUTED TOMOGRAPHY (CT) WITHOUT CONTRAST, STONE PROTOCOL (10/12/2014 6:52 PM CDT) Anatomical Region Laterality Modality N/A Computed Tomogra phy 10/12/2014 6:52 PM CDT Narrative 10/13/2014 3:[address] [place] ??[id number] ??Acc#: ??[id number] DATE OF EXAM: ??Oct 12 2014 CLINICAL HISTORY: Bilateral flank pain. ??Pelvic pain. RESULT: Serial axial images of the abdomen and pelvis obtained per renal stone protocol therefore no contrast was administered. There is no renal, ureter or bladder stone or hydronephrosis identified. The extreme lung bases are clear. The abdominal aorta is normal in caliber. ??A retroaortic left renal vein is noted, an anatomic variant. Assessment of the solid abdominal organs is limited by the lack of IV contrast. ??Allowing for that limitation visualized portions of the liver as well as the spleen, gallbladder, pancreas, adrenal glands and kidneys are normal. There are no dilated small or large bowel loops. ??Appendix is normal. ??No inflammatory bowel changes are seen. There is no adenopathy, free fluid or free air in the abdomen or pelvis. IMPRESSION: 1. NO RENAL, URETER OR BLADDER STONE OR HYDRONEPHROSIS. 2. NORMAL APPENDIX. 3. RETROAORTIC LEFT RENAL VEIN, AN ANATOMIC VARIANT. COMMENT: ??Results discussed with Dr. Yu 10/12/14 at 1900 hours. Interpreting Physician: ??JOSELUIS SWENSON M.D. ??Read on: ??Oct 12 2014 ??7:17P Transcribed by: ??vam ??On: Oct 13 2014 ??9:37A Approved Electronically by: ??JOSELUIS SWENSON M.D. ??on: ??Oct 13 2014 ??3:34P Attending: ??, Requesting: ??Gigi, Requesting Fax: ??-- Attending Fax: ??-- Attending ID: ?? Requesting ID: ??[id number] Report To 1 ID: ??[id number] Report To 1 Name: ??PEG YU Report To 1 FAX: ??-- NextGen Order #: Procedure Note Provider, MD Roberto - 11/25/[place] [id number] Acc#: [id number] DATE OF EXAM: Oct 12 2014 CLINICAL HISTORY: Bilateral flank pain. Pelvic pain. RESULT: Serial axial images of the abdomen and pelvis obtained per renal stoneprotocol therefore no contrast was administered. There is no renal, ureteror bladder stone or hydronephrosis identified. The extreme lung bases areclear. The abdominal aorta is normal in caliber. A retroaortic left renalvein is noted, an anatomic variant. Assessment of the solid abdominalorgans is limited by the lack of IV contrast. Allowing for thatlimitation visualized portions of the liver as well as the spleen,gallbladder, pancreas, adrenal glands and kidneys are normal. There are nodilated small or large bowel loops. Appendix is normal. No inflammatorybowel changes are seen. There is no adenopathy, free fluid or free air inthe abdomen or pelvis. IMPRESSION: 1. NO RENAL, URETER OR BLADDER STONE OR HYDRONEPHROSIS. 2. NORMAL APPENDIX. 3. RETROAORTIC LEFT RENAL VEIN, AN ANATOMIC VARIANT. COMMENT: Results discussed with Dr. Yu 10/12/14 at 1900 hours. Interpreting Physician: JOSELUIS SWENSON M.D. Read on: Oct 12 2014 7:17P Transcribed by: preet On: Oct 13 2014 9:37A Approved Electronically by: JOSELUIS SWENSON M.D. on: Oct 13 2014 3:34P Attending: , Requesting: Eleazar Yu Fax: -- Attending Fax: -- Attending ID: Requesting ID: [id number] Report To 1 ID: [id number] Report To 1 Name: GIGIPEG RAMIREZ Report To 1 FAX: -- NextGen Order #: Historical Provider MD SHUKLA CT PROCEDURES Final R esult * Blood cell count (CBC) (10/12/2014 5:57 PM CDT) WBC 7.0 4.0 - 10.5 K/cumm HISTORICAL RESULTS RBC 4.97 4.20 - 5.40 M/cumm HISTORICAL RESULTS Hgb 13.4 12.0 - 16.0 g/dl HISTORICAL RESULTS Hct 41.0 37.0 - 47.0 % HISTORICAL RESULTS MCV 82.5 77.0 - 97.0 fl HISTORICAL RESULTS MCH 27.0 23.0 - 34.0 pg HISTORICAL RESULTS MCHC 32.7 32.0 - 36.0 g/dl HISTORICAL RESULTS Rdw 13.8 11.5 - 14.5 % HISTORICAL RESULTS Platelets 223 150 - 400 K/cumm HISTORICAL RESULTS MPV 10.2 7.4 - 10.4 fl HISTORICAL RESULTS Blood specimen (specimen) 10/12/2014 5:57 PM CDT us Historical Provider LAB BLOOD ORDERABLES Danielle l Result HISTORICAL RESULTS * (ABNORMAL) Blood WBC cell morphologic exam, auto (10/12/2014 5:57 PM CDT) Pathologist [facility] Lymphocytes 31.2 25.0 - 33.0 % HISTORICAL RESULTS Monos 10.4 0.0 - 13.0 % HISTORICAL RESULTS Neutrophils 57.0 54.0 - 69.0 % HISTORICAL RESULTS Eosinophils 1.1 0.0 - 10.0 % HISTORICAL RESULTS Basophils 0.3 0.0 - 1.0 % HISTORICAL RESULTS Immature granulocytes 0.0 0.0 - 1.0 % HISTORICAL RESULTS Lymphocytes, abs 2.2 1.2 - 3.4 K/cumm HISTORICAL RESULTS Monocytes, absolute 0.7(L) 1.1 - 1.9 K/cumm HISTORICAL RESULTS Neutrophils, abs 4.0 1.4 - 6.5 K/cumm HISTORICAL RESULTS Eosinophils, abs 0.1 0.0 - 0.7 cells/cumm HISTORICAL RESULTS Basophils, abs 0.0 0.0 - 0.2 K/cumm HISTORICAL RESULTS Immature granulocyte, abs 0.0 0.0 - 0.0 K/cumm HISTORICAL RESULTS Blood specimen (specimen) 10/12/2014 5:57 PM CDT us Historical Provider LAB BLOOD ORDERABLES Danielle kendrick Result HISTORICAL RESULTS * (ABNORMAL) Serum comprehensive metabolic panel (10/12/2014 5:57 PM CDT) BUN 11.0 8.0 - 25.0 mg/dl HISTORICAL RESULTS Sodium 140 135 - 145 mmol/L HISTORICAL RESULTS Potassium, sr 4.0 3.5 - 5.1 mmol/L HISTORICAL RESULTS Chloride 104 97 - 110 mmol/L HISTORICAL RESULTS CO2 22(L) 22 - 32 mmol/L HISTORICAL RESULTS Glucose 99 70 - 199 mg/dl HISTORICAL RESULTS Comment: Note:The glucose is assumed non fasting Fastin-99 mg/dl Random: 70-199 mg/dl Either a fasting glucose > 126 mg/dL or a random glucose > 200 mg/dL plus symptoms is diagnostic of diabetes when confirmed on another day. Fasting values > 100 mg/dl but < 125 mg/dL are diagnostic of impaired fasting glucose. Creatinine 0.78 0.60 - 1.10 mg/dl HISTORICAL RESULTS Comment: eGFR: >70 ml/min/1.73sq.m if non -Togolese. eGFR: >70 ml/min/1.73sq.m if -Togolese. AVE GFR for 20-29 yr. age group: ??116 ml/min/1.73sq.m Calculated using the MDRD Equation BUN/creat ratio 14 10 - 20 HIST ORICAL RESULTS A. gap 18(H) 8 - 16 mmol/L HISTORICAL RESULTS Protein, sr 7.0 6.2 - 8.2 g/dl HISTORICAL RESULTS Alb 4.1 3.6 - 5.0 g/dl HISTORICAL RESULTS Alb/glob ratio 1.4 1.1 - 1.8 HISTO RICAL RESULTS Calcium 9.1 8.6 - 10.2 mg/dl HISTORICAL RESULTS Bilirubin 0.2 0.1 - 1.2 mg/dl HISTORICAL RESULTS Alk phos 84 40 - 130 Units/L HISTORICAL RESULTS AST 14 10 - 40 Units/L HISTORICAL RESULTS ALT 13 5 - 45 Units/L HISTORICAL RESULTS Serum 10/12/2014 5:57 PM CDT us Historical Provider LAB BLOOD ORDERABLES Danielle l Result Performing Organization Address [facility]/State/ZIP Co de Phone Number HISTORICAL RESULTS * Urine chorionic gonadotropin (HCG) (10/12/2014 5:21 PM CDT) HCG, ur Negative NEGATIVE HISTORICAL RESULTS Urine 10/12/2014 5:21 PM CDT Result [facility] Provider LAB BLOOD ORDERABLES Danielle l Result Performing Organization Address [facility]/ZIP Co de Phone Number HISTORICAL RESULTS * (ABNORMAL) Urinalysis (10/12/2014 5:21 PM CDT) Color, ur YELLOW YELLOW HISTORICAL RESULTS Clarity, ur CLOUDY(A) CLEAR HISTORIC AL RESULTS Specific gravity, ur 1.027 1.003 - 1.030 gu HISTORICAL RESULTS Leukocyte esterase, ur Negative NEGATIVE HISTORICAL RESULTS Nitrites, ur Negative NEGATIVE HISTORI TAY RESULTS pH, ur 6.0 6.0 HISTORICAL RESULTS Protein, ur Negative NEGATIVE HISTORIC AL RESULTS Glucose, ur Negative NEGATIVE HISTORIC AL RESULTS Ketones, ur Negative NEGATIVE HISTORIC AL RESULTS Urobilinogen, quant, ur 0.2 0.2 - 1.0 mg/dl HISTORICAL RESULTS Bilirubin, ur Negative NEGATIVE HISTOR ICAL RESULTS U Blood Negative NEGATIVE HISTORICAL RESULTS Urine 10/12/2014 5:21 PM CDT Result [facility] Provider LAB BLOOD ORDERABLES Danielle l Result Performing Organization Address [facility] Co de Phone Number HISTORICAL RESULTS * (ABNORMAL) Urine microscopy (10/12/2014 5:21 PM CDT) WBC, ur 2 - 5(A) 0 - 2 /hpf HISTORICA L RESULTS RBC, ur 0 - 2 0 - 5 /hpf HISTORICA L RESULTS Epithelial cells, ur 5 - 10(A) 0 - 2 /hpf HISTORICAL RESULTS Bacteria, ur 1+(A) NEGATIVE /hpf HISTORICAL RESULTS Hyaline casts 5 - 10(A) 0 - 4 /lpf HISTO RICAL RESULTS Crystals, ur Negative NEGATIVE HISTORI TAY RESULTS Yeast, ur Negative NEGATIVE HISTORICAL RESULTS Pathological casts, ur Negative NEGATIVE HISTORICAL RESULTS Urine 10/12/2014 5:21 PM CDT us Historical Provider LAB BLOOD ORDERABLES Danielle aroldo Result HISTORICAL RESULTS * Serum chorionic gonadotropin (HCG), quantitative (10/12/2014 12:57 PM CDT) HCG, quant <5.0 0.0 - 5.0 IUnits/L HISTORICAL RESULTS Serum 10/12/2014 12:5 7 PM CDT Narrative HISTORICAL RESULTS - 10/12/2014 1:33 PM CDT NEGATIVE: ??0-5 MIU/ML BORDERLINE: ??6-25 MIU/ML POSITIVE: ??GREATER THAN 25 MIU/ML APPROX GEST AGE ?APPROX HCG CONCENTRATION ?3-4 WEEKS ?9-130 ?4-5 WEEKS ? 75-2600 ?5-6 WEEKS ?850-20,800 ?6-7 WEEKS ? 4000-100,200 ?7-12 WEEKS ? 58108-256,000 ?? 12-16 WEEKS ? 81112-729,000 ?? 16-29 WEEKS ?1400-53,000 ?? 29-41 WEEKS ? 900-60,000 us Historical Provider LAB BLOOD ORDERABLES Danielle l Result HISTORICAL RESULTS * Discharge Laboratory Cumulative Report (10/12/2014 12:00 AM CDT) 10/12/2014 Narrative HISTORICAL RESULTS - 10/20/2014 2:41 AM CDT Patient No: [id number] ? [facility] Patient Name: SUSANNA MOYA ?[facility] Age: 24 YRS ?: 1990 ?Sex:F ?[address] )[phone] ?? Adm Dt: 10/12/2014 ?[place] ??[id number] Created: 10/20/2014 ??0241 ?? Pt. Type: E ? Discharge Dt: 10/12/2014 ? Pathologists: Madalyn Arroyo MD Admit Dr. Valente Mason: YAHIR IVORY MD ? BLOOD CELL COUNTS ?Collection Date: ?10/12/14 ?Collection Time: ?1757 ? Ref Range: ?? Units: [4.00-10.50] /CMM ? WBC X 10^3 ?7.01 [4.20-5.40] ??/CMM ? RBC X 10^6 ?4.97 [12.0-16.0] ??G/DL ? HGB ? 13.4 [37.0-47.0] ??% ?HCT ? 41.0 [77.0-97.0] ??FL ? MCV ? 82.5 [23.0-34.0] ??PG ? MCH ? 27.0 [32.0-36.0] ??% ?MCHC ?32.7 [11.5-14.5] ??% ?RDW ? 13.8 [150-400] ?? /CMM ? PLT X 10^3 ? 223 ?BLOOD CELL DIFFERENTIAL ?Collection Date: ?10/12/14 ?Collection Time: ?1757 ? Ref Range: ?? Units: [54.0-69.0] ??% ?NEUTROPHILS ? 57.0 [25.0-33.0] ??% ?LYMPHOCYTES ? 31.2 [0.0-13.0] ??% ?MONOCYTES ? 10.4 [0.0-10.0] ??% ?EOSINOPHILS ?1.1 [0.0-1.0] ?? % ?BASOPHILS ?0.3 ? /CMM ? A LYMPHOCYTE ? 2.2 [0.0-1.0] ?? % ?IMM GRAN % ? 0.0 [0.00-0.02] ??/CMM ? A IMM GRAN ?0.00 [1.1-1.9] ?? /CMM ? A MONOCYTE ? 0.7 L [1.4-6.5] ?? /CMM ? A NEUTROPHIL ? 4.0 [0.0-0.7] ?? /CMM ? A EOSINOPHIL ? 0.1 [0.0-0.2] ?? /CMM ? A BASOPHIL ? 0.0 Footnotes and Symbols: L = Low ?? CONTINUED ?Page: ?? 1 Patient No: [id number] ? [facility] Patient Name: SUSANNA MOYA ?[facility] Healthcare Age: 24 YRS ?: 1990 ?Sex:F ?[address] )[phone] ?? Adm Dt: 10/12/2014 ?[place] ??[id number] Created: 10/20/2014 ??0241 ?? Pt. Type: E ? Discharge Dt: 10/12/2014 ? Pathologists: Madalyn Arroyo MD Admit Attend Dr: YAHIR IVORY MD ? GENERAL CHEMISTRY ?Collection Date: ?10/12/14 ?Collection Time: ?1757 ? Ref Range: ?? Units: [135-145] ?? MMOL/L ? SODIUM ? 140 [3.5-5.1] ?? MMOL/L ? POTASSIUM ?4.0 [97.0-110.0] MMOL/L ? CHLORIDE ? 104.0 [22.0-32.0] ??MMOL/L ? TOTAL CO2 ? 21.6 L ?? [8-16] ?MMOL/L ? ANION GAP ? 18 H ??[70-199] ?? MG/DL ?GLUCOSE ? 99 f [6.2-8.2] ?? G/DL ? TOTAL PROTEIN ?7.0 [3.6-5.0] ?? G/DL ? ALBUMIN ?4.1 [1.1-1.8] ?A/G RATIO ?1.4 [8.6-10.2] ??MG/DL ?CALCIUM ?9.1 [0.1-1.2] ?? MG/DL ?BILI TOTAL ? 0.2 ??[40-130] ?? U/L ?ALK PHOS ?84 ??[10-40] ?U/L ?AST(SGOT) ? 14 f ?? [5-45] ?U/L ?ALT(SGPT) ? 13 f [8.0-25.0] ??MG/DL ?BUN ? 11.0 ??[10-20] ? B/C RATIO ? 14 Footnotes and Symbols: L = Low, H = High, f = Footnote GLUCOSE (09/04/14 -- Current) Note:The glucose is assumed non fasting Fastin-99 mg/dl Random: 70-199 mg/dl Either a fasting glucose > 126 mg/dL or a random glucose > 200 mg/dL plus symptoms is diagnostic of diabetes when confirmed on another day. Fasting values > 100 mg/dl but < 125 mg/dL are diagnostic of impaired fasting glucose. AST(SGOT) (12/06/13 -- Current) ALT(SGPT) (02/13/13 -- Current) ?? CONTINUED ?Page: ?? 2 Patient No: [id number] ? [facility] Patient Name: SUSANNA MOYA ?[facility] Healthcare Age: 24 YRS ?: 1990 ?Sex:F ?[address] )[phone] ?? Adm Dt: 10/12/2014 ?[place] ??[address] Created: 10/20/2014 ??0241 ?? Pt. Type: E ? Discharge Dt: 10/12/2014 ? Pathologists: Madalyn Arroyo MD Admit Dr. Victor Dr: YAHIR IVORY MD ? GENERAL CHEMISTRY ?Collection Date: ?10/12/14 ?Collection Time: ?1757 ? Ref Range: ?? Units: [0.60-1.10] ??MG/DL ?CREATININE ?0.78 f ?10/12/14 1757 eGFR: >70 ml/min/1.73sq.m if non -[place]ogolese. eGFR: >70 ml/min/1.73sq.m if -Togolese. AVE GFR for 20-29 yr. age group: ??116 ml/min/1.73sq.m Calculated using the MDRD Equation FOOTNOTE ADDED ON ?? 10/12/14 ?? AT 1833 BY 999 Footnotes and Symbols: f = Footnote ?? CONTINUED ?Page: ?? 3 Patient No: [id number] ? [facility] Patient Name: SUSANNA MOYA ?[facility] Healthcare Age: 24 YRS ?: 1990 ?Sex:F ?[address] )[phone] ?? Adm Dt: 10/12/2014 ?[place] ??[id number] Created: 10/20/2014 ??0241 ?? Pt. Type: E ? Discharge Dt: 10/12/2014 ? Pathologists: Madalyn Arroyo MD Admit Attend Dr: YAHIR IVORY MD ? HORMONES ?Collection Date: ?10/12/14 ? 10/12/14 ?Collection Time: ?1757 ? 1721 ? Ref Range: ?? Units: ?? [0-5] ? mIU/ml ? BETA HCG QUANT ?<5 f [NEGATIVE] ?U ?NEGATIVE Footnotes and Symbols: f = Footnote BETA HCG QUANT (09/01/14 -- Current) NEGATIVE: ??0-5 MIU/ML BORDERLINE: ??6-25 MIU/ML POSITIVE: ??GREATER THAN 25 MIU/ML APPROX GEST AGE ?APPROX HCG CONCENTRATION ?3-4 WEEKS ?9-130 ?4-5 WEEKS ? 75-2600 ?5-6 WEEKS ?850-20,800 ?6-7 WEEKS ? 4000-100,200 ?7-12 WEEKS ? 50849-360,000 ?? 12-16 WEEKS ? 06011-184,000 ?? 16-29 WEEKS ?1400-53,000 ?? 29-41 WEEKS ? 900-60,000 ?? CONTINUED ?Page: ?? 4 Patient No: [id number] ? [facility] Patient Name: SUSANNA MOYA ?[facility] Age: 24 YRS ?: 1990 ?Sex:F ?[address] )[phone] ?? Adm Dt: 10/12/2014 ?[place], [place] ??[address] Created: 10/20/2014 ??0241 ?? Pt. Type: E ? Discharge Dt: 10/12/2014 ? Pathologists: Madalyn Arroyo MD Admit Attend Dr: YAHIR IVORY MD ?URINALYSIS ?Collection Date: ?10/12/14 ?Collection Time: ?1721 ? Ref Range: ?? Units: [YELLOW] ? U COLOR ? YELLOW ??[CLEAR] ? U APPEARANCE ?CLOUDY * [1.003-1.030] ? U SPEC GRAVITY ? 1.027 [NEGATIVE] ?U LEUKO ESTRASE ? NEGATIVE [NEGATIVE] ?U NITRITE ? NEGATIVE ?? [6.0] ?U PH ? 6.0 [NEGATIVE] ?U PROTEIN ? NEGATIVE [NEGATIVE] ?U GLUCOSE ? NEGATIVE [NEGATIVE] ?U KETONES ? NEGATIVE [0.2- 1.0] ?UROBILINOGEN ? 0.2 [NEGATIVE] ?U BILIRUBIN ? NEGATIVE [NEGATIVE] ?U BLOOD ? NEGATIVE ?? [0-2] ?U WBC ?2-5 * ?? [0-5] ?U RBC ?0-2 ?? [0-2] ?U EPI CELLS ? 5-10 * [NEGATIVE] ?U BACTERIA ?1+ * ?U YEASTS ?NEGATIVE ?? [0-4] ?U HYALINE CASTS ? 5-10 * [NEGATIVE] ?U CRYSTALS ?NEGATIVE [NEGATIVE] ?U PATH CASTS ?NEGATIVE Footnotes and Symbols: * = Abnormal ?? END OF CHART ? Page: ?? 5 us Historical Provider MD LAB BLOOD ORDERABLES Danielle l Result HISTORICAL RESULTS documented in this encounter Visit Diagnoses Diagnosis Abdominal pain of other specified site Personal history of urinary calculi documented in this encounter
--- OUTSIDE RECORDS SUMMARY | 2024-07-21 11:37 | XMS_ITS | Encounter Summary ---
Author Organization [facility] Healthcare Address [address] [place] [id number] Care Team Providers Care Research Tech Name Role Phone Angelia Goyal MD, Antoni Valentin Primary Care Provider Reason for Visit * Reason Comments Multiple Medical Complaints Encounter Details Date Type Department Care Team (Late st Contact Info) Description 07/19/2022 8:45 AM MOTOR PATROL OPERATOR - 07/19/2022 10:34 AM MOTOR PATROL OPERATOR Emergency [facility] Emergency Department [address] [place] [address] Jesús Hope MD 1 [facility] [place] [address] [place] [id number] Viral syndrome (Primary Dx) Discharge Disposition: Discharge to home [...] on file Legal Sex Female 2:59 PM MOTOR PATROL OPERATOR Gender Identity Female 10/26/2022 1:11 PM CDT Sexual Orientation Lesbian 10/26/2022 1: 11 PM CDT documented as of this encounter Last Filed Vital Signs Vital Sign Reading Time Taken Comments Blood Pressure 143/93 07/19/2022 8:06 AM MOTOR PATROL OPERATOR Pulse 71 07/19/2022 8:06 AM MOTOR PATROL OPERATOR Temperature 36.6 ??C (97.9 ??F) 07/19/2022 8:06 AM CS T Respiratory Rate 18 07/19/2022 8:06 AM MOTOR PATROL OPERATOR Oxygen Saturation 100% 07/19/2022 8:06 AM MOTOR PATROL OPERATOR Inhaled Oxygen Concentration - - Weight 117 kg (258 lb) 07/19/2022 8:06 AM MOTOR PATROL OPERATOR Height 154.9 cm (5' 1 ) 07/19/2022 8:06 AM MOTOR PATROL OPERATOR Body Mass Index 48.75 07/19/2022 8:06 AM MOTOR PATROL OPERATOR documented in this encounter Discharge Instructions * Discharge Instructions* Jesús Hope MD - 07/19/2022 9:52 AM MOTOR PATROL OPERATOR Take medication as prescribed, Tylenol ibuprofen for body aches and fever., continue home medication. R PATROL OPERATOR * Attachments The following attachments cannot be sent through Care Everywhere. * Viral Syndrome (Adult) (Israeli) documented in this encounter Medications at Time of Discharge EPINEPHrine (EpiPen) 0.3 mg/0.3 mL auto-injection syringeIndications: Anaphylaxis Inject 0.3 mL (0.3 mg total) into the muscle as instructed as needed for anaphylaxis 1 each 1 05/04/2020 traMADoL (ULTRAM) 50 mg tablet Take 1 tablet (50 mg total) by mouth every 8 (eight) hours as needed 04/27/2022 benzonatate (TESSALON) 100 mg capsuleIndications: Cough Take 1 capsule (100 mg total) by mouth every 8 (eight) hours 21 capsule 07/19/2022 08/16/19 23 butalbital-acetamin ophen-caffeine (ESGIC) 50-325-40 mg per tablet Take 1-2 tablets by mouth every 6 (six) hours as needed 10/20/2018 08/16/19 23 dextroamphetamine-a mphetamine XR (ADDERALL XR) 25 mg 24 hr capsule 12/10/2020 08/16/19 23 diphenhydrAMINE (diphenhydrAMINE) 25 mg capsule Take 2 tablet/capsule (50 mg total) by mouth every 6 (six) hours as needed for itching or allergies 20 capsule 05/04/2020 08/16/19 23 famotidine (PEPCID) 40 mg tablet Take 1 tablet (40 mg total) by mouth nightly as needed for heartburn 20 tablet 05/04/2020 08/16/19 23 FLUoxetine (PROzac) 20 mg capsule Take 1 capsule by mouth nightly 07/04/2022 08/16/19 23 Januvia 100 mg tablet 02/03/2021 08/16/19 23 labetalol (NORMODYNE,TRANDATE ) 100 mg tablet Take 100 mg by mouth 2 (two) times a day 08/16/19 23 levothyroxine (SYNTHROID) 50 mcg tablet 02/07/2021 08/16/19 23 metFORMIN XR (GLUCOPHAGE XR) 500 mg 24 hr tablet 01/07/2021 08/16/19 23 ondansetron ODT (ZOFRAN-ODT) 4 mg disintegrating tablet Take 4 mg by mouth every 8 (eight) hours as needed for nausea or vomiting 08/16/19 23 phentermine (ADIPEX-P) 37.5 mg tablet 0 02/03/2021 08/19/19 23 [id number] m3 25 mg iron-1 mg -400 mg combo pack Take by mouth 23 documented as of this encounter Ordered Prescriptions Prescription Sig Dispense Quantity Refills Last Filled Start Date End Date benzonatate (TESSALON) 100 mg capsuleIndications :Cough Take 1 capsule (100 mg total) by mouth every 8 (eight) hours 21 capsule 07/19/2022 3 documented in this encounter Discharge Disposition Disposition Code Departure Means Destination Discharge to home or self care documented in this encounter ED Notes * Jesús Hope MD - 07/19/2022 9:43 AM CST HPI Chief Complaint Patient presents with Multiple Medical Complaints 32-year-old with a history of bipolar disorder here with the complaints of cold, congestion, cough which is nonproductive for last 3-4 days. She states she is unable to cough up any phlegm. No history of fever or chills. Patient History: There are no problems to display for this patient. Past Medical History: Diagnosis Date CTS (carpal tunnel syndrome) Kidney stone Migraine [...] Types: Cigarettes Quit date: 2016 Years since quittin.9 Smokeless tobacco: Never Substance and Sexual Activity Alcohol use: No Drug use: No Sexual activity: Yes Partners: Male Social History Social History Narrative Not on file Review of Systems Review of Systems HENT: Positive for congestion. Respiratory: Positive for cough. Gastrointestinal: Negative. Genitourinary: Negative. Neurological: Negative. Hematological: Negative. Physical Exam ED Triage Vitals [07/19/22 0806] Temp Pulse Resp BP SpO2 36.6 ??C (97.9 ??F) 71 18 143/93 100 % Temp src Heart Rate Source Patient Position BP Location FiO2 (%) Temporal -- -- -- -- Height Height Method Weight Weight Method 1.549 m (5' 1 ) Stated 117 kg (258 lb) Stated Physical Exam Vitals and nursing note reviewed. Constitutional: Appearance: Normal appearance. HENT: Head: Normocephalic and atraumatic. Nose: Nose normal. Cardiovascular: Rate and Rhythm: Normal rate and regular rhythm. Pulmonary: Effort: Pulmonary effort is normal. Breath sounds: Normal breath sounds. Abdominal: Palpations: Abdomen is soft. Musculoskeletal: General: Normal range of motion. Cervical back: Normal range of motion. Skin: General: Skin is warm. Neurological: General: No focal deficit present. Mental Status: She is alert and oriented to person, place, and time. Results for orders placed or performed during the hospital encounter of 07/19/22 Influenza A/B, RSV, and COVID-19 PCR Nasopharyngeal Specimen: Nasopharyngeal Result Value Ref Range COVID-19 RNA Negative Negative Influenza A RNA Negative Negative Influenza B RNA Negative Negative RSV RNA Negative Negative EXAM DESCRIPTION: XR CHEST 1 VIEW REASON FOR STUDY: chest pain The pt is here for congestion, SOB, sore throat, and cough that started Tuesday last week. The pt states she feels like she cannot get enough to drink. TECHNIQUE: Frontal radiographic view of the chest acquired. COMPARISON: 04/01/2014 FINDINGS: Mild hazy bibasilar opacities. This likely represents overlying soft tissue. No pleural effusion or pneumothorax. Heart size and mediastinal contours are normal. IMPRESSION: 1. No gross acute cardiopulmonary abnormality. MDM Medical Decision Making Amount and/or Complexity of Data Reviewed Labs: Decision-making details documented in ED Course. Radiology: ordered and independent interpretation performed. Details: No acute findings ECG/medicine tests: ordered. ED Course as of 07/19/22951 Time: 07/19 952 Comment: Notified patient about her lab work, chest x-ray findings. She wants a day off from work. By: Jesús Hope MD Final diagnoses: None Jesús Hope MD 07/19/22952 R PATROL OPERATOR * Cherelle Whitley NP - 07/19/2022 8:07 AM CST The pt is here for congestion, SOB, sore throat, and cough that started Tuesday last week. The ptstates she feels like she cannot get enough to drink. R PATROL OPERATOR documented in this encounter Plan of Treatment Not on file documented as of this encounter Procedures Procedure Name Priority Date/Time Associated Diagnosis Comments XR CHEST 1 VIEW ED 07/19/2022 8:55 AM MOTOR PATROL OPERATOR INFLUENZA A/B, RSV, AND COVID-19 PCR Routine 07/19/2022 8:18 AM MOTOR PATROL OPERATOR ECG 12-LEAD Routine 07/19/2022 8:17 AM MOTOR PATROL OPERATOR documented in this encounter Results * XR Chest 1 Vw Portable (07/19/2022 8:55 AM MOTOR PATROL OPERATOR) Anatomical Region Laterality Modality Body, Chest N/A Computed Radiogr aphy 07/19/2022 9:18 AM MOTOR PATROL OPERATOR Narrative 07/19/2022 9:18 AM MOTOR PATROL OPERATOR EXAM DESCRIPTION: ?? XR CHEST 1 VIEW REASON FOR STUDY: ?? chest pain ?? The pt is here for congestion, SOB, sore throat, and cough that started Tuesday last week. The pt states she feels like she cannot get enough to drink. ? TECHNIQUE: ?? Frontal ??radiographic view of the chest acquired. COMPARISON: 04/01/2014 FINDINGS: Mild hazy bibasilar opacities. ??This likely represents overlying soft tissue. ?? No pleural effusion or pneumothorax. Heart size and mediastinal contours are normal. IMPRESSION: ?? 1. ?? No gross acute cardiopulmonary abnormality. THIS IS AN ELECTRONICALLY VERIFIED FINAL REPORT 07/19/2022 9:18 AM - Electronically signed by ??Tano Holder M.D. AG: AG D: ??07/19/2022 9:18 AM T: ??07/19/2022 9:18 AM Report ID: [id number] Reading Location: ??[id number] Procedure Note Tano Holder MD - 07/19/2022 EXAM DESCRIPTION: XR CHEST 1 VIEW REASON FOR STUDY: chest pain The pt is here for congestion, SOB, sore throat, and cough that started Tuesday last week. The pt states she feels like she cannot get enough to drink. TECHNIQUE: Frontal radiographic view of the chest acquired. COMPARISON: 04/01/2014 FINDINGS: Mild hazy bibasilar opacities. This likely represents overlying softtissue. No pleural effusion or pneumothorax. Heart size and mediastinal contours are normal. IMPRESSION: 1. No gross acute cardiopulmonary abnormality. THIS IS AN ELECTRONICALLY VERIFIED FINAL REPORT 07/19/2022 9:18 AM - Electronically signed by Tano Holder M.D. AG: AG Report ID: [id number] Reading Location: [id number] Jesús Hope MD IMG XR PROCEDURES Final Result * Influenza A/B, RSV, and COVID-19 PCR Nasopharyngeal (07/19/2022 8:18 AM MOTOR PATROL OPERATOR) COVID-19 RNA Negative Negative [facility] ([place]) Influenza A RNA Negative Negative [facility] Influenza B [facility] ([place]) RSV RNA Negative Negative [facility] ([place]) Comment: Interpretive data: This test is performed using the [employer] Xpert Xpress CoV-2/Flu/RSV plus assay. This is a multiplex, real-time reverse transcriptase PCR assay intended for the qualitative detection of nucleic acid from SARS-CoV-2, influenza A, influenza B, and respiratory syncytial virus. This assay has been reviewed by the FDA for Emergency Use Authorization (EUA). The performance characteristics have been verified by the performing laboratory. Results must be considered in the clinical context, and a negative result does not rule out infection. Interpretive Data last revised 2021. Nasopharyngeal 07/19/2022 8: 18 AM MOTOR PATROL OPERATOR 07/19/2022 8:21 AM MOTOR PATROL OPERATOR Narrative [facility] ([place]) - 07/19/2022 8:59 AM MOTOR PATROL OPERATOR Is the Patient experiencing symptoms consistent with COVID?->Yes Date of Symptom Onset->07/07/22 Reason for testing?->Symptomatic Jesús Hope MD LAB MICROBIOLOGY - GENERAL ORD ERABLES Final Result [facility] [place] 1 [facility] Department [place] [address] * ECG 12 lead (07/19/2022 8:17 AM MOTOR PATROL OPERATOR) 07/19/2022 8:17 AM MOTOR PATROL OPERATOR Narrative [facility] - 07/20/2022 9:23 AM MOTOR PATROL OPERATOR Vent Rate: 81 bpm RR Interval: 738 msec MO Interval: 156 msec QRS Duration: 89 msec QT Interval: 376 msec QTC Interval: 413 msec P-R-T [place]: 38 - 27 - 53 degrees SINUS RHYTHM NORMAL ECG Electronically Signed By: Franklin Cazares MD Jesús Hope MD ECG ORDERABLES Edited Result - Final [facility]zed [facility] documented in this encounter Visit Diagnoses Diagnosis Viral syndrome- Primary Unspecified viral infection, in conditions classified elsewhere and of unspecified site documented in this encounter Additional Health Concerns Infection Onset Date Last Indicated Resolved Time COVID: Suspected 07/19/2022 07/19/2022 07/19/2022 9:00 AM MOTOR PATROL OPERATOR documented as of this encounter Care Teams Research Tech Relationship Specialty Start Date End Date Antoni Galan Jr., MD [address] [place] [address] PCP - General 05/04/20 08/15/22 documented as of this encounter
--- OUTSIDE RECORDS SUMMARY | 2024-07-21 11:37 | XMS_ITS | Encounter Summary ---
Author Organization [facility] Healthcare Address [address] [place] [address] Care Team Providers Care Decay Control Operator Name Role Phone Barry Beltran MD Primary Care Provider [phone] Encounter Details Date Type Department Care Team (Latest Contact Info) Description 10/27/2018 4:18 PM CDT - 10/27/2018 4:44 PM CDT Hospital Encounter [facility] Discharge Disposition: Discharge to home or self care Social History Tobacco Use Types Packs/Day Years Used Date Smoking Tobacco: Former Cigarettes Q uit: 2016 Smokeless Tobacco: Never Alcohol Use Standard Drinks/Week Comments No 0 (1 standard drink = 0.6 oz pur e alcohol) Comments Yes Sex and Gender Information Value Date Recorded Sex Assigned at Not on file Legal Sex 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 Gender Identity Female 10/26/2022 1:11 PM CDT Sexual Orientation Lesbian 10/26/2022 1: 11 PM CDT documented as of this encounter Medications at Time of Discharge butalbital-acetamino phen-caffeine (ESGIC) 50-325-40 mg per tablet Take 1-2 tablets by mouth every 6 (six) hours as needed 10/20/2018 3 labetalol (NORMODYNE,TRANDATE) 100 mg tablet Take 100 mg by mouth 2 (two) times a day 3 ondansetron ODT (ZOFRAN-ODT) 4 mg disintegrating tablet Take 4 mg by mouth every 8 (eight) hours as needed for nausea or vomiting 3 [id number] 3 25 mg iron-1 mg -400 mg combo pack Take by mouth 3 documented as of this encounter Discharge Disposition Disposition Code Departure Means Destination Discharge to home or self care documented in this encounter Plan of Treatment Not on file documented as of this encounter Visit Diagnoses Not on filedocumented in this encounter Care Teams Decay Control Operator Relationship Specialty Start Date End Date Barry Beltran MD PCP - General 09/15/16 05/03/20 documented as of this encounter
--- OUTSIDE RECORDS SUMMARY | 2024-07-21 11:37 | XMS_ITS | Encounter Summary ---
Author Organization [facility] Healthcare Address [address] [place] [address] Care Team Providers Care Credit Collections Specialist Name Role Phone Barry Beltran MD Primary Care Provider [phone] Reason for Visit * Reason Comments Fall Encounter Details Date Type Department Care Team (Latest Contact Info) Description 10/27/2018 4:45 PM CDT - 10/27/2018 11:00 PM CDT Hospital Encounter [facility] [address] [place] [address] Ernesto Lizama MD [address] [place] [address] [address] [address] Discharge Disposition: Discharge to home or self care Social History Tobacco Use Types Packs/Day Years Used Date Smoking Tobacco: Former Cigarettes Q uit: 2016 Smokeless Tobacco: Never Alcohol Use Standard Drinks/Week Comments No 0 (1 standard drink = 0.6 oz pur e alcohol) Comments Yes Sex and Gender Information Value Date Recorded Sex Assigned at Not on file 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 Call on Tuesday to make an appointment. Return to labor anddelivery if you have a gush of fluid, bleeding more than spotting, or contractions. * Attachments The following attachments cannot be sent through Care Everywhere. * at 23 to 26 Weeks (General Information) (Dutch) documented in this encounter Medications at Time [...] as needed for nausea or vomiting 3 [id number] 3 25 mg iron-1 mg -400 mg combo pack Take by mouth 3 documented as of this encounter Discharge Disposition Disposition Code Departure Means Destination Discharge to home or self care documented in this encounter Nursing Notes * Lavonne Rodgers RN - 10/27/2018 11:00 PM CDT Discharge instructions explained, patient verbalized Understanding. Written instructions provided. Patient instructed to follow up with Dr. Hussein Mckinney next week. Patient ambulated off the unit in stable condition. documented in this encounter Plan of Treatment Not on file documented as of this encounter Procedures Procedure Name Priority Date/Time Associated Diagnosis Comments URINALYSIS AND REFLEX TO MICROSCOPIC AND CULTURE STAT 10/27/2018 7:17 PM CDT DIFFERENTIAL AUTO STAT 10/27/2018 5:4 8 PM CDT CBC WITH AUTO DIFFERENTIAL STAT 10/27/2018 5:48 PM CDT ABO/RH STAT 10/27/2018 5:48 PM CDT APTT STAT 10/27/2018 5:48 PM CDT PROTIME-INR STAT 10/27/2018 5:48 PM CDT FIBRINOGEN STAT 10/27/2018 5:48 PM CDT ANTIBODY SCREEN STAT 10/27/2018 5:48 PM CDT TYPE AND SCREEN STAT 10/27/2018 5:48 PM CDT documented in this encounter Results * (ABNORMAL) Urinalysis reflex to microscopic and culture Urine, clean voided (10/27/2018 7:17 PM CDT) Color, ur Yellow Yellow [facility] ([place]) Clarity, ur Turbid(A) Clear [facility] ([place]) Specific gravity, ur 1.023 1.010 - 1.025 [facility] ([place]) pH, urine 7.0 [facility] ([place]) Protein, ur ql Negative Negative [facility] ([place]) Glucose, ur ql Negative Negative [facility] ([place]) Ketones, ur Negative Negative [facility] ([place]) Bilirubin, ur Negative Negative [facility] ([place]) Blood, ur Negative Negative [facility] ([place]) Urobilinogen, ur 1.0 mg/dL [facility] ([place]) Nitrite, ur Negative Negative [facility] ([place]) Leukocyte esterase, ur Negative Negative [facility] ([place]) Urine, clean voided 10/27/2018 7:17 PM CDT 10/27/2018 7:22 PM CDT Narrative [facility] ([place]) - 10/27/2018 7:32 PM CDT ?? Urine pH is affected by diet, medications, systemic acid-base disturbances, and renal tubular function. ??pH may affect urinary stone formation. ??For example, urine pH below 6.0 may help reduce the tendency for calcium phosphate stones and pH greater than 6.0 may reduce the tendency for uric acid stone formation. Source: [facility] [employer]. Last revised 08-04-2017 us Yogesh Agarwal MD LAB MICROBIOLOGY - GEN ERAL ORDERABLES Final Result [facility] ([place]) [address] [facility] [place] [address] * (ABNORMAL) Differential, auto (10/27/2018 5:48 PM CDT) Neutrophil abs 8.4(H) 1.7 - 6.5 K/cumm [facility] ([place]) Imm gran abs 0.0 0.0 - 0.1 K/cumm [facility] ([place]) Lymphocyte abs 2.3 0.8 - 3.3 K/cumm [facility] ([place]) Monocyte abs 0.9(H) 0.2 - 0.8 K/cumm [facility] ([place]) Eosinophil abs 0.1 0.0 - 0.5 K/cumm [facility] ([place]) Basophil abs 0.0 0.0 - 0.1 K/cumm [facility] ([place]) Neutrophil pct 71.2 % [facility] ([place]) Comment: Interpretive Data Percent cell count reference [...] was last revised on 2017. Lymphocyte pct 19.8 % [facility] ([place]) Comment: Interpretive Data Percent cell count reference ranges are not reported, since discordance with absolute values may lead to misinterpretation of CBC data. Current Interpretive Data was last revised on 2017. Monocyte pct 7.6 % [facility] ([place]) Comment: Interpretive Data Percent cell count reference ranges are not reported, since discordance with absolute values may lead to misinterpretation of CBC data. Current Interpretive Data was last revised on 2017. Eosinophil pct 0.7 % [facility] ([place]) Comment: Interpretive Data Percent cell count reference ranges are not reported, since discordance with absolute values may lead to misinterpretation of CBC data. Current Interpretive Data was last revised on 2017. Basophil pct 0.3 % [facility] ([place]) Comment: Interpretive Data Percent cell count reference ranges are not reported, since discordance with absolute values may lead to misinterpretation of CBC data. Current Interpretive Data was last revised on 2017. Blood specimen (specimen) 10/27/2018 5:48 PM CDT 10/27/2018 5:53 PM CDT Narrative [facility] ([place]) - 10/27/2018 5:55 PM CDT Yogesh Agarwal MD LAB BLOOD ORDERABLES F inal Result Performing Organization Address City/[facility]/ZIP Co de Phone Number [facility] ([place]) [address] [facility] [place] [place] [address] * Antibody screen (10/27/2018 5:48 PM CDT) Yosvany, indirect, Gel Interpretation Negative ABSC [facility] ([place]) Blood specimen (specimen) 10/27/2018 5:48 PM CDT 10/27/2018 5:53 PM CDT Narrative [facility] ([place]) - 10/27/2018 6:47 PM CDT Has the patient had Daratumumab (Darzalex) in the past 6 months?->Unknown Yogesh Agarwal MD LAB BLOOD BANK TEST OR DERABLES Final Result [facility] ([place]) [address] [facility] [employer] [place] [address] * ABO/Rh (10/27/2018 5:48 PM CDT) ABO/Rh O Positive [facility] ([place]) Blood specimen (specimen) 10/27/2018 5:48 PM CDT 10/27/2018 5:53 PM CDT Narrative [facility] ([place]) - 10/27/2018 6:47 PM CDT Has the patient had Daratumumab (Darzalex) in the past 6 months?->Unknown us Yogesh Agarwal MD LAB BLOOD BANK TEST OR DERABLES Final Result [facility] ([place]) [address] [facility] [place] [address] * (ABNORMAL) Fibrinogen (10/27/2018 5:48 PM CDT) Fibrinogen 570(H) 170 - 400 mg/dL [facility] ([place]) Blood specimen (specimen) 10/27/2018 5:48 PM CDT 10/27/2018 5:53 PM CDT Narrative [facility] ([place]) - 10/27/2018 6:04 PM CDT us Yogesh Agarwal MD LAB BLOOD ORDERABLES F inal Result Performing Organization Address [place]/[facility] Co de Phone Number [facility] ([place]) [address] [facility] Department [place] [address] * aPTT (10/27/2018 5:48 PM CDT) aPTT 27.5 25.0 - 37.0 sec [facility] ([place]) Blood specimen (specimen) 10/27/2018 5:48 PM CDT 10/27/2018 5:53 PM CDT Narrative [facility] ([place]) - 10/27/2018 6:06 PM CDT Yogesh Agarwal MD LAB BLOOD ORDERABLES F inal Result [facility] ([place]) [address] [place] [address] * Protime-INR (10/27/2018 5:48 PM CDT) Pathologist [facility] PT 11.5 9.5 - 13.0 sec [facility] ([place]) INR 1.02 0.90 - 1.20 [facility] ([place]) Comment: Interpretive Data Recommended ranges for Protime INR: 2.0 - 3.0 Most indications for Warfarin therapy (e.g. Treatment of DVT, PE, bioprosthetic valve replacement, prophylaxis venous thrombosis, atrial fibrillation). 2.5 - 3.5 Mechanical mitral valve or dual mechanical mitral and Aortic valve replacement. Current Interpretive Data was last revised on 2015. Blood specimen (specimen) 10/27/2018 5:48 PM CDT 10/27/2018 5:53 PM CDT Narrative [facility] ([place]) - 10/27/2018 6:04 PM CDT us Yogesh Agarwal MD LAB BLOOD ORDERABLES F inal Result [facility] ([place]) [address] [facility] [place] [address] * (ABNORMAL) CBC with auto differential (10/27/2018 5:48 PM CDT) [facility] WBC 11.8(H) 3.8 - 9.9 K/cumm [facility] ([place]) Hgb 11.9 11.9 - 15.5 g/dL [facility] ([place]) Hct 36.5 35.6 - 45.5 % [facility] ([place]) Plt 226 150 - 400 K/cumm [facility] ([place]) MPV 9.5 9.1 - 12.3 fL [facility] ([place]) RBC 4.34 3.90 - 5.20 M/cumm [facility] ([place]) MCV 84.1 81.3 - 96.4 fL [facility] ([place]) MCH 27.4 27.1 - 33.3 pg [facility] ([place]) MCHC 32.6 32.3 - 35.7 g/dL [facility] ([place]) RDW CV 13.7 11.1 - 14.9 % [facility] ([place]) RDW SD 42.1 35.7 - 48.1 fL [facility] ([place]) NRBC abs 0.00 0.00 - 0.01 K/cumm [facility] ([place]) Blood specimen (specimen) 10/27/2018 5:48 PM CDT 10/27/2018 5:53 PM CDT Narrative [facility] ([place]) - 10/27/2018 5:55 PM CDT us Yogesh Agarwal MD LAB BLOOD ORDERABLES F inal Result [facility] ([place]) [address] [facility] [place] [address] documented in this encounter Visit Diagnoses Not on filedocumented in this encounter Historical Medications * This list may reflect changes made after this encounter. labetalol (NORMODYNE,TRANDATE) 100 mg tablet Take 100 mg by mouth 2 (two) times a day 3 ondansetron ODT (ZOFRAN-ODT) 4 mg disintegrating tablet Take 4 mg by mouth every 8 (eight) hours as needed for nausea or vomiting 3 [id number] 3 25 mg iron-1 mg -400 mg combo pack Take by mouth 3 added in this encounter Care Teams Credit Collections Specialist Relationship Specialty Start Date End Date Barry Beltran MD PCP - General 09/15/16 05/03/20 documented as of this encounter
--- OUTSIDE RECORDS SUMMARY | 2024-07-21 11:37 | XMS_ITS | Encounter Summary ---
[facility] [address] [place] [address] Phone Care Team Providers Care Chain Saw Driver Name Role Phone Barry Beltran MD Primary Care Provider [phone] Reason for Visit * Reason Comments New Patient Pain Encounter Details Date Type Department Care Team (Late st Contact Info) Description 03/22/2018 9:00 AM CDT [facility] [address] [place] [address] Darrel Cantu MD [address] [address] Sprain of posterior talofibular ligament of left ankle, initial encounter (Primary Dx) Social History Tobacco Use Types Packs/Day Years Used Date Smoking Tobacco: Never Smokeless Tobacco: Never Alcohol Use Standard Drinks/Week Comments No 0 (1 standard drink = 0.6 oz pur e alcohol) Comments Unknown Sex and Gender Information Value Date Recorded Sex Assigned at Not on file 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 [employer] Gender Identity Female 10/26/2022 1:11 PM CDT Sexual Orientation Lesbian 10/26/2022 1: 11 PM CDT documented as of this encounter Last Filed Vital Signs Vital Sign Reading Time Taken Comments Blood Pressure - - Pulse - - Temperature - - Respiratory Rate - - Oxygen Saturation - - Inhaled Oxygen Concentration - - Weight 108 kg (238 lb) 03/22/2018 9:02 AM CDT Height 154.9 cm (5' 1 ) 03/22/2018 9:02 AM CDT Body Mass Index 44.97 03/22/2018 9:02 AM CDT documented in this encounter Progress Notes * Darrel Cantu MD - 03/22/2018 9:00 AM CDT This 27-year-old female seen today for evaluation of left ankle injury which occurred in September. Shefell down her front steps carrying boxes out of her house at the time and twisted her left ankle. She complains of primarily lateral ankle pain at the level of the distal fibula. She has had near giving way on a few occasions. X-rays were initially done at [facility] more felt to be normal. A subsequent MRI scan was done at [facility] (my review is pending). Examination confirms healthy-appearing 27-year-old with positive findings left ankle with there is no obvious deformity or edema. There is 90 percent normal motion. There is tenderness over the distal fibula posteriorly with popping upon plantar/dorsiflexion suggestive of trauma to the peroneus longus or brevis tendons. There is no instability or crepitation. Original x-rays within normal limits. My review of MRI scan is pending. Diagnosis-chronic left lateral ankle pain secondary to possible soft tissue injury/tendon damage. Plan-I have asked the patient to bring a disc of her MRI along with a report from [facility]. Consider physical therapy. Try OTC NSAIDs. Return to this office in 10-14 days. documented in this encounter Plan of Treatment Not on file documented as of this encounter Visit Diagnoses Diagnosis Sprain of posterior talofibular ligament of left ankle, initial encounter- Primary documented in this encounter Care Teams Chain Saw Driver Relationship Specialty Start Date End Date Barry Beltran MD PCP - General 09/15/16 05/03/20 documented as of this encounter
--- OUTSIDE RECORDS SUMMARY | 2024-07-21 11:37 | XMS_ITS | Encounter Summary ---
Author Organization [facility] Healthcare Address [address] [place] [address] Care Team Providers Care [employer] Professional Name Role Phone Barry Beltran MD Primary Care Provider [phone] Encounter Details Date Type Department Care Team (Late st Contact Info) Description 09/15/2016 6:36 PM SENIOR INSTRUCTIONAL DESIGNER - 09/15/2016 7:10 PM SENIOR INSTRUCTIONAL DESIGNER Emergency [facility] Emergency Department [address] [place] [phone] Miscellaneous, Not In File Discharge Disposition: Left without being seen Social History Tobacco Use Types Packs/Day Years Used Date Smoking Tobacco: Never Assessed Comments Unknown Sex and Gender Information Value Date Recorded Sex Assigned at Not on file Legal Sex Female 2:59 PM SENIOR INSTRUCTIONAL DESIGNER Gender Identity Female 10/26/2022 1:11 PM CDT Sexual Orientation Lesbian 10/26/2022 1: 11 PM CDT documented as of this encounter Discharge Disposition Disposition Code Departure Means Destination Left without being seen documented in this encounter Plan of Treatment Not on file documented as of this encounter Visit Diagnoses Not on filedocumented in this encounter Care Teams Auto Parts Professional Relationship Specialty Start Date End Date Barry Beltran MD PCP - General 09/15/16 05/03/20 documented as of this encounter
--- OUTSIDE RECORDS SUMMARY | 2024-07-21 11:37 | XMS_ITS | Encounter Summary ---
Author Organization [facility] Healthcare Address [address] [place] [address] Care Team Providers Care Stay Cutter Name Role Phone Unavailable Primary Care Provider Unavailabl e Encounter Details Date Type Department Care Team (Late st Contact Info) Description 04/01/2014 12:47 AM CDT - 04/01/2014 3:11 AM CDT Hospital Encounter [facility] Halie Underwood MD [address] [facility] [address] [place] [address] Tietze's disease; Sleep disturbance Social History Tobacco Use Types Packs/Day Years Used Date Smoking Tobacco: Never Assessed Comments Unknown Sex and Gender Information Value Date Recorded Sex Assigned at Not on file Legal Sex 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:59 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 Gender Identity Female 10/26/2022 1:11 PM CDT Sexual Orientation Lesbian 10/26/2022 1: 11 PM CDT documented as of this encounter Plan of Treatment Not on file documented as of this encounter Procedures Procedure Name Priority Date/Time Associated Diagnosis Comments URINE CHORIONIC GONADOTROPIN (HCG) Routine 04/01/2014 2:10 AM CDT XR CHEST PA LATERAL 2 VIEWS Routine 04/01/2014 1:51 AM CDT SERUM COMPREHENSIVE METABOLIC PANEL Routine 04/01/2014 1:40 AM CDT BLOOD WBC CELL MORPHOLOGIC EXAM, AUTO Routine 04/01/2014 1:40 AM CDT BLOOD D-DIMER Routine 04/01/2014 1:40 AM CDT BLOOD CELL COUNT (CBC) Routine 4 1:40 AM CDT ELECTROCARDIOGRAPHY (ECG) 04/01/2014 DISCHARGE LABORATORY CUMULATIVE REPORT Routine 04/01/2014 12:00 AM CDT documented in this encounter Results * Urine chorionic gonadotropin (HCG) (04/01/2014 2:10 AM CDT) HCG, ur Negative NEGATIVE HISTORICAL RESULTS Urine 04/01/2014 2:10 AM CDT Halie Antunez MD LAB BLOOD ORDERABLES Final Result HISTORICAL RESULTS * XR Chest Pa Lateral 2 Vw (04/01/2014 1:51 AM CDT) Anatomical Region Laterality Modality Body, Chest N/A Radiographic Jyothi ging 04/01/2014 1:51 AM CDT Narrative 04/01/2014 2:09 PM CDT XR Chest 2 Views ?[id number] ??Acc#: ??[id number] DATE OF EXAM: ??Sep ??2013 CLINICAL HISTORY: Left-sided chest pain. RESULT: PA and lateral views of the chest were obtained and are compared with a prior study of 06/01/13. ??The lungs, pleura, cardiomediastinal silhouette, and bony thorax are normal. IMPRESSION: NO ACUTE CARDIOPULMONARY PROCESS. Interpreting Physician: ??BELIA JACKSON M.D. ??Read on: ??Sep ??2013 8:07A Transcribed by: ??jocelync ??On: Mar ??2013 ??2:00P Approved Electronically by: ??BELIA JACKSON M.D. ??on: ??Sep ??2013 2:09P Ordering DR: DR HALIE ANTUNEZ Attending DR: JOSELUIS FRANK Procedure Note Provider, MD Roberto - 11/25/2016 XR Chest 2 Views [id number] Acc#: [id number] DATE OF EXAM: Apr 01 2014 CLINICAL HISTORY: Left-sided chest pain. RESULT: PA and lateral views of the chest were obtained and are compared with aprior study of 06/01/13. The lungs, pleura, cardiomediastinal silhouette,and bony thorax are normal. IMPRESSION: NO ACUTE CARDIOPULMONARY PROCESS. Interpreting Physician: BELIA JACKSON M.D. Read on: Apr 01 20148:07A Transcribed by: [facility] On: Apr 01 2014 2:00P Approved Electronically by: BELIA JACKSON M.D. on: Apr 01 20142:09P Ordering DR: DR HALIE ANTUNEZ Attending DR: JOSELUIS FRANK Historical Provider IMG XR PROCEDURES Final R esult * Blood D-dimer (04/01/2014 1:40 AM CDT) Pathologist [facility] D-dimer <0.22 0.00 - 0.50 mcg/ml HISTORICAL RESULTS Blood specimen (specimen) 04/01/2014 1:40 AM CDT Halie Antunez MD LAB BLOOD ORDERABLES Final Result HISTORICAL RESULTS * Blood cell count (CBC) (04/01/2014 1:40 AM CDT) WBC 6.2 4.0 - 10.5 K/cumm HISTORICAL RESULTS RBC 5.05 4.20 - 5.40 M/cumm HISTORICAL RESULTS Hgb 13.9 12.0 - 16.0 g/dl HISTORICAL RESULTS Hct 42.9 37.0 - 47.0 % HISTORICAL RESULTS MCV 85.0 77.0 - 97.0 fl HISTORICAL RESULTS MCH 27.5 23.0 - 34.0 pg HISTORICAL RESULTS MCHC 32.4 32.0 - 36.0 g/dl HISTORICAL RESULTS Rdw 13.6 11.5 - 14.5 % HISTORICAL RESULTS Platelets 284 150 - 400 K/cumm HISTORICAL RESULTS MPV 9.5 7.4 - 10.4 fl HISTORICAL RESULTS Blood specimen (specimen) 04/01/2014 1:40 AM CDT Halie Antunez MD LAB BLOOD ORDERABLES Final Result Performing Organization Address [facility] de Phone Number HISTORICAL RESULTS * (ABNORMAL) Blood WBC cell morphologic exam, auto (04/01/2014 1:40 AM CDT) [facility] Lymphocytes 41.9(H) 25.0 - 33.0 % HISTORICAL RESULTS Monos 9.3 0.0 - 13.0 % HISTORICAL RESULTS Neutrophils 46.9(L) 54.0 - 69.0 % HISTORICAL RESULTS Eosinophils 1.1 0.0 - 10.0 % HISTORICAL RESULTS Basophils 0.6 0.0 - 1.0 % HISTORICAL RESULTS Immature granulocytes 0.2 0.0 - 1.0 % HISTORICAL RESULTS Lymphocytes, abs 2.6 1.2 - 3.4 K/cumm HISTORICAL RESULTS Monocytes, absolute 0.6(L) 1.1 - 1.9 K/cumm HISTORICAL RESULTS Neutrophils, abs 2.9 1.4 - 6.5 K/cumm HISTORICAL RESULTS Eosinophils, abs 0.1 0.0 - 0.7 cells/cum m HISTORICAL RESULTS Basophils, abs 0.0 0.0 - 0.2 K/cumm HISTORICAL RESULTS Immature granulocyte, abs 0.0 0.0 - 0.0 K/cumm HISTORICAL RESULTS Blood specimen (specimen) 04/01/2014 1:40 AM CDT Halie Antunez MD LAB BLOOD ORDERABLES Final Result Performing Organization Address [facility] [address] [facility] de Phone Number HISTORICAL RESULTS * (ABNORMAL) Serum comprehensive metabolic panel (04/01/2014 1:40 AM CDT) [facility] BUN 11.0 6.0 - 23.0 mg/dl HISTORICAL RESULTS Sodium 137 134 - 143 mmol/L HISTORICAL RESULTS Potassium, sr 4.0 3.4 - 5.0 mmol/L HISTORICAL RESULTS Chloride 103 99 - 108 mmol/L HISTORICAL RESULTS CO2 32 23 - 32 mmol/L HISTORICAL RESULTS Glucose 100 70 - 199 mg/dl HISTORICAL RESULTS Comment: Note:The glucose is assumed non fasting Fastin-99 mg/dl Random: 70-199 mg/dl Either a fasting glucose > 126 mg/dL or a random glucose > 200 mg/dL plus symptoms is diagnostic of diabetes when confirmed on another day. Fasting values > 100 mg/dl but < 125 mg/dL are diagnostic of impaired fasting glucose. New reference ranges implemented 06/04/2013. Creatinine 0.99 0.60 - 1.30 mg/dl HISTORICAL RESULTS Comment: eGFR: >70 ml/min/1.73sq.m if non -Northern [place]. eGFR: >70 ml/min/1.73sq.m if -[place] Irish. AVE GFR for 20-29 yr. age group: ??116 ml/min/1.73sq.m Calculated using the MDRD Equation BUN/creat ratio 11 10 - 20 HIST ORICAL RESULTS A. gap 7 7 - 14 mmol/L HISTORICAL RESULTS Protein, sr 7.4 6.4 - 8.0 g/dl HISTORICAL RESULTS Alb 3.7 3.3 - 4.5 g/dl HISTORICAL RESULTS Alb/glob ratio 1.0(L) 1.1 - 1.8 HISTO RICAL RESULTS Calcium 9.2 8.6 - 9.8 mg/dl HISTORICAL RESULTS Bilirubin 0.1 0.0 - 1.1 mg/dl HISTORICAL RESULTS Alk phos 178(H) 44 - 125 Units/L HISTORICAL RESULTS AST 22 5 - 40 Units/L HISTORICAL RESULTS ALT 40 15 - 70 Units/L HISTORICAL RESULTS Serum 04/01/2014 1:40 AM CDT us Halie Antunez MD LAB BLOOD ORDERABLES Final Result HISTORICAL RESULTS * Discharge Laboratory Cumulative Report (04/01/2014 12:00 AM CDT) 04/01/2014 Narrative HISTORICAL RESULTS - 04/02/2014 12:38 AM CDT Patient No: [id number] ? [facility] Patient Name: SUSANNA MOYA ?[facility] Healthcare Age: 23 YRS ?: 1990 ?Sex:F ?[address] )[phone] ?? Adm Dt: 04/01/2014 ?[place], [place] ??[address] Created: 04/02/2014 ??0038 ?? Pt. Type: E ? Discharge Dt: 04/01/2014 ? Pathologists: Madalyn Arroyo MD Admit Attend Dr: HALIE ANTUNEZ MD ? BLOOD CELL COUNTS ?Collection Date: ?04/01/14 ?Collection Time: ?0140 ? Ref Range: ?? Units: [4.00-10.50] /CMM ? WBC X 10^3 ?6.21 [4.20-5.40] ??/CMM ? RBC X 10^6 ?5.05 [12.0-16.0] ??G/DL ? HGB ? 13.9 [37.0-47.0] ??% ?HCT ? 42.9 [77.0-97.0] ??FL ? MCV ? 85.0 [23.0-34.0] ??PG ? MCH ? 27.5 [32.0-36.0] ??% ?MCHC ?32.4 [11.5-14.5] ??% ?RDW ? 13.6 [150-400] ?? /CMM ? PLT X 10^3 ? 284 ?BLOOD CELL DIFFERENTIAL ?Collection Date: ?04/01/14 ?Collection Time: ?0140 ? Ref Range: ?? Units: [54.0-69.0] ??% ?NEUTROPHILS ? 46.9 L [25.0-33.0] ??% ?LYMPHOCYTES ? 41.9 H [0.0-13.0] ??% ?MONOCYTES ?9.3 [0.0-10.0] ??% ?EOSINOPHILS ?1.1 [0.0-1.0] ?? % ?BASOPHILS ?0.6 ? /CMM ? A LYMPHOCYTE ? 2.6 [0.0-1.0] ?? % ?IMM GRAN % ? 0.2 [0.00-0.02] ??/CMM ? A IMM GRAN ?0.01 [1.1-1.9] ?? /CMM ? A MONOCYTE ? 0.6 L [1.4-6.5] ?? /CMM ? A NEUTROPHIL ? 2.9 [0.0-0.7] ?? /CMM ? A EOSINOPHIL ? 0.1 [0.0-0.2] ?? /CMM ? A BASOPHIL ? 0.0 Footnotes and Symbols: L = Low, H = High ?? CONTINUED ?Page: ?? 1 Patient No: [id number] ? [facility] Patient Name: SUSANNA MOYA ?[facility] Age: 23 YRS ?: 1990 ?Sex:F ?[address] )[phone] ?? Adm Dt: 04/01/2014 ?[place], [place] ??[address] Created: 04/02/2014 ??0038 ?? Pt. Type: E ? Discharge Dt: 04/01/2014 ? Pathologists: Madalny Arroyo MD Admit Attend Dr: HALIE ANTUNEZ MD ? GENERAL CHEMISTRY ?Collection Date: ?04/01/14 ?Collection Time: ?0140 ? Ref Range: ?? Units: [134-143] ?? MMOL/L ? SODIUM ? 137 [3.4-5.0] ?? MMOL/L ? POTASSIUM ?4.0 [99.0-108.0] MMOL/L ? CHLORIDE ? 103.0 [23.0-32.0] ??MMOL/L ? TOTAL CO2 ? 31.5 ?? [7-14] ?MMOL/L ? ANION GAP ?7 ??[70-199] ?? MG/DL ?GLUCOSE ?100 f [6.4-8.0] ?? G/DL ? TOTAL PROTEIN ?7.4 [3.3-4.5] ?? G/DL ? ALBUMIN ?3.7 [1.1-1.8] ?A/G RATIO ?1.0 L [8.6-9.8] ?? MG/DL ?CALCIUM ?9.2 [0.0-1.1] ?? MG/DL ?BILI TOTAL ? 0.1 ??[44-125] ?? U/L ?ALK PHOS ? 178 H ?? [5-40] ?U/L ?AST(SGOT) ? 22 f ??[15-70] ?U/L ?ALT(SGPT) ? 40 f [6.0-23.0] ??MG/DL ?BUN ? 11.0 ??[10-20] ? B/C RATIO ? 11 Footnotes and Symbols: L = Low, H = High, f = Footnote GLUCOSE (06/26/13 -- Current) Note:The glucose is assumed non fasting Fastin-99 mg/dl Random: 70-199 mg/dl Either a fasting glucose > 126 mg/dL or a random glucose > 200 mg/dL plus symptoms is diagnostic of diabetes when confirmed on another day. Fasting values > 100 mg/dl but < 125 mg/dL are diagnostic of impaired fasting glucose. New reference ranges implemented 06/04/2013. AST(SGOT) (12/06/13 -- Current) ALT(SGPT) (02/13/13 -- Current) ?? CONTINUED ?Page: ?? 2 Patient No: [id number] ? [facility] Patient Name: SUSANNA MOYA ?[facility] Age: 23 YRS ?: 1990 ?Sex:F ?[address] )[phone] ?? Adm Dt: 04/01/2014 ?[place] ??[id number] Created: 04/02/2014 ??0038 ?? Pt. Type: E ? Discharge Dt: 04/01/2014 ? Pathologists: Madalyn Arroyo MD Admit Attend Dr: HALIE ANTUNEZ MD ? GENERAL CHEMISTRY ?Collection Date: ?04/01/14 ?Collection Time: ?0140 ? Ref Range: ?? Units: [0.60-1.30] ??MG/DL ?CREATININE ?0.99 f ?04/01/14 0140 eGFR: >70 ml/min/1.73sq.m if non -Northern Irish. eGFR: >70 ml/min/1.73sq.m if -[place] Irish. AVE GFR for 20-29 yr. age group: ??116 ml/min/1.73sq.m Calculated using the MDRD Equation FOOTNOTE ADDED ON ?? 04/01/14 ?? AT 0216 BY 999 ? [facility] ?Collection Date: ?04/01/14 ?Collection Time: ?0210 ? Ref Range: ?? Units: [NEGATIVE] ?U ? NEGATIVE Footnotes and Symbols: f = Footnote ?? CONTINUED ?Page: ?? 3 Patient No: [id number] ? [facility] Patient Name: SUSANNA MOYA ?[facility] Healthcare Age: 23 YRS ?: 1990 ?Sex:F ?[address] )[phone] ?? Adm Dt: 04/01/2014 ?[place], [place] ??[address] Created: 04/02/2014 ??0038 ?? Pt. Type: E ? Discharge Dt: 04/01/2014 ? Pathologists: Madalyn Arroyo MD Admit Attend Dr: HALIE ANTUNEZ MD ?COAGULATION ? Units: ?? D-DIMER ? Low: ??[0.00-0.50] ? Ref Range: ?UG/ML ? 04/01/14 0140 ?<0.22 f Footnotes and Symbols: f = Footnote D-DIMER (08/06/10 -- Current) Units of Measure = ug/ml FEU The D-Dimer result should not be used as the sole indicator to rule in or exclude a diagnosis of Pulmonary Embolism or Deep Vein Thrombosis. ?? END OF CHART ? Page: ?? 4 us Historical Provider LAB BLOOD ORDERABLES Danielle l Result HISTORICAL RESULTS * ELECTROCARDIOGRAPHY (ECG) (04/01/2014) Narrative 04/01/2014 Ordered by an unspecified provider. us Historical Provider ECG ORDERABLES Final Res ult documented in this encounter Visit Diagnoses Diagnosis Tietze's disease Sleep disturbance Unspecified sleep disturbance documented in this encounter
--- OUTSIDE RECORDS SUMMARY | 2024-07-21 11:37 | XMS_ITS | Encounter Summary ---
Author Organization [facility] Facility Care Team Providers Care Special Forces Officer Name Role Phone Barry Beltran MD Primary Care Provider [phone] Encounter Details Date Type Department Care Team (Latest Contact Info) Description 10/27/2018 Travel Social History Tobacco Use Types Packs/Day Years Used Date Smoking Tobacco: Former Cigarettes Q uit: 2016 Smokeless Tobacco: Never Alcohol Use Standard Drinks/Week Comments No 0 (1 standard drink = 0.6 oz pur e alcohol) Comments Yes Sex and Gender Information Value Date Recorded Sex Assigned at Not on file 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
--- OUTSIDE RECORDS SUMMARY | 2024-07-21 11:37 | XMS_ITS | Encounter Summary ---
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 Gender Identity Female 10/26/2022 1:11 PM CDT Sexual Orientation Lesbian 10/26/2022 1: 11 PM CDT documented as of this encounter Miscellaneous Notes * Telephone Encounter - Nikkie Tang - 10/11/2022 10:36 AM CDT 3x - LMOR inquiring if she found in network provider so referral can be sent; will close referral until we hear back from patient * Telephone Encounter - Nikkie Tang - 09/20/2022 8:47 AM CST 2x - LMOR inquiring if she found in network provider so referral can be sent R WEIGHER * Telephone Encounter - Nikkie Tang - 08/30/2022 8:20 AM CST 1x - LMOR inquiring if she found in network provider so referral can be sent R WEIGHER documented in this encounter Plan of Treatment Not on file documented as of this encounter Visit Diagnoses Not on filedocumented in this encounter Care Teams Rn Travel Relationship Specialty Start Date End Date [place] [address] PCP - General Family Medicine 08/16/22 11/01/22 documented as of this encounter
--- OUTSIDE RECORDS SUMMARY | 2024-07-21 11:37 | XMS_ITS | Encounter Summary ---
Author Organization [facility] Healthcare Address [address] [place] [address] Care Team Providers Care Mysql Dba Name Role Phone Angelia Goyal MD, Antoni Valentin Primary Care Provider Encounter Details Date Type Department Care Team (Late st Contact Info) Description 06/09/2020 3:11 PM DIESEL TECHNOLOGY INSTRUCTOR - 06/09/2020 4:51 PM DIESEL TECHNOLOGY INSTRUCTOR Emergency [facility] Emergency Department [address] [place] [address] Discharge Disposition: Left without being seen Social History Tobacco Use Types Packs/Day Years Used Date Smoking Tobacco: Former Cigarettes Q uit: 2016 Smokeless Tobacco: Never Alcohol Use Standard Drinks/Week Comments No 0 (1 standard drink = 0.6 oz pur e alcohol) Comments No Sex and Gender Information Value Date Recorded Sex Assigned at Not on file Legal Sex Female 2:59 PM DIESEL TECHNOLOGY INSTRUCTOR Gender Identity Female 10/26/2022 1:11 PM CDT Sexual Orientation Lesbian 10/26/2022 1: 11 PM CDT documented as of this encounter Discharge Diagnoses Diagnosis Procedure and treatment not carried out due to patient leaving prior to being seen by health care provider - PROCEDURE AND TREATMENT NOT CARRIED OUT DUE TO PATIENT LEAVING PRIOR TO BEING SEEN BY HEALTH CARE DC documented in this encounter Medications at Time of Discharge EPINEPHrine (EpiPen) 0.3 mg/0.3 mL auto-injection syringeIndications: Anaphylaxis Inject 0.3 mL (0.3 mg total) into the muscle as instructed as needed for anaphylaxis 1 each 1 05/04/2020 butalbital-acetamin ophen-caffeine (ESGIC) 50-325-40 mg per tablet [...] as needed for nausea or vomiting 08/16/19 [id number] 25 mg iron-1 mg -400 mg combo pack Take by mouth documented as of this encounter Discharge Disposition Disposition Code Departure Means Destination Left without being seen documented in this encounter Plan of Treatment Not on file documented as of this encounter Visit Diagnoses Not on filedocumented in this encounter Care Teams Mysql Dba Relationship Specialty Start Date End Date Antoni Galan Jr., MD [facility] [place] [address] PCP - General 05/04/20 08/15/22 documented as of this encounter
--- OUTSIDE RECORDS SUMMARY | 2024-07-21 11:37 | XMS_ITS | Encounter Summary ---
Author Organization [facility] Healthcare Address [address] [place] [address] Care Team Providers Care Court Stenographer Name Role Phone Unavailable Primary Care Provider Unavailabl e Encounter Details Date Type Department Care Team (Late st Contact Info) Description 06/25/2013 9:53 AM DISK AND TAPE MACHINE TENDER - 06/25/2013 11:59 PM DISK AND TAPE MACHINE TENDER Hospital Encounter [facility] Ernesto Marcano MD [address] [facility] [address] [facility] [address] [place] [address] Leonora Hmamonds NP [address] [facility] [address] [place] [address] Encounter for anatomic survey Social History Tobacco Use Types Packs/Day Years Used Date Smoking Tobacco: Never Assessed Comments Unknown Sex and Gender Information Value Date Recorded Sex Assigned at Not on file Legal Sex Female 2:59 PM DISK AND TAPE MACHINE TENDER Gender Identity Female 10/26/2022 1:11 PM CDT Sexual Orientation Lesbian 10/26/2022 1: 11 PM CDT documented as of this encounter Plan of Treatment Not on file documented as of this encounter Procedures Procedure Name Priority Date/Time Associated Diagnosis Comments SONOGRAPHY, LIMITED Routine 06/25/2013 11:07 AM DISK AND TAPE MACHINE TENDER documented in this encounter Results * SONOGRAPHY, LIMITED (06/25/2013 11:07 AM DISK AND TAPE MACHINE TENDER) Anatomical Region Laterality Modality N/A Ultrasound 06/25/2013 11:0 7 AM DISK AND TAPE MACHINE TENDER Narrative 06/25/2013 1:53 PM DISK AND TAPE MACHINE TENDER US OB Followup ??Acc#: ??[id number] DATE OF EXAM: ??Dec ??2012 CLINICAL HISTORY: Follow up study. ??Evaluate anatomy. RESULT: The study was performed with transabdominal imaging and correlated with the initial study of 05/08/13. ??Overall anatomic detail is compromised secondary to body habitus limitations. There is a single live intrauterine fetus who varied in position from breech to transverse during the study. ??The amniotic fluid volume is normal. ??The placenta is posterior and fundal. ??Cervical length is 3.6 cm. Mean age is 18 weeks 1 day with an CYRUS of 11/25/13 based on the initial study. ??Today's mean ultrasound age is calculated at 17 weeks 6 days. ??The estimated weight is 210 grams +/- 31 grams - 25th percentile. The visualized portions of the hands, feet, cerebrum, cerebellum, spine, face, profile, four chamber heart, stomach, kidneys, bladder, three vessel cord, cord insertion, ventral wall and diaphragm appear to be unremarkable. ??The heart rate is regular at 147 beats per minute. IMPRESSION: 1. SINGLE LIVE INTRAUTERINE FETUS VARIABLE IN POSITION DURING THE STUDY WITH POSITION OF THE FETUS BOTH BREECH AND TRANSVERSE DURING THE EXAM. MEAN AGE IS 18 WEEKS 1 DAY WITH AN CYRUS OF 11/25/13 BASED ON THE INITIAL STUDY WITH TODAY'S MEAN ULTRASOUND AGE CALCULATED AT 17 WEEKS 6 DAYS. 2. ESTIMATED WEIGHT 210 GRAMS +/- 31 GRAMS - 25TH PERCENTILE. 3. VISUALIZED STRUCTURES NOTED ABOVE SHOW NO OBVIOUS ABNORMALITIES AND HEART RATE WAS REGULAR AT 147 BEATS PER MINUTE. Interpreting Physician: ??JOSELUIS SWENSON M.D. ??Read on: ??Dec ??2012 11:39A Transcribed by: ??preet ??On: Dec ??2 2012 ??1:42P Approved Electronically by: ??JOSELUIS SWENSON M.D. ??on: ??Dec ??2 2012 ??1:53P Ordering DR: LEONORA HAMMONDS Attending : LEONORA HAMMONDS Procedure Note Provider, MD Roberto - 11/25/2016 OB Followup Acc#: [id number] DATE OF EXAM: Jun 25 2013 CLINICAL HISTORY: Follow up study. Evaluate anatomy. RESULT: The study was performed with transabdominal imaging and correlated withthe initial study of 05/08/13. Overall anatomic detail is compromisedsecondary to body habitus limitations. There is a single live intrauterinefetus who varied in position from breech to transverse during the study.The amniotic fluid volume is normal. The placenta is posterior andfundal. Cervical length is 3.6 cm. Mean age is 18 weeks 1 day withan CYRUS of 11/25/13 based on the initial study. Today's mean ultrasound ageis calculated at 17 weeks 6 days. The estimated weight is 210 grams+/- 31 grams - 25th percentile. The visualized portions of the fetalhands, feet, cerebrum, cerebellum, spine, face, profile, four chamberheart, stomach, kidneys, bladder, three vessel cord, cord insertion,ventral wall and diaphragm appear to be unremarkable. The heart rate isregular at 147 beats per minute. IMPRESSION: 1. SINGLE LIVE INTRAUTERINE FETUS VARIABLE IN POSITION DURING THE STUDYWITH POSITION OF THE FETUS BOTH BREECH AND TRANSVERSE DURING THE EXAM.MEAN AGE IS 18 WEEKS 1 DAY WITH AN CYRUS OF 11/25/13 BASED ON THE INITIALSTUDY WITH TODAY'S MEAN ULTRASOUND AGE CALCULATED AT 17 WEEKS 6 DAYS. 2. ESTIMATED WEIGHT 210 GRAMS +/- 31 GRAMS - 25TH PERCENTILE. 3. VISUALIZED STRUCTURES NOTED ABOVE SHOW NO OBVIOUS FETALABNORMALITIES AND HEART RATE WAS REGULAR AT 147 BEATS PER MINUTE. Interpreting Physician: JOSELUIS SWENSON M.D. Read on: Jun 25 2013 11:39A Transcribed by: preet On: Jun 25 2013 1:42P Approved Electronically by: JOSELUIS SWENSON M.D. on: Jun 25 2013 1:53P Ordering DR: LEONORA HAMMONDS Attending : LEONORA HAMMONDS us Historical Provider MD SHUKLA US PROCEDURES Final R esult documented in this encounter Visit Diagnoses Diagnosis Encounter for anatomic survey documented in this encounter
--- OUTSIDE RECORDS SUMMARY | 2024-07-21 11:37 | XMS_ITS | Encounter Summary ---
Author Organization [facility] Healthcare Address [address] [place] [address] Care Team Providers Care Investment Fund Manager Name Role Phone Barry Beltran MD Primary Care Provider [phone] Encounter Details Date Type Department Care Team (Latest Contact Info) Description 10/11/2017 4:59 PM CDT - 10/11/2017 5:42 PM CDT Hospital Encounter [facility] AMBULANCE BILLING [...] on file Legal Sex Female 2:59 PM TAX ACCOUNTANT Gender Identity Female 10/26/2022 1:11 PM CDT [...] on filedocumented in this encounter Care Teams Investment Fund Manager Relationship Specialty Start Date End Date Barry Beltran MD PCP - General 09/15/16 05/03/20 documented as of this encounter
--- OUTSIDE RECORDS SUMMARY | 2024-07-21 11:37 | XMS_ITS | Encounter Summary ---
Author Organization [facility] Healthcare Address [address] [place] [address] Care Team Providers Care Dyer Assistant Name Role Phone Unavailable Primary Care Provider Unavailabl e Encounter Details Date Type Department Care Team (Late st Contact Info) Description 08/04/2014 4:28 PM RUBBER PRODUCTION MACHINE OPERATOR - 08/04/2014 5:59 PM RUBBER PRODUCTION MACHINE OPERATOR Hospital Encounter [facility] Anders Griffith MD [address] [place] [id number] Acute pharyngitis; Cracked tooth Social History Tobacco Use Types Packs/Day Years Used Date Smoking Tobacco: Never Assessed Comments Unknown Sex and Gender Information Value Date Recorded Sex Assigned at Not on file Legal Sex Female 2:59 PM RUBBER PRODUCTION MACHINE OPERATOR Gender Identity Female 10/26/2022 1:11 PM CDT Sexual Orientation Lesbian 10/26/2022 1: 11 PM CDT documented as of this encounter Plan of Treatment Not on file documented as of this encounter Visit Diagnoses Diagnosis Acute pharyngitis Cracked tooth documented in this encounter
--- OUTSIDE RECORDS SUMMARY | 2024-07-21 11:37 | XMS_ITS | Encounter Summary ---
Author Organization [facility] Address [address] [facility] [address] [place] [address] Care Team Providers Care Customer Training Specialist Name Role Phone Angelia Goyal MD, Antoni Valentin Primary Care Provider Reason for Visit * Reason Comments COVID-19 EVALUATION need covid neg to re turn to work/denies any symptoms Encounter Details Date Type Department Care Team ([facility] st Contact Info) Description 02/27/2021 11:15 AM CDT Office Visit [facility] [address] [place] [id number] Cleo Allen, GREER [address] [place] [address] Encounter for screening for COVID-19 (Primary Dx) Social History Tobacco Use Types Packs/Day Years Used Date Smoking Tobacco: Former Cigarettes Q uit: 2016 Smokeless Tobacco: Never Alcohol Use Standard Drinks/Week Comments No 0 (1 standard drink = 0.6 oz pur e alcohol) Comments No Sex and Gender Information Value Date Recorded Sex Assigned at Not on file Legal Sex Female 2:59 PM VOCATIONAL TRAINING DIRECTOR Gender Identity Female 10/26/2022 1:11 PM CDT Sexual Orientation Lesbian 10/26/2022 1: 11 PM CDT documented as of this encounter Last Filed Vital Signs Vital Sign Reading Time Taken Comments Blood Pressure 126/88 02/27/2021 11:07 AM CDT Pulse 112 02/27/2021 11:07 AM CDT Temperature 35.8 ??C (96.4 ??F) 02/27/2021 1 1:07 AM CDT Respiratory Rate 16 02/27/2021 11:0 7 AM CDT Oxygen Saturation 96% 02/27/2021 11: 07 AM CDT Inhaled Oxygen Concentration - - Weight 133.7 kg (294 lb 12.8 oz) 2020 11:07 AM CDT Height 154.9 cm (5' 1 ) 02/27/2021 11:0 7 AM CDT Body Mass Index 55.7 02/27/2021 11:07 AM CDT documented in this encounter Patient Instructions * Patient Instructions* Cleo Allen, SUPERVISOR GEAR REPAIR - 02/27/2021 11:15 AM CDT The CDC and local health departments recommend that you isolate yourself to prevent any potential spread of the virus until you have the results of your test. If you develop worsening symptoms of respiratory distress, call 911 or go to the nearest emergency room. What does self-isolation mean? - Remain at home or in a comparable setting - No public activities - You should not perform any public travel Do MY close contacts need to be isolated? - YES they should self-isolate until you have the results of your test. When will my results be available? - There is not a rapid test available at this time. It may take several days to get the results of this test. If you have MyChart, the results will be available to you at the same time as we receive them. Regardless, we will call every patient with positive or negative results. [facility] Department will be reaching out to all patients who have a positive test for further discussion and monitoring. The CDC and [facility] have much more information available online. The websites are: - cdc.gov - bjc.org Additional resources around self-isolation and how to prevent spread are at: cdc.gov/coronavirus/2019-ncov/about/index.html If symptoms are severe, rest at home for the first 2 to 3 days. When you resume activity, don't letyourself get too tired. Don't smoke. If you need help stopping, talk with your healthcare provider. Avoid being exposed to cigarette smoke (yours or others???). You may use acetaminophen to control pain and fever, unless another medicine was prescribed. If youhave chronic liver disease, have ever had a stomach ulcer or gastrointestinal bleeding talk with your healthcare provider before using these medicines. Aspirin should never be given to anyone under 18 years of age who is ill with a viral infection or fever. It may cause severe liver or brain damage. Your appetite may be poor, so a light diet is fine. Stay well hydrated by drinking 6 to 8 glasses of fluids per day (water, soft drinks, juices, tea, or soup). Extra fluids will help loosen secretions in the nose and lungs. Ggwd-nqk-uimphdf cold medicines will not shorten the length of time you???re sick, but they may be helpful for the following symptoms: cough, sore throat, and nasal and sinus congestion. If you take prescription medicines, ask your healthcare provider or pharmacist which dpmw-hrd-dedlvnk medicines are safe to use. (Note: Don't use decongestants if you have high blood pressure.) If you develop worsening of shortness of breath, high fevers or other concerning symptoms, go to the ER. Instructions following testing for COVID-19: Today you received test for SARS-COV2 (COVID-19). Please follow the instructions below regarding quarantine and return to work/daycare/school based on your results, symptoms and exposures. You will be notified in 24-48 hours of your COVID-19 swab results. If you are NEGATIVE, AND: 1. NO symptoms and NO known/possible exposure: NO need to isolate. 2. NO symptoms and YES known/possible exposure: quarantine for 14 days after last potential exposure. A negative test of a specific day cannot be used to release from quarantine since the patience could become positive during the 14- day period. 3. YES symptoms and NO known/possible exposure: quarantine until without fever for 24 hours AND symptoms improve. 4. YES symptoms and YES known/possible exposure: you must quarantine for 14 days from last known exposure date. A negative test of a specific day cannot be used to release from quarantine since the patient could become positive during the 14 day period. 5. YES symptoms and YES known/possible exposure and HAVE BEEN VACCINATED: you ONLY QUARANTINE untilyou are fever free AND symptoms improve. 6. NO symptoms and YES known/possible exposure and HAVE BEEN VACCINATED: NO RECOMMENDATION FOR QUARANTINE. If you are POSITIVE and NOT VACCINATED: You should isolate for 10 days from onset of symptoms, NOT FROM DATE OF POSITIVE TEST. You must be without fever for 24 hours AND symptoms improving AND released by the local health department. All household contacts must quarantine for 14 days from last potential exposure to positive patient. If household contacts cannot fully isolate, then quarantine for household contacts extends for 14 days beyond the 10 days from start of symptoms (may be up to 24 days of quarantine). ??? COVID-19 is a highly communicable disease (very contagious) that is spread through droplets viacough, sneeze, speech at close contact. ??? You will need to continue to wear a mask per CDC guidelines. ??? If at any time you feel significantly short of breath or chest pain/tightness, or change in mental status please go to the ER. If you are POSITIVE and VACCINATED: ??? Although the risk that fully vaccinated people could become infected with COVID-19 is low, any fully vaccinated person who experiences symptoms consistent with COVID-19 should isolate themselves from others, be clinically evaluated for COVID-19, and tested for SARS-CoV-2 if indicated. ??? The fully vaccinated people that test positive for COVID should quarantine for 10-days from theonset of symptoms. ??? The symptomatic fully vaccinated person should inform their healthcare provider of their vaccination status at the time of presentation to care. COVID-19 vaccines are effective at protecting you from getting sick. Based on what we know about COVID-19 vaccines, people who have been fully vaccinated can do things that they had stopped doing because of the pandemic. These recommendations can help you make decisions about daily activities after you are fully vaccinated. They are not intended for healthcare settings. Have You Been Fully Vaccinated? In general, people are considered fully vaccinated: ? 2 weeks after their second dose in a 2-dose series, such as the Pfizer or Moderna vaccines, or ? ? 2 weeks after a single-dose vaccine, such as Jah & Jah? s Alvaro vaccine ??? If you don???t meet these requirements, regardless of your age, you are NOT fully vaccinated. Keep taking all precautions until you are fully vaccinated. If you have a condition or are taking medications that weaken your immune system, you may NOT be fully protected even if you are fully vaccinated. Talk to your healthcare provider. Even after vaccination, you may need to continue taking all precautions. What You Can Do? If you???ve been fully vaccinated: ??? You can resume activities that you did prior to the pandemic. ??? You can resume activities without wearing a mask or staying 6 feet apart, except where requiredby federal, state, local, [place], or territorial laws, rules, and regulations, including local business and workplace guidance. ??? If you travel in the [place], you do not need to get tested before or after travel or self-quarantine after travel. ??? You need to pay close attention to the situation at your international destination before traveling outside the [place]. ??? You do NOT need to get tested before leaving the [place] unless your destination requiresit. ??? You still need to show a negative test result or documentation of recovery from COVID-19 beforeboarding an international flight to the [place]. ??? You should still get tested 3-5 days after international travel. ??? You do NOT need to self-quarantine after arriving in the [place]. ??? If you???ve been around someone who has COVID-19, you do not need to stay away from others or get tested unless you have symptoms. ??? However, if you live or work in a correctional or correction facility or a homeless retirement and are around someone who has COVID-19, you should still get tested, even if you don???t have symptoms. What You Should Keep Doing? For now, if you???ve been fully vaccinated: ??? You will still need to follow guidance at your workplace and local businesses. ??? If you travel, you should still take steps to protect yourself and others. ??? Masks are required on planes, buses, trains, and other forms of public transportation travelinginto, within, or out of the [place] and in [place] transportation hubs such as airports and stations. Travelers are not required to wear a mask in outdoor areas of a conveyance (like on a ferry orthe top deck of a bus). CDC recommends that travelers who are not fully vaccinated continue to weara mask and maintain physical distance when traveling. ??? Fully vaccinated international travelers arriving in the [place] are still required to get tested 3 days before travel by air into the [place] (or show documentation of recovery from COVID-19 in the past 3 months) and should still get tested 3-5 days after their trip. ??? You should still watch out for symptoms of COVID-19, especially if you???ve been around someonewho is sick. If you have symptoms of COVID-19, you should get tested and stay home and away from others. ??? People who have a condition or are taking medications that weaken the immune system, should talk to their healthcare provider to discuss their activities. They may need to keep taking all precautions to prevent COVID-19. What We Know? COVID-19 vaccines are effective at preventing COVID-19 disease, especially severe illness and . ??? COVID-19 vaccines reduce the risk of people spreading COVID-19. What We???re Still Learning ??? How effective the vaccines are against variants of the virus that causes COVID-19. Early data show the vaccines may work against some variants but could be less effective against others. ??? How well the vaccines protect people with weakened immune systems, including people who take immunosuppressive medications. ??? How long COVID-19 vaccines can protect people. ??? As we know more, CDC will continue to update our recommendations for both vaccinated and unvaccinated people. All information from CDC web site documented in this encounter Progress Notes * Cleo Allen NP - 02/27/2021 11:15 AM CDT Images from the original note were not included. Patient ID: Mrele Madrid is a 30 y.o. female followed by nAtoni Galan Jr., MD Patient was wearing the following PPE: mask. MA was wearing the following PPE: mask, gown, gloves and face shield. Provider was wearing the following PPE: mask, gown, gloves and face shield. Chief Complaint Patient presents with ??? COVID-19 EVALUATION need covid neg to return to work/denies any symptoms Patient tested positive for covid February 17. States that she needs a negative test result to returnto work. Denies symptoms and fever free for 4 days. Patient presents to clinic for assessment of Chief Complaint Patient presents with ??? COVID-19 EVALUATION need covid neg to return to work/denies any symptoms . Patient reports being symptoms free Patient works [employer] Review of Systems Constitutional: Negative for appetite change, chills, fatigue and fever. HENT: Negative for congestion, ear pain, postnasal drip, rhinorrhea, sore throat and trouble swallowing. Eyes: Negative for pain, discharge, redness and itching. Respiratory: Negative for chest tightness, shortness of breath and wheezing. Cardiovascular: Negative for chest pain and leg swelling. Gastrointestinal: Negative for abdominal pain, constipation, diarrhea, nausea and vomiting. Genitourinary: Negative for difficulty urinating, dysuria, frequency and urgency. Musculoskeletal: Negative for back pain and neck pain. Skin: Negative for rash and wound. Allergic/Immunologic: Negative for environmental allergies and food allergies. Neurological: Negative for dizziness, weakness and headaches. Current Outpatient Medications Medication Sig Dispense Refill ??? nsodderlgk-hehrbookjltft-vejgtqxb (ESGIC) 50-325-40 mg per tablet Take 1-2 tablets by mouth every 6 (six) hours as needed ??? EPINEPHrine (EpiPen) 0.3 mg/0.3 mL auto-injection syringe Inject 0.3 mL (0.3 mg total) into themuscle as instructed as needed for anaphylaxis 1 each 1 ??? Januvia 100 mg tablet ??? levothyroxine (SYNTHROID) 50 mcg tablet ??? phentermine (ADIPEX-P) 37.5 mg tablet 0 ??? dextroamphetamine-amphetamine XR (ADDERALL XR) 25 mg 24 hr capsule (Patient not taking: Reported on 02/27/2021) ??? diphenhydrAMINE (diphenhydrAMINE) 25 mg capsule Take 2 tablet/capsule (50 mg total) by mouth every 6 (six) hours as needed for itching or allergies (Patient not taking: Reported on 02/27/2021) 20 capsule 0 ??? famotidine (PEPCID) 40 mg tablet Take 1 tablet (40 mg total) by mouth nightly as needed for heartburn (Patient not taking: Reported on 02/27/2021) 20 tablet 0 ??? labetalol (NORMODYNE,TRANDATE) 100 mg tablet Take 100 mg by mouth 2 (two) times a day (Patient not taking: Reported on 02/27/2021) ??? metFORMIN XR (GLUCOPHAGE XR) 500 mg 24 hr tablet (Patient not taking: Reported on 02/27/2021) ??? ondansetron ODT (ZOFRAN-ODT) 4 mg disintegrating tablet Take 4 mg by mouth every 8 (eight) hours as needed for nausea or vomiting (Patient not taking: Reported on 02/27/2021) ??? [id number] 25 mg iron-1 mg -400 mg combo pack Take by mouth (Patient not taking: Reported on 02/27/2021) No current facility-administered medications for this visit. Past Medical History: Diagnosis Date ??? CTS (carpal tunnel syndrome) ??? Kidney stone ??? Migraine ??? Recurrent loss, antepartum condition or complication There is no immunization history on file for this patient. Social History Tobacco Use Smoking Status Former Smoker ??? Quit date: 2015 ??? Years since quittin.6 Smokeless Tobacco Never Used Vitals: 02/27/21 1107 BP: 126/88 BP Location: Left arm Patient Position: Sitting Pulse: 112 Resp: 16 Temp: (!) 35.8 ??C (96.4 ??F) TempSrc: Temporal SpO2: 96% Weight: 133.7 kg (294 lb 12.8 oz) Height: 154.9 cm (5' 1 ) Physical Exam Vitals and nursing note reviewed. Constitutional: General: She is awake. Appearance: Normal appearance. She is well-developed and well-groomed. She is morbidly obese. HENT: Head: Normocephalic and atraumatic. Right Ear: Tympanic membrane and external ear normal. Left Ear: Tympanic membrane and external ear normal. Nose: Nose normal. Mouth/Throat: Lips: Lambert. Mouth: Mucous membranes are moist. Pharynx: Oropharynx is clear. Eyes: General: Lids are normal. Conjunctiva/sclera: Conjunctivae normal. Pupils: Pupils are equal, round, and reactive to light. Cardiovascular: Rate and Rhythm: Normal rate and regular rhythm. Pulmonary: Effort: Pulmonary effort is normal. Breath sounds: Normal breath sounds. No wheezing. Abdominal: General: Bowel sounds are normal. Palpations: Abdomen is soft. Musculoskeletal: General: Normal range of motion. Cervical back: Normal range of motion and neck supple. Skin: General: Skin is warm and dry. Capillary Refill: Capillary refill takes less than 2 seconds. Neurological: Mental Status: She is alert and oriented to person, place, and time. Psychiatric: Behavior: Behavior normal. Behavior is cooperative. Assessment/Plan Diagnoses and all orders for this visit: Encounter for screening for COVID-19 (Primary) - COVID-19 POC Results for orders placed or performed in visit on 02/27/21 COVID-19 POC Result Value Ref Range COVID-19 Ag POC Presumptive Negative Presumptive Negative, Invalid Result note provided. Discussed COVID testing reasoning Orders Placed This Encounter Procedures ??? COVID-19 POC Order Specific Question: Is the Patient experiencing symptoms consistent with COVID? Answer: No Order Specific Question: Is the patient hospitalized? Answer: No Order Specific Question: Is the patient admitted to an ICU? Answer: No Order Specific Question: Is this the first COVID-19 test for this patient? Answer: No Order Specific Question: Does the patient currently work in a healthcare facility with direct patient contact? Answer: No Order Specific Question: Is the patient a resident of a congregate care or living setting? Answer: No Order Specific Question: Is the patient ? Answer: No Cleo Allen NP documented in this encounter Plan of Treatment Not on file documented as of this encounter Procedures Procedure Name Priority Date/Time Associated Diagnosis Comments COVID-19 POC Routine 02/27/2021 11:32 AM CDT Encounter for screening for COVID-19 documented in this encounter Results * COVID-19 POC (02/27/2021 11:32 AM CDT) COVID-19 Ag POC (BD Veritor) Presumptive Negative Presumptive Negative, Invalid [facility] Nasal 02/27/2021 11:3 2 AM CDT Cleo Allen NP POINT OF CARE TEST ORDERABLES Final Result [facility] [address] documented in this encounter Visit Diagnoses Diagnosis Encounter for screening for COVID-19- Primary documented in this encounter Historical Medications * This list may reflect changes made after this encounter. butalbital-acetam inophen-caffeine (ESGIC) 50-325-40 mg per tablet Take 1-2 tablets by mouth every 6 (six) hours as needed 10/20/2018 08/16/2022 dextroamphetamine -amphetamine XR (ADDERALL XR) 25 mg 24 hr capsule 12/10/2020 08/16/19 levothyroxine (SYNTHROID) 50 mcg tablet 02/07/2021 08/16/2022 metFORMIN XR (GLUCOPHAGE XR) 500 mg 24 hr tablet 01/07/2021 08/16/2022 phentermine (ADIPEX-P) 37.5 mg tablet 0 02/03/2021 08/19/2022 Januvia 100 mg tablet 02/03/2021 08/16/2022 added in this encounter Care Teams Customer Training Specialist Relationship Specialty Start Date End Date Antoni Galan Jr., MD [address] [place] [address] PCP - General 05/04/20 08/15/22 documented as of this encounter
--- OUTSIDE RECORDS SUMMARY | 2024-07-21 11:37 | XMS_ITS | Encounter Summary ---
Author Organization [facility] Healthcare Address [address] [place] [address] Care Team Providers Care Spanish Language Lecturer Name Role Phone Barry Beltran MD Primary Care Provider [phone] Reason for Visit * Reason Comments Problem fell down stairs Encounter Details Date Type Department Care Team (Latest Contact Info) Description 09/24/2018 12:43 PM LOGISTICS CLERK - 09/24/2018 2:00 PM LOGISTICS CLERK Hospital Encounter [facility] [address] [place] [address] Ernesto Lizama MD [address] [place] [address] DR SHERLY [place] [facility] [address] [place] [address] Discharge Disposition: Discharge to home or self care Social History Tobacco Use Types Packs/Day Years Used Date Smoking Tobacco: Former Cigarettes Q uit: 2016 Smokeless Tobacco: Never Alcohol Use Standard Drinks/Week Comments No 0 (1 standard drink = 0.6 oz pur e alcohol) Comments Yes Sex and Gender Information Value Date Recorded Sex Assigned at Not on file Legal Sex Female 2:59 PM LOGISTICS CLERK Gender Identity Female 10/26/2022 1:11 PM CDT Sexual Orientation Lesbian 10/26/2022 1: 11 PM CDT documented as of this encounter Last Filed Vital Signs Vital Sign Reading Time Taken Comments Blood Pressure 123/66 09/24/2018 1:13 PM LOGISTICS CLERK Pulse 96 09/24/2018 1:13 PM LOGISTICS CLERK Temperature - - Respiratory Rate - - Oxygen Saturation - - Inhaled Oxygen Concentration - - Weight - - Height - - Body Mass Index - - documented in this encounter Medications at Time of Discharge labetalol (NORMODYNE,TRANDATE) 100 mg tablet Take 100 mg by mouth 2 (two) times a day 3 ondansetron ODT (ZOFRAN-ODT) 4 mg disintegrating tablet Take 4 mg by mouth every 8 (eight) hours as needed for nausea or vomiting 3 [id number]-[id number]-aw 3 25 mg iron-1 mg -400 mg combo pack Take by mouth 3 documented as of this encounter Discharge Disposition Disposition Code Departure Means Destination Discharge to home or self care documented in this encounter Nursing Notes * Gertrude Pack RN - 09/24/2018 2:15 PM CST Patient came in after falling down 3 stairs at 0930, hitting left side and buttocks. Patient is sore and has complaints of mild cramping, wanted to make sure baby is ok. 09/24/2018 Gertrude Pack RN STICS CLERK documented in this encounter Plan of Treatment Not on file documented as of this encounter Visit Diagnoses Not on filedocumented in this encounter Discontinued Medications Medication Sig Discontinue Reason Start Date End Da te dextroamphetamine-amp hetamine XR (ADDERALL XR) 25 mg 24 hr capsule Discontinued by another clinician 08/14/2017 09/24/2018 diphenhydrAMINE (diphenhydrAMINE) 25 mg capsule Take 1 tablet/capsule (25 mg total) by mouth every 6 (six) hours as needed for itching. Discontinued by another clinician 02/01/2018 09/24/2018 methylPREDNISolone (MEDROL, MISA,) 4 mg Dosepack Take as directed on package Discontinued by another clinician 04/05/2018 09/24/2018 naproxen (NAPROSYN) 500 mg tabletIndications:Michelle n Take 1 tablet (500 mg total) by mouth 2 (two) times a day as needed for pain. Take with food. Discontinued by another clinician 02/01/2018 09/24/2018 documented as of this encounter Care Teams Spanish Language Lecturer Relationship Specialty Start Date End Date Barry Beltran MD PCP - General 09/15/16 05/03/20 documented as of this encounter
--- OUTSIDE RECORDS SUMMARY | 2024-07-21 11:38 | XMS_ITS | Encounter Summary ---
Author Organization [facility] Healthcare Address [address] [place] [address] Care Team Providers Care Product Inspection Coordinator Name Role Phone Unavailable Primary Care Provider Unavailabl e Encounter Details Date Type Department Care Team (Late st Contact Info) Description 06/01/2013 7:34 PM MULTIPLE DRUM SANDER - 06/01/2013 9:45 PM MULTIPLE DRUM SANDER [place] [address] [facility] [address] [place] [address] Lumbar sprain; Accident; Unspecified place of occurrence; Other activity; Other external cause of injury or poisoning Social History Tobacco Use Types Packs/Day Years Used Date Smoking Tobacco: Never Assessed Comments Unknown Sex and Gender Information Value Date Recorded Sex Assigned at Not on file Legal Sex Female 2:59 PM MULTIPLE DRUM SANDER Gender Identity Female 10/26/2022 1:11 PM CDT Sexual Orientation Lesbian 10/26/2022 1: 11 PM CDT documented as of this encounter Plan of Treatment Not on file documented as of this encounter Procedures Procedure Name Priority Date/Time Associated Diagnosis Comments XR CHEST 1 VIEW Routine 06/01/2013 8:27 PM MULTIPLE DRUM SANDER documented in this encounter Results * XR Chest 1 Vw (06/01/2013 8:27 PM MULTIPLE DRUM SANDER) Anatomical Region Laterality Modality Body, Chest N/A Radiographic Jyothi ging 06/01/2013 8:27 PM MULTIPLE DRUM SANDER Narrative 06/02/2013 6:00 PM MULTIPLE DRUM SANDER XR Chest 1 View ? [id number] ??Acc#: ??[id number] DATE OF EXAM: ??Nov ??2012 CLINICAL HISTORY: Shortness of breath. ??The patient is 14 weeks and was shielded during the exam. RESULT: PORTABLE CHEST (06/01/13) Shielding is present on the exam. ??One view obtained. No priors for comparison. ??Clear lungs. ??No pleural effusion or pneumothorax. Cardiomediastinal contours are normal. IMPRESSION: NORMAL CHEST RADIOGRAPH. Interpreting Physician: ??JOSELUIS SWENSON M.D. ??Read on: ??May ??2012 ??7:44A Transcribed by: ??r ??On: May ??2012 ??7:47A Approved Electronically by: ??JOSELUIS SWENSON M.D. ??on: ??Nov ??2012 ??6:00P Ordering DR: DR NINO BELTRE Attending DR: DR SONIA MASTERS Procedure Note Provider, Roberto, - 11/25/2016 XR Chest 1 View [id number] Acc#: [id number] DATE OF EXAM: Jun 01 2013 CLINICAL HISTORY: Shortness of breath. The patient is 14 weeks and was shieldedduring the exam. RESULT: PORTABLE CHEST (06/01/13) Shielding is present on the exam. One viewobtained. No priors for comparison. Clear lungs. No pleural effusion orpneumothorax. Cardiomediastinal contours are normal. IMPRESSION: NORMAL CHEST RADIOGRAPH. Interpreting Physician: JOSELUIS SWENSON M.D. Read on: Jun 02 2013 7:44A Transcribed by: nazario On: Jun 02 2013 7:47A Approved Electronically by: JOSELUIS SWENSON M.D. on: Jun 02 2013 6:00P Ordering DR: DR NINO BELTRE Attending DR: DR SONIA MASTERS us Historical Provider MD SHUKLA XR PROCEDURES Final R esult documented in this encounter Visit Diagnoses Diagnosis Lumbar sprain Lumbar sprain and strain Accident Unspecified accident Unspecified place of occurrence Other activity Other external cause of injury or poisoning documented in this encounter
--- OUTSIDE RECORDS SUMMARY | 2024-07-21 11:38 | XMS_ITS | Encounter Summary ---
Author Organization [facility] Healthcare Address [address] [place] [address] Care Team Providers Care Planner Internship Name Role Phone Unavailable Primary Care Provider Unavailabl e Encounter Details Date Type Department Care Team (Late st Contact Info) Description 04/13/2013 12:37 PM CDT - 04/13/2013 3:00 PM CDT Hospital Encounter [facility] Jenn Taveras MD [address] [place] [address] Mild hyperemesis gravidarum, antepartum; Asthma Social History Tobacco Use Types Packs/Day Years Used Date Smoking Tobacco: Never Assessed Comments Unknown Sex and Gender Information Value Date Recorded Sex Assigned at Not on file 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[employer] Gender Identity Female 10/26/2022 1:11 PM CDT Sexual Orientation Lesbian 10/26/2022 1: 11 PM CDT documented as of this encounter Plan of Treatment Not on file documented as of this encounter Procedures Procedure Name Priority Date/Time Associated Diagnosis Comments SERUM BASIC METABOLIC PANEL Routine 04/13/2013 1:27 PM CDT BLOOD WBC CELL MORPHOLOGIC EXAM, AUTO Routine 04/13/2013 1:27 PM CDT BLOOD CELL COUNT (CBC) Routine 04/13/2013 1:27 PM CDT URINALYSIS Routine 04/13/2013 1:10 PM CDT DISCHARGE LABORATORY CUMULATIVE REPORT Routine 04/13/2013 12:00 AM CDT documented in this encounter Results * (ABNORMAL) Serum basic metabolic panel (04/13/2013 1:27 PM CDT) BUN 6.0 6.0 - 23.0 mg/dl HISTORICAL RESULTS Sodium 135 134 - 143 mmol/L HISTORICAL RESULTS Potassium, sr 4.2 3.4 - 5.0 mmol/L HISTORICAL RESULTS Chloride 102 99 - 108 mmol/L HISTORICAL RESULTS CO2 27 23 - 32 mmol/L HISTORICAL RESULTS Glucose, fasting 91 70 - 110 mg/dl HISTORICAL RESULTS Creatinine 0.75 0.60 - 1.30 mg/dl HISTORICAL RESULTS Comment: eGFR: >70 ml/min/1.73sq.m if non -Beninese. eGFR: >70 ml/min/1.73sq.m if -Beninese. AVE GFR for 20-29 yr. age group: ??116 ml/min/1.73sq.m Calculated using the MDRD Equation BUN/creat ratio 8(L) 10 - 20 HIST ORICAL RESULTS A. gap 10 7 - 14 mmol/L HISTORICAL RESULTS Osmo, calc 267(L) 275 - 295 mOsm/kg HISTORICAL RESULTS Calcium 9.1 8.6 - 9.8 mg/dl HISTORICAL RESULTS Serum 04/13/2013 1:27 PM CDT Shanel HAYS LAB BLOOD ORDERABLES Fin al Result HISTORICAL RESULTS * (ABNORMAL) Blood cell count (CBC) (04/13/2013 1:27 PM CDT) Pathologist [facility] [place] WBC 10.2 4.0 - 10.5 K/cumm HISTORICAL RESULTS RBC 4.69 4.20 - 5.40 M/cumm HISTORICAL RESULTS Hgb 12.8 12.0 - 16.0 g/dl HISTORICAL RESULTS Hct 39.6 37.0 - 47.0 % HISTORICAL RESULTS MCV 84.4 77.0 - 97.0 fl HISTORICAL RESULTS MCH 27.3 23.0 - 34.0 pg HISTORICAL RESULTS MCHC 32.3 32.0 - 36.0 g/dl HISTORICAL RESULTS Rdw 14.8(H) 11.5 - 14.5 % HISTORICAL RESULTS Platelets 257 150 - 451 K/cumm HISTORICAL RESULTS MPV 9.6 7.4 - 10.4 fl HISTORICAL RESULTS Blood specimen (specimen) 04/13/2013 1:27 PM CDT [facility] LAB BLOOD ORDERABLES Fin al Result Performing Organization Address [facility] de Phone Number HISTORICAL RESULTS * (ABNORMAL) Blood WBC cell morphologic exam, auto (04/13/2013 1:27 PM CDT) Pathologist [facility] Lymphocytes 19.6(L) 25.0 - 33.0 % HISTORICAL RESULTS Monos 10.4 1.0 - 13.0 % HISTORICAL RESULTS Neutrophils 68.9 54.0 - 69.0 % HISTORICAL RESULTS Eosinophils 0.7 0.0 - 10.0 % HISTORICAL RESULTS Basophils 0.2 0.0 - 1.0 % HISTORICAL RESULTS Immature granulocytes 0.2 0.0 - 1.0 % HISTORICAL RESULTS Lymphocytes, abs 2.0 1.2 - 3.4 K/cumm HISTORICAL RESULTS Monocytes, absolute 1.1 1.1 - 1.9 K/cumm HISTORICAL RESULTS Neutrophils, abs 7.1(H) 1.4 - 6.5 K/cumm HISTORICAL RESULTS Eosinophils, abs 0.1 0.0 - 0.7 cells/cum m HISTORICAL RESULTS Basophils, abs 0.0 0.0 - 0.2 K/cumm HISTORICAL RESULTS Immature granulocyte, abs 0.0 0.0 - 0.0 K/cumm HISTORICAL RESULTS Blood specimen (specimen) 04/13/2013 1:27 PM CDT [facility] LAB BLOOD ORDERABLES Fin al Result Performing Organization Address [facility] de Phone Number HISTORICAL RESULTS * Urinalysis (04/13/2013 1:10 PM CDT) Color, ur YELLOW YELLOW HISTORICAL RESULTS Clarity, ur CLEAR CLEAR HISTORIC AL RESULTS Specific gravity, ur 1.003 1.000 - 1.030 gu HISTORICAL RESULTS Leukocyte esterase, ur Negative NEGATIVE HISTORICAL RESULTS Nitrites, ur Negative NEGATIVE HISTORI TAY RESULTS pH, ur 6.5 6.0 HISTORICAL RESULTS Protein, ur Negative NEGATIVE HISTORIC AL RESULTS Glucose, ur Negative NEGATIVE HISTORIC AL RESULTS Ketones, ur Negative NEGATIVE HISTORIC AL RESULTS Urobilinogen, quant, ur 0.2 0.2 - 1.0 mg/dl HISTORICAL RESULTS Bilirubin, ur Negative NEGATIVE HISTOR ICAL RESULTS U Blood Negative NEGATIVE HISTORICAL RESULTS Urine 04/13/2013 1:10 PM CDT Shanel HAYS LAB BLOOD ORDERABLES Fin al Result HISTORICAL RESULTS * Discharge Laboratory Cumulative Report (04/13/2013 12:00 AM CDT) 04/13/2013 Narrative HISTORICAL RESULTS - 04/14/2013 2:31 AM CDT Patient No: [id number] ? [facility] Patient Name: SUSANNA MOYA ?[facility] Healthcare Age: 23 YRS ?: 1990 ?Sex:F ?[address] )[phone] ?? Adm Dt: 04/13/2013 ?[place], [place] ??[address] Created: 04/14/2013 ??0231 ?? Pt. Type: E ? Discharge Dt: 04/13/2013 ? Pathologists: Madalyn Arroyo MD Admit Attend Dr: JENN BELTRE MD ? BLOOD CELL COUNTS ?Collection Date: ?04/13/13 ?Collection Time: ?1327 ? Ref Range: ?? Units: [4.00-10.50] /CMM ? WBC X 10^3 ? 10.23 [4.20-5.40] ??/CMM ? RBC X 10^6 ?4.69 [12.0-16.0] ??G/DL ? HGB ? 12.8 [37.0-47.0] ??% ?HCT ? 39.6 [77.0-97.0] ??FL ? MCV ? 84.4 [23.0-34.0] ??PG ? MCH ? 27.3 [32.0-36.0] ??% ?MCHC ?32.3 [11.5-14.5] ??% ?RDW ? 14.8 H [150-451] ?? /CMM ? PLT X 10^3 ? 257 ?BLOOD CELL DIFFERENTIAL ?Collection Date: ?04/13/13 ?Collection Time: ?1327 ? Ref Range: ?? Units: [54.0-69.0] ??% ?NEUTROPHILS ? 68.9 [25.0-33.0] ??% ?LYMPHOCYTES ? 19.6 L [1.0-13.0] ??% ?MONOCYTES ? 10.4 [0.0-10.0] ??% ?EOSINOPHILS ?0.7 [0.0-1.0] ?? % ?BASOPHILS ?0.2 ? /CMM ? A LYMPHOCYTE ? 2.0 [0.0-1.0] ?? % ?IMM GRAN % ? 0.2 [0.00-0.02] ??/CMM ? A IMM GRAN ?0.02 [1.1-1.9] ?? /CMM ? A MONOCYTE ? 1.1 [1.4-6.5] ?? /CMM ? A NEUTROPHIL ? 7.1 H [0.0-0.7] ?? /CMM ? A EOSINOPHIL ? 0.1 [0.0-0.2] ?? /CMM ? A BASOPHIL ? 0.0 Footnotes and Symbols: L = Low, H = High ?? CONTINUED ?Page: ?? 1 Patient No: [id number] ? [facility] Patient Name: SUSANNA MOYA ?[facility] Healthcare Age: 23 YRS ?: 1990 ?Sex:F ?[address] )[phone] ?? Adm Dt: 04/13/2013 ?[place], [place] ??[address] Created: 04/14/2013 ??0231 ?? Pt. Type: E ? Discharge Dt: 04/13/2013 ? Pathologists: Madalyn Arroyo MD Admit Attend Dr: JENN BELTRE MD ? GENERAL CHEMISTRY ?Collection Date: ?04/13/13 ?Collection Time: ?1327 ? Ref Range: ?? Units: [134-143] ?? MMOL/L ? SODIUM ? 135 [3.4-5.0] ?? MMOL/L ? POTASSIUM ?4.2 [99.0-108.0] MMOL/L ? CHLORIDE ? 102.0 [23.0-32.0] ??MMOL/L ? TOTAL CO2 ? 26.9 ?? [7-14] ?MMOL/L ? ANION GAP ? 10 ??[70-110] ?? MG/DL ?GLUCOSE FASTING ? 91 [275-295] ?? MOSM/K ? CALCULATED OSMO ?267 L [8.6-9.8] ?? MG/DL ?CALCIUM ?9.1 [6.0-23.0] ??MG/DL ?BUN ?6.0 ??[10-20] ? B/C RATIO ?8 L [0.60-1.30] ??MG/DL ?CREATININE ?0.75 f ?04/13/13 1327 eGFR: >70 ml/min/1.73sq.m if non -Beninese. eGFR: >70 ml/min/1.73sq.m if -Beninese. AVE GFR for 20-29 yr. age group: ??116 ml/min/1.73sq.m Calculated using the MDRD Equation FOOTNOTE ADDED ON ?? 04/13/13 ?? AT 1404 BY 999 Footnotes and Symbols: L = Low, f = Footnote ?? CONTINUED ?Page: ?? 2 Patient No: [id number] ? [facility] Patient Name: SUSANNA MOYA ?[facility] Age: 23 YRS ?: 1990 ?Sex:F ?[address] )[phone] ?? Adm Dt: 04/13/2013 ?[place], [place] ??[address] Created: 04/14/2013 ??0231 ?? Pt. Type: E ? Discharge Dt: 04/13/2013 ? Pathologists: Madalyn Arroyo MD Admit Attend Dr: JENN BELTRE MD ?URINALYSIS ?Collection Date: ?09/20/13 ?Collection Time: ?1310 ? Ref Range: ?? Units: [YELLOW] ? U COLOR ? YELLOW ??[CLEAR] ? U APPEARANCE ? CLEAR [1.000-1.030] ? U SPEC GRAVITY ? 1.003 [NEGATIVE] ?U LEUKO ESTRASE ? NEGATIVE [NEGATIVE] ?U NITRITE ? NEGATIVE ?? [6.0] ?U PH ? 6.5 [NEGATIVE] ?U PROTEIN ? NEGATIVE [NEGATIVE] ?U GLUCOSE ? NEGATIVE [NEGATIVE] ?U KETONES ? NEGATIVE [0.2- 1.0] ?UROBILINOGEN ? 0.2 [NEGATIVE] ?U BILIRUBIN ? NEGATIVE [NEGATIVE] ?U BLOOD ? NEGATIVE ?? END OF CHART ? Page: ?? 3 us Historical Provider LAB BLOOD ORDERABLES Danielle l Result HISTORICAL RESULTS documented in this encounter Visit Diagnoses Diagnosis Mild hyperemesis gravidarum, antepartum Asthma Unspecified asthma documented in this encounter
--- OUTSIDE RECORDS SUMMARY | 2024-07-21 11:38 | XMS_ITS | Encounter Summary ---
Author Organization [facility] Healthcare Address [address] [place] [address] Care Team Providers Care Gwot Ia/Ilo Intelligence Support Name Role Phone Unavailable Primary Care Provider Unavailabl e Encounter Details Date Type Department Care Team (Late st Contact Info) Description 04/22/2013 8:24 PM CDT - 04/22/2013 10:50 PM CDT Hospital Encounter [facility] Irma Griffith MD [address] [place] [address] Hemorrhage in early , antepartum; Maternal mental disorder, antepartum; Bipolar affective disorder (HCC); Other current maternal conditions classifiable elsewhere, antepartum; Attention deficit disorder with hyperactivity Social History Tobacco Use Types Packs/Day Years Used Date Smoking Tobacco: Never Assessed Comments Unknown Sex and Gender Information Value Date Recorded Sex Assigned at Not on file 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 Gender Identity Female 10/26/2022 1:11 PM CDT Sexual Orientation Lesbian 10/26/2022 1: 11 PM CDT documented as of this encounter Plan of Treatment Not on file documented as of this encounter Procedures Procedure Name Priority Date/Time Associated Diagnosis Comments URINALYSIS Routine 04/22/2013 10:20 PM CDT SERUM CHORIONIC GONADOTROPIN (HCG), QUANTITATIVE Routine 04/22/2013 9:17 PM CDT SERUM BASIC METABOLIC PANEL Routine 04/22/2013 9:17 PM CDT BLOOD WBC CELL MORPHOLOGIC EXAM, AUTO Routine 04/22/2013 9:17 PM CDT BLOOD CELL COUNT (CBC) Routine 04/22/2013 9:17 PM CDT DISCHARGE LABORATORY CUMULATIVE REPORT Routine 04/22/2013 12:00 AM CDT documented in this encounter Results * Urinalysis (04/22/2013 10:20 PM CDT) Color, ur YELLOW YELLOW HISTORICAL RESULTS Clarity, ur CLEAR CLEAR HISTORIC AL RESULTS Specific gravity, ur 1.025 1.000 - 1.030 gu HISTORICAL RESULTS Leukocyte [...] U Blood Negative NEGATIVE HISTORICAL RESULTS Urine 04/22/2013 10:2 0 PM CDT us Irma Fox MD LAB BLOOD ORDERABLES Danielle kendrick Result HISTORICAL RESULTS * (ABNORMAL) Serum basic metabolic panel (04/22/2013 9:17 PM CDT) BUN 8.0 6.0 - 23.0 mg/dl HISTORICAL RESULTS Sodium 140 134 - 143 mmol/L HISTORICAL RESULTS Potassium, sr 4.2 3.4 - 5.0 mmol/L HISTORICAL RESULTS Chloride 106 99 - 108 mmol/L HISTORICAL RESULTS CO2 29 23 - 32 mmol/L HISTORICAL RESULTS Glucose, fasting 112(H) 70 - 110 mg/dl HISTORICAL RESULTS Creatinine 0.91 0.60 - 1.30 mg/dl HISTORICAL RESULTS Comment: eGFR: >70 ml/min/1.73sq.m if non -Uzbek. eGFR: >70 ml/min/1.73sq.m if -Uzbek. AVE GFR for 20-29 yr. age group: ??116 ml/min/1.73sq.m Calculated using the MDRD Equation BUN/creat ratio 9(L) 10 - 20 HIST ORICAL RESULTS A. gap 9 7 - 14 mmol/L HISTORICAL RESULTS Osmo, calc 278 275 - 295 mOsm/kg HISTORICAL RESULTS Calcium 8.7 8.6 - 9.8 mg/dl HISTORICAL RESULTS Serum 04/22/2013 9:17 PM CDT Irma Fox MD LAB BLOOD ORDERABLES Danielle l Result Performing Organization Address City/[facility] de Phone Number HISTORICAL RESULTS * Serum chorionic gonadotropin (HCG), quantitative (04/22/2013 9:17 PM CDT) HCG, quant 626057.0 IUnits/L HISTORICA L RESULTS Serum 04/22/2013 9:17 PM CDT Irma Fox MD LAB BLOOD ORDERABLES Danielle l Result Performing Organization Address [facility] de Phone Number HISTORICAL RESULTS * (ABNORMAL) Blood cell count (CBC) (04/22/2013 9:17 PM CDT) WBC 11.3(H) 4.0 - 10.5 K/cumm HISTORICAL RESULTS RBC 4.54 4.20 - 5.40 M/cumm HISTORICAL RESULTS Hgb 12.2 12.0 - 16.0 g/dl HISTORICAL RESULTS Hct 38.3 37.0 - 47.0 % HISTORICAL RESULTS MCV 84.4 77.0 - 97.0 fl HISTORICAL RESULTS MCH 26.9 23.0 - 34.0 pg HISTORICAL RESULTS MCHC 31.9(L) 32.0 - 36.0 g/dl HISTORICAL RESULTS Rdw 14.9(H) 11.5 - 14.5 % HISTORICAL RESULTS Platelets 266 150 - 451 K/cumm HISTORICAL RESULTS MPV 10.0 7.4 - 10.4 fl HISTORICAL RESULTS Blood specimen (specimen) 04/22/2013 9:17 PM CDT Irma Fox MD LAB BLOOD ORDERABLES Danielle l Result Performing Organization Address [facility] Co de Phone Number HISTORICAL RESULTS * (ABNORMAL) Blood WBC cell morphologic exam, auto (04/22/2013 9:17 PM CDT) Lymphocytes 22.3(L) 25.0 - 33.0 % HISTORICAL RESULTS Monos 9.3 1.0 - 13.0 % HISTORICAL RESULTS Neutrophils 66.8 54.0 - 69.0 % HISTORICAL RESULTS Eosinophils 1.0 0.0 - 10.0 % HISTORICAL RESULTS Basophils 0.3 0.0 - 1.0 % HISTORICAL RESULTS Immature granulocytes 0.3 0.0 - 1.0 % HISTORICAL RESULTS Lymphocytes, abs 2.5 1.2 - 3.4 K/cumm HISTORICAL RESULTS Monocytes, absolute 1.1 1.1 - 1.9 K/cumm HISTORICAL RESULTS Neutrophils, abs 7.6(H) 1.4 - 6.5 K/cumm HISTORICAL RESULTS Eosinophils, abs 0.1 0.0 - 0.7 cells/cum m HISTORICAL RESULTS Basophils, abs 0.0 0.0 - 0.2 K/cumm HISTORICAL RESULTS Immature granulocyte, abs 0.0(H) 0.0 - 0.0 K/cumm HISTORICAL RESULTS Blood specimen (specimen) 04/22/2013 9:17 PM CDT us Irma Fox MD LAB BLOOD ORDERABLES Danielle kendrick Result HISTORICAL RESULTS * Discharge Laboratory Cumulative Report (04/22/2013 12:00 AM CDT) 04/22/2013 Narrative HISTORICAL RESULTS - 04/24/2013 12:28 AM CDT Patient No: [id number] ? [facility] Patient Name: SUSANNA MOYA ?[facility] Age: 23 YRS ?: 1990 ?Sex:F ?[address] )[phone] ?? Adm Dt: 04/22/2013 ?[place], [place] ??[address] Created: 04/24/2013 ??0028 ?? Pt. Type: E ? Discharge Dt: 04/22/2013 ? Pathologists: Madalyn Arroyo MD Admit Attend Dr: IRMA FOX MD ? BLOOD CELL COUNTS ?Collection Date: ?04/22/13 ?Collection Time: ?2116 ? Ref Range: ?? Units: [4.00-10.50] /CMM ? WBC X 10^3 ? 11.29 H [4.20-5.40] ??/CMM ? RBC X 10^6 ?4.54 [12.0-16.0] ??G/DL ? HGB ? 12.2 [37.0-47.0] ??% ?HCT ? 38.3 [77.0-97.0] ??FL ? MCV ? 84.4 [23.0-34.0] ??PG ? MCH ? 26.9 [32.0-36.0] ??% ?MCHC ?31.9 L [11.5-14.5] ??% ?RDW ? 14.9 H [150-451] ?? /CMM ? PLT X 10^3 ? 266 ?BLOOD CELL DIFFERENTIAL ?Collection Date: ?04/22/13 ?Collection Time: ?2117 ? Ref Range: ?? Units: [54.0-69.0] ??% ?NEUTROPHILS ? 66.8 [25.0-33.0] ??% ?LYMPHOCYTES ? 22.3 L [1.0-13.0] ??% ?MONOCYTES ?9.3 [0.0-10.0] ??% ?EOSINOPHILS ?1.0 [0.0-1.0] ?? % ?BASOPHILS ?0.3 ? /CMM ? A LYMPHOCYTE ? 2.5 [0.0-1.0] ?? % ?IMM GRAN % ? 0.3 [0.00-0.02] ??/CMM ? A IMM GRAN ?0.03 H [1.1-1.9] ?? /CMM ? A MONOCYTE ? 1.1 [1.4-6.5] ?? /CMM ? A NEUTROPHIL ? 7.6 H [0.0-0.7] ?? /CMM ? A EOSINOPHIL ? 0.1 [0.0-0.2] ?? /CMM ? A BASOPHIL ? 0.0 Footnotes and Symbols: L = Low, H = High ?? CONTINUED ?Page: ?? 1 Patient No: [id number] ? [facility] Patient Name: SUSANNA MOYA ?[facility] Age: 23 YRS ?: 1990 ?Sex:F ?[address] )[phone] ?? Adm Dt: 04/22/2013 ?[place] ??[address] Created: 04/24/2013 ??0028 ?? Pt. Type: E ? Discharge Dt: 04/22/2013 ? Pathologists: Madalyn Arroyo MD Admit Attend Dr: IRMA FOX MD ? GENERAL CHEMISTRY ?Collection Date: ?04/22/13 ?Collection Time: ?2116 ? Ref Range: ?? Units: [134-143] ?? MMOL/L ? SODIUM ? 140 [3.4-5.0] ?? MMOL/L ? POTASSIUM ?4.2 [99.0-108.0] MMOL/L ? CHLORIDE ? 106.0 [23.0-32.0] ??MMOL/L ? TOTAL CO2 ? 29.1 ?? [7-14] ?MMOL/L ? ANION GAP ?9 ??[70-110] ?? MG/DL ?GLUCOSE FASTING ?112 H [275-295] ?? MOSM/K ? CALCULATED OSMO ?278 [8.6-9.8] ?? MG/DL ?CALCIUM ?8.7 [6.0-23.0] ??MG/DL ?BUN ?8.0 ??[10-20] ? B/C RATIO ?9 L [0.60-1.30] ??MG/DL ?CREATININE ?0.91 f ?04/22/132116 eGFR: >70 ml/min/1.73sq.m if non -Uzbek. eGFR: >70 ml/min/1.73sq.m if -Uzbek. AVE GFR for 20-29 yr. age group: ??116 ml/min/1.73sq.m Calculated using the MDRD Equation FOOTNOTE ADDED ON ?? 04/22/13 ?? AT 2216 BY 999 Footnotes and Symbols: L = Low, H = High, f = Footnote ?? CONTINUED ?Page: ?? 2 Patient No: [id number] ? [facility] Patient Name: SUSANNA MOYA ?[facility] Healthcare Age: 23 YRS ?: 1990 ?Sex:F ?[address] )[phone] ?? Adm Dt: 04/22/2013 ?[place], [place] ??[address] Created: 04/24/2013 ??0028 ?? Pt. Type: E ? Discharge Dt: 04/22/2013 ? Pathologists: Madalyn Arroyo MD Admit Attend Dr: IRMA FOX MD ? HORMONES ?Collection Date: ?04/22/13 ?Collection Time: ?2117 ? Ref Range: ?? Units: ? mIU/ml ? BETA HCG QUANT ?435010 f ?URINALYSIS ?Collection Date: ?04/22/13 ?Collection Time: ?2220 ? Ref Range: ?? Units: [YELLOW] ? U COLOR ? YELLOW ??[CLEAR] ? U APPEARANCE ? CLEAR [1.000-1.030] ? U SPEC GRAVITY ? 1.025 [NEGATIVE] ?U LEUKO ESTRASE ? NEGATIVE [NEGATIVE] ?U NITRITE ? NEGATIVE ?? [6.0] ?U PH ? 6.0 [NEGATIVE] ?U PROTEIN ? NEGATIVE [NEGATIVE] ?U GLUCOSE ? NEGATIVE Footnotes and Symbols: f = Footnote BETA HCG QUANT (Initial -- Current) NEGATIVE: ??0-5 MIU/ML BORDERLINE: ??5-25 MIU/ML POSITIVE: ??GREATER THAN 25 MIU/ML APPROX GEST AGE ?APPROX HCG CONCENTRATION ?3-4 WEEKS ?9-130 ?4-5 WEEKS ? 75-2600 ?5-6 WEEKS ?850-20,800 ?6-7 WEEKS ? 4000-100,200 ?7-12 WEEKS ? 92040-810,000 ?? 12-16 WEEKS ? 47701-510,000 ?? 16-29 WEEKS ?1400-53,000 ?? 29-41 WEEKS ? 900-60,000 ?? CONTINUED ?Page: ?? 3 Patient No: [id number] ? [facility] Patient Name: SUSANNA MOYA ?[facility] Age: 23 YRS ?: 1990 ?Sex:F ?[address] )[phone] ?? Adm Dt: 04/22/2013 ?[place], [place] ??[address] Created: 04/24/2013 ??0028 ?? Pt. Type: E ? Discharge Dt: 04/22/2013 ? Pathologists: Madalyn Arroyo MD Admit Dr. Valente Mason: IRMA FOX MD ?URINALYSIS ?Collection Date: ?04/22/13 ?Collection Time: ?2220 ? Ref Range: ?? Units: [NEGATIVE] ?U KETONES ? NEGATIVE [0.2- 1.0] ?UROBILINOGEN ? 0.2 [NEGATIVE] ?U BILIRUBIN ? NEGATIVE [NEGATIVE] ?U BLOOD ? NEGATIVE ?? END OF CHART ? Page: ?? 4 us Historical Provider LAB BLOOD ORDERABLES Danielle kendrick Result HISTORICAL RESULTS documented in this encounter Visit Diagnoses Diagnosis Hemorrhage in early , antepartum Unspecified hemorrhage in early , antepartum Maternal mental disorder, antepartum Mental disorders of mother, antepartum Bipolar affective disorder (HCC) Bipolar disorder, unspecified Other current maternal conditions classifiable elsewhere, antepartum Attention deficit disorder with hyperactivity documented in this encounter
--- OUTSIDE RECORDS SUMMARY | 2024-07-21 11:38 | XMS_ITS | Encounter Summary ---
Author Organization [facility] Healthcare Address [address] [place] [id number] Care Team Providers Care Veterinary Inspector Name Role Phone Unavailable Primary Care Provider Unavailabl e Encounter Details Date Type Department Care Team (Late st Contact Info) Description 05/08/2013 9:15 AM CDT - 05/08/2013 11:59 PM CDT Hospital Encounter [facility] Ernesto Marcano MD [address] [facility] [address] [place] [address] Leonora Hammonds NP [address] [place] [address] Other specified screening Social History Tobacco Use Types Packs/Day Years Used Date Smoking Tobacco: Never Assessed Comments Unknown Sex and Gender Information Value Date Recorded Sex Assigned at Not on file 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 Gender Identity Female 10/26/2022 1:11 PM CDT Sexual Orientation Lesbian 10/26/2022 1: 11 PM CDT documented as of this encounter Plan of Treatment Not on file documented as of this encounter Procedures Procedure Name Priority Date/Time Associated Diagnosis Comments SONOGRAPHY, COMPLETE Routine 05/08/2013 9:55 AM CDT documented in this encounter Results * SONOGRAPHY, COMPLETE (05/08/2013 9:55 AM CDT) Anatomical Region Laterality Modality N/A Ultrasound 05/08/2013 9:55 AM CDT Narrative 05/09/2013 10:55 AM CDT US OB <14 wks ??Acc#: ??[id number] DATE OF EXAM: ??May 08 2013 CLINICAL HISTORY: Check dates. RESULT: Transabdominal study performed. ??Longitudinal and transverse real time scans demonstrate an intrauterine gestational sac with pole with heart motion. ??Heart rate of 165 bpm. ??Mean crown rump length of 44.9 mm correlates with an estimated age of 11 weeks 2 days with CYRUS of 5/4/14. ??Maternal cervical length is 3.9 cm. ??The right ovary appeared unremarkable. ??Left ovary not visualized. ??Left adnexal region somewhat obscured by bowel gas. ??No free fluid was seen. IMPRESSION: 1. ??LIVE INTRAUTERINE FETUS. ??ESTIMATED AGE IS 11 WEEKS 2 DAYS WITH CYRUS OF 5//. 2. ??LEFT OVARY NOT VISUALIZED. Interpreting Physician: ??VERA MEAD M.D. ??Read on: ??May 08 2013 ??2:24P Transcribed by: ??colt ??On: May 08 2013 ??2:24P Approved Electronically by: ??VERA MEAD M.D. ??on: ??May 09 2013 10:55A Ordering DR: LEONORA HAMMONDS Attending JOSÉ MIGUEL HAMMONDS Procedure Note Provider, MD Roberto - 11/25/2016 OB <14 wks Acc#: [id number] DATE OF EXAM: May 08 2013 CLINICAL HISTORY: Check dates. RESULT: Transabdominal study performed. Longitudinal and transverse real timescans demonstrate an intrauterine gestational sac with pole withfetal heart motion. Heart rate of 165 bpm. Mean crown rump length of 44.9 mm correlates with an estimated age of 11 weeks 2 days with CYRUS of5//14. Maternal cervical length is 3.9 cm. The right ovary appearedunremarkable. Left ovary not visualized. Left adnexal region somewhatobscured by bowel gas. No free fluid was seen. IMPRESSION: 1. LIVE INTRAUTERINE FETUS. ESTIMATED AGE IS 11 WEEKS 2 DAYS WITH CYRUS OF5//14. 2. LEFT OVARY NOT VISUALIZED. Interpreting Physician: VERA MEAD M.D. Read on: May 08 2013 2:24P Transcribed by: colt On: May 08 2013 2:24P Approved Electronically by: VERA MEAD M.D. on: May 09 2013 10:55A Ordering DR: LEONORA HAMMONDS Attending : LEONORA HAMMONDS us Historical Provider MD SHUKLA US PROCEDURES Final R esult documented in this encounter Visit Diagnoses Diagnosis Other specified screening documented in this encounter
--- OUTSIDE RECORDS SUMMARY | 2024-07-21 11:38 | XMS_ITS | Encounter Summary ---
Author Organization [facility] Healthcare Address [address] [place] [id number] Care Team Providers Care Television Receiver Analyzer Name Role Phone Unavailable Primary Care Provider Unavailabl e Encounter Details Date Type Department Care Team (Late st Contact Info) Description 05/21/2013 8:12 PM CDT - 05/21/2013 10:15 PM CDT Hospital Encounter [facility] Jenn Taveras MD [address] [place] [id number] Acute upper respiratory infection; state, incidental; Bipolar affective disorder (HCC) Social History Tobacco Use Types Packs/Day Years Used Date Smoking Tobacco: Never Assessed Comments Unknown Sex and Gender Information Value Date Recorded Sex Assigned at Not on file 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
== END 2024-07-14 10:22 | disposition home or self-care (01) ==
PROVIDERS: Emergency Provider Registered Nurse; PCP Internal Medicine
DX: J06.9 Acute upper respiratory infection, unspecified (principal); Z87.891 Personal history of nicotine dependence; Z20.822 Contact with and (suspected) exposure to COVID-19
CPT/HCPCS: 87081; 87426; 87804; 87880; 99213; G0463

== ENCOUNTER 2024-07-28 15:32 | Emergency (ER) | payer OTHER, SELFPAY ==
[2024-07-28 15:59] VITALS: BP 136/78; PULSE 85; RESP 18; TEMP 36.9; O2SAT 99
--- NOTE | 2024-07-28 16:50 | ED.EAR ---
HPI - Ear Problem General Chief complaint: Ear Stated complaint: lt ear discomfort Time Seen by Provider: 07/28/24 16:51 Source: patient, RN notes reviewed and old records reviewed Mode of arrival: ambulatory Limitations: no limitations History of Present Illness HPI Narrative: 34-year-old female presents to the [facility] with complaints of left ear pain that started 5 days ago. Has been doing saline rinses, Stevand Was seen 2 weeks ago for URI, prescribed prednisone and Zyrtec. Related Data Home Medications ?Medication ?Instructions ?Recorded ?Confirmed ?Last Taken ?Type alprazolam 0.25 mg tablet 0.25 mg PO DAILY 10/12/21 07/28/24 Unknown History fluoxetine 40 mg capsule 40 mg PO DAILY 10/16/22 07/28/24 Unknown History lamotrigine 100 mg tablet 200 mg PO DAILY 02/10/23 07/28/24 Unknown History dextroamphetamine-amphetamine ER 30 mg PO DAILY 01/04/24 07/28/24 Unknown History 30 mg 24hr capsule,extend release levothyroxine 100 mcg tablet mcg 07/28/24 Unknown History Allergies Allergy/AdvReac Type Severity Reaction Status Date / Time sulfamethoxazole (From Allergy Severe Anaphylactic Verified 07/28/24 16:56 Bactrim) Shock trimethoprim (From Bactrim) Allergy Severe Anaphylactic Verified 07/28/24 16:56 Shock Review of Systems Review of Systems: All systems reviewed & are unremarkable except as noted in HPI and below Constitutional: Constitutional: Reports no additional constitutional complaints ENT: Reports as per HPI and Reports nasal congestion Cardiovascular: Cardiovascular: Reports no additional cardiovascular complaints, Denies chest pain and Denies dyspnea Respiratory: Respiratory: Reports no additional respiratory complaints, Denies chest congestion, Denies cough and Denies dyspnea Musculoskeletal: Musculoskeletal: Reports no additional musculoskeletal complaints Integumentary/Breasts: Skin/Breast: Reports system reviewed and no additional complaints, except as docu PMFSH Past Medical History Medical History Mass of left forearm Kidney stones, calcium oxalate Abnormal uterine bleeding Bipolar 1 disorder Menometrorrhagia Depression Anxiety Gastroesophageal reflux disease Asthma Migraine Morbid obesity with BMI of 50.0-59.9, adult Family History Family History Mother Family history of bipolar disorder Father Family history of chronic obstructive pulmonary disease Social History Social History Years smoked: 3 Smoking status: Current every day smoker Tobacco type: e-cigarettes/vaping Second hand tobacco smoke exposure: Yes Additional smoking assessment comments: former cigarette smoker now vapes Alcohol intake: current Drinks per week: 0 Alcohol use details: 3/YEAR Substance use: never Substance use type: does not use Living arrangements: with family Gender identity (if verbalized by the patient): Female Spiritual care concerns: No Comments At the time of my signature, I reviewed and agree with the nursing past medical, surgical, social, and family history. There is no relevant family history pertinent to the patient complaint. Exam Const: General: cooperative, healthy appearing, comfortable, no acute distress, well developed, alert and well nourished Nutritional Appearance: well nourished and obese Orientation/consciousness: patient oriented x3 Limitations: no limitations HENMT: Head: normal to inspection Ears: hearing grossly normal bilaterally, external ears normal, Abnormal EAC present erythema on the left, edema on the left and EAC tenderness on the left and TM abnormal erythematous on the left; not bulging Face/Nose/Sinus: Normal external nose present, Normal nares present, Nasal discharge present clear and face symmetric Mouth: Yes Normal oral and palatal mucosa present, Yes lip normal, Yes tongue normal and Yes moist mucous membranes Throat: posterior oropharynx normal, uvula midline, postnasal drainage and no uvular edema Eyes: General: appearance normal, both eyes and all related structures Alignment and Position: alignment normal Neck: Neck: normal visual inspection, full ROM, no lymphadenopathy and no meningeal signs Chest: Chest palpation & inspection: normal inspection of the chest Resp: Effort & Inspection: normal respiratory effort and able to speak in complete sentences Auscultation: clear to auscultation bilaterally, no crackles, no rales, no rhonchi and no wheezes Cardio: Rate: regular rate Skin: General skin exam: normal color and no rashes or lesions noted Neuro: General: patient oriented x3, gait normal, moves all extremities and no meningeal signs Cognition (Neuro): normal cognition Speech: normal speech Gait exam (Neuro): Normal gait present Extrem: General: normal to inspection, full ROM, capillary refill normal and normal gait Psych: Appearance: grossly normal and well kempt Mental Status: mental status grossly normal Speech and movement: Normal speech and movement present and Clear speech present Affect: normal affect Attitude: cooperative Course Course Level of Care: Express Care Visit Vital Signs Vital signs: Vital Signs Temperature 98.4 F 07/28/24 15:59 Pulse Rate 85 07/28/24 15:59 Respiratory Rate 18 07/28/24 15:59 Blood Pressure 136/78 07/28/24 15:59 Pulse Oximetry 99 07/28/24 15:59 Oxygen Delivery Room Air 07/28/24 15:59 Temperature 98.4 F 07/28/24 15:59 Pulse Rate 85 07/28/24 15:59 Respiratory Rate 18 07/28/24 15:59 Blood Pressure 136/78 07/28/24 15:59 Pulse Oximetry 99 07/28/24 15:59 Oxygen Delivery Room Air 07/28/24 15:59 Reviewed Medical Decision Making MDM Narrative Medical decision making narrative: Patient sitting comfortably in exam room. Nontoxic, vitals stable. Patient in no acute distress Patient presents for left ear pain, decreased hearing Patient's erythema both to the TM and the ear canal Patient appropriate for outpatient treatment Discharge instructions reviewed with patient, as well as provided in writing per nursing staff. The instructions also include specific and strict return/GO TO THE ER as well as f/u information. All questions have been answered, and the patient deny any further questions with discharge and discharge plan. Some parts of this dictation were generated by voice recognition software and may contain typographical and/or grammatical inaccuracies. Differential Diagnosis Differential Diagnosis: Otitis media, serous otitis, otitis Medical Records Medical records reviewed: Yes I reviewed the external patient's medical records. Vital Signs Vital Signs: Vital Signs Temperature 98.4 F 07/28/24 15:59 Pulse Rate 85 07/28/24 15:59 Respiratory Rate 18 07/28/24 15:59 Blood Pressure 136/78 07/28/24 15:59 Pulse Oximetry 99 07/28/24 15:59 Oxygen Delivery Room Air 07/28/24 15:59 Temperature 98.4 F 07/28/24 15:59 Pulse Rate 85 07/28/24 15:59 Respiratory Rate 18 07/28/24 15:59 Blood Pressure 136/78 07/28/24 15:59 Pulse Oximetry 99 07/28/24 15:59 Oxygen Delivery Room Air 07/28/24 15:59 Reviewed Lab Data Lab results reviewed: Yes I reviewed the patient's lab results. Labs: Reviewed Critical Care Time Critical Care Time Critical Care Time: No Discharge Plan Discharge Clinical Impression: Acute left otitis media Abrasion of left ear canal Qualifiers: Encounter type: initial encounter Qualified Code(s): S00.412A - Abrasion of left ear, initial encounter Patient Disposition: Home, Self-Care Condition: Stable Instructions: Antibiotic Form, Ear Infection (GEN) Additional Instructions: Take antibiotic as prescribed Use ear drops as prescribed Follow-up with primary care provider For new or worsening symptoms go directly to the emergency room Patient Language: Polish Prescriptions: New amoxicillin 875 mg tablet 875 mg PO Q12H Qty: 20 0RF demkffik-nvwwslhct-WA 3.5-10,000-1 mg/mL-unit/mL-% drops,suspension 4 drp LEFT EAR Q6H Qty: 10 0RF No Action alprazolam 0.25 mg Tablet 0.25 mg PO DAILY cetirizine [Zyrtec] 10 mg tablet 10 mg PO DAILY Qty: 30 0RF fluoxetine 40 mg capsule 40 mg PO DAILY lamotrigine 100 mg Tablet 200 mg PO DAILY dextroamphetamine-amphetamine 30 mg capsule,extended release 24hr 30 mg PO DAILY levothyroxine 100 mcg tablet Follow-up/Referrals: Barry Beltran MD [Primary Care Provider] - Stand Alone Forms: Work/School Release IP Time of Disposition: 16:57
== END 2024-07-28 17:00 | disposition home or self-care (01) ==
PROVIDERS: Emergency Provider Nurse Practitioner; PCP Internal Medicine
DX: H66.92 Otitis media, unspecified, left ear (principal); S00.412A Abrasion of left ear, initial encounter; X58.XXXA Exposure to other specified factors, initial encounter; J45.909 Unspecified asthma, uncomplicated; K21.9 Gastro-esophageal reflux disease without esophagitis; E66.9 Obesity, unspecified; Z68.44 Body mass index [BMI] 60.0-69.9, adult; F41.9 Anxiety disorder, unspecified; F31.9 Bipolar disorder, unspecified; F17.290 Nicotine dependence, other tobacco product, uncomplicated
CPT/HCPCS: 99213; G0463

== ENCOUNTER 2024-09-27 11:08 | Emergency (ER) | payer OTHER, SELFPAY ==
[2024-09-27 11:20] VITALS: BP 127/79; PULSE 78; RESP 20; TEMP 36.6; O2SAT 100
--- NOTE | 2024-09-27 11:45 | ED.DENTAL ---
HPI - Dental/Oral General Chief complaint: Dental/Oral Stated complaint: Right Ear Pain/Toothache Time Seen by Provider: 09/27/24 11:46 Source: patient Mode of arrival: ambulatory History of Present Illness HPI Narrative: 34-year-old female presented for complaint of left upper dental pain for 2 days. States 2 teeth broke will eating chips 2 days ago, Since then she has had pain. Denies any drainage. Scheduled with her dentist in 1 week. Patient also reports right ear pain and decreased hearing. Denies tinnitus, dizziness, nausea vomiting, fevers or chills. She is taking Tylenol and ibuprofen. MD Complaint: tooth pain Related Data Home Medications ?Medication ?Instructions ?Recorded ?Confirmed ?Last Taken ?Type alprazolam 0.25 mg tablet 0.25 mg PO DAILY 10/12/21 07/28/24 Unknown History fluoxetine 40 mg capsule 40 mg PO DAILY 10/16/22 07/28/24 Unknown History lamotrigine 100 mg tablet 200 mg PO DAILY 02/10/23 07/28/24 Unknown History dextroamphetamine-amphetamine ER 30 mg PO DAILY 01/04/24 07/28/24 Unknown History 30 mg 24hr capsule,extend release levothyroxine 100 mcg tablet mcg 07/28/24 Unknown History Allergies Allergy/AdvReac Type Severity Reaction Status Date / Time sulfamethoxazole (From Allergy Severe Anaphylactic Verified 07/28/24 16:56 Bactrim) Shock trimethoprim (From Bactrim) Allergy Severe Anaphylactic Verified 07/28/24 16:56 Shock Review of Systems Review of Systems: CONSTITUTIONAL: Denies body aches, fever, chills ENT: Denies rhinorrhea, congestion, sore throat Reports dental pain, otalgia. CARDIOVASCULAR: Denies chest pain, palpitations RESPIRATORY: Denies cough or dyspnea. SKIN: Denies rash, itching, or wounds. MUSCULOSKELETAL: Denies myalgia. NEUROLOGIC: Denies headache, numbness, tingling, or weakness. [facility] Past Medical History Medical History Mass of left forearm Kidney stones, calcium oxalate Abnormal uterine bleeding Bipolar 1 disorder Menometrorrhagia Depression Anxiety Gastroesophageal reflux disease Asthma Migraine Morbid obesity with BMI of 50.0-59.9, adult Family History Family History Mother Family history of bipolar disorder Father Family history of chronic obstructive pulmonary disease Social History Social History Years smoked: 3 Smoking status: Current every day smoker Tobacco type: e-cigarettes/vaping Second hand tobacco smoke exposure: Yes Additional smoking assessment comments: former cigarette smoker now vapes Alcohol intake: current Drinks per week: 0 Alcohol use details: 3/YEAR Substance use: never Substance use type: does not use Living arrangements: with family Gender identity (if verbalized by the patient): Female Spiritual care concerns: No Comments At time of signature, I have reviewed and agree with nursing past medical, surgical, social and family history unless otherwise noted. Please see nursing chart for further information. There is no relevant family history pertinent to the presenting complaint Exam Narrative: GENERAL: Appears in pain; no acute distress. HEAD: Normocephalic, atraumatic. EYES: EOMI. No redness or drainage. Conjunctivae normal. ENT: Dental pain location of #14, 15, broken teeth, gum swelling and erythema noted, hard palate with erythema and white excoriated area. Poor dentition throughout. Mucous membranes pink and moist. TMs normal bilaterally. Throat normal. no dysphagia, odynophagia, dysphonia, or dyspnea. No uvular deviation or soft palate edema. NECK: Normal AROM. No lymphadenopathy. no induration below mandible, no neck pain. CHEST: No respiratory distress. Clear to auscultation. HEART: Regular rate and rhythm. No murmur appreciated. SKIN: Warm, dry, Normal skin turgor. NEURO: No focal deficits. Alert and oriented x3. Gait steady. Course Course Emergency Course: Patient is aware of diagnosis, understands and agrees to treatment plan. Anticipatory guidance given. Patient agrees to follow-up as directed and is aware of reasons to seek care at the emergency department. Portions of this record may have been created with voice recognition software Level of Care: Express Care Visit Vital Signs Vital signs: Vital Signs Temperature 97.9 F 09/27/24 11:20 Pulse Rate 78 09/27/24 11:20 Respiratory Rate 20 09/27/24 11:20 Blood Pressure 127/79 09/27/24 11:20 Pulse Oximetry 100 09/27/24 11:20 Oxygen Delivery Room Air 09/27/24 11:20 Temperature 97.9 F 09/27/24 11:20 Pulse Rate 78 09/27/24 11:20 Respiratory Rate 20 09/27/24 11:20 Blood Pressure 127/79 09/27/24 11:20 Pulse Oximetry 100 09/27/24 11:20 Oxygen Delivery Room Air 09/27/24 11:20 MDM - Dental/Oral MDM Narrative Medical decision making narrative: Patients pain and complaint coupled with physical findings are consistent with dental abscess.There are no focal signs of space occupying lesions that are compromising to the airway; Patient is non-toxic appearing. The floor of the mouth is soft with no signs of Albert's Angina; Patient is without trismus or drooling and able to swallow secretions. Patient is felt appropriate for discharge home with dental follow up. Differential Diagnosis Differential diagnosis: Likely gingival abscess, dental caries, toothache, dental abscess, fracture of tooth and aphthous ulcer Discharge Plan Discharge Clinical Impression: Dental abscess Patient Disposition: Home, Self-Care Condition: Stable Instructions: Antibiotic Form, Dental Abscess (ED) Additional Instructions: Take antibiotic as directed May apply heat or ice to the face Gentle brushing and flossing. Rinse mouth with warm salt water at least 2 times a day. Alternate Tylenol and ibuprofen as needed for pain Follow-up with the dentist as scheduled Patient Language: Indonesian Prescriptions: New ibuprofen 800 mg tablet 800 mg PO TID PRN (Reason: pain) Qty: 15 0RF lidocaine HCl [Lidocaine Viscous] 2 % solution 1 applic mucous membrane TID PRN (Reason: pain) Qty: 100 0RF Rx Instructions: apply with cotton swab to site of pain amoxicillin-pot clavulanate 875-125 mg tablet 1 tablet PO Q12H 7 Days Qty: 14 0RF No Action alprazolam 0.25 mg Tablet 0.25 mg PO DAILY cetirizine [Zyrtec] 10 mg tablet 10 mg PO DAILY Qty: 30 0RF fluoxetine 40 mg capsule 40 mg PO DAILY lamotrigine 100 mg Tablet 200 mg PO DAILY dextroamphetamine-amphetamine 30 mg capsule,extended release 24hr 30 mg PO DAILY levothyroxine 100 mcg tablet amoxicillin 875 mg tablet 875 mg PO Q12H Qty: 20 0RF dmfndekq-nkzgprfsz-VS 3.5-10,000-1 mg/mL-unit/mL-% drops,suspension 4 drp LEFT EAR Q6H Qty: 10 0RF Follow-up/Referrals: Barry Beltran MD [Primary Care Provider] - Stand Alone Forms: Work/School Release IP Time of Disposition: 11:53
--- OUTSIDE RECORDS SUMMARY | 2024-09-27 12:49 | XMS_ITS | Clinical Summary ---
Author Organization [facility] Address [address] [place] [id number] Care Team Providers Care Lacemaker Name Role Phone Barry Beltran MD Primary Care Provider [phone] Allergies Active Allergy Reactions Criticality Noted Date Comments Sulfa (Sulfonamide Antibiotics) Other (See comments) Low 06/09/2020 Sulfamethoxazole-Trimethoprim Anaphylaxis High 08/16 Medications EPINEPHrine (EpiPen) 0.3 mg/0.3 mL auto-injection syringeIndication s:Anaphylaxis Inject 0.3 mL (0.3 mg total) into the muscle as instructed as needed for anaphylaxis 1 each 1 020 Active ALPRAZolam (XANAX) 0.25 mg tablet Take 0.5 tablets (0.125 mg total) by mouth 2 (two) times a day 023 Active cyanocobalamin (Vitamin B-12) 1,000 mcg/mL injection 1 mL (1,000 mcg total) Active nystatin powder Nystop 100,000 unit/gram topical powder APPLY TO THE AFFECTED AREA TWICE DAILY Active traMADoL (ULTRAM) 50 mg tablet Take 1 tablet (50 mg total) by mouth every 8 (eight) hours as needed 022 Active albuterol HFA (PROVENTIL HFA,VENTOLIN HFA,PROAIR HFA) 90 mcg/actuation inhaler Inhale 2 puffs every 4 (four) hours as needed for wheezing 1 each 3 023 Active dextroamphetamine -amphetamine XR (ADDERALL XR) 25 mg 24 hr capsule Take 1 capsule (25 mg total) by mouth every morning 30 capsule 023 Active FLUoxetine (PROzac) 40 mg capsule Take 1 capsule (40 mg total) by mouth nightly 90 capsule 3 023 Active levothyroxine (SYNTHROID) 100 mcg tablet Take 1 tablet (100 mcg total) by mouth sfdc architect before breakfast 90 tablet 3 023 Active orphenadrine ER (NORFLEX) 100 mg 12 hr tabletIndications :Muscle Spasm Take 1 tablet (100 mg total) by mouth 2 (two) times a day for 5 days 10 tablet 023 Active ondansetron ODT (ZOFRAN-ODT) 4 mg disintegrating tablet Dissolve 1 tablet oral every 4 hours as needed for nausea or vomiting. 15 tablet 024 Active HYDROcodone-aceta minophen (NORCO) 5-325 mg per tabletIndications :Pain Take 1 tablet by mouth every 8 (eight) hours as needed for pain 12 tablet 025 Active amoxicillin (AMOXIL) 875 mg tablet Take 1 tablet (875 mg total) by mouth 2 (two) times a day 14 tablet 025 Active HYDROcodone-aceta minophen (NORCO) 5-325 mg per tabletIndications :Pain Take 1 tablet by mouth every 8 (eight) hours as needed for pain for up to 8 doses 8 tablet 024 2024 Discontinued Active Problems Problem Noted Date Diagnosed Date [...] adult 08/19/2022 Mild intermittent asthma without complication Encounters Date Type Department Care Team Description 08/29/2024 2:24 AM SALES TRADER - 08/29/2024 4:02 AM SALES TRADER Emergency [facility] Emergency Department [address] [place] [address] Jesús Hope MD Pain, dental (Primary Dx); Abdominal pain, generalized Discharge Disposition: Discharge to home or self care from Last 3 Months Surgical History Surgery Date Site/Laterality Comments TONSILLECTOMY/ADENOIDECTOMY [...] making you feel afraid or unsafe? 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 Gender Identity Female 10/26/2022 1:11 PM CDT [...] 94 04/18/2024 10:15 PM CDT Temperature 36.7 C (98 F) 04/18/2024 9:02 PM CDT Respiratory Rate 18 [...] Last Done Comments Hepatitis C Screening 1992 Varicella Vaccines (1 of 2 - 13+ 2-dose series) 2005 Regular Well Visit/Exam 18-64 2010 Pneumococcal vaccine <65 (1 of 2 - PCV) 2011 Depression Screening 08/16/2023 08/16/2022 DTaP/Tdap/Td Vaccine (8 - Td or Tdap) 12/06/2028 12/06/2018, 07/06/2005, 04/12/2003, Additional history exists Hepatitis B Screening Completed 08/24/1993 , 1992, 1992 Influenza Vaccine Completed 05/17/2024, 05/02/2018 HPV Vaccines Aged Out No longer eligi ble based on patient's age to complete this topic Insurance [facility] Care Teams Lacemaker Relationship Specialty Start Date End Date Barry Beltran MD [address] [place] [address] [place] [address] PCP - General Internal Medicine 10/28/23
--- OUTSIDE RECORDS SUMMARY | 2024-09-27 12:49 | XMS_ITS | Referral Summary ---
Author Organization [facility] Address [address] [place] [address] Care Team Providers Care Resident Assistant Name Role Phone Barry Beltran MD Primary Care Provider [phone] Encounters Date Type Department Care Team Description 08/29/2024 2:24 AM COMPUTER PROGRAMMING PROFESSOR - 08/29/2024 4:02 AM COMPUTER PROGRAMMING PROFESSOR Emergency [facility] [address] [place] [address] Jesús Hope MD Pain, dental (Primary Dx); Abdominal pain, generalized Discharge Disposition: Discharge to home or self care from Last 3 Months Allergies Active Allergy Reactions Criticality Noted Date [...] 1 tablet (100 mcg total) by mouth 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
--- OUTSIDE RECORDS SUMMARY | 2024-09-27 12:50 | XMS_ITS | Clinical Summary ---
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 Gender Identity Female 03/14/2024 7:53 AM CDT Sexual Orientation Lesbian 03/14/2024 7: 53 AM CDT Last Filed Vital Signs Vital Sign Reading Time Taken Comments Blood Pressure 135/59 03/17/2023 11:15 PM CDT Pulse 71 03/17/2023 11:15 PM CDT Temperature 36.9 C (98.4 F) 03/17/2023 11:15 PM CDT Respiratory Rate 20 03/17/2023 11:15 PM CDT Oxygen Saturation 97% 03/17/2023 11:15 PM CDT Inhaled Oxygen Concentration - - Weight - - Height - - Body Mass Index - - Plan of Treatment Health Maintenance Due Date Last Done Comments Cervical Cancer Screening Pap Smear (Age 30 to 64) Every 3 Years 1992 Annual Physical 1995 Cervical Cancer Screening Pap with HPV Testing (Age 30 to 64) Every 5 Years 2022 Cervical Cancer Screening with HPV 2022 COVID-19 Vaccine ( season) 2024 11/12/2022, 02/11/2022, 04/06/2021, Additional history exists Influenza Adult (#1) 2024 06/07/2022, 06/15/2021, 05/02/2018 DTaP, Tdap and Td Vaccines (8 - Td or Tdap) 12/06/2028 12/06/2018, 07/06/2005, 04/12/2003, Additional history exists Hepatitis B Vaccines Completed 08/24/1993, 1992, 1992 Hepatitis C Completed 02/25/2017, 02/25/2017 HPV Vaccines Aged Out No longer eligi ble based on patient's age to complete this topic Meningococcal B Vaccine Aged Out No l onger eligible based on patient's age to complete [...] patient's age to complete this topic [place] [address] [place] [address] Care Teams Kelp Cutter Relationship Specialty Start Date End Date Barry Beltran MD [address] [id number] PCP - General INTERNAL MEDICINE 03/17/23
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
--- OUTSIDE RECORDS SUMMARY | 2024-09-27 12:50 | XMS_ITS ---
Author Organization [facility] Address [address] [place] [address] Care Team Providers Care Electric Lift Truck Driver Name Role Phone Barry Beltran Primary Care Provider [phone] Kylah Aldrich Unavailable [phone] REASON FOR VISIT 3 Month Psych F/U & Med Refill Social History Sex Assigned At : Social History Observation Description Sex Assigned At Female Encounters Encounter Location Date Provider Diagnosis [address] [place] [address] 09/24/2024 Kylah Alrdich Plan Of Treatment Next Appt Details Provider Name:Kylah holley, 10/01/2024 03:40:00 PM, [address] [place] [address] [place], [address], Progress Notes * Brook TIWARIeDOB: [birth year] (34 yo F)Acc No.[id number]:09/24/2024 UNLOCKED PROGRESS NOTE Patient: Bailey SHAHIDerie Provider: Viet Aldrich, MSN, WELT CUTTER, CLINICAL MEDICAL TRANSCRIPTIONIST-C :1990 A ge:34 Y S ex:Female Date:09/24/2024 Address:[address] [place], [place] [address] Pcp:Barry Beltran Subjective: * Chief Complaints: * 1 . 3 Month Psych F/U & Med Refill. * Medical History: Objective: * Vitals: Assessment: Plan: * Treatment: * * Electronic signature of Artur Aldrich , [id number] on 09/27/2024 at 12:49 PM MOLD BURNER Sign off status: Pending * Provider: Viet Aldrich, MARIBETH, WELT CUTTER, CLINICAL MEDICAL TRANSCRIPTIONIST-C Date: 0 09/24/2024 Generated for Shruti douglas/Elizabeth/Irene on: 0 09/27/2024 12:49 PM MOLD BURNER
--- OUTSIDE RECORDS SUMMARY | 2024-09-27 12:50 | XMS_ITS ---
Author Organization [facility] Address [address] [place] [address] Care Team Providers Care Athletics Director Name Role Phone Barry Beltran Primary Care Provider [phone] Kylah Aldrich Unavailable [phone] Rosaura Waterman Unavailable [phone] REASON FOR VISIT refills Social History Sex Assigned At : Social History Observation Description Sex Assigned At Female Encounters Encounter Location Date Provider Diagnosis [address] [place] [address] 04/02/2024 Rosaura Waterman Plan Of Treatment Next Appt Details Provider Name:Kylah holley, 10/01/2024 03:40:00 PM, [address] [facility] , [place], [address], Progress Notes * Rosa TIWARIOB: [birth year] (33 yo F)Acc No.[id number]:04/02/2024 Patient: Merle SHAHID :1990 A ge:33 Y S ex:Female Address:[address] [place] [address], [address] * true * Date: Generated for Printi ng/Faxing/eTransmitting on: 0 09/27/2024 12:50 PM MATERIAL CUTTER
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
== END 2024-09-27 11:58 | disposition home or self-care (01) ==
PROVIDERS: Emergency Provider Nurse Practitioner Family; PCP Internal Medicine
DX: K04.7 Periapical abscess without sinus (principal); F17.290 Nicotine dependence, other tobacco product, uncomplicated; K21.9 Gastro-esophageal reflux disease without esophagitis; E66.01 Morbid (severe) obesity due to excess calories; Z68.43 Body mass index [BMI] 50.0-59.9, adult; F41.9 Anxiety disorder, unspecified; F32.A Depression, unspecified
CPT/HCPCS: 99213; G0463

== ENCOUNTER 2025-01-30 14:23 | Emergency (ER) | payer OTHER, SELFPAY ==
--- NOTE | ~2025-01-30 | CT_ITS ---
CT abdomen pelvis w con Ordering provider: Fallon Jacob History: 34 years Female with . RUQ abd pain, post op cholecystectomy 01/23 . Comparison: May 01, 2021 Technique: CT abdomen and pelvis with IV and without oral contrast. Automated exposure control and it erative reconstruction technique were employed. The dose-length product was 1788.03 mGy-cm. 100 mL Om nipaque 350 was given IV. Findings: VISUALIZED LOWER CHEST: Normal. UPPER ABDOMINAL ORGANS: Liver: Fat infiltration. Hepatomegaly. Gallbladder: Status post cholecystectomy. Spleen: Normal. Stomach/duodenum: Normal. Pancreas: Normal. Adrenals: Normal. Kidneys: Normal. PELVIC ORGANS: The bladder is underfilled with thickened wall. BOWEL AND MESENTERY: Colon: No evidence of diverticulitis.. Small calcific area seen in the appendix. Otherwise, Normal ap pendix. Small Bowel: Normal. No obstruction. Peritoneum/mesentery: No free air or free fluid. No mesenteric lymphadenopathy. RETROPERITONEUM: Normal aorta. Retroaortic left renal vein is noted. No retroperitoneal lymphadenopa thy. MUSCULOSKELETAL: Superficial soft tissues: Small fat-containing umbilical hernia. Otherwise, The superficial soft tiss ues are normal. Bones: Normal spine. Left sacroiliitis. IMPRESSION: 1. No evidence of appendicitis, diverticulitis or intestinal obstruction. 2. Hepatomegaly with fat infiltration. Reviewed, dictated and finalized at location A.
--- OUTSIDE RECORDS SUMMARY | 2025-01-30 14:34 | XMS_ITS | Clinical Summary ---
Author Organization [facility] Address [address] [facility] [place] [address] Phone Care Team Providers Care Tire Curer Name Role Phone Hoa Kong BRUNO Primary Care Provider [phone] Allergies Active Allergy Reactions Criticality Noted Date Comments Sulfa Antibiotics Other (see Comments) 06/09/20 20 Medications labetalol (NORMODYNE) 100 MG Tablet 9 Active ondansetron (ZOFRAN) 4 MG Tablet 8 Active Fxexnhps-Pdl-Vy- FA (PRE-JOHN PO) Take by mouth. Active butalbital-aceta minophen-caffein e (FIORICET, ESGIC) 50-325-40 MG Tablet Take 1-2 Tabs by mouth every 6 hours as needed for Migraine. 30 Tab 2 9 Active famotidine (PEPCID) 20 MG Tablet Take 1 Tab by mouth 2 times daily as needed (hives). 30 Tab 0 Active ondansetron (Zofran ODT) 4 MG TABLET DISPERSIBLE Take 1 Tab by mouth every 8 hours as needed for Nausea - 1st line. 10 Tab 0 Active traMADol (ULTRAM) 50 MG TabletIndication s:Lower abdominal pain Take 1-2 Tablets by mouth every 6 hours as needed for Moderate or more severe pain. 20 Tablet 2 Active Active Problems Problem Noted Date Diagnosed Date 38 weeks gestation of 01/17/2019 Migraine without aura and wi th status migrainosus, not intractable 10/20/2018 25 weeks gestation of 10/20/2018 Encounters Date Type Department Care Team Description 01/16/2025 Telephone [facility] [place] [address] [place] [address] Chetan Cooley MD from Last 3 Months Immunizations Immunization Administration Dates Next Due COVID-19, MRNA, LNP-S, BIVAL ENT , PFIZER, 30 MCG/0.3 ML (12+ Y/O) 11/12/2022 Covid-19, Mrna, Lnp-s, Pf, 3 0 Mcg/0.3 Ml Dose, Nikko-sucrose (Pfizer holder top) 02/11/2022 Covid-19, Mrna, Lnp-s, Pf, Nikko-sucrose, 30 Mcg/0.3 Ml (Pfizer) 03/30/2024,05/30/2023 DTAP VACCINE 02/25/1998, 4,1992,1992,1992 Hepatitis B Vaccine, Pediatric/adolescent 08/24/1993,1992,1992 Hib Vaccine,unspecified Formulation 07/27,1992,1992,1991 Inactivated Polio Vaccine 02/25/1998,,1992,1991 Influenza Vaccine, Quadrivalent, PF 05/30/2023,1 08/07/2021,06/15/2021 Influenza, Injectable, Mdck, Preservative Free 03/30/2024 Influenza, Recombinant, Quadrivalent,injectable, Pf 05/03/2020 Influenza, Seasonal, Injecta ble, Undefined 05/02/2018 MMR Vaccine 02/25/1998,08/24/1993 TD VACCINE 04/12/2003 TDAP Vaccine 12/06/2018,07/06/2005 Family History Medical History Relation Name Comments Hypertension Mother Seizures Mother Relation Name Status Comments Father Alive Mother Alive Social History Tobacco Use Types Packs/Day Years Used Date Smoking Tobacco: Former Cigarettes 0 10/23/2014 - 10/23/2016 Smokeless Tobacco: Never Alcohol Use Standard Drinks/Week Comments Not Currently 0 (1 standard drink = 0.6 oz pur e alcohol) Comments No Sex and Gender Information Value Date Recorded Sex Assigned at Not on file Legal Sex Female 9:43 PM CDT Gender Identity Not on file Sexual Orientation Not on file Last Filed Vital Signs Vital Sign Reading Time Taken Comments Blood Pressure 117/66 04/27/2022 1:30 AM CDT Pulse 79 04/27/2022 1:30 AM CDT Temperature 36.9 C (98.5 F) 04/26/2022 11:36 PM CDT Respiratory Rate 18 04/27/2022 1:30 AM CDT Oxygen Saturation 98% 04/27/2022 1:30 AM CDT Inhaled Oxygen Concentration - - Weight 117 kg (258 lb) 04/26/2022 11:36 PM CDT Height 154.9 cm (5' 1) 04/26/2022 11:36 PM CDT Body Mass Index 48.75 04/26/2022 11:36 PM CDT Plan of Treatment Upcoming Encounters Date Type Department Care Team (Late st Contact Info) Description 02/12/2025 6:00 PM CDT Office Visit [facility] - Family Medicine [facility] [address] [place] [address] Chetan Cooley MD [address] [address] Health Maintenance Due Date Last Done Comments Hepatitis C Virus (HCV) Screening 1990 Human Papillomavirus (HPV) Immunization (1 - 3-dose series) 2007 Influenza Immunization (#1) 2025 09/0 12/2023, 05/30/2023, 06/07/2022, Additional history exists DTaP/Tdap/Td Immunization (8 - Td or Tdap) 12/06/2028 12/06/2018, 07/06/2005, 04/12/2003, Additional history exists Respiratory Syncytial Virus (RSV) Immunization (Adult) (1 - 1-dose 75+ series) 2067 Hepatitis B Immunization Completed 994, 1992, 1992 TdaP Immunization Discontinued 12/06/2018, 07/06/2005 SARS-COV-2 Immunization Completed 03/30/20 24, 05/30/2023, 11/12/2022, Additional history exists Meningococcal Immunization (ACWY) Aged Out No longer eligible based on patient's age to complete this topic Pneumococcal Immunization Combined Aged Out No longer eligible based on patient's age to complete this topic Rotavirus Immunization Aged Out No lo nger eligible based on patient's age to complete this topic Insurance MEDICAID [facility] Care Teams Tire Curer Relationship Specialty Start Date End Date Hoa Kong APRN PCP - General Advanced Practice Nurse 04/27/22
--- OUTSIDE RECORDS SUMMARY | 2025-01-30 14:34 | XMS_ITS | Referral Summary ---
Author Organization [facility] Address [address] [place] [address] Care Team Providers Care Crime Scene Examiner Name Role Phone Barry Beltran MD Primary Care Provider [phone] Esteban Barahona MD Unavailable [phone] Encounters Date Type Department Care Team Description 01/28/2025 [facility] Post Discharge Follow up phone call [address] [address] Dinorah Nowak RN 01/25/2025 10:28 PM CDT - 01/26/2025 1:46 AM CDT Emergency [facility] Emergency Department [address] [place] [id number] Albert Clark MD Postoperative pain (Primary Dx) Discharge Disposition: Discharge to home or self care 01/23/2025 3:04 AM CDT - 01/24/2025 1:04 PM CDT Hospital Encounter [address] [address] Sharad Dejesus MD Rivera, Samantha, MD Cholecystitis Discharge Disposition: Discharge to home or self care 01/23/2025 2:44 AM CDT - 01/23/2025 11:59 PM CDT Hospital Encounter [facility] Emergency, Room R Discharge Disposition: Discharge to home or self care 01/23/2025 8:37 AM CDT Anesthesia Event [facility] Operating Room [address] [place] [id number] Geovanna Naqvi Jr., MD Gibbons, Jesse Graham, TACOS 01/23/2025 8:30 AM CDT - 01/23/2025 10:30 AM CDT Surgery [facility] Operating Room [id number] [place] [address] Esteban Barahona MD LAPAROSCOPIC CHOLECYSTECTOMY WITH CHOLANGIOGRAMS 01/22/2025 7:39 PM CDT - 01/23/2025 2:43 AM CDT Emergency [facility] Emergency Department 1 [place] [address] Vaughn Flynn PA Cholecystitis (Primary Dx); Calculus of gallbladder with acute cholecystitis without obstruction Discharge Disposition: Discharge to a short term hospital for IP from Last 3 Months Allergies Active Allergy [...] by mouth nightly 90 capsule 3 08/16/19 23 Active levothyroxine (SYNTHROID) 100 mcg tablet Take 1 tablet (100 mcg total) 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 15 tablet 01/25/20 24 Active oxyCODONE (ROXICODONE) 5 mg immediate release tabletIndications: Pain Take 1 tablet (5 mg total) by mouth every 4 (four) hours as needed for pain 20 tablet 01/24/20 25 Active docusate sodium (COLACE) 100 mg capsuleIndications :constipation Take 1 capsule (100 mg total) by mouth 2 (two) times a day with a glass of water 60 capsule 01/24/20 25 Active lamoTRIgine (LaMICtal) 100 mg tablet Take 1 tablet (100 mg total) by mouth 2 (two) times a day 60 tablet 01/25/20 25 025 Active HYDROcodone-acetam inophen (NORCO) 5-325 mg per tabletIndications: Pain Take 1 tablet by mouth every 8 (eight) hours as needed for pain 12 tablet 08/29/19 25 025 Discontin ued(Stop Taking at Discharge ) amoxicillin (AMOXIL) 875 mg tablet Take 1 tablet (875 mg total) by mouth 2 (two) times a day 14 tablet 08/29/19 25 025 Discontin ued(Stop Taking at Discharge ) Active Problems Problem Noted Date Diagnosed Date Cholecystitis 01/23/2025 Gallstones 11/02/2022 Assessment & Plan (11/02/2022 1:36 [...] making you feel afraid or unsafe? 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 Gender Identity Female 10/26/2022 1:11 PM CDT Sexual Orientation Lesbian 10/26/2022 1: 11 PM CDT Last Filed Vital Signs Vital Sign Reading Time Taken Comments Blood Pressure 126/77 01/26/2025 1:30 AM CDT Pulse 86 01/26/2025 1:30 AM CDT Temperature 36.8 C (98.2 F) 01/25/2025 10:13 PM CDT Respiratory Rate 18 01/25/2025 10:13 PM CDT Oxygen Saturation 96% 01/26/2025 1:30 AM CDT Inhaled Oxygen Concentration - - Weight 146.5 kg (323 lb) 01/25/2025 10:13 PM CDT Height 157.5 cm (5' 2) 01/25/2025 10:13 PM CDT Body Mass Index 59.08 01/25/2025 10:13 PM CDT Plan of Treatment Not on file Procedures Procedure Name Priority Date/Time Associated Diagnosis Comments CT ABDOMEN PELVIS W CONTRAST ED 01/26/2025 12:43 AM CDT EGFR Routine 01/25/2025 10:34 PM CDT DIFFERENTIAL AUTO Routine 01/25/2025 10: 34 PM CDT COMPREHENSIVE METABOLIC PANEL Routine 01/25/2025 10:34 PM CDT CBC WITH AUTO DIFFERENTIAL Routine 01/25/2025 10:34 PM CDT INFECTION PREVENTION LAYLA AURIS PCR, SURVEILLANCE Routine 01/24/2025 11:52 AM CDT DIFFERENTIAL AUTO Routine 01/24/2025 4:0 0 AM CDT HEPATIC FUNCTION PANEL Routine 4:00 AM CDT CBC WITH AUTO DIFFERENTIAL Routine 01/24/2025 4:00 AM CDT SURGICAL PATHOLOGY Routine 01/23/2025 1: 27 PM CDT Cholecystitis CHOLANGIOGRAM INTRAOPERATIVE IP Routine 01/23/2025 10:09 AM CDT DE AN ELECTIVE ENDOTRACHEAL AIRWAY Routine 01/23/2025 9:40 AM CDT LAPAROSCOPIC CHOLECYSTECTOMY WITH CHOLANGIOGRAMS 01/23/2025 8:38 AM CDT CHOLELITHASIS EGFR Routine 01/23/2025 5:31 AM CDT CBC WITHOUT DIFFERENTIAL Routine 01/23/2025 5:31 AM CDT BASIC METABOLIC PANEL Routine 01/23/2025 5:[address] ABDOMEN PELVIS W CONTRAST ED 01/22/2025 8:58 PM CDT URINALYSIS AND REFLEX TO MICROSCOPIC AND CULTURE STAT 01/22/2025 8:13 PM CDT HCG, BLOOD, QUANTITATIVE STAT 01/22/2025 4:35 PM CDT EGFR STAT 01/22/2025 4:35 PM CDT DIFFERENTIAL AUTO STAT 01/22/2025 4:3 5 PM CDT LIPASE STAT 01/22/2025 4:35 PM CDT COMPREHENSIVE METABOLIC PANEL STAT 01/22/2025 4:35 PM CDT CBC WITH AUTO DIFFERENTIAL STAT 01/22/2025 4:35 PM CDT from Last 3 Months Results * CT Abdomen Pelvis W Contrast (01/26/2025 12:43 AM CDT) Anatomical Region Laterality Modality Body N/A Computed Tomogra phy 01/26/2025 12:5 0 AM CDT Narrative 01/26/2025 12:54 AM CDT EXAM DESCRIPTION: CT ABDOMEN PELVIS W CONTRAST REASON FOR STUDY: Abdominal pain, acute, nonlocalized surgical site pain after having her gallbladder removed on 01/23. Has taken her prescribed pain medication without relief. TECHNIQUE: CT scan of the abdomen and pelvis performed with intravenous and without oral contrast using helical scanning technique with dynamic intravenous contrast injection. Reconstructed coronal and sagittal MPR images reviewed. All images stored on PACS. Automated exposure control was used as a dose optimization technique for this examination. CONTRAST TYPE/DOSE: 125mL of IOVERSOL 350 MG IODINE/ML INTRAVENOUS SYRINGE injected via intravenous COMPARISON: 01/22/2025 FINDINGS: LOWER CHEST: No significant pulmonary abnormalities. No effusion. LIVER: Normal size. No identified cystic or solid masses. GALLBLADDER: Removed. Minor stranding is seen in the gallbladder fossa consistent with recent cholecystectomy. No significant fluid collection is seen. BILE DUCTS: No intrahepatic or extrahepatic ductal dilatation. SPLEEN: Normal size. No focal lesions. PANCREAS: No identified cystic or solid masses. No significant calcifications. No adjacent inflammation or peripancreatic fluid collections. Pancreatic duct not dilated. ADRENALS: Normal. KIDNEYS/URINARY TRACT: No identified significant cystic or solid masses. No visualized stones. No hydronephrosis or hydroureter. Symmetric enhancement. Urinary bladder is unremarkable. GI: No dilated bowel loops. No obvious wall thickening. Normal appendix. No significant diverticular disease. PERITONEUM: No ascites or free air. RETROPERITONEUM: No mass or adenopathy. REPRODUCTIVE: No significant abnormality. VASCULATURE: No abdominal aortic aneurysm. MUSCULOSKELETAL: No significant abnormality. OTHER: Small umbilical hernia is unchanged from previous. No bowel involvement is seen. IMPRESSION: Changes of recent cholecystectomy are noted. No evidence of complication is seen. No acute process is otherwise seen. THIS IS AN ELECTRONICALLY VERIFIED FINAL REPORT 01/26/2025 12:54 AM - Electronically signed by Barry Christianson M.D. KH: LORE Report ID: [id number] Reading Location: [id number] Procedure Note Barry Christianson MD - 01/26/2025 EXAM DESCRIPTION: CT ABDOMEN PELVIS W CONTRAST REASON FOR STUDY: Abdominal pain, acute, nonlocalized surgical site pain after having her gallbladder removed on 01/23. Has takenher prescribed pain medication without relief. TECHNIQUE: CT scan of the abdomen and pelvis performed with intravenousand without oral contrast using helical scanning technique with dynamic intravenous contrast injection. Reconstructed coronal and sagittal MPRimages reviewed. All images stored on PACS. Automated exposure control was usedas a dose optimization technique for this examination. CONTRAST TYPE/DOSE: 125mL of IOVERSOL 350 MG IODINE/ML INTRAVENOUSSYRINGE injected via intravenous COMPARISON: 01/22/2025 FINDINGS: LOWER CHEST: No significant pulmonary abnormalities. No effusion. LIVER: Normal size. No identified cystic or solid masses. GALLBLADDER: Removed. Minor stranding is seen in the gallbladder fossa consistent with recent cholecystectomy. No significant fluid collectionis seen. BILE DUCTS: No intrahepatic or extrahepatic ductal dilatation. SPLEEN: Normal size. No focal lesions. PANCREAS: No identified cystic or solid masses. No significant calcifications. No adjacent inflammation or peripancreatic fluidcollections. Pancreatic duct not dilated. ADRENALS: Normal. KIDNEYS/URINARY TRACT: No identified significant cystic or solid masses.No visualized stones. No hydronephrosis or hydroureter. Symmetricenhancement. Urinary bladder is unremarkable. GI: No dilated bowel loops. No obvious wall thickening. Normalappendix. No significant diverticular disease. PERITONEUM: No ascites or free air. RETROPERITONEUM: No mass or adenopathy. REPRODUCTIVE: No significant abnormality. VASCULATURE: No abdominal aortic aneurysm. MUSCULOSKELETAL: No significant abnormality. OTHER: Small umbilical hernia is unchanged from previous. No bowel involvement is seen. IMPRESSION: Changes of recent cholecystectomy are noted. No evidence of complicationis seen. No acute process is otherwise seen. THIS IS AN ELECTRONICALLY VERIFIED FINAL REPORT 01/26/2025 12:54 AM - Electronically signed by Barry Christianson M.D. KH: LORE Report ID: [id number] Reading Location: [place] [address] Albert Clark MD IMG CT PROCEDURES Final Resu lt * eGFR (01/25/2025 10:34 PM CDT) eGFR 78 >=60 mL/min/1. 73 m2 Comment: Interpretive Data Reference Interval Normal >/= 90 mL/min/1.73m2 Mildly decreased* 60 - 89 mL/min/1.73m2 Mildly to moderately decreased 45 - 59 mL/min/1.73m2 Moderately to severely decreased 30 - 44 mL/min/1.73m2 Severely decreased 15 - 29 mL/min/1.73m2 Kidney Failure < 15 mL/min/1.73m2 *Relative to young adult level Estimated glomerular [...] interpretive data was last reviewed 2021. Blood 01/25/2025 10:3 4 PM CDT 01/25/2025 11:17 PM CDT us Arely HAYS LAB BLOOD ORDERABLES Danielle kendrick Result [facility] ([place]) 1 [facility] Department of Laboratories [place], [place] [id number] * Differential, auto (01/25/2025 10:34 PM CDT) Neutrophil abs 4.10 1.50 - 6.50 K/cumm Imm gran abs 0.04 0.00 - 0.10 K/cumm [facility] ([place]) Lymphocyte abs 2.80 0.80 - 3.30 K/cumm [facility] ([place]) Monocyte abs 0.76 0.20 - 0.80 K/cumm [facility] ([place]) Eosinophil abs 0.18 0.00 - 0.50 K/cumm [facility] ([place]) Basophil abs 0.05 0.00 - 0.10 K/cumm [facility] ([place]) Neutrophil pct 51.7 % [facility] ([place]) Comment: Interpretive Data Percent cell count reference ranges are not reported, since discordance with absolute values may lead to misinterpretation of CBC data. Current Interpretive Data was last revised on 2017. Imm gran pct 0.5 % [facility] ([place]) Comment: Interpretive Data Percent cell count reference ranges are not reported, since discordance with absolute values may lead to misinterpretation of CBC data. Current Interpretive Data was last revised on 2017. Lymphocyte pct 35.3 % [facility] ([place]) Comment: Interpretive Data Percent cell count reference ranges are not reported, since discordance with absolute values may lead to misinterpretation of CBC data. Current Interpretive Data was last revised on 2017. Monocyte pct 9.6 % [facility] ([place]) Comment: Interpretive Data Percent cell count reference ranges are not reported, since discordance with absolute values may lead to misinterpretation of CBC data. Current Interpretive Data was last revised on 2017. Eosinophil pct 2.3 % [facility] ([place]) Comment: Interpretive Data Percent cell count reference ranges are not reported, since discordance with absolute values may lead to misinterpretation of CBC data. Current Interpretive Data was last revised on 2017. Basophil pct 0.6 % [facility] ([place]) Comment: Interpretive Data Percent cell count reference ranges are not reported, since discordance with absolute values may lead to misinterpretation of CBC data. Current Interpretive Data was last revised on 2017. Blood 01/25/2025 10:3 4 PM CDT 01/25/2025 11:15 PM CDT Arely [facility]YS LAB BLOOD ORDERABLES Danielle l Result [facility] ([place]) 1 [facility] [place] [address] * (ABNORMAL) CBC with auto differential (01/25/2025 10:34 PM CDT) WBC 7.93 3.80 - 9.90 K/cumm Hgb 13.4 11.9 - 15.5 g/dL [facility] ([place]) Hct 43.0 35.6 - 45.5 % [facility] ([place]) Plt 272 150 - 400 K/cumm [facility] ([place]) MPV 9.8 9.1 - 12.3 fL [facility] ([place]) RBC 4.93 3.90 - 5.20 M/cumm [facility] ([place]) MCV 87.2 81.3 - 96.4 fL [facility] ([place]) MCH 27.2 27.1 - 33.3 pg [facility] ([place]) MCHC 31.2(L) 32.3 - 35.7 g/dL [facility] ([place]) RDW CV 13.5 11.1 - 14.9 % [facility] ([place]) RDW SD 43.2 35.7 - 48.1 fL [facility] ([place]) NRBC abs 0.00 0.00 - 0.01 K/cumm [facility] ([place]) Blood 01/25/2025 10:3 4 PM CDT 01/25/2025 11:15 PM CDT Arely HAYS LAB BLOOD ORDERABLES Danielle kendrick Result [facility] ([place]) 1 [facility] Department of Laboratories [place], [place] [id number] * (ABNORMAL) Comprehensive metabolic panel (01/25/2025 10:34 PM CDT) Sodium 138 135 - 145 mmol/L Potassium, pl 4.1 3.3 - 4.9 mmol/L [facility] ([place]) Chloride 101 97 - 110 mmol/L [facility] ([place]) CO2 23 22 - 32 mmol/L [facility] ([place]) Anion gap 14 2 - 15 mmol/L [facility] ([place]) BUN 12 6 - 25 mg/dL [facility] ([place]) Creatinine 0.99 0.60 - 1.10 mg/dL [facility] ([place]) Glucose 92 70 - 199 mg/dL [facility] ([place]) Comment: Interpretive Data Fasting glucose >/= 126 mg/dl is diagnostic for diabetes. Fasting is defined as no caloric intake [...] interpretive data was last revised 2022. Calcium 9.2 8.5 - 10.3 mg/dL [facility] ([place]) Bilirubin, total 0.2 0.1 - 1.2 mg/dL [facility] ([place]) Protein, pl 7.0 6.5 - 8.5 g/dL [facility] ([place]) Albumin 3.9 3.5 - 5.0 g/dL [facility] ([place]) Alk phos 99 40 - 130 Units/L [facility] ([place]) ALT 75(H) 7 - 45 Units/L [facility] ([place]) AST 46(H) 10 - 45 Units/L [facility] ([place]) Comment:Slightly Hemolyzed S pecimen Blood 01/25/2025 10:3 4 PM CDT 01/25/2025 11:17 PM CDT Arely [facility]YS LAB BLOOD ORDERABLES Danielle l Result [facility] ([place]) 1 [facility] Department [place] [address] * Infection Prevention Layla auris PCR, surveillance Axilla/Groin (01/24/2025 11:52 AM CDT) Layla auris DNA Not Detected Not Detected [facility] Comment: Interpretive Data Testing performed by [facility] using the [employer] [place] [employer] Layla auris assay. This assay detects DNA from Layla auris using Real-Time PCR. This assay is laboratory developed and is not cleared by the [place] Food and Drug Administration. The performance characteristics have been verified by the [facility]. Testing performed by: [facility], [address] [place]., [address] Axilla/Groin 01/24/2025 11:5 2 AM CDT 01/24/2025 3:43 PM CDT Narrative FRED[facility] - 01/25/2025 8:16 AM CDT Order placed by [facility] due to ring surveillance. Instant Order Generic Provider LAB MICROBIOLOGY - GENERAL ORDERABLES Final Result Performing Organization Address City/[facility]/ZIP Co de Phone Number FR[facility] [id number] [address] Department [place] [address] [facility] * (ABNORMAL) Differential, auto (01/24/2025 4:00 AM CDT) Neutrophil abs 6.87(H) 1.50 - 6.50 K/cumm Imm gran abs 0.03 0.00 - 0.10 K/cumm [facility] Lymphocyte abs 1.18 0.80 - 3.30 K/cumm [facility] Monocyte abs 0.77 0.20 - 0.80 K/cumm [facility] Eosinophil abs 0.01 0.00 - 0.50 K/cumm [facility] Basophil abs 0.02 0.00 - 0.10 K/cumm [facility] Neutrophil pct 77.4 % [facility] Comment: Interpretive Data Percent cell count reference ranges are not reported, since discordance with absolute values may lead to misinterpretation of CBC data. Current Interpretive Data was last revised on 2017. Imm gran pct 0.3 % [facility] Comment: Interpretive Data Percent cell count reference ranges are not reported, since discordance with absolute values may lead to misinterpretation of CBC data. Current Interpretive Data was last revised on 2017. Lymphocyte pct 13.3 % [facility] Comment: Interpretive Data Percent cell count reference ranges are not reported, since discordance with absolute values may lead to misinterpretation of CBC data. Current Interpretive Data was last revised on 2017. Monocyte pct 8.7 % [facility] Comment: Interpretive Data Percent cell count reference ranges are not reported, since discordance with absolute values may lead to misinterpretation of CBC data. Current Interpretive Data was last revised on 2017. Eosinophil pct 0.1 % [facility] Comment: Interpretive Data Percent cell count reference ranges are not reported, since discordance with absolute values may lead to misinterpretation of CBC data. Current Interpretive Data was last revised on 2017. Basophil pct 0.2 % [facility] Comment: Interpretive Data Percent cell count reference ranges are not reported, since discordance with absolute values may lead to misinterpretation of CBC data. Current Interpretive Data was last revised on 2017. Blood 01/24/2025 4:00 AM CDT 01/24/2025 4:56 AM CDT us Pao Yan MD LAB BLOOD ORDERABLES Final Re sult [facility] [id number] Department [place] [address] * (ABNORMAL) CBC with auto differential (01/24/2025 4:00 AM CDT) WBC 8.88 3.80 - 9.90 K/cumm Hgb 12.5 11.9 - 15.5 g/dL [facility] Hct 41.3 35.6 - 45.5 % [facility] Plt 240 150 - 400 K/cumm [facility] MPV 10.0 9.1 - 12.3 fL [facility] RBC 4.67 3.90 - 5.20 M/cumm [facility] MCV 88.4 81.3 - 96.4 fL [facility] MCH 26.8(L) 27.1 - 33.3 pg [facility] MCHC 30.3(L) 32.3 - 35.7 g/dL [facility] RDW CV 13.3 11.1 - 14.9 % [facility] RDW SD 43.3 35.7 - 48.1 fL [facility] NRBC abs 0.00 0.00 - 0.01 K/cumm [facility] Blood 01/24/2025 4:00 AM CDT 01/24/2025 4:56 AM CDT Pao Yan MD LAB BLOOD ORDERABLES Final Re sult [facility] [id number] [address] Department of Laboratories [place] [id number] * (ABNORMAL) Hepatic function panel (01/24/2025 4:00 AM CDT) Bilirubin, total 0.2 0.1 - 1.2 mg/dL Bilirubin, direct <0.1 0.1 - 0.3 mg/dL [facility] Protein, pl 6.4(L) 6.5 - 8.5 g/dL [facility] Albumin 3.6 3.5 - 5.0 g/dL [facility] Alk phos 93 40 - 130 Units/L [facility] ALT 75(H) 7 - 45 Units/L [facility] AST 46(H) 10 - 45 Units/L [facility] Blood 01/24/2025 4:00 AM CDT 01/24/2025 4:52 AM CDT Pao Yan MD LAB BLOOD ORDERABLES Final Re sult [facility] [id number] [facility] Department of Laboratories [place] [id number] * Surgical pathology (01/23/2025 1:27 PM CDT) Tissue (Gallbladder) 01/23/2025 10:04 AM CDT Narrative PATHOLOGY CH - 01/24/2025 6:05 PM CDT EPIC results best viewed via link to PDF [facility] Department of Pathology [address] [place] [address] Note to Patients: This report may contain a detailed description of human tissue sent by a health care provider to the laboratory for pathologic evaluation. The content of this report is essential for diagnosis and may provide important critical findings. This information may be unfamiliar to patients to review without a medical professional present. It is advised that the patient review this report in the presence of a health care provider who can answer questions and explain the details. Final Report Patient Name: SUSANNA TIWARI Address: [address] [place] [address] Gender: F : 1990 (Age: 34) Service: Medical Location: [facility] Hospital #: [id number] Patient Type: [facility] Taken: 01/23/2025 Received: 01/23/2025 Accessioned: 01/23/2025 Reported: 01/24/2025 Physician(s):Elsa Ernst M.D. Diagnosis: Gallbladder, laparoscopic cholecystectomy: - Chronic cholecystitis. - Cholelithiasis. Rosie Stephens M.D. Report Electronically Reviewed and Signed Out By Rosie Stephens M.D. 01/24/2025 18:05:44 Specimen(s) Received: A: Gallbladder Microscopic Description: Microscopic examination of the gallbladder show gallbladder mucosa with minimal chronic inflammatory infiltrate and focal invagination of the overlying epithelium into the muscular layer (Rokitansky Aschoff sinuses). There is no evidence of dysplasia or malignancy. Clinical History: Cholelithasis Procedure: laparoscopic cholecystectomy with cholangiograms Gross Description: The specimen is received in a single container labeled SUSANNA TIWARI and gallbladder. It is a gallbladder that measures 7 x 4 cm. The serosa is pink-geronimo and smooth. The wall measures up to 0.2 cm in thickness. The lumen contains green brown bile and 2 yellow granular stones between 1.8 and 2.8 cm. The mucosa is pink-geronimo, congested and velvety. The bile duct margin is inked blue. Represented in one cassette. Efe Xie R.N., P.A./Selam Natarajan M.D. REPORT IMAGES AND SCANNED DOCUMENTS, IF INCLUDED, ONLY VIEWABLE IN PDF VERSION OF REPORT The performance characteristics of some immunohistochemical stains, fluorescence in-situ hybridization tests and immunophenotyping by flow cytometry cited in this report (if any) were determined by the Surgical Pathology Department at [facility] as part of an ongoing lead quality control technician program and in compliance with federally mandated regulations drawn from the Clinical Laboratory Improvement Act of 1988 (CLIA '88). Some of these tests rely on the use of analyte specific reagents and are subject to specific labeling requirements by the [place] Food and Drug Administration. Such diagnostic tests may only be performed in a facility that is certified by the Department of Health and Human Services as a high complexity laboratory under CLIA '88. The FDA has determined that such clearance or approval is not necessary. This test is used for clinical purposes. It should not be regarded as investigational or for research. Nevertheless, federal rules concerning the medical use of analyte specific reagents require that the following disclaimer be attached to the report: This test was developed and its performance characteristics determined by the Surgical Pathology Department [facility]. It has not been cleared or approved by the U. S. Food and Drug Administration. Note for decalcified specimens: This assay has not been validated on decalcified tissues. Results should be interpreted with caution given the possibility of false negativity on decalcified specimens us Esteban Barahona MD LAB PATHOLOGY ORDERABLES F inal Result PATHOLOGY [address] [place] [address] * [place] Cholangiogram Intraoperative (01/23/2025 10:09 AM CDT) Anatomical Region Laterality Modality Body, Abdomen N/A Computed Radiogr aphy 01/23/2025 10:5 1 AM CDT Impressions 01/23/2025 10:51 AM CDT Normal OR cholangiogram. Electronically signed by: Jose Martin Massey M.D. Narrative 01/23/2025 10:51 AM CDT EXAMINATION: FL CHOLANGIOGRAM INTRAOPERATIVE HISTORY: The patient is a 34-year-old female who has had an intraoperative cholangiogram. TECHNIQUE: Portable view of the right upper quadrant was obtained in the OR following injection of contrast through the cystic duct stump. Total fluoroscopy x4.4 seconds. FINDINGS: There is opacification of the cystic duct stump, common hepatic and common bile ducts revealing no filling defects. There is free flow of contrast from the common bile duct into the 2nd portion of the duodenum. Procedure Note Jose Martin Massey MD - 01/23/2025 EXAMINATION: [place] CHOLANGIOGRAM INTRAOPERATIVE HISTORY: The patient is a 34-year-old female who has had an intraoperative cholangiogram. TECHNIQUE: Portable view of the right upper quadrant was obtained in the OR following injection of contrast through the cystic duct stump. Total fluoroscopy x4.4 seconds. FINDINGS: There is opacification of the cystic duct stump, common hepatic and common bile ducts revealing no filling defects. There is free flow of contrast from the common bile duct into the 2nd portion of the duodenum. IMPRESSION: Normal OR cholangiogram. Electronically signed by: Jose Martin Massey M.D. Esteban Barahona MD IMG FLUOROSCOPY PROCEDURES Final Result * DE AN ELECTIVE ENDOTRACHEAL AIRWAY (01/23/2025 9:40 AM CDT) Narrative Roman Waldron AA - 01/23/2025 9:40 AM CDT Roman Waldron AA 01/23/2025 9:44 AM Airway Patient location: OR Urgency: elective Date/time: 01/23/2025 8:53 AM Indications for airway management: anesthesia Difficult airway: yes Maneuvers that helped ventilation: oral airway Factors contributing to ventilation difficulty: tongue size and obesity Maneuvers that helped intubation: cricoid pressure and bougie Factors contributing to intubation difficulty: tongue size and limited mouth opening Staff: Supervising provider: Geovanna Naqvi Jr., MD Placed by: AA: Roman Waldron AA Emergent airway documentation: Risks and benefits discussed: yes Consent obtained: yes Consent given by: patient Airway prep: Preoxygenated: yes Patient position: ramp Mask difficulty assessment: 2 - vent by mask + OA or adjuvant Spontaneous ventilation during airway: absent Sedation level during airway: GA Final airway details: Final airway type: endotracheal airway Tube type: ETT ETT size: 7.0 mm Cuffed: yes Technique used for successful ETT placement: video laryngoscopy Devices/Methods used in placement: cricoid pressure and flexible tip bougie Insertion site: oral Blade type: Donny Video blade type: Lubin Blade size: 3 Cormack-Lehane (video): grade I - full view of glottis Cuff inflated with: air ETT to lips: 22 cm Placement verified by: auscultation and CO2 detection Airway secured with: silk tape Number of attempts: 2 Ventilation between attempts: none Additional comments: Patient ramped able to BMV with 10 cm oral airway, lubin videoscope used grade 1 view obtained but small mouth opening and anterior airway made advancing ETT to glottis challenging, bougie inserted and ETT passed successfully over bougie us Geovanna Naqvi Jr., MD ANESTHESIA ORDER SAMIA Final Result * eGFR (01/23/2025 5:31 AM CDT) eGFR 87 >=60 mL/min/1. 73 m2 Comment: Interpretive Data Reference Interval Normal >/= 90 mL/min/1.73m2 Mildly decreased* 60 - 89 mL/min/1.73m2 Mildly to moderately decreased 45 - 59 mL/min/1.73m2 Moderately to severely decreased 30 - 44 mL/min/1.73m2 Severely decreased 15 - 29 mL/min/1.73m2 Kidney Failure < 15 mL/min/1.73m2 *Relative to young adult level Estimated glomerular [...] interpretive data was last reviewed 2021. Blood 01/23/2025 5:31 AM CDT 01/23/2025 5:48 AM CDT Jacquelin Stone DAIRY QUALITY ASSURANCE OFFICER LAB BLOOD ORDERABLES Danielle l Result Performing Organization Address City/[facility] Co de Phone Number FREDDY [phone] [place] [address] * (ABNORMAL) CBC without differential (01/23/2025 5:31 AM CDT) [facility] WBC 5.95 3.80 - 9.90 K/cumm Hgb 13.3 11.9 - 15.5 g/dL [facility] Hct 43.0 35.6 - 45.5 % [facility] Plt 231 150 - 400 K/cumm [facility] CH MPV 9.9 9.1 - 12.3 fL [facility] RBC 4.84 3.90 - 5.20 M/cumm [facility] CH MCV 88.8 81.3 - 96.4 fL [facility] CH MCH 27.5 27.1 - 33.3 pg [facility] CH MCHC 30.9(L) 32.3 - 35.7 g/dL [facility] CH RDW CV 13.3 11.1 - 14.9 % [facility] CH RDW SD 43.5 35.7 - 48.1 fL [facility] NRBC abs 0.00 0.00 - 0.01 K/cumm [facility] CH Blood 01/23/2025 5:31 AM CDT 01/23/2025 5:48 AM CDT Jacquelin Stone DAIRY QUALITY ASSURANCE OFFICER LAB BLOOD ORDERABLES Danielle l Result Performing Organization Address [facility] Co de Phone Number FREDDY CALERO [id number] [address] [place] [address] * Basic metabolic panel (01/23/2025 5:31 AM CDT) Sodium 139 135 - 145 mmol/L Potassium, pl 4.5 3.3 - 4.9 mmol/L [facility] Chloride 107 97 - 110 mmol/L [facility] CH CO2 23 22 - 32 mmol/L [facility] Anion gap 9 2 - 15 mmol/L [facility] BUN 13 6 - 25 mg/dL [facility] Creatinine 0.90 0.60 - 1.10 mg/dL [facility] Glucose 103 70 - 199 mg/dL [facility] Comment: Interpretive Data Fasting glucose >/= 126 mg/dl is diagnostic for diabetes. Fasting is defined as no caloric intake [...] interpretive data was last revised 2022. Calcium 8.8 8.5 - 10.3 mg/dL [facility] Blood 01/23/2025 5:31 AM CDT 01/23/2025 5:48 AM CDT Jacquelin Stone NP LAB BLOOD ORDERABLES Danielle l Result [facility] [id number] Department [place] [address] * CT Abdomen Pelvis W Contrast (01/22/2025 8:58 PM CDT) Anatomical Region Laterality Modality Body N/A Computed Tomogra phy 01/22/2025 9:01 PM CDT Narrative 01/22/2025 9:20 PM CDT EXAM DESCRIPTION: CT ABDOMEN PELVIS W CONTRAST REASON FOR STUDY: Right-sided abdominal pain Technologist error about Patient was scanned without, delay had been removed from scan so she was scanned when contrast had just started injection, second scan is accurate time delay for A/P with contrast Patient complains of right upper quadrant pain, right back pain right flank pain. Started about 2-3 days ago. Some nausea and vomiting. TECHNIQUE: CT scan of the abdomen and pelvis performed with intravenous and without oral contrast using helical scanning technique with dynamic intravenous contrast injection. Reconstructed coronal and sagittal MPR images reviewed. All images stored on PACS. Automated exposure control was used as a dose optimization technique for this examination. CONTRAST TYPE/DOSE: 100mL of IOVERSOL 350 MG IODINE/ML INTRAVENOUS SYRINGE injected COMPARISON: 04/18/2024 FINDINGS: LOWER CHEST: Mild scattered subsegmental atelectasis. No pleural effusion. Imaged portions of the heart and esophagus are within normal limits. LIVER: Normal size. No identified cystic or solid masses. Mild hepatic steatosis. The hepatic and portal veins are patent. GALLBLADDER: There is mild gallbladder wall thickening along with cholelithiasis. BILE DUCTS: No intrahepatic or extrahepatic ductal dilatation. SPLEEN: Normal size. No focal lesions. PANCREAS: No identified cystic or solid masses. No significant calcifications. No adjacent inflammation or peripancreatic fluid collections. Pancreatic duct not dilated. ADRENALS: Normal. KIDNEYS/URINARY TRACT: No identified significant cystic or solid masses. No visualized stones. No hydronephrosis or hydroureter. Symmetric enhancement. Urinary bladder is unremarkable. GI: The stomach is normal. The small bowel and colon are normal in course and caliber with no evidence of obstruction or inflammation. The appendix is normal. PERITONEUM: No ascites or free air. No lymphadenopathy. RETROPERITONEUM: No mass or adenopathy. REPRODUCTIVE: Prior partial hysterectomy/hysterectomy. No adnexal masses. VASCULATURE: No abdominal aortic aneurysm. The abdominal aorta and its branches are patent. MUSCULOSKELETAL: No acute fractures or aggressive osseous. Other: Small fat containing periumbilical ventral abdominal wall hernia. IMPRESSION: 1. Cholelithiasis with mild gallbladder wall thickening. This constellation of findings can be seen with early developing acute calculus cholecystitis in the appropriate clinical setting. Clinical correlation is recommended. Dedicated ultrasound could be considered for further evaluation. THIS IS AN ELECTRONICALLY VERIFIED FINAL REPORT 01/22/2025 9:20 PM - Electronically signed by Azam Steve M.D. AT: AT Report ID: [id number] Reading Location: [id number] Procedure Note Azam Steve MD - 01/22/2025 EXAM DESCRIPTION: CT ABDOMEN PELVIS W CONTRAST REASON FOR STUDY: Right-sided abdominal pain Technologist error about Patient was scanned without, delay had beenremoved from scan so she was scanned when contrast had just started injection,second scan is accurate time delay for A/P with contrast Patient complains of right upper quadrant pain, right back pain right flank pain. Started about2-3 days ago. Some nausea and vomiting. TECHNIQUE: CT scan of the abdomen and pelvis performed with intravenousand without oral contrast using helical scanning technique with dynamic intravenous contrast injection. Reconstructed coronal and sagittal MPRimages reviewed. All images stored on PACS. Automated exposure control was usedas a dose optimization technique for this examination. CONTRAST TYPE/DOSE: 100mL of IOVERSOL 350 MG IODINE/ML INTRAVENOUSSYRINGE injected COMPARISON: 04/18/2024 FINDINGS: LOWER CHEST: Mild scattered subsegmental atelectasis. No pleuraleffusion. Imaged portions of the heart and esophagus are within normal limits. LIVER: Normal size. No identified cystic or solid masses. Mildhepatic steatosis. The hepatic and portal veins are patent. GALLBLADDER: There is mild gallbladder wall thickening along with cholelithiasis. BILE DUCTS: No intrahepatic or extrahepatic ductal dilatation. SPLEEN: Normal size. No focal lesions. PANCREAS: No identified cystic or solid masses. No significant calcifications. No adjacent inflammation or peripancreatic fluidcollections. Pancreatic duct not dilated. ADRENALS: Normal. KIDNEYS/URINARY TRACT: No identified significant cystic or solid masses.No visualized stones. No hydronephrosis or hydroureter. Symmetricenhancement. Urinary bladder is unremarkable. GI: The stomach is normal. The small bowel and colon are normal incourse and caliber with no evidence of obstruction or inflammation. The appendixis normal. PERITONEUM: No ascites or free air. No lymphadenopathy. RETROPERITONEUM: No mass or adenopathy. REPRODUCTIVE: Prior partial hysterectomy/hysterectomy. No adnexalmasses. VASCULATURE: No abdominal aortic aneurysm. The abdominal aorta and its branches are patent. MUSCULOSKELETAL: No acute fractures or aggressive osseous. Other: Small fat containing periumbilical ventral abdominal wall hernia. IMPRESSION: 1. Cholelithiasis with mild gallbladder wall thickening. Thisconstellation of findings can be seen with early developing acute calculus cholecystitisin the appropriate clinical setting. Clinical correlation is recommended. Dedicated ultrasound could be considered for further evaluation. THIS IS AN ELECTRONICALLY VERIFIED FINAL REPORT 01/22/2025 9:20 PM - Electronically signed by Azam Steve M.D. AT: AT Report ID: [id number] Reading Location: [id number] [facility] IMG CT PROCEDURE S Final Result * (ABNORMAL) Urinalysis reflex to microscopic and culture Urine (01/22/2025 8:13 PM CDT) Color, ur Yellow Yellow Clarity, ur Turbid(A) Clear [facility] ([place]) Specific gravity, ur 1.027 1.003 - 1.030 [facility] ([place]) pH, urine 6.0 [facility] ([place]) Comment: Interpretive Data U rine pH is affected by diet, medications, systemic acid-base disturbances, and renal tubular function. pH may affect urinary stone formation. For example, urine pH below 6.0 may help reduce the tendency for calcium phosphate stones and pH greater than 6.0 may reduce the tendency for uric acid stone formation. Source: [employer] Current Interpretive Data was last revised on 2017 Protein, ur ql Trace Negative [facility] ([place]) Glucose, ur [...] culture not met. [facility] ([place]) Urine 01/22/2025 8:13 PM CDT 01/22/2025 8:18 PM CDT Vaughn [facility] LAB MICROBIOLOGY - GENERAL ORDERABLES Final Result Performing Organization Address City/[facility]/ZIP Co de Phone Number FREDDY RHOADES ([place]) 1 [facility] [place] [address] * eGFR (01/22/2025 4:35 PM CDT) eGFR >90 >=60 mL/min/1. 73 m2 Comment: Interpretive Data Reference Interval Normal >/= 90 mL/min/1.73m2 Mildly decreased* 60 - 89 mL/min/1.73m2 Mildly to moderately decreased 45 - 59 mL/min/1.73m2 Moderately to severely decreased 30 - 44 mL/min/1.73m2 Severely decreased 15 - 29 mL/min/1.73m2 Kidney Failure < 15 mL/min/1.73m2 *Relative to young adult level Estimated glomerular [...] interpretive data was last reviewed 2021. Blood 01/22/2025 4:35 PM CDT 01/22/2025 4:45 PM CDT Vaughn [facility] LAB BLOOD ORDERA BLES Final Result FREDDY RHOADES ([place]) 1 [facility] Department [place] [address] * Differential, auto (01/22/2025 4:35 PM CDT) Neutrophil abs 3.69 1.50 - 6.50 K/cumm Imm gran abs 0.02 0.00 - 0.10 K/cumm [facility] ([place]) Lymphocyte abs 2.45 0.80 - 3.30 K/cumm [facility] ([place]) Monocyte abs 0.67 0.20 - 0.80 K/cumm [facility] ([place]) Eosinophil abs 0.14 0.00 - 0.50 K/cumm [facility] ([place]) Basophil abs 0.05 0.00 - 0.10 K/cumm [facility] ([place]) Neutrophil pct 52.6 % [facility] ([place]) Comment: Interpretive Data Percent cell count reference ranges are not reported, since discordance with absolute values may lead to misinterpretation of CBC data. Current Interpretive Data was last revised on 2017. Imm gran pct 0.3 % [facility] ([place]) Comment: Interpretive Data Percent cell count reference ranges are not reported, since discordance with absolute values may lead to misinterpretation of CBC data. Current Interpretive Data was last revised on 2017. Lymphocyte pct 34.9 % [facility] ([place]) Comment: Interpretive Data Percent cell count reference ranges are not reported, since discordance with absolute values may lead to misinterpretation of CBC data. Current Interpretive Data was last revised on 2017. Monocyte pct 9.5 % [facility] ([place]) Comment: Interpretive Data Percent cell count reference ranges are not reported, since discordance with absolute values may lead to misinterpretation of CBC data. Current Interpretive Data was last revised on 2017. Eosinophil pct 2.0 % [facility] ([place]) Comment: Interpretive [...] Data was last revised on 2017. Blood 01/22/2025 4:35 PM CDT 01/22/2025 4:45 PM CDT us [facility]n [facility] LAB BLOOD ORDERA BLES Final Result FREDDY RHOADES ([place]) 1 [facility] Department [place] [address] * (ABNORMAL) CBC with auto differential (01/22/2025 4:35 PM CDT) [facility] WBC 7.02 3.80 - 9.90 K/cumm Hgb 14.3 11.9 - 15.5 g/dL [facility] ([place]) Hct 44.9 35.6 - 45.5 % [facility] ([place]) Plt 273 150 - 400 K/cumm [facility] ([place]) MPV 9.7 9.1 - 12.3 fL [facility] ([place]) RBC 5.21(H) 3.90 - 5.20 M/cumm [facility] ([place]) MCV 86.2 81.3 - 96.4 fL [facility] ([place]) MCH 27.4 27.1 - 33.3 pg [facility] ([place]) MCHC 31.8(L) 32.3 - 35.7 g/dL [facility] ([place]) RDW CV 13.2 11.1 - 14.9 % [facility] ([place]) RDW SD 41.5 35.7 - 48.1 fL [facility] ([place]) NRBC abs 0.00 0.00 - 0.01 K/cumm [facility] ([place]) Blood Venous blood specimen / Unknown 01/22/2025 4:35 PM CDT 01/22/2025 4:45 PM CDT [facility]n [facility] LAB BLOOD ORDERA BLES Final Result [facility] ([place]) 1 [facility] Department [place] [address] * hCG, blood, quantitative (01/22/2025 4:35 PM CDT) [facility] hCG, quant <5.0 0.0 - 5.0 IUnits/L Comment: Interpretive Data Male: < 5 IU/L Non- premenopausal Female: <5 IU/L The Mickey hCG Beta Quant assay procedure was used. Results from different manufacturers or methods may not be comparable. Serial testing should be performed using the same method. Interpretive Data was last revised on 2023 Blood 01/22/2025 4:35 PM CDT 01/22/2025 7:26 PM CDT Vaughn [facility] LAB BLOOD ORDERA BLES Edited Result - Final Performing Organization Address City/[facility]/ZIP Co de Phone Number FREDDY RHOADES ([place]) 1 [facility] [place] [address] * Lipase (01/22/2025 4:35 PM CDT) Lipase 28 10 - 99 Units/L Blood Venous blood specimen / Unknown 01/22/2025 4:35 PM CDT 01/22/2025 4:45 PM CDT Vaughn [facility] LAB BLOOD ORDERA BLES Final Result Performing Organization Address [facility] de Phone Number FREDDY RHOADES ([place]) 1 [place] [address] * (ABNORMAL) Comprehensive metabolic panel (01/22/2025 4:35 PM CDT) Sodium 137 135 - 145 mmol/L Potassium, pl 4.2 3.3 - 4.9 mmol/L [facility] ([place]) Chloride 101 97 - 110 mmol/L [facility] ([place]) CO2 24 22 - 32 mmol/L [facility] ([place]) Anion gap 12 2 - 15 mmol/L [facility] ([place]) BUN 10 6 - 25 mg/dL [facility] ([place]) Creatinine 0.87 0.60 - 1.10 mg/dL [facility] ([place]) Glucose 89 70 - 199 mg/dL [facility] ([place]) Comment: Interpretive Data Fasting glucose >/= 126 mg/dl is diagnostic for diabetes. Fasting is defined as no caloric intake [...] interpretive data was last revised 2022. Calcium 9.0 8.5 - 10.3 mg/dL [facility] ([place]) Bilirubin, total 0.2 0.1 - 1.2 mg/dL [facility] ([place]) Protein, pl 7.2 6.5 - 8.5 g/dL [facility] ([place]) Albumin 4.2 3.5 - 5.0 g/dL [facility] ([place]) Alk phos 105 40 - 130 Units/L [facility] ([place]) ALT 56(H) 7 - 45 Units/L [facility] ([place]) AST 34 10 - 45 Units/L [facility] ([place]) Comment:Slightly Hemolyzed S pecimen Blood 01/22/2025 4:35 PM CDT 01/22/2025 4:45 PM CDT [facility] LAB BLOOD ORDERA BLES Final Result FREDDY RHOADES ([place]) 1 [facility] Department [place] [address] from Last 3 Months Insurance [facility] Advance Directives For more information, please contact: [phone] * Full Code (Latest Code Status on File) Date Activated Date Inactivated Comments 01/23/2025 3:48 AM 01/24/2025 5:09 PM Care Teams Crime Scene Examiner Relationship Specialty Start Date End Date Barry Beltran MD [address] [place] [id number] PCP - General Internal Medicine 10/28/23 [place] [address] [address] [facility] 1 [facility] [address] [place] [address] Surgeon General Surgery 01/23/25
--- OUTSIDE RECORDS SUMMARY | 2025-01-30 14:34 | XMS_ITS | Clinical Summary ---
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
--- OUTSIDE RECORDS SUMMARY | 2025-01-30 14:34 | XMS_ITS | Clinical Summary ---
Author Organization [facility] Address [address] [place] [address] Care Team Providers Care Aerodynamics Teacher Name Role Phone Barry Beltran MD Primary Care Provider [phone] Esteban Barahona MD Unavailable [phone] Allergies Active Allergy Reactions Criticality Noted Date [...] by mouth every morning 30 capsule 08/16/19 Active FLUoxetine (PROzac) 40 mg capsule Take 1 capsule (40 mg total) by mouth nightly 90 capsule 3 08/16/19 Active levothyroxine (SYNTHROID) 100 mcg tablet Take 1 tablet (100 mcg total) by mouth talent solutions manager before breakfast 90 tablet 3 08/16/19 Active [...] Date Type Department Care Team Description 01/28/2025 [facility] Post Discharge Follow up phone call [address] [address] Dinorah Nowak RN 01/25/2025 10:28 PM CDT - 01/26/2025 1:46 AM CDT Emergency [facility] Emergency Department [address] [place] [address] Albert Clark MD Postoperative pain (Primary Dx) Discharge Disposition: Discharge to home or self care 01/23/2025 8:37 AM CDT Anesthesia Event [facility] Operating Room [address] [place] [address] Geovanna Naqvi Jr., MD Gibbons, Jesse Graham, TACOS 01/23/2025 8:30 AM CDT - 01/23/2025 10:30 AM CDT Surgery [facility] Operating Room [address] [place] [address] Esteban Barahona MD LAPAROSCOPIC CHOLECYSTECTOMY WITH CHOLANGIOGRAMS 01/23/2025 3:04 AM CDT - 01/24/2025 1:04 PM CDT Hospital Encounter [address] [address] Sharad Dejesus MD Rivera, Samantha, MD Cholecystitis Discharge Disposition: Discharge to home or self care 01/23/2025 2:44 AM CDT - 01/23/2025 11:59 PM CDT Hospital Encounter [facility] Emergency, Room R Discharge Disposition: Discharge to home or self care 01/22/2025 7:39 PM CDT - 01/23/2025 2:43 AM CDT Emergency [facility] Emergency Department [address] [place] [address] Vaughn Flynn PA Cholecystitis (Primary Dx); Calculus of gallbladder with acute cholecystitis without obstruction Discharge Disposition: Discharge to a short term hospital for IP from Last 3 Months Surgical History Surgery [...] file 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[employer] Gender Identity Female 10/26/2022 1:11 PM CDT [...] 01/25/2025 10:13 PM CDT Plan of Treatment Health Maintenance Due Date Last Done Comments Hepatitis C Screening 1990 Varicella Vaccines (1 of 2 - 13+ 2-dose series) 2005 Regular Well Visit/Exam 18-64 2010 Pneumococcal vaccine <65 (1 of 2 - PCV) 2011 Depression Screening 08/16/2023 08/16/2022 Influenza Vaccine (#1) 2025 , 03/30/2024, 05/30/2023, Additional history exists DTaP/Tdap/Td Vaccine (8 - Td or Tdap) 12/06/2028 12/06/2018, 07/06/2005, 04/12/2003, Additional history exists Hepatitis B Screening Completed 08/24/1993 , 1992, 1992 HPV Vaccines Aged Out No longer eligi ble based on patient's age to complete this topic Procedures Procedure Name Priority Date/Time Associated Diagnosis [...] INTRAOPERATIVE IP Routine 01/23/2025 10:09 AM CDT OR AN ELECTIVE ENDOTRACHEAL AIRWAY Routine 01/23/2025 9:40 [...] Electronically signed by Barry Christianson M.D. KH: KH Report ID: [id number] Reading Location: [id number] Procedure Note Barry Christianson MD - 01/26/2025 [...] Barry Christianson M.D. KH: LORE Report ID: [id number] Reading Location: [place] [address] Albert Clark MD IMG CT PROCEDURES Final Resu lt * eGFR (01/25/2025 10:34 PM CDT) Pathologist [facility] eGFR 78 >=60 mL/min/1. 73 m2 Comment: [...] CDT Arely HAYS LAB BLOOD ORDERABLES Danielle aroldo Result [facility] [place] 1 [facility] Department [place] [address] * Differential, auto (01/25/2025 10:34 PM CDT) Neutrophil abs 4.10 1.50 - 6.50 K/cumm Imm gran abs 0.04 0.00 - 0.10 K/cumm [facility] ([facility]) Lymphocyte abs 2.80 0.80 - 3.30 K/cumm [facility] ([facility]) Monocyte abs 0.76 0.20 - 0.80 K/cumm [facility] ([facility]) Eosinophil abs 0.18 0.00 - 0.50 K/cumm [facility] ([facility]) Basophil abs 0.05 0.00 - 0.10 K/cumm [facility] ([facility]) Neutrophil pct 51.7 % [facility] ([facility]) Comment: Interpretive Data Percent cell count reference ranges are not reported, since discordance with absolute values may lead to misinterpretation of CBC data. Current Interpretive Data was last revised on 2017. Imm gran pct 0.5 % [facility] ([facility]) Comment: Interpretive Data Percent cell count reference ranges are not reported, since discordance with absolute values may lead to misinterpretation of CBC data. Current Interpretive Data was last revised on 2017. Lymphocyte pct 35.3 % [facility] ([facility]) Comment: Interpretive Data Percent cell count reference ranges are not reported, since discordance with absolute values may lead to misinterpretation of CBC data. Current Interpretive Data was last revised on 2017. Monocyte pct 9.6 % [facility] ([facility]) Comment: Interpretive Data Percent cell count reference ranges are not reported, since discordance with absolute values may lead to misinterpretation of CBC data. Current Interpretive Data was last revised on 2017. Eosinophil pct 2.3 % [facility] ([facility]) Comment: Interpretive [...] CDT Arely HAYS LAB BLOOD ORDERABLES Danielle aroldo Result [facility] ([place]) 1 [facility] Department [place] [address] * (ABNORMAL) CBC with auto differential (01/25/2025 [...] 27.2 27.1 - 33.3 pg [facility] ([facility]) MCHC 31.2(L) 32.3 - 35.7 g/dL [facility] ([facility]) RDW CV 13.5 11.1 - 14.9 % [facility] ([facility]) RDW SD 43.2 35.7 - 48.1 fL [facility] ([place]) NRBC abs 0.00 0.00 - 0.01 K/cumm [facility] ([facility]) Blood 01/25/2025 10:3 4 PM CDT 01/25/2025 11:15 PM CDT Arely HAYS LAB BLOOD ORDERABLES Danielle kendrick Result [facility] ([place]) 1 [facility] Department [place] [address] * (ABNORMAL) Comprehensive metabolic panel (01/25/2025 10:34 PM CDT) [facility] Sodium 138 135 - 145 mmol/L Potassium, [...] HAYS LAB BLOOD ORDERABLES Danielle kendrick Result [facility] ([facility]) 1 [facility] Department [place] [address] * Infection Prevention Layla auris PCR, surveillance Axilla/Groin (01/24/2025 11:52 AM CDT) Pathologist [facility] Layla auris DNA Not Detected Not Detected [facility] Comment: Interpretive Data Testing performed by [facility] using the Mickey jorge [id number] Layla auris assay. This assay detects DNA from Layla auris using Real-Time PCR. This assay is laboratory developed and is not cleared by the [facility] Food and Drug Administration. The performance characteristics have been verified by the [facility]. Testing performed by: [facility], [address] [place]., [address] Axilla/Groin 01/24/2025 11:5 2 AM CDT 01/24/2025 3:43 PM CDT Narrative [facility] - 01/25/2025 8:16 AM CDT Order placed by [facility] due to ring surveillance. us Instant Order Generic Provider LAB MICROBIOLOGY - GENERAL ORDERABLES Final Result [facility] [address] Department [place] [address] [facility] * (ABNORMAL) Differential, auto (01/24/2025 4:00 AM CDT) Pathologist [facility] Neutrophil abs 6.87(H) 1.50 - 6.50 K/cumm Imm gran abs 0.03 0.00 - 0.10 K/cumm [facility] Lymphocyte abs 1.18 0.80 - 3.30 K/cumm [facility] Monocyte abs 0.77 0.20 - 0.80 K/cumm [facility] Eosinophil abs 0.01 0.00 - 0.50 K/cumm [facility] Basophil abs 0.02 0.00 - 0.10 K/cumm [facility] Neutrophil pct 77.4 % [facility] Comment: Interpretive Data Percent cell count reference ranges are not reported, since discordance with absolute values may lead to misinterpretation of CBC data. Current Interpretive Data was last revised on 2017. Imm gran pct 0.3 % [facility] Comment: Interpretive Data Percent cell count reference ranges are not reported, since discordance with absolute values may lead to misinterpretation of CBC data. Current Interpretive Data was last revised on 2017. Lymphocyte pct 13.3 % [facility] Comment: Interpretive Data Percent cell count reference ranges are not reported, since discordance with absolute values may lead to misinterpretation of CBC data. Current Interpretive Data was last revised on 2017. Monocyte pct 8.7 % [facility] Comment: Interpretive Data Percent cell count reference ranges are not reported, since discordance with absolute values may lead to misinterpretation of CBC data. Current Interpretive Data was last revised on 2017. Eosinophil pct 0.1 % [facility] Comment: Interpretive Data Percent cell count reference ranges are not reported, since discordance with absolute values may lead to misinterpretation of CBC data. Current Interpretive Data was last revised on 2017. Basophil pct 0.2 % [facility] Comment: Interpretive Data Percent cell count reference ranges are not reported, since discordance with absolute values may lead to misinterpretation of CBC data. Current Interpretive Data was last revised on 2017. Blood 01/24/2025 4:00 AM CDT 01/24/2025 4:56 AM CDT Pao Yan MD LAB BLOOD ORDERABLES Final Re sult [facility] [address] Department [place] [address] * (ABNORMAL) CBC with auto differential (01/24/2025 4:00 AM CDT) WBC 8.88 3.80 - 9.90 K/cumm Hgb 12.5 11.9 - 15.5 g/dL [facility] Hct 41.3 35.6 - 45.5 % [facility] Plt 240 150 - 400 K/cumm [facility] MPV 10.0 9.1 - 12.3 fL [facility] RBC 4.67 3.90 - 5.20 M/cumm [facility] MCV 88.4 81.3 - 96.4 fL [facility] [...] MD LAB BLOOD ORDERABLES Final Re sult Performing Organization Address City/[facility]/ZIP Co de Phone Number [facility] [address] [place] [address] * (ABNORMAL) Hepatic function panel (01/24/2025 4:00 [...] BLOOD ORDERABLES Final Re sult [facility] [address] [place] [address] * Surgical pathology (01/23/2025 1:27 PM CDT) Tissue (Gallbladder) 01/23/2025 10:04 AM CDT Narrative PATHOLOGY [facility] - 01/24/2025 6:05 PM CDT EPIC results best viewed via link to PDF [facility] Department of Pathology [address] [place] [address] Note to Patients: This report may contain [...] Final Report Patient Name: SUSANNA TIWARI Address: [address] [place] [address] Gender: F : 1990 (Age: 34) Service: Medical Location: [facility] Hospital #: [id number] Patient Type: [facility] Taken: 01/23/2025 Received: 01/23/2025 Accessioned: 01/23/2025 Reported: [...] determined by the Surgical Pathology Department at [facility] as part of an ongoing software quality assurance specialist program and in compliance with federally mandated [...] characteristics determined by the Surgical Pathology Department [facility]. It has not been cleared or approved by the U. S. Food and Drug Administration. Note for decalcified specimens: This assay has not been validated on decalcified tissues. Results should be interpreted with caution given the possibility of false negativity on decalcified specimens Esteban Barahona MD LAB PATHOLOGY ORDERABLES F inal Result PATHOLOGY [address] [place] [address] * [place] Cholangiogram Intraoperative (01/23/2025 10:09 AM [...] MD IMG FLUOROSCOPY PROCEDURES Final Result * OR AN ELECTIVE ENDOTRACHEAL AIRWAY (01/23/2025 9:40 AM CDT) Roman Zaldivar AA - 01/23/2025 9:40 AM CDT Roman [...] inserted and ETT passed successfully over bougie Geovanna Naqvi Jr., MD ANESTHESIA ORDER SAMIA [...] CDT 01/23/2025 5:48 AM CDT Jacquelin Stone CENTRAL SUPPLY CLERK LAB BLOOD ORDERABLES Danielle l Result Performing Organization Address [facility] Co de Phone Number [facility] [id number] [place] [address] * (ABNORMAL) CBC without differential (01/23/2025 5:31 AM CDT) WBC 5.95 3.80 - 9.90 K/cumm Hgb 13.3 11.9 - 15.5 g/dL [facility] Hct 43.0 35.6 - 45.5 % [facility] Plt 231 150 - 400 K/cumm [facility] MPV 9.9 9.1 - 12.3 fL [facility] RBC 4.84 3.90 - 5.20 M/cumm [facility] MCV 88.8 81.3 - 96.4 fL [facility] MCH 27.5 27.1 - 33.3 pg [facility] MCHC 30.9(L) 32.3 - 35.7 g/dL [facility] RDW CV 13.3 11.1 - 14.9 % [facility] RDW SD 43.5 35.7 - 48.1 fL [facility] NRBC abs 0.00 0.00 - 0.01 K/cumm [facility] Blood 01/23/2025 5:31 AM CDT 01/23/2025 5:48 AM CDT Jacquelin Stone CENTRAL SUPPLY CLERK LAB BLOOD ORDERABLES Danielle l Result Performing Organization Address City/[facility] Co de Phone Number [facility] [phone] Department of [employer] [place], [place] [id number] * Basic metabolic panel (01/23/2025 5:31 AM CDT) Sodium 139 135 - 145 mmol/L Potassium, pl 4.5 3.3 - 4.9 mmol/L [facility] Chloride 107 97 - 110 mmol/L [facility] CO2 23 22 - 32 mmol/L [facility] Anion gap 9 2 - 15 mmol/L [facility] BUN 13 6 - 25 mg/dL [facility] Creatinine 0.90 0.60 - 1.10 mg/dL [facility] Glucose 103 70 - 199 mg/dL [facility] Comment: Interpretive Data Fasting glucose >/= 126 [...] 2022. Calcium 8.8 8.5 - 10.3 mg/dL [facility] Blood 01/23/2025 5:31 AM CDT 01/23/2025 5:48 AM CDT us Jacquelin Stone NP LAB BLOOD ORDERABLES Danielle kendrick Result [facility] [address] Department [place] [address] * CT Abdomen Pelvis W Contrast (01/22/2025 [...] Azam Steve M.D. AT: AT Report ID: [id number] Reading Location: [id number] Procedure Note Azam Steve MD - 01/22/2025 [...] Azam Steve M.D. AT: AT Report ID: [id number] Reading Location: [id number] us Vaughn HAYS IMG CT PROCEDURE S Final [...] tendency for uric acid stone formation. Source: [facility] [employer] Current Interpretive Data was last revised on [...] 8:13 PM CDT 01/22/2025 8:18 PM CDT us Vaughn HAYS LAB MICROBIOLOGY - GENERAL ORDERABLES Final Result [facility] ([place]) 1 [facility] Department [place] [address] * eGFR (01/22/2025 4:35 PM CDT) eGFR [...] HAYS LAB BLOOD ORDERA BLES Final Result [facility] 1 [facility] Department [place] [address] * Differential, auto (01/22/2025 4:35 PM CDT) Pathologist [facility] Neutrophil abs 3.69 1.50 - 6.50 K/cumm Imm gran abs 0.02 0.00 - 0.10 K/cumm [facility] ([place]) Lymphocyte abs 2.45 0.80 - 3.30 K/cumm [facility] ([place]) Monocyte abs 0.67 0.20 - 0.80 K/cumm [facility] ([place]) Eosinophil abs 0.14 0.00 - 0.50 K/cumm [facility]) Basophil abs 0.05 0.00 - 0.10 K/cumm [facility] ([place]) Neutrophil pct 52.6 % [facility] ([place] Comment: Interpretive Data Percent cell count reference [...] revised on 2017. Monocyte pct 9.5 % [facility] ([place]) Comment: Interpretive Data Percent cell [...] revised on 2017. Basophil pct 0.7 % [facility] ([place]) Comment: Interpretive Data Percent cell count reference ranges are not reported, since discordance with absolute values may lead to misinterpretation of CBC data. Current Interpretive Data was last revised on 2017. Blood 01/22/2025 4:35 PM CDT 01/22/2025 4:45 PM CDT us Vaughn HAYS LAB BLOOD ORDERA BLES Final Result [facility] ([place]) 1 [facility] Department of Laboratories [place], [place] [id number] * (ABNORMAL) CBC with auto differential (01/22/2025 4:35 PM CDT) WBC 7.02 3.80 - 9.90 K/cumm Hgb 14.3 11.9 - 15.5 g/dL [facility] ([place]) Hct 44.9 35.6 - 45.5 % [facility] ([place]) Plt 273 150 - 400 K/cumm [facility] ([place]) MPV 9.7 9.1 - 12.3 fL [facility] ([place]) RBC 5.21(H) 3.90 - 5.20 M/cumm [facility] ([place]) MCV 86.2 81.3 - 96.4 fL [facility] ([place]) MCH 27.4 27.1 - 33.3 pg [facility] ([place]) MCHC 31.8(L) 32.3 - 35.7 g/dL [facility] ([place]) RDW CV 13.2 11.1 - 14.9 % [facility] ([place]) RDW SD 41.5 35.7 - 48.1 fL [facility] ([place]) NRBC abs 0.00 0.00 - 0.01 K/cumm [facility] ([facility]) Blood Venous blood specimen / Unknown 01/22/2025 4:35 PM CDT 01/22/2025 4:45 PM CDT Vaughn HAYS LAB BLOOD ORDERA BLES Final Result [facility] ([place] 1 [facility] Department [place] [address] * hCG, blood, quantitative (01/22/2025 4:35 PM CDT) hCG, quant <5.0 0.0 - [...] BLOOD ORDERA BLES Edited Result - Final [facility] ([place]) 1 [facility] Department [place] [address] * Lipase (01/22/2025 4:35 PM CDT) Lipase 28 10 - 99 Units/L Blood Venous blood specimen / Unknown 01/22/2025 4:35 PM CDT 01/22/2025 4:45 PM CDT Vaughn HAYS LAB BLOOD ORDERA BLES Final Result [facility] ([place]) [address] [facility] [place] [address] * (ABNORMAL) Comprehensive metabolic panel (01/22/2025 4:35 PM CDT) Sodium 137 135 - 145 mmol/L Potassium, pl 4.2 3.3 - 4.9 mmol/L [facility] ([place]) Chloride 101 97 - 110 mmol/L [facility] ([place]) CO2 24 22 - 32 mmol/L [facility] ([place]) Anion gap 12 2 - 15 mmol/L [facility] ([place]) BUN 10 6 - 25 mg/dL [facility] ([place]) Creatinine 0.87 0.60 - 1.10 [...] BLES Final Result [facility] ([place]) 1 [facility] Department [place] [address] from Last 3 Months Insurance Advance Directives For more information, please contact: [phone] * Full Code (Latest Code Status on File) Date Activated Date Inactivated Comments 01/23/2025 3:48 AM 01/24/2025 5:09 PM Care Teams Aerodynamics Teacher Relationship Specialty Start Date End Date Barry Beltran MD [address] [place] [address] PCP - General Internal Medicine 10/28/23 [place] [address] [address] [address] Surgeon General Surgery 01/23/25
--- OUTSIDE RECORDS SUMMARY | 2025-01-30 14:34 | XMS_ITS ---
Author Organization [facility] Address [address] [place] [address] Care Team Providers Care Mesmerist Name Role Phone Barry Beltran Primary Care Provider Kylah Aldirch Unavailable [phone] REASON FOR VISIT missed appt on 12/31/24- 1 month f u Social History Sex Assigned At : Social History Observation Description Sex Assigned At Female Encounters Encounter Location Date Provider [address] [place] [address] 01/21/2025 Kylah Aldrich Plan Of Treatment Next Appt Details Provider Name:Kylah holley, 02/04/2025 03:40:00 PM[facility] [address] [place], [address], Provider Name:Barry Beltran , 02/18/2025 09:00:00 AM, [address] [place], [place] [address], [place], [address], Progress Notes * Brook TIWARIeDOB: [birth year] (34 yo F)Acc No.[id number]:01/21/2025 UNLOCKED PROGRESS NOTE Patient: Wendy Merle LEAL Provider: Viet Aldrich, MSN, VIDEO EDITING INTERN, COLLAR BAND CREASER-C :1990 A ge:34 Y S ex:Female Date:01/21/2025 Address:[address] [place], [place] [phone] Pcp:Barry Beltran Subjective: * Chief Complaints: * 1 . Missed appt on 12/31/24- 1 month f u. * Medical History: Objective: * Vitals: Assessment: Plan: * Treatment: * * Electronic signature of Artur Aldrich , [id number] on 01/30/2025 at 02:15 PM CDT Sign off status: Pending * Provider: Viet Aldrich, MSN, VIDEO EDITING INTERN, COLLAR BAND CREASER-C Date: 0 01/21/2025 Generated for Shruti douglas/Elizabeth/eTransmitting on: 0 01/30/2025 02:15 PM CDT
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
[2025-01-30 14:54] VITALS: BP 140/79; PULSE 93; RESP 16; TEMP 36.2; O2SAT 98
--- NOTE | 2025-01-30 15:45 | ED.ABDPAIN ---
HPI - Abdominal Pain General Chief Complaint: Wound/Laceration <Fallon Jacob PA-C - Last Filed: 01/30/25 15:53> Stated Complaint: gallbladder 01/23/25, drainage from incision <Fallon Jacob PA-C - Last Filed: 01/30/25 15:53> Time Seen by Provider: 01/30/25 18:13 <Fallon Jacob PA-C - Last Filed: 01/30/25 15:53> Focused HPI: 34-year-old female with recent laparoscopic cholecystectomy by Dr. Barahona at [facility] [place] on 01/23/25 presents to the emergency department with concerns for infection to her incision sites and abdominal pain. Patient states she began developing pain to her right upper quadrant about 4 days ago she describes as a burning sensation. She went to [facility] 3 days to go to get a ?2nd opinion?, reportedly had blood work and a CT scan done which showed no reported abnormalities. She called her surgeon and was told the earliest they could get her into the office is 02/21/25. She presents today because she started noticing purulence drainage to 1 of her incision sites yesterday and is worried 1 of the incisions is opening up. Also states last night when she bent over she felt a pulling and ?stretching? pain in her right upper quadrant and is worried she tore something. She denies fever, vomiting. She states she has been nauseous. Last bowel movement was yesterday evening and diarrhea. GENERAL: Well-appearing, well-nourished, and in no acute distress. HEAD: Normocephalic, atraumatic. CHEST: Clear to auscultation. ?No respiratory distress. ABD: Morbidly obese. 4 well-healed surgical incisions to the abdomen with overlying glue in place and intact. No significant surrounding erythema or warmth, no purulence or induration, no drainage. Diffuse tenderness to the abdomen on palpation with no guarding, rebound or rigidity HEART: Regular rate and rhythm.? NEURO: ?Alert and oriented x3. Patient screened in triage and initial orders placed.? ?Additional care and disposition to be based upon?diagnostic testing and treatment. <Fallon Jacob PA-C - Last Filed: 01/30/25 15:53> Focused HPI: 34-year-old female with recent laparoscopic cholecystectomy by Dr. Barahona at [facility] [place] on 01/23/25 presents to the emergency department with concerns for infection to her incision sites and abdominal pain. Patient states she began developing pain to her right upper quadrant about 4 days ago she describes as a burning sensation. She went to [facility] 3 days to go to get a ?2nd opinion?, reportedly had blood work and a CT scan done which showed no reported abnormalities. She called her surgeon and was told the earliest they could get her into the office is 02/21/25. She presents today because she started noticing purulence drainage to 1 of her incision sites yesterday and is worried 1 of the incisions is opening up. Also states last night when she bent over she felt a pulling and ?stretching? pain in her right upper quadrant and is worried she tore something. She denies fever, vomiting. She states she has been nauseous. Last bowel movement was yesterday evening and diarrhea. GENERAL: Well-appearing, well-nourished, and in no acute distress. HEAD: Normocephalic, atraumatic. CHEST: Clear to auscultation. ?No respiratory distress. ABD: Morbidly obese. 4 well-healed surgical incisions to the abdomen with overlying glue in place and intact. No significant surrounding erythema or warmth, no purulence or induration, no drainage. Diffuse tenderness to the abdomen on palpation with no guarding, rebound or rigidity HEART: Regular rate and rhythm.? NEURO: ?Alert and oriented x3. Patient screened in triage and initial orders placed.? ?Additional care and disposition to be based upon?diagnostic testing and treatment. <Anita Arias PA-C - Last Filed: 01/30/25 21:20> Source: patient <Ainta Arias PA-C - Last Filed: 01/30/25 21:20> Mode of arrival: ambulatory <CONNIE Henderson Last Filed: 01/30/25 21:20> Limitations: no limitations <CONNIE Henderson Last Filed: 01/30/25 21:20> History of Present Illness HPI narrative: Agree with above HPI. Patient was prescribed oxycodone, but states she does not like taking this. <Anita Arias PA-C - Last Filed: 01/30/25 21:20> Related Data Home Medications: Home Medications ?Medication ?Instructions ?Recorded ?Confirmed ?Last Taken ?Type alprazolam 0.25 mg tablet 0.25 mg PO DAILY 10/12/21 07/28/24 Unknown History fluoxetine 40 mg capsule 40 mg PO DAILY 10/16/22 07/28/24 Unknown History lamotrigine 100 mg tablet 200 mg PO DAILY 02/10/23 07/28/24 Unknown History dextroamphetamine-amphetamine ER 30 mg PO DAILY 01/04/24 07/28/24 Unknown History 30 mg 24hr capsule,extend release levothyroxine 100 mcg tablet mcg 07/28/24 Unknown History <Fallon Jacob PA-C - Last Filed: 01/30/25 15:53> Allergies/Adverse Reactions: Allergies Allergy/AdvReac Type Severity Reaction Status Date / Time Sulfa (Sulfonamide Allergy Severe Anaphylaxis Verified 01/30/25 18:40 Antibiotics) sulfamethoxazole (From Allergy Severe Anaphylactic Verified 01/30/25 18:40 Bactrim) Shock trimethoprim (From Bactrim) Allergy Severe Anaphylactic Verified 01/30/25 18:40 Shock <Fallon Jacob PA-C - Last Filed: 01/30/25 15:53> Review of Systems Review of Systems: All systems reviewed & are unremarkable except as noted in HPI. <Anita Arias PA-C - Last Filed: 01/30/25 21:20> All systems reviewed & are unremarkable except as noted in HPI and below <Anita Arias PA-C - Last Filed: 01/30/25 21:20> [facility] Past Medical History Medical History: Medical History Mass of left forearm Kidney stones, calcium oxalate Abnormal uterine bleeding Bipolar 1 disorder Menometrorrhagia Depression Anxiety Gastroesophageal reflux disease Asthma Migraine Morbid obesity with BMI of 50.0-59.9, adult <Fallon Jacob PA-C - Last Filed: 01/30/25 15:53> Family History Family History: Family History Mother Family history of bipolar disorder Father Family history of chronic obstructive pulmonary disease <Fallon Jacob PA-C - Last Filed: 01/30/25 15:53> Social History Social History: Social History Years smoked: 3 Smoking status: Current every day smoker Tobacco type: e-cigarettes/vaping Second hand tobacco smoke exposure: Yes Additional smoking assessment comments: former cigarette smoker now vapes Alcohol intake: current Drinks per week: 0 Alcohol use details: 3/YEAR Substance use: never Substance use type: does not use Living arrangements: with family Gender identity (if verbalized by the patient): Female Spiritual care concerns: No <Fallon Jacob PA-C - Last Filed: 01/30/25 15:53> Exam Narrative: GENERAL: Well appearing, morbidly obese with BMI of 55.8, non-toxic, in no acute distress. HEAD: Normocephalic, atraumatic. RESPIRATORY: Airway patent, respirations nonlabored. Clear to auscultation bilaterally, no rales, rhonchi, wheezing. CARDIOVASCULAR: Regular rate and rhythm without murmurs, rubs, or gallops. ABDOMINAL: Soft, diffuse tenderness throughout abdomen, worse throughout RUQ. Abdominal incisions w/o evidence of dehiscence, clean/dry/intact with glue still in place. Does have some crusting material over incisions, but no active bleeding or drainage. Nondistended. Normoactive BS. MUSCULOSKELETAL: Moves all extremities. No gross deformities. SKIN: Warm, dry, normal color. NEURO: A&O X3. Speech clear. Cranial nerves II-XII grossly intact. Steady gait. No ataxic movements. PSYCHIATRIC: Appropriate mood and affect. Normal interaction. <Anita Arias PA-C - Last Filed: 01/30/25 21:20> Course Vital Signs Vital signs: Vital Signs Temperature 97.1 F L 01/30/25 14:54 Pulse Rate 93 01/30/25 14:54 Respiratory Rate 16 01/30/25 14:54 Blood Pressure 140/79 01/30/25 14:54 Pulse Oximetry 98 01/30/25 14:54 Temperature 97.7 F 01/30/25 17:59 Pulse Rate 76 01/30/25 18:18 Respiratory Rate 16 01/30/25 18:18 Blood Pressure 149/75 H 01/30/25 18:18 Pulse Oximetry 100 01/30/25 18:18 <CONNIE Garcia Last Filed: 01/30/25 15:53> Vital Signs Temperature 97.1 F L 01/30/25 14:54 Pulse Rate 93 01/30/25 14:54 Respiratory Rate 16 01/30/25 14:54 Blood Pressure 140/79 01/30/25 14:54 Pulse Oximetry 98 01/30/25 14:54 Temperature 97.7 F 01/30/25 17:59 Pulse Rate 76 01/30/25 18:18 Respiratory Rate 16 01/30/25 18:18 Blood Pressure 149/75 H 01/30/25 18:18 Pulse Oximetry 100 01/30/25 18:18 <CONNIE Henderson Last Filed: 01/30/25 21:20> MDM - Abdominal Pain MDM Narrative Medical decision making narrative: Patient presented to ED with concern for infected gallbladder incisions. History of cholecystectomy on 01/23 at [facility] [place]. Has been seen at several other facilities since then. Reporting some purulent drainage from her incision since last night. Vital signs are stable upon arrival. Patient is afebrile here. In no acute distress. Cbc without leukocytosis. Slight hemoconcentration noted with elevated hemoglobin. Fluids initiated. CMP is fairly unremarkable. Very slight elevation of AST to 57, ALT 103. Alk-phos within normal range. Total bilirubin within normal range. Lipase within normal range. UA without signs of infection. CT scan of abdomen/pelvis was obtained and w/o acute abnormalities, no evidence of complications of cholecystectomy, abscess formation, seroma/hematoma/bile leak. Discussed lab and imaging findings, overall reassuring workup with patient. Safe for discharge home at this time with follow-up with her surgeon as an outpatient. Advised to continue pain medication as needed. Discussed return precautions. She is in agreement with plan. Discharged in stable condition. <Anita Arias PA-C - Last Filed: 01/30/25 21:20> Medical Records Attestation: I reviewed the patient's medical records. <Anita Arias PA-C - Last Filed: 01/30/25 21:20> Lab Data Attestation: I reviewed the patient's lab results. <Anita Arias PA-C - Last Filed: 01/30/25 21:20> Result diagrams: 01/30/25 18:39 01/30/25 18:39 <Fallon Jacob PA-C - Last Filed: 01/30/25 15:53> Labs: Lab Results 01/30/25 01/30/25 Range/Units 18:29 18:39 WBC 8.7 (4.5-10.0) K/mm3 RBC 5.61 H (4.2-5.4) M/mm3 Hgb 15.1 H (12.0-15.0) g/dL Hct 48.3 H (37.0-47.0) % MCV 86.1 (80-100) fl MCH 26.9 (26-34) pg MCHC 31.3 L (32-36) g/dl RDW 13.9 (11.5-14.5) % Plt Count 286 (150-375) k/mm3 MPV 9.3 (7.4-10.4) fl Immature Gran % (Auto) 0.5 (0-0.5) % Neut % (Auto) 61.5 (45.5-73.1) % Lymph % (Auto) 25.9 (18.3-44.2) % [place] % (Auto) 9.8 H (2.6-8.5) % Eos % (Auto) 1.7 (0-4.4) % Baso % (Auto) 0.6 (0.2-1.2) % Lymph # (Auto) 2.25 (0.9-3.2) K/mm3 [place] # (Auto) 0.9 H (0.1-0.6) K/mm3 Eos # (Auto) 0.2 (0-0.3) K/mm3 Baso # (Auto) 0.1 (0.0-0.1) K/mm3 Abs Immat Gran (auto) 0.04 H (0.00-0.031) K/mm3 Absolute Neuts (auto) 5.4 (1.3-6.7) K/mm3 Absolute Nucleated RBC 0.000 (0.0-0.012) K/mm3 Nucleated RBC % 0.0 (0.0-0.2) % Sodium 139 (137-145) mmol/L Potassium 4.4 (3.4-5.0) mmol/L Chloride 104 (98-107) mmol/L Carbon Dioxide 25 (22-30) mmol/L Anion Gap 10 (4-12) mmol/L BUN 9 D (7-17) mg/dL Creatinine 0.88 (0.7-1.0) mg/dL Estim Creat Clear Calc 113 ml/min Estimated GFR > 60 (59 - ) Glucose 93 (65-110) mg/dL Lactic Acid 1.1 (0.7-2.0) mmol/L Calcium 9.2 (8.4-10.2) mg/dL Total Bilirubin 0.5 (0.2-1.3) mg/dL AST 57 H (14-36) U/L ALT 103 H (6-35) U/L Alkaline Phosphatase 102 (38-126) U/L Total Protein 8.6 H (6.3-8.2) g/dL Albumin 4.6 (3.5-5.1) g/dL Urine Color Yellow (Yellow) Urine Appearance Cloudy H (Clear) Urine pH 5.5 (5.0-9.0) Ur Specific [place] 1.029 (1.001-1.035) Urine Protein Negative (Negative) mg/dL Urine Glucose (UA) Negative (Negative) mg/dL Urine Ketones Trace H (Negative) mg/dL Ur Blood (Man) Negative (Negative) Urine Nitrate Negative (Negative) Urine Bilirubin Negative (Negative) Urine Urobilinogen 1.0 (<2.0) mg/dL Leukocyte Esterase Rfl Negative (Negative) JULIAN/UL Urine RBC 0-2 (0-2) /hpf Urine WBC 0-5 (0-3) /hpf Ur Squamous Epith Cells Few (Few) /hpf Urine Bacteria 1+ H /hpf Urine Casts 0-2 <Fallon Jacob PA-C - Last Filed: 01/30/25 15:53> Lab Results 01/30/25 01/30/25 Range/Units 18:29 18:39 WBC 8.7 (4.5-10.0) K/mm3 RBC 5.61 H (4.2-5.4) M/mm3 Hgb 15.1 H (12.0-15.0) g/dL Hct 48.3 H (37.0-47.0) % MCV 86.1 (80-100) fl MCH 26.9 (26-34) pg MCHC 31.3 L (32-36) g/dl RDW 13.9 (11.5-14.5) % Plt Count 286 (150-375) k/mm3 MPV 9.3 (7.4-10.4) fl Immature Gran % (Auto) 0.5 (0-0.5) % Neut % (Auto) 61.5 (45.5-73.1) % Lymph % (Auto) 25.9 (18.3-44.2) % [place] % (Auto) 9.8 H (2.6-8.5) % Eos % (Auto) 1.7 (0-4.4) % Baso % (Auto) 0.6 (0.2-1.2) % Lymph # (Auto) 2.25 (0.9-3.2) K/mm3 [place] # (Auto) 0.9 H (0.1-0.6) K/mm3 Eos # (Auto) 0.2 (0-0.3) K/mm3 Baso # (Auto) 0.1 (0.0-0.1) K/mm3 Abs Immat Gran (auto) 0.04 H (0.00-0.031) K/mm3 Absolute Neuts (auto) 5.4 (1.3-6.7) K/mm3 Absolute Nucleated RBC 0.000 (0.0-0.012) K/mm3 Nucleated RBC % 0.0 (0.0-0.2) % Sodium 139 (137-145) mmol/L Potassium 4.4 (3.4-5.0) mmol/L Chloride 104 (98-107) mmol/L Carbon Dioxide 25 (22-30) mmol/L Anion Gap 10 (4-12) mmol/L BUN 9 D (7-17) mg/dL Creatinine 0.88 (0.7-1.0) mg/dL Estim Creat Clear Calc 113 ml/min Estimated GFR > 60 (59 - ) Glucose 93 (65-110) mg/dL Lactic Acid 1.1 (0.7-2.0) mmol/L Calcium 9.2 (8.4-10.2) mg/dL Total Bilirubin 0.5 (0.2-1.3) mg/dL AST 57 H (14-36) U/L ALT 103 H (6-35) U/L Alkaline Phosphatase 102 (38-126) U/L Total Protein 8.6 H (6.3-8.2) g/dL Albumin 4.6 (3.5-5.1) g/dL Urine Color Yellow (Yellow) Urine Appearance Cloudy H (Clear) Urine pH 5.5 (5.0-9.0) Ur Specific [place] 1.029 (1.001-1.035) Urine Protein Negative (Negative) mg/dL Urine Glucose (UA) Negative (Negative) mg/dL Urine Ketones Trace H (Negative) mg/dL Ur Blood (Man) Negative (Negative) Urine Nitrate Negative (Negative) Urine Bilirubin Negative (Negative) Urine Urobilinogen 1.0 (<2.0) mg/dL Leukocyte Esterase Rfl Negative (Negative) JULIAN/UL Urine RBC 0-2 (0-2) /hpf Urine WBC 0-5 (0-3) /hpf Ur Squamous Epith Cells Few (Few) /hpf Urine Bacteria 1+ H /hpf Urine Casts 0-2 <CONNIE Henderson Last Filed: 01/30/25 21:20> Imaging Data Attestation: I personally reviewed and interpreted this imaging study as follows: <CONNIE Henderson Last Filed: 01/30/25 21:20> Radiologist's impression: ITS Impressions Abdomen/Pelvis CT 01/30/25 19:48 IMPRESSION: 1. No evidence of appendicitis, diverticulitis or intestinal obstruction. 2. Hepatomegaly with fat infiltration. <CONNIE Garcia Last Filed: 01/30/25 15:53> ITS Impressions Abdomen/Pelvis CT 01/30/25 19:48 IMPRESSION: 1. No evidence of appendicitis, diverticulitis or intestinal obstruction. 2. Hepatomegaly with fat infiltration. <Anita Arias PA-C - Last Filed: 01/30/25 21:20> Discharge Plan Discharge Clinical Impression: Right upper quadrant abdominal pain, History of cholecystectomy <CONNIE Garcia Filed: 01/30/25 15:53> Patient Disposition: Home <CONNIE Garcia Last Filed: 01/30/25 15:53> Condition: Stable <CONNIE Garcia Filed: 01/30/25 15:53> Instructions: Antibiotic Form, Abdominal Pain (ED) <CONNIE Garcia Filed: 01/30/25 15:53> Additional Instructions: Continue your home oxycodone as needed for pain. You may also use Tylenol/ibuprofen as needed for additional pain relief with this. Stay well hydrated. Continue to follow-up with your surgeon for further evaluation. Limit any heavy lifting. Return to an ED for severe pain, persistent fevers, unable to keep down food or drink, or worsening concerns. <CONNIE Garcia Filed: 01/30/25 15:53> Patient Language: Grenadian <CONNIE Garcia Filed: 01/30/25 15:53> Prescriptions: No Action alprazolam 0.25 mg Tablet 0.25 mg PO DAILY cetirizine [Zyrtec] 10 mg tablet 10 mg PO DAILY Qty: 30 0RF ibuprofen 800 mg tablet 800 mg PO TID PRN (Reason: pain) Qty: 15 0RF lidocaine HCl [Lidocaine Viscous] 2 % solution 1 applic mucous membrane TID PRN (Reason: pain) Qty: 100 0RF Rx Instructions: apply with cotton swab to site of pain amoxicillin-pot clavulanate 875-125 mg tablet 1 tablet PO Q12H 7 Days Qty: 14 0RF fluoxetine 40 mg capsule 40 mg PO DAILY lamotrigine 100 mg Tablet 200 mg PO DAILY dextroamphetamine-amphetamine 30 mg capsule,extended release 24hr 30 mg PO DAILY levothyroxine 100 mcg tablet amoxicillin 875 mg tablet 875 mg PO Q12H Qty: 20 0RF tsmzkayx-kbtnmbgiz-JC 3.5-10,000-1 mg/mL-unit/mL-% drops,suspension 4 drp LEFT EAR Q6H Qty: 10 0RF <Fallon Jacob PA-C - Last Filed: 01/30/25 15:53> Follow-up/Referrals: Barry Beltran MD [Primary Care Provider] - <Fallon Jacob PA-C - Last Filed: 01/30/25 15:53> Time of Disposition: 21:02 <Fallon Jacob PA-C - Last Filed: 01/30/25 15:53> 21:02 <Anita Arias PA-C - Last Filed: 01/30/25 21:20>
[2025-01-30 17:59] VITALS: BP 133/78; PULSE 99; RESP 16; TEMP 36.5; O2SAT 100
[2025-01-30 18:18] VITALS: BP 149/75; PULSE 76; RESP 16; O2SAT 100
--- OUTSIDE RECORDS SUMMARY | 2025-01-30 18:22 | XMS_ITS | Clinical Summary ---
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
--- OUTSIDE RECORDS SUMMARY | 2025-01-30 18:22 | XMS_ITS | Clinical Summary ---
Author Organization [facility] Address [address] [facility] [place] [address] Phone Care Team Providers Care Waybill Clerk Name Role Phone Hoa Kong BRUNO Primary Care Provider [phone] Allergies Active Allergy Reactions Criticality Noted Date Comments Sulfa Antibiotics Other (see Comments) 06/09/20 20 Medications labetalol (NORMODYNE) 100 MG Tablet 9 Active ondansetron (ZOFRAN) 4 MG Tablet 8 Active Wymcvhrg-Bnn-Vf- FA (PRE-JOHN PO) Take by mouth. Active [...] Description 01/16/2025 Telephone [facility] [address] [place] [address] Chetan Cooley MD from Last [...] Visit [facility] [address] [place] [address] Chetan Cooley MD [address] [address] Health Maintenance Due Date Last Done Comments [...] age to complete this topic Insurance MEDICAID [facility] Care Teams Waybill Clerk Relationship Specialty Start Date End Date Hoa Kong APRN PCP - General Advanced Practice Nurse 04/27/22
--- OUTSIDE RECORDS SUMMARY | 2025-01-30 18:22 | XMS_ITS | Clinical Summary ---
Author Organization [facility] Address [address] [place] [address] Care Team Providers Care Assistant Credit Manager Name Role Phone Barry Beltran MD Primary Care Provider [phone] Esteban Barahona MD Unavailable [phone] Allergies Active Allergy Reactions Criticality Noted Date [...] 1 tablet (100 mcg total) by mouth senior care assistant before breakfast 90 tablet 3 08/16/19 Active [...] Date Type Department Care Team Description 01/28/2025 [facility] Post Discharge Follow up phone call [address] [address] Dinorah Nowak RN 01/25/2025 10:28 PM CDT - 01/26/2025 1:46 AM CDT Emergency [facility] Emergency Department [address] [place] [address] Albert Clark MD Postoperative pain (Primary Dx) Discharge Disposition: Discharge to home or self care 01/23/2025 8:37 AM CDT Anesthesia Event [facility] Operating Room [address] [place] [address] Geovanna Naqvi Jr., MD Gibbons, Jesse Graham, TACOS 01/23/2025 8:30 AM CDT - 01/23/2025 10:30 AM CDT Surgery [facility] Operating Room [address] [place] [address] Esteban Barahona MD LAPAROSCOPIC CHOLECYSTECTOMY WITH CHOLANGIOGRAMS 01/23/2025 3:04 AM CDT - 01/24/2025 1:04 PM CDT Hospital Encounter [address] [address] Sharad Dejesus MD Rivera, Samantha, MD Cholecystitis Discharge Disposition: Discharge to home or self care 01/23/2025 2:44 AM CDT - 01/23/2025 11:59 PM CDT Hospital Encounter [facility] Emergency, Room R Discharge Disposition: Discharge to home or self care 01/22/2025 7:39 PM CDT - 01/23/2025 2:43 AM CDT Emergency [facility] Emergency Department [address] [place] [address] Vaughn Flynn PA Cholecystitis (Primary Dx); Calculus [...] on file 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 KH: KH Report ID: [id number] Reading Location: [id number] Procedure Note Barry Christianson MD - 01/26/2025 [...] Barry Christianson M.D. KH: LORE Report ID: [id number] Reading Location: [place] [address] Albert Clark MD IMG CT PROCEDURES Final Resu lt * eGFR (01/25/2025 10:34 PM CDT) Pathologist [facility] eGFR 78 >=60 mL/min/1. 73 m2 Comment: [...] BLOOD ORDERABLES Danielle aroldo Result [facility] [place] 1 [facility] Department [place] [address] * Differential, auto (01/25/2025 10:34 PM CDT) [...] Danielle aroldo Result [facility] ([facility]) 1 [facility] Department [place] [address] * (ABNORMAL) CBC with auto differential (01/25/2025 [...] 43.2 35.7 - 48.1 fL [facility] ([facility]) NRBC abs 0.00 0.00 - 0.01 K/cumm [facility] ([facility]) Blood 01/25/2025 10:3 4 PM CDT 01/25/2025 11:15 PM CDT Arely [facility]YS LAB BLOOD ORDERABLES Danielle kendrick Result [facility] ([facility]) 1 [facility] Department [place] [address] * (ABNORMAL) Comprehensive metabolic panel (01/25/2025 10:34 PM CDT) [facility] Sodium 138 135 - 145 mmol/L [...] HAYS LAB BLOOD ORDERABLES Danielle kendrick Result [facility] ([facility]) 1 [facility] Department [place] [address] * Infection Prevention Layla auris PCR, surveillance Axilla/Groin (01/24/2025 11:52 AM CDT) Pathologist [facility] Layla auris DNA Not Detected Not Detected [facility] Comment: Interpretive Data Testing performed by [facility] Molecular Infectious Disease Laboratory using the Mickey jorge 6800 Layla auris assay. This assay detects DNA from Layla auris using Real-Time PCR. This assay is laboratory developed and is not cleared by the [facility] Food and Drug Administration. The performance characteristics have been verified by the [facility] Molecular Infectious Disease Laboratory. Testing performed by: [facility], [address] [place]., [address] Axilla/Groin 01/24/2025 11:5 2 AM CDT 01/24/2025 3:43 PM CDT Narrative [facility] - 01/25/2025 8:16 AM CDT Order placed by [facility] due to ring surveillance. us Instant Order Generic Provider LAB MICROBIOLOGY - GENERAL ORDERABLES Final Result [facility] [address] Department [place] [address] [facility] * (ABNORMAL) Differential, auto (01/24/2025 4:00 AM CDT) Pathologist [facility] Neutrophil abs 6.87(H) 1.50 - 6.50 K/cumm Imm gran abs 0.03 0.00 - 0.10 K/cumm [facility] Lymphocyte abs 1.18 0.80 - 3.30 K/cumm [facility] Monocyte abs 0.77 0.20 - 0.80 K/cumm [facility] Eosinophil abs 0.01 0.00 - 0.50 K/cumm [facility] Basophil abs 0.02 0.00 - 0.10 K/cumm [facility] Neutrophil pct 77.4 % [facility] Comment: Interpretive Data Percent cell count reference ranges are not reported, since discordance with absolute values may lead to misinterpretation of CBC data. Current Interpretive Data was last revised on 2017. Imm gran pct 0.3 % [facility] Comment: Interpretive Data Percent cell count reference [...] revised on 2017. Monocyte pct 8.7 % [facility] Comment: Interpretive Data Percent cell count reference [...] revised on 2017. Basophil pct 0.2 % [facility] Comment: Interpretive Data Percent cell count reference ranges are not reported, since discordance with absolute values may lead to misinterpretation of CBC data. Current Interpretive Data was last revised on 2017. Blood 01/24/2025 4:00 AM CDT 01/24/2025 4:56 AM CDT Pao Yan MD LAB BLOOD ORDERABLES Final Re sult [facility] [address] Department [place] [address] * (ABNORMAL) CBC with auto differential (01/24/2025 4:00 AM CDT) WBC 8.88 3.80 - 9.90 K/cumm Hgb 12.5 11.9 - 15.5 g/dL [facility] Hct 41.3 35.6 - 45.5 % [facility] Plt 240 150 - 400 K/cumm [facility] MPV 10.0 9.1 - 12.3 fL [facility] RBC 4.67 3.90 - 5.20 M/cumm [facility] MCV 88.4 81.3 - 96.4 fL [facility] [...] ORDERABLES Final Re sult Performing Organization Address City/[facility]/ZIP Co de Phone Number [facility] [phone] [place] [place] [address] * (ABNORMAL) Hepatic function panel [...] BLOOD ORDERABLES Final Re sult [facility] [address] [address] [place] [place] [address] * Surgical pathology (01/23/2025 1:27 PM CDT) Tissue (Gallbladder) 01/23/2025 10:04 AM CDT Narrative PATHOLOGY [facility] - 01/24/2025 6:05 PM CDT EPIC results best viewed via link to PDF [facility] Department of Pathology [address] [place] [address] Note to Patients: This report may [...] Final Report Patient Name: SUSANNA TIWARI Address: [address] [place] [address] Gender: F : 1990 (Age: 34) Service: Medical Location: [facility] Hospital #: [id number] Patient Type: [facility] Taken: 01/23/2025 Received: 01/23/2025 Accessioned: 01/23/2025 Reported: [...] determined by the Surgical Pathology Department at [facility] as part of an ongoing quality improvement consultant program and in compliance with federally mandated [...] characteristics determined by the Surgical Pathology Department [facility]. It has not been cleared or approved by the U. S. Food and Drug Administration. Note for decalcified specimens: This assay has not been validated on decalcified tissues. Results should be interpreted with caution given the possibility of false negativity on decalcified specimens Esteban Barahona MD LAB PATHOLOGY ORDERABLES F inal Result PATHOLOGY [address] [place] [address] * [place] Cholangiogram Intraoperative (01/23/2025 10:09 AM [...] MD IMG FLUOROSCOPY PROCEDURES Final Result * ND AN ELECTIVE ENDOTRACHEAL AIRWAY (01/23/2025 9:40 AM [...] CDT 01/23/2025 5:48 AM CDT Jacquelin Stone SCRAP CRANE OPERATOR LAB BLOOD ORDERABLES Danielle l Result Performing Organization Address [facility] Co de Phone Number [facility] [address] [address] Department [place] [place] [address] * (ABNORMAL) CBC without differential [...] CDT 01/23/2025 5:48 AM CDT Jacquelin Stone SCRAP CRANE OPERATOR LAB BLOOD ORDERABLES Danielle l Result Performing Organization Address City/[facility] Co de Phone Number [facility] [phone] [address] Department of [employer] [place], [place] [id number] * Basic metabolic panel (01/23/2025 5:31 AM CDT) Sodium 139 135 - 145 mmol/L Potassium, pl 4.5 3.3 - 4.9 mmol/L [facility] Chloride 107 97 - 110 mmol/L [facility] CO2 23 22 - 32 mmol/L [facility] Anion gap 9 2 - 15 mmol/L [facility] BUN 13 6 - 25 mg/dL [facility] Creatinine 0.90 0.60 - 1.10 mg/dL [facility] Glucose 103 70 - 199 mg/dL [facility] Comment: Interpretive Data Fasting glucose >/= 126 [...] 2022. Calcium 8.8 8.5 - 10.3 mg/dL [facility] Blood 01/23/2025 5:31 AM CDT 01/23/2025 5:48 AM CDT us Jacquelin Stone NP LAB BLOOD ORDERABLES Danielle kendrick Result [facility] [address] [address] Department [place] [address] * CT Abdomen Pelvis W Contrast (01/22/2025 [...] Azam Steve M.D. AT: AT Report ID: [id number] Reading Location: [id number] Procedure Note Azam Steve MD - 01/22/2025 [...] Azam Steve M.D. AT: AT Report ID: [id number] Reading Location: [id number] us Vaughn HAYS IMG CT PROCEDURE S [...] tendency for uric acid stone formation. Source: [facility] [employer] Current Interpretive Data was last revised on [...] LAB MICROBIOLOGY - GENERAL ORDERABLES Final Result [facility] ([facility]) 1 [facility] Department [place] [address] * eGFR (01/22/2025 4:35 PM CDT) eGFR [...] HAYS LAB BLOOD ORDERA BLES Final Result [facility] 1 [facility] Department [place] [address] * Differential, auto (01/22/2025 4:35 PM CDT) Pathologist [facility] Neutrophil abs 3.69 1.50 - 6.50 K/cumm Imm gran abs 0.02 0.00 - 0.10 K/cumm [facility] ([place]) Lymphocyte abs 2.45 0.80 - 3.30 K/cumm [facility] ([place]) Monocyte abs 0.67 0.20 - 0.80 K/cumm [facility] ([place]) Eosinophil abs 0.14 0.00 - 0.50 K/cumm [facility] ([place]) Basophil abs 0.05 0.00 - 0.10 K/cumm [facility] ([place]) Neutrophil pct 52.6 % [facility] ([place]) Comment: Interpretive Data Percent cell count reference [...] BLES Final Result [facility] ([place]) 1 [facility] Department of Laboratories [place], [place] [id number] * (ABNORMAL) CBC with auto differential (01/22/2025 [...] BLES Final Result [facility] ([place]) 1 [facility] Department [place] [address] * hCG, blood, quantitative (01/22/2025 4:35 PM [...] Result - Final [facility] ([place]) 1 [facility] Department [place] [address] * Lipase (01/22/2025 4:35 PM CDT) Lipase 28 10 - 99 Units/L Blood Venous blood specimen / Unknown 01/22/2025 4:35 PM CDT 01/22/2025 4:45 PM CDT Vaughn HAYS LAB BLOOD ORDERA BLES Final Result [facility] ([place]) 1 [facility] [place] [address] * (ABNORMAL) Comprehensive metabolic panel (01/22/2025 4:35 [...] BLES Final Result [facility] ([facility]) 1 [facility] [place] [address] from Last 3 Months Insurance Advance Directives For more information, please contact: [phone] * Full Code (Latest Code Status on File) Date Activated Date Inactivated Comments 01/23/2025 3:48 AM 01/24/2025 5:09 PM Care Teams Assistant Credit Manager Relationship Specialty Start Date End Date Barry Beltran MD [address] [place] [phone] PCP - General Internal Medicine 10/28/23 [place] [address] [address] [address] Surgeon General Surgery 01/23/25
--- OUTSIDE RECORDS SUMMARY | 2025-01-30 18:22 | XMS_ITS | Referral Summary ---
Author Organization [facility] Address [address] [place] [address] Care Team Providers Care Membership Counselor Name Role Phone Barry Beltran MD Primary Care Provider [phone] Esteban Barahona MD Unavailable [phone] Encounters Date Type Department Care Team Description 01/28/2025 [facility] Post Discharge Follow up phone call [address] [address] Dinorah Nowak RN 01/25/2025 10:28 PM CDT - 01/26/2025 1:46 AM CDT Emergency [facility] Emergency Department [address] [place] [address] Albert Clark MD Postoperative pain (Primary Dx) Discharge Disposition: Discharge to home or self care 01/23/2025 3:04 AM CDT - 01/24/2025 1:04 PM CDT Hospital Encounter [address] [address] Sharad Dejesus MD Rivera, Samantha, MD Cholecystitis Discharge Disposition: Discharge to home or self care 01/23/2025 2:44 AM CDT - 01/23/2025 11:59 PM CDT Hospital Encounter [facility] Emergency, Room R Discharge Disposition: Discharge to home or self care 01/23/2025 8:37 AM CDT Anesthesia Event [facility] Operating Room [address] [place] [address] [id number] Geovanna Naqvi Jr., MD Gibbons, Jesse Graham, TACOS 01/23/2025 8:30 AM CDT - 01/23/2025 10:30 AM CDT Surgery [facility] Operating Room [id number] [place] [address] Esteban Barahona MD LAPAROSCOPIC CHOLECYSTECTOMY WITH CHOLANGIOGRAMS 01/22/2025 7:39 PM CDT - 01/23/2025 2:43 AM CDT Emergency [facility] Emergency Department [address] [place] [address] Vaughn Flynn PA Cholecystitis (Primary Dx); Calculus [...] 1 tablet (100 mcg total) by mouth neon sign servicer before breakfast 90 tablet 3 08/16/19 23 [...] on file 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 KH: LORE Report ID: [id number] Reading Location: [id number] Procedure Note Barry Christianson MD - 01/26/2025 [...] Barry Christianson M.D. KH: LORE Report ID: [id number] Reading Location: [place] [address] Albert Clark MD IMG CT PROCEDURES Final [...] BLOOD ORDERABLES Danielle kendrick Result FREDDY RHOADES ([place]) 1 [facility] Department of Laboratories [place], [place] [id number] * Differential, auto (01/25/2025 10:34 PM CDT) Neutrophil abs 4.10 1.50 - 6.50 K/cumm Imm gran abs 0.04 0.00 - 0.10 K/cumm [facility] ([place]) Lymphocyte abs 2.80 0.80 - 3.30 K/cumm [facility] ([place]) Monocyte abs 0.76 0.20 - 0.80 K/cumm [facility] ([place]) Eosinophil abs 0.18 0.00 - 0.50 K/cumm [facility] ([place]) Basophil abs 0.05 0.00 - 0.10 K/cumm [facility] ([place]) Neutrophil pct 51.7 % [facility] ([place]) Comment: Interpretive Data Percent cell count reference ranges are not reported, since discordance with absolute values may lead to misinterpretation of CBC data. Current Interpretive Data was last revised on 2017. Imm gran pct 0.5 % [facility] ([place]) Comment: Interpretive Data Percent cell count reference ranges are not reported, since discordance with absolute values may lead to misinterpretation of CBC data. Current Interpretive Data was last revised on 2017. Lymphocyte pct 35.3 % [facility] ([place]) Comment: Interpretive Data Percent cell count reference ranges are not reported, since discordance with absolute values may lead to misinterpretation of CBC data. Current Interpretive Data was last revised on 2017. Monocyte pct 9.6 % [facility] ([place]) Comment: Interpretive Data Percent cell count reference ranges are not reported, since discordance with absolute values may lead to misinterpretation of CBC data. Current Interpretive Data was last revised on 2017. Eosinophil pct 2.3 % [facility] ([place]) Comment: Interpretive Data Percent cell count reference [...] Danielle l Result [facility] ([place]) [address] [facility] [place] [address] * (ABNORMAL) CBC with auto differential (01/25/2025 [...] HAYS LAB BLOOD ORDERABLES Danielle kendrick Result [facility] ([place] 1 [facility] Department of Laboratories [place], [place] [id number] * (ABNORMAL) Comprehensive metabolic panel (01/25/2025 10:34 [...] BLOOD ORDERABLES Danielle l Result [facility]DY RHOADES ([place]) 1 [facility] Department [place] [address] * Infection Prevention Layla auris PCR, surveillance Axilla/Groin (01/24/2025 11:52 AM CDT) Layla auris DNA Not Detected Not Detected [facility] Comment: Interpretive Data Testing performed by [facility] Molecular Infectious Disease Laboratory using the Mickey jorge Cartasite0 Layla auris assay. This assay detects DNA from Layla auris using Real-Time PCR. This assay is laboratory developed and is not cleared by the [place] Food and Drug Administration. The performance characteristics have been verified by the [facility]. Testing performed by: [facility], [address] [place]., [address] Axilla/Groin 01/24/2025 11:5 2 AM CDT 01/24/2025 3:43 PM CDT Narrative FREDDY - 01/25/2025 8:16 AM CDT Order placed by [facility] due to ring surveillance. Instant Order Generic Provider LAB MICROBIOLOGY - GENERAL ORDERABLES Final Result Performing Organization Address City/[facility]/ZIP Co de Phone Number FREDDY [place] [address] [address] Department [place] [address] [facility] * (ABNORMAL) Differential, auto (01/24/2025 4:00 AM CDT) Neutrophil abs 6.87(H) 1.50 - 6.50 K/cumm Imm gran abs 0.03 0.00 - 0.10 K/cumm [facility] Lymphocyte abs 1.18 0.80 - 3.30 K/cumm [facility] Monocyte abs 0.77 0.20 - 0.80 K/cumm [facility] Eosinophil abs 0.01 0.00 - 0.50 K/cumm [facility] Basophil abs 0.02 0.00 - 0.10 K/cumm [facility] Neutrophil pct 77.4 % [facility] Comment: Interpretive Data Percent cell count reference ranges are not reported, since discordance with absolute values may lead to misinterpretation of CBC data. Current Interpretive Data was last revised on 2017. Imm gran pct 0.3 % [facility] Comment: Interpretive Data Percent cell count reference ranges are not reported, since discordance with absolute values may lead to misinterpretation of CBC data. Current Interpretive Data was last revised on 2017. Lymphocyte pct 13.3 % [facility] Comment: Interpretive Data Percent cell count reference ranges are not reported, since discordance with absolute values may lead to misinterpretation of CBC data. Current Interpretive Data was last revised on 2017. Monocyte pct 8.7 % [facility] Comment: Interpretive Data Percent cell count reference ranges are not reported, since discordance with absolute values may lead to misinterpretation of CBC data. Current Interpretive Data was last revised on 2017. Eosinophil pct 0.1 % [facility] Comment: Interpretive Data Percent cell count reference ranges are not reported, since discordance with absolute values may lead to misinterpretation of CBC data. Current Interpretive Data was last revised on 2017. Basophil pct 0.2 % [facility] Comment: Interpretive Data Percent cell count reference ranges are not reported, since discordance with absolute values may lead to misinterpretation of CBC data. Current Interpretive Data was last revised on 2017. Blood 01/24/2025 4:00 AM CDT 01/24/2025 4:56 AM CDT us Pao Yan MD LAB BLOOD ORDERABLES Final Re sult FREDDY [facility] [address] Department [place] [address] * (ABNORMAL) CBC with auto differential (01/24/2025 [...] MD LAB BLOOD ORDERABLES Final Re sult [facility] [address] [address] Department of Laboratories [place] [id number] * (ABNORMAL) Hepatic function panel (01/24/2025 4:00 [...] LAB BLOOD ORDERABLES Final Re sult FREDDY [address] [facility] Department of Laboratories [place] [id number] * Surgical pathology (01/23/2025 1:27 PM CDT) Tissue (Gallbladder) 01/23/2025 10:04 AM CDT Narrative PATHOLOGY CH - 01/24/2025 6:05 PM CDT EPIC results best viewed via link to PDF [facility] Department of Pathology [address] [place] [address] Note to Patients: This report may contain [...] Final Report Patient Name: SUSANNA TIWARI Address: [address] [place] [address] Gender: F : 1990 (Age: 34) Service: Medical Location: [facility] #: [id number] Patient Type: [facility] Taken: 01/23/2025 Received: 01/23/2025 Accessioned: 01/23/2025 Reported: [...] determined by the Surgical Pathology Department at [facility] as part of an ongoing air quality technician program and in compliance with federally [...] characteristics determined by the Surgical Pathology Department [facility]. It has not been cleared or approved by the [place]. S. Food and Drug Administration. Note for decalcified specimens: This assay has not been validated on decalcified tissues. Results should be interpreted with caution given the possibility of false negativity on decalcified specimens us Esteban Barahona MD LAB PATHOLOGY ORDERABLES F inal Result PATHOLOGY [address] [place] [address] * [place] Cholangiogram Intraoperative (01/23/2025 10:09 AM [...] MD IMG FLUOROSCOPY PROCEDURES Final Result * [place] AN ELECTIVE ENDOTRACHEAL AIRWAY (01/23/2025 9:40 AM [...] CDT 01/23/2025 5:48 AM CDT Jacquelin Stone DOCUMENT ADVISOR LAB BLOOD ORDERABLES Danielle l Result Performing Organization Address City/[facility] Co de Phone Number FREDDY [address] [address] [email or web address] [address] * (ABNORMAL) CBC without differential (01/23/2025 5:31 AM CDT) [facility] WBC 5.95 3.80 - 9.90 K/cumm Hgb 13.3 11.9 - 15.5 g/dL [facility] Hct 43.0 35.6 - 45.5 % [facility] Plt 231 150 - 400 K/cumm [...] RDW SD 43.5 35.7 - 48.1 fL [facility] NRBC abs 0.00 0.00 - 0.01 K/cumm [facility] CH Blood 01/23/2025 5:31 AM CDT 01/23/2025 5:48 AM CDT Jacquelin Stone DOCUMENT ADVISOR LAB BLOOD ORDERABLES Danielle l Result Performing Organization Address [facility] Co de Phone Number FREDDY CAL[place] [address] [address] [place] [address] * Basic metabolic panel (01/23/2025 [...] CH Glucose 103 70 - 199 mg/dL [facility] Comment: Interpretive Data Fasting glucose >/= 126 [...] 2022. Calcium 8.8 8.5 - 10.3 mg/dL [facility] Blood 01/23/2025 5:31 AM CDT 01/23/2025 5:48 AM CDT Jacquelin Stone NP LAB BLOOD ORDERABLES Danielle l Result [facility] [address] Department [place] [address] * CT Abdomen Pelvis W Contrast (01/22/2025 [...] Azam Steve M.D. AT: AT Report ID: [id number] Reading Location: [id number] Procedure Note Azam Steve MD - 01/22/2025 [...] Azam Steve M.D. AT: AT Report ID: [id number] Reading Location: [id number] Vaughn HAYS IMG CT PROCEDURE S Final [...] tendency for uric acid stone formation. Source: [place] [employer] Current Interpretive Data was last revised on [...] GENERAL ORDERABLES Final Result Performing Organization Address City/[facility]/ZIP Co de Phone Number FREDDY RHOADES ([place]) [address] [facility] [place] [address] * eGFR (01/22/2025 4:35 PM CDT) eGFR [...] BLES Final Result FREDDY RHOADES ([place]) 1 [facility] Department [place] [address] * Differential, auto (01/22/2025 4:35 PM CDT) Neutrophil abs 3.69 1.50 - 6.50 K/cumm Imm gran abs 0.02 0.00 - 0.10 K/cumm [facility] ([place]) Lymphocyte abs 2.45 0.80 - 3.30 K/cumm [...] BLOOD ORDERA BLES Final Result FREDDY RHOADES ([place]) 1 [facility] Department [place] [address] * (ABNORMAL) CBC with auto differential (01/22/2025 4:35 PM CDT) [facility] WBC 7.02 3.80 - 9.90 K/cumm [...] BLES Final Result [facility] ([place]) 1 [facility] Department [place] [address] * hCG, blood, quantitative (01/22/2025 4:35 PM CDT) [facility] hCG, quant <5.0 0.0 - 5.0 [...] Edited Result - Final Performing Organization Address City/[facility]/ZIP Co de Phone Number FREDDY RHOADES ([place]) 1 [facility] [place] [place] [address] * Lipase (01/22/2025 4:35 PM CDT) Lipase 28 10 - 99 Units/L Blood Venous blood specimen / Unknown 01/22/2025 4:35 PM CDT 01/22/2025 4:45 PM CDT Vaughn HAYS LAB BLOOD ORDERA BLES Final Result Performing Organization Address [facility] de Phone Number FREDDY RHOADES ([place]) [address] [place] [address] * (ABNORMAL) Comprehensive metabolic panel (01/22/2025 4:35 PM CDT) Sodium 137 135 - 145 mmol/L Potassium, pl 4.2 3.3 - 4.9 mmol/L [facility] ([place]) Chloride 101 97 - 110 mmol/L [facility] ([place]) CO2 24 22 - 32 mmol/L [facility] ([place]) Anion gap 12 2 - 15 mmol/L [facility] ([place]) BUN 10 6 - 25 mg/dL [facility] ([place]) Creatinine 0.87 0.60 - 1.10 [...] BLES Final Result [facility]EDDY RHOADES ([place]) 1 [facility] [place] [address] from Last 3 Months Insurance [facility] Advance Directives For more information, please contact: [phone] * Full Code (Latest Code Status on File) Date Activated Date Inactivated Comments 01/23/2025 3:48 AM 01/24/2025 5:09 PM Care Teams Membership Counselor Relationship Specialty Start Date End Date Barry Beltran MD [address] [place] [address] PCP - General Internal Medicine 10/28/23 [place] [address] [address] [facility] 1 [facility] [address] [place] [address] Surgeon General Surgery 01/23/25
--- NOTE | 2025-01-30 18:26 | PC.NURSE ---
Pt. had hysterectomy. Bed side cancelled.
--- NOTE | 2025-01-30 18:27 | PC.NURSE ---
Pt. able to ambulate to bathroom independently.
[2025-01-30 18:45] LABS: Hematocrit 48.3 % (37.0-47.0); Hemoglobin 15.1 g/dL (12.0-15.0); Immature Granulocyte Percent A 0.5 % (0-0.5); Lymphocytes Absolute Auto 2.25 K/mm3 (0.9-3.2); Mean Corpuscular HGB Conc 31.3 g/dl (32-36); Mean Corpuscular Hemoglobin 26.9 pg (26-34); Mean Corpuscular Volume 86.1 fl (80-100); Nucleated Red Blood Cells Absolute Auto 0.000 K/mm3 (0.0-0.012); Nucleated Red Blood Cells Perc 0.0 % (0.0-0.2); Platelet Count Result 286 k/mm3 (150-375); Red Blood Count 5.61 M/mm3 (4.2-5.4); White Blood Count 8.7 K/mm3 (4.5-10.0)
[2025-01-30 18:51] LABS: Add Urine Microscopic? YES; Appearance Urine Cloudy (Clear); Glucose Urine UA Negative (Negative); Leukocyte Esterase Ur Negative LEU/UL (Negative); Nitrate Urine Negative (Negative); Non Pathogenic Casts 0-2; Specific Grav Ur 1.029 (1.001-1.035)
[2025-01-30 18:57] LABS: Alanine Aminotransferase 103 U/L (6-35); Albumin Level 4.6 g/dL (3.5-5.1); Alkaline Phosphatase 102 U/L (38-126); Anion Gap 10 mmol/L (4-12); Aspartate Amino Transferase 57 U/L (14-36); Bilirubin,Total 0.5 mg/dL (0.2-1.3); Blood Urea Nitrogen 9 mg/dL (7-17); Calcium 9.2 mg/dL (8.4-10.2); Carbon Dioxide 25 mmol/L (22-30); Chloride 104 mmol/L (98-107); Estimated CRCL calculation 113 ml/min; Estimated Glomerular Filt Rate > 60; Glucose 93 mg/dL (65-110); Potassium 4.4 mmol/L (3.4-5.0); Sodium 139 mmol/L (137-145); Total Protein 8.6 g/dL (6.3-8.2)
--- NOTE | 2025-01-30 19:05 | PC.NURSE ---
Bedside report given to Kaylan PHILLIPS by this RN. All questions answers. Pt. and Mom at bedside.
--- NOTE | 2025-01-30 19:20 | PC.NURSE ---
Pt to CT
[2025-01-30] MEDS: SODIUM CHLORIDE 0.9% IV 1,000 ML 999 ML IV CONT (19:48)
[2025-01-30] MEDS: ONDANSETRON INJ 4 MG/2 ML VIAL IV PUSH (19:49)
[2025-01-30] MEDS: MORPHINE SULFATE (*CRX) 4 MG/ML INJ IV PUSH (19:49)
[2025-01-30 21:31] VITALS: BP 136/71; PULSE 68; RESP 18; TEMP 37; O2SAT 97
== END 2025-01-30 21:33 | disposition home or self-care (01) ==
PROVIDERS: Physician Assistant; Emergency Provider Physician Assistant; PCP Internal Medicine
DX: R10.11 Right upper quadrant pain (principal); Z90.49 Acquired absence of other specified parts of digestive tract; F17.290 Nicotine dependence, other tobacco product, uncomplicated; F31.9 Bipolar disorder, unspecified; F41.9 Anxiety disorder, unspecified; K21.9 Gastro-esophageal reflux disease without esophagitis; J45.909 Unspecified asthma, uncomplicated; Z87.442 Personal history of urinary calculi
CPT/HCPCS: 36415; 74177; 80053; 81001; 83605; 85025; 96361; 96374; 96375; 99284; J2270; J2405; J7030; Q9967

== ENCOUNTER 2025-03-04 10:30 | Emergency (ER) | payer OTHER, SELFPAY ==
[2025-03-04 10:39] VITALS: BP 120/55; PULSE 79; RESP 16; TEMP 36.2; O2SAT 100
--- OUTSIDE RECORDS SUMMARY | 2025-03-04 10:40 | XMS_ITS ---
Author Organization [facility] Address [address] [place] [address] Care Team Providers Care Senior Adults Director Name Role Phone Barry Beltran Primary Care Provider [phone] Kylah Aldrich Unavailable [phone] REASON FOR VISIT Labs-fasting Social History Sex Assigned At : Social History Observation Description Sex Assigned At Female Encounters Encounter Location Date Provider Diagnosis [address] [place] [address] 02/18/2025 Barry Beltran Plan Of Treatment No Information Progress Notes * Brook TIWARIeDOB: [birth year] (34 yo F)Acc No.[id number]:02/18/2025 UNLOCKED PROGRESS NOTE Patient: Bailey SHAHIDerie Provider: Anitha Beltran :1990 A ge:34 Y S ex:Female Date:02/18/2025 Address:[address] [place], [place] [id number] Subjective: * Chief Complaints: * 1 . Labs-fasting. * Medical History: Objective: * Vitals: Assessment: Plan: * Treatment: * * Electronic signature of Maribel Beltran , [id number] on 03/04/2025 at 10:40 AM CDT Sign off status: Pending * Provider: Anitha Beltran Date: 02/18/2025 Generated for Shruti douglas/Elizaebth/eTransmitting on: 03/04/2025 10:40 AM CDT
--- OUTSIDE RECORDS SUMMARY | 2025-03-04 10:40 | XMS_ITS | Clinical Summary ---
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 90 tablet 3 08/16/19 23 [...] times a day 60 tablet 01/25/20 25 Active Active Problems Problem Noted Date Diagnosed [...] Encounters Date Type Department Care Team Description 02/21/2025 1:15 PM CDT Office Visit [facility] [address] [place] [address] [address] [id number] Sugar Bond NP Cholecystitis 01/28/2025 [facility] Post Discharge Follow up phone call [address] [address] Dinorah Nowak RN 01/25/2025 10:28 PM CDT - 01/26/2025 1:46 AM CDT Emergency [facility] Emergency Department [address] [place] [address] Albert Clark MD Postoperative pain (Primary Dx) Discharge Disposition: Discharge to home or self care 01/23/2025 8:37 AM CDT Anesthesia Event [facility] Operating Room [address] [place] [address] Geovanna Naqvi Jr., MD Gibbons, Jesse Graham, AA 01/23/2025 8:30 AM CDT - 01/23/2025 10:30 AM CDT Surgery [facility] Operating Room [address] [place] [address] Esteban Barahona MD LAPAROSCOPIC CHOLECYSTECTOMY WITH CHOLANGIOGRAMS 01/23/2025 3:04 AM CDT - 01/24/2025 1:04 PM CDT Hospital Encounter [address] [address] Sharad Dejesus MD Rivera, Samantha, MD Cholecystitis Discharge Disposition: Discharge to home or self care 01/23/2025 2:44 AM CDT - 01/23/2025 11:59 PM CDT Hospital Encounter [facility] Emergency, Room R Discharge Disposition: Discharge to home or self care 01/22/2025 7:39 PM CDT - 01/23/2025 2:43 AM CDT Emergency [facility] Emergency Department [address] [place] [address] Vaughn Flynn PA Cholecystitis (Primary Dx); Calculus [...] - 07/24/2011 HYSTERECTOMY CARPAL TUNNEL RELEASE ABLATION LAPAROSCOPIC CHOLECYSTECTOMY W/ CHOLANGIOGRAPHY 01/23/2025 Medical History Medical History Date Comments CTS [...] on file 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 Gender Identity Female 10/26/2022 1:11 PM CDT Sexual Orientation Lesbian 10/26/2022 1 :11 PM CDT Obstetrics History Para Term AB [...] <65 (1 of 2 - PCV) 2011 HPV Vaccines (1 - 3-dose SCD M series) 2019 Depression Screening 08/16/2023 08/16/2022 Influenza Vaccine (#1) 2025 , 03/30/2024, 05/30/2023, Additional history exists DTaP/Tdap/Td Vaccine (8 - Td or Tdap) 12/06/2028 12/06/2018, 07/06/2005, 04/12/2003, Additional history exists Hepatitis B Screening Completed 08/24/1993 , 1990, 1990 Procedures Procedure Name Priority Date/Time Associated Diagnosis [...] INTRAOPERATIVE IP Routine 01/23/2025 10:[address] AN ELECTIVE ENDOTRACHEAL AIRWAY Routine 01/23/2025 9:40 [...] Barry Christianson M.D. KH: LORE Report ID: [id number] Reading Location: [id number] Procedure Note Barry Christianson MD - 01/26/2025 [...] Barry Christianson M.D. KH: LORE Report ID: [id number] Reading Location: [id number] Albert Clark MD IMG CT PROCEDURES Final [...] LAB BLOOD ORDERABLES Danielle l Result [facility] 1 [facility] [place] [address] * Differential, auto (01/25/2025 10:34 PM CDT) Neutrophil abs 4.10 1.50 - 6.50 K/cumm Imm gran abs 0.04 0.00 - 0.10 K/cumm [facility] ([place]) Lymphocyte abs 2.80 0.80 - 3.30 K/cumm [...] Danielle l Result [facility] ([facility]) 1 [facility] [place] [address] * (ABNORMAL) CBC with auto differential (01/25/2025 10:34 PM CDT) Pathologist [facility] WBC 7.93 3.80 - 9.90 K/cumm Hgb [...] 4 PM CDT 01/25/2025 11:15 PM CDT us Arely HAYS LAB BLOOD ORDERABLES Danielle l Result [facility] ([facility]) 1 [facility] Department [place] [address] * (ABNORMAL) Comprehensive metabolic panel (01/25/2025 10:34 PM CDT) Pathologist [facility] Sodium 138 135 - 145 mmol/L Potassium, [...] LAB BLOOD ORDERABLES Danielle kendrick Result [facility] ([place]) 1 [facility] [place] [address] * Infection Prevention Layla auris PCR, surveillance Axilla/Groin (01/24/2025 11:52 AM CDT) Layla auris DNA Not Detected Not Detected [facility] Comment: Interpretive Data Testing performed by [facility] using the Mickey jorge 6800 Layla auris assay. This assay detects DNA from Layla auris using Real-Time PCR. This assay is laboratory developed and is not cleared by the [place] Food and Drug Administration. The performance characteristics have been verified by the [facility]. Testing performed by: [facility], [address] [place]., [address] Axilla/Groin 01/24/2025 11:5 2 AM CDT 01/24/2025 3:43 PM CDT Narrative [facility] - 01/25/2025 8:16 AM CDT Order placed by [facility] due to ring surveillance. us Instant Order Generic Provider LAB MICROBIOLOGY - GENERAL ORDERABLES Final Result [facility] [id number] Department [place] [address] [facility] * (ABNORMAL) Differential, auto (01/24/2025 4:00 AM CDT) Neutrophil abs 6.87(H) 1.50 - 6.50 K/cumm Imm gran abs 0.03 0.00 - 0.10 K/cumm [facility] Lymphocyte abs 1.18 0.80 - 3.30 K/cumm [facility] Monocyte abs 0.77 0.20 - 0.80 K/cumm [facility] Eosinophil abs 0.01 0.00 - 0.50 K/cumm [facility] Basophil abs 0.02 0.00 - 0.10 K/cumm [facility] Neutrophil pct 77.4 % [facility] Comment: Interpretive Data Percent cell count reference ranges are not reported, since discordance with absolute values may lead to misinterpretation of CBC data. Current Interpretive Data was last revised on 2017. Imm gran pct 0.3 % [facility] Comment: Interpretive Data Percent cell count reference ranges are not reported, since discordance with absolute values may lead to misinterpretation of CBC data. Current Interpretive Data was last revised on 2017. Lymphocyte pct 13.3 % [facility] Comment: Interpretive Data Percent cell count reference ranges are not reported, since discordance with absolute values may lead to misinterpretation of CBC data. Current Interpretive Data was last revised on 2017. Monocyte pct 8.7 % [facility] Comment: Interpretive Data Percent cell count reference ranges are not reported, since discordance with absolute values may lead to misinterpretation of CBC data. Current Interpretive Data was last revised on 2017. Eosinophil pct 0.1 % [facility] Comment: Interpretive Data Percent cell count reference ranges are not reported, since discordance with absolute values may lead to misinterpretation of CBC data. Current Interpretive Data was last revised on 2017. Basophil pct 0.2 % [facility] Comment: Interpretive Data Percent cell count reference ranges are not reported, since discordance with absolute values may lead to misinterpretation of CBC data. Current Interpretive Data was last revised on 2017. Blood 01/24/2025 4:00 AM CDT 01/24/2025 4:56 AM CDT us Pao Yan MD LAB BLOOD ORDERABLES Final Re sult [facility] [id number] [address] Department [place] [address] * (ABNORMAL) CBC with auto differential (01/24/2025 4:00 AM CDT) WBC 8.88 3.80 - 9.90 K/cumm Hgb 12.5 11.9 - 15.5 g/dL [facility] Hct 41.3 35.6 - 45.5 % [facility] Plt 240 150 - 400 K/cumm [facility] MPV 10.0 9.1 - 12.3 fL [facility] RBC 4.67 3.90 - 5.20 M/cumm [facility] MCV 88.4 81.3 - 96.4 fL [facility] MCH 26.8(L) 27.1 - 33.3 pg [facility] MCHC 30.3(L) 32.3 - 35.7 g/dL [facility] RDW CV 13.3 11.1 - 14.9 % [facility] RDW SD 43.3 35.7 - 48.1 fL [facility] NRBC abs 0.00 0.00 - 0.01 K/cumm [facility] Blood 01/24/2025 4:00 AM CDT 01/24/2025 4:56 AM CDT Pao Yan MD LAB BLOOD ORDERABLES Final Re sult Performing Organization Address [facility] Co de Phone Number [facility] [phone] [facility] Department [place] [address] * (ABNORMAL) Hepatic function panel [...] ORDERABLES Final Re sult Performing Organization Address [facility] Co de Phone Number [facility] [address] [facility] Department [place] [address] * Surgical pathology (01/23/2025 1:27 PM CDT) Tissue (Gallbladder) 01/23/2025 10:04 AM CDT Narrative PATHOLOGY [facility] - 01/24/2025 6:05 PM CDT EPIC results best viewed via link to PDF [facility] Department of Pathology [address] [place] [address] Note to Patients: This report may [...] Final Report Patient Name: SUSANNA TIWARI Address: [address] [place] [address] Gender: F : 1990 (Age: 34) Service: Medical Location: [facility] Hospital #: [id number] Patient Type: [facility] Taken: 01/23/2025 Received: 01/23/2025 Accessioned: 01/23/2025 Reported: [...] determined by the Surgical Pathology Department at [facility] as part of an ongoing supervisor quality control program and in compliance with federally mandated [...] characteristics determined by the Surgical Pathology Department [facility]. It has not been cleared or approved by the [place]. S. Food and Drug Administration. Note for decalcified specimens: This assay has not been validated on decalcified tissues. Results should be interpreted with caution given the possibility of false negativity on decalcified specimens Esteban Barahona MD LAB PATHOLOGY ORDERABLES F inal Result PATHOLOGY [address] [place] [address] * [place] Cholangiogram Intraoperative (01/23/2025 10:09 AM CDT) Anatomical Region Laterality Modality Body, Abdomen N/A Computed Radiogr aphy 01/23/2025 10:5 1 AM CDT Impressions 01/23/2025 10:51 AM CDT Normal OR cholangiogram. Electronically signed by: Elsa Avila 01/23/2025 10:51 AM CDT EXAMINATION: FL CHOLANGIOGRAM [...] MD IMG FLUOROSCOPY PROCEDURES Final Result * CT AN ELECTIVE ENDOTRACHEAL AIRWAY (01/23/2025 9:40 AM [...] NP LAB BLOOD ORDERABLES Danielle kendrick Result [facility] [id number] [address] Department [place] [address] * (ABNORMAL) CBC without differential (01/23/2025 5:31 AM CDT) [facility] WBC 5.95 3.80 - 9.90 K/cumm Hgb 13.3 11.9 - 15.5 g/dL [facility] Hct 43.0 35.6 - 45.5 % [facility] Plt 231 150 - 400 K/cumm [facility] MPV 9.9 9.1 - 12.3 fL [facility] RBC 4.84 3.90 - 5.20 M/cumm [facility] MCV 88.8 81.3 - 96.4 fL [facility] MCH 27.5 27.1 - 33.3 pg [facility] MCHC 30.9(L) 32.3 - 35.7 g/dL [facility] RDW CV 13.3 11.1 - 14.9 % [facility] RDW SD 43.5 35.7 - 48.1 fL [facility] NRBC abs 0.00 0.00 - 0.01 K/cumm [facility] Blood 01/23/2025 5:3 1 AM CDT 01/23/2025 5:48 AM CDT us Jacquelin Stone NP LAB BLOOD ORDERABLES Danielle kendrick Result [facility] [id number] [address] Department [place] [address] * Basic metabolic panel (01/23/2025 5:31 AM CDT) [facility] Sodium 139 135 - 145 mmol/L Potassium, pl 4.5 3.3 - 4.9 mmol/L [facility] Chloride 107 97 - 110 mmol/L [facility] CO2 23 22 - 32 mmol/L [facility] Anion gap 9 2 - 15 mmol/L [facility] BUN 13 6 - 25 mg/dL [facility] Creatinine 0.90 0.60 - 1.10 mg/dL [facility] Glucose 103 70 - 199 mg/dL [facility] Comment: Interpretive Data Fasting glucose >/= [...] 2022. Calcium 8.8 8.5 - 10.3 mg/dL [facility] Blood 01/23/2025 5:31 AM CDT 01/23/2025 5:48 AM CDT us Jacquelin Stone NP LAB BLOOD ORDERABLES Danielle kendrick Result [facility] [id number] [address] Department [place] [address] * CT Abdomen Pelvis W Contrast (01/22/2025 [...] Azam Steve M.D. AT: AT Report ID: [id number] Reading Location: [id number] Procedure Note Azam Steve MD - 01/22/2025 [...] Azam Steve M.D. AT: AT Report ID: [id number] Reading Location: [place] [address] PROCEDURE S Final [...] tendency for uric acid stone formation. Source: [facility] [employer] Current Interpretive Data was last revised on [...] ORDERABLES Final Result [facility] ([facility]) 1 [facility] Department of Laboratories [place], [place] [id number] * eGFR (01/22/2025 4:35 PM CDT) eGFR [...] BLOOD ORDERA BLES Final Result [facility] ([place]) 1 [facility] [place] [address] * Differential, auto (01/22/2025 4:35 PM CDT) [...] revised on 2017. Basophil pct 0.7 % [facility] ([facility] Comment: Interpretive Data Percent cell count reference ranges are not reported, since discordance with absolute values may lead to misinterpretation of CBC data. Current Interpretive Data was last revised on 2017. Blood 01/22/2025 4:35 PM CDT 01/22/2025 4:45 PM CDT us Vaughn HAYS LAB BLOOD ORDERA BLES Final Result [facility] ([place]) 1 [facility] [place] [address] * (ABNORMAL) CBC with auto differential (01/22/2025 4:35 PM CDT) WBC 7.02 3.80 - 9.90 K/cumm Hgb 14.3 11.9 - 15.5 g/dL [facility] ([facility]) Hct 44.9 35.6 - 45.5 % [facility] ([facility]) Plt 273 150 - 400 K/cumm [facility] ([facility]) MPV 9.7 9.1 - 12.3 fL [facility] ([facility]) RBC 5.21(H) 3.90 - 5.20 M/cumm [facility] ([place]) MCV 86.2 81.3 - 96.4 fL [facility] ([facility]) MCH 27.4 27.1 - 33.3 pg [facility] ([facility]) MCHC 31.8(L) 32.3 - 35.7 g/dL [facility] ([facility]) RDW CV 13.2 11.1 - 14.9 % [facility] ([place]) RDW SD 41.5 35.7 - 48.1 fL [facility] ([facility]) NRBC abs 0.00 0.00 - 0.01 K/cumm [facility] Blood Venous blood specimen / Unknown 01/22/2025 4:35 PM CDT 01/22/2025 4:45 PM CDT Vaughn HAYS LAB BLOOD ORDERA BLES Final Result Performing Organization Address [facility] Co de Phone Number [facility] ([place] 1 [facility] [place] [address] * hCG, blood, quantitative (01/22/2025 4:35 PM CDT) [facility] hCG, quant <5.0 0.0 - 5.0 IUnits/L [...] ORDERA BLES Edited Result - Final [facility] ([place]) 1 [facility] [place] [place] [address] * Lipase (01/22/2025 4:35 PM CDT) Lipase 28 10 - 99 Units/L Blood Venous blood specimen / Unknown 01/22/2025 4:35 PM CDT 01/22/2025 4:45 PM CDT us Vaughn HAYS LAB BLOOD ORDERA BLES Final Result [facility] ([facility]) 1 [facility] [place] [address] * (ABNORMAL) Comprehensive metabolic panel (01/22/2025 4:35 PM CDT) Sodium 137 135 - 145 mmol/L Potassium, pl 4.2 3.3 - 4.9 mmol/L [facility] ([facility]) Chloride 101 97 - 110 mmol/L [facility] ([facility]) CO2 24 22 - 32 mmol/L [facility] ([facility]) Anion gap 12 2 - 15 mmol/L [facility] ([facility]) BUN 10 6 - 25 mg/dL [facility] Creatinine 0.87 0.60 - 1.10 [...] BLES Final Result [facility] ([facility] 1 [facility] [place] [address] from Last 3 Months Insurance [facility] [address] Advance Directives For more information, please contact: [phone] * Full Code (Latest Code Status on File) Date Activated Date Inactivated Comments 01/23/2025 3:48 AM 01/24/2025 5:09 PM Care Teams Mental Health Director Relationship Specialty Start Date End Date Barry Beltran MD [address] [place] [id number] PCP - General Internal Medicine 10/28/23 [place] [address] [address] [facility] [address] [place] [address] Surgeon General Surgery 01/23/25
--- OUTSIDE RECORDS SUMMARY | 2025-03-04 10:41 | XMS_ITS | Clinical Summary ---
Author Organization [facility] Address [address] [facility] [place] [address] Phone Care Team Providers Care Dry Cell Assembly Machine Tender Name Role Phone Hoa Kong BRUNO Primary Care Provider [phone] Allergies Active Allergy Reactions Criticality Noted Date Comments Sulfa Antibiotics Other (see Comments) 06/09/20 20 Medications labetalol (NORMODYNE) 100 MG Tablet 9 Active ondansetron (ZOFRAN) 4 MG Tablet 8 Active Kfqbegll-Owi-Nh- FA (PRE- PO) Take by mouth. Active butalbital-aceta minophen-caffein [...] Description 01/16/2025 Telephone [facility] [address] [place] [address] Chetan Cooley MD from Last [...] 04/26/2022 11:36 PM CDT Plan of Treatment Health Maintenance Due Date Last Done Comments Hepatitis C Virus (HCV) Screening 1990 Human Papillomavirus (HPV) Immunization (1 - 3-dose SCDM series) 2019 Influenza Immunization (#1) 2025 09/0 12/2023, 05/30/2023, [...] age to complete this topic Insurance MEDICAID [employer] Care Teams Dry Cell Assembly Machine Tender Relationship Specialty Start Date End Date Hoa Kong APRN PCP - General Advanced Practice Nurse 04/27/22
--- OUTSIDE RECORDS SUMMARY | 2025-03-04 10:41 | XMS_ITS | Patient Health Record ---
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 No urine specimen received. TEST: [id number] Comprehensive Drug Analysis,Ur CBC With Differential/Platel et* Reviewed date:12/27/2024 10:19:33 AM Interpretation:Abnormal Performing Lab:[facility], [address] [facility], Phone - [phone], Director [facility] Notes/Report: WBC 5.4 3.4-10.8 x10E3/uL RBC 5.30 [...] % Immature Grans (Abs) 0.0 0.0-0.1 x10E3/uL Lipid Panel* Reviewed date:12/27/2024 10:20:48 AM Interpretation:Abnormal Performing Lab:[email or web address] [place], [address] [facility], Phone - [phone], Director - PhDKevin Notes/Report: Cholesterol, Total 205 100-199 mg/dL Triglycerides 154 0-149 mg/dL HDL Cholesterol 33 >39 mg/dL VLDL Cholesterol Chi 28 5-40 mg/dL LDL Chol Calc ([facility]) 144 0-99 mg/dL CMP 14 Comprehensive Metabol ic Panel* Reviewed date:12/27/2024 10:20:08 AM Interpretation:Abnormal Performing Lab:[email or web address] [place], [address] [facility], Phone - [phone], Director - PhDKevin Notes/Report: Glucose 133 70-99 mg/dL BUN 10 [...] 0-40 IU/L ALT (SGPT) 73 0-32 IU/L Reason For Referral Reason EPWORTH SCORE 15, HO ME SLEEP STUDY WITH REFLEX TO PSG IF ABNL, PREFERS DR. HASTINGS. Diagnosis 1 Sleep apnea in adult (G47.33) Referral Organization [facility] Referring Provider First Name Barry Referring Provider Last Name Ruby Referring Provider Speciality Internal M edicine Referred Provider Specialty Sleep Medici ne Referral Priority Routine Medications Medication SIG (Take, Route, Frequency, Duration) Notes Start Date End Date Status EpiPen 2-Peewee 0.3 MG/0.3ML as directed In jection; Duration: 99 days Active Albuterol Sulfate 1.25 MG/3ML 3 mL as needed Inhalation every 8 hrs Active Amphetamine-Dextroamphet ER 30 MG 1 capsule in the morning Orally Once a day; Duration: 30 days 04/01/2025 Active Levothyroxine Sodium 112 MCG 1 tablet in the morning on an empty stomach Orally Once a day; Duration: 30 days Active FLUoxetine HCl 40 MG 1 capsule Orally Once a day; Duration: 30 days (60 mg total per day) Active Adderall XR 30 MG 1 capsule in the mor kenneth Orally Once a day; Duration: 30 days 02/04/2025 Active LaMICtal 100 MG 1 tablet Orally twic e a day; Duration: 30 days Active FLUoxetine HCl 20 MG 1 capsule Orally Once a day; Duration: 30 days (60 mg total per day) Active Adderall XR 30 MG 1 capsule in the mor kenneth Orally Once a day; Duration: 30 days 07/10/2024 Active Amphetamine-Dextroamphet ER 30 MG 1 capsule in the morning Orally Once a day; Duration: 30 days 03/04/2025 Active Lidocaine 5 % 1 patch remove after 12 hours Externally Once a day; Duration: 30 days Active Social History Tobacco Use: Social History [...] GED 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 Stress is when someone feels tense, nervous, anxious, or can\t sleep at night because their mind is troubled Quite a bit In the past year have you sp ent more than 2 nights in a row in a penitentiary, long term, half-way center, or juvenile correctional facility? No Do you feel physically and e motionally safe where you currently live? Yes In the past year, have you b een afraid of your partner or ex-partner? No PRAPARE Score: 5 Problems Problem Type SNOMED Code ICD Code Onset Dates Problem Status W/U Status Risk Notes Problem Morbid obesity (disorder) (233095045) Morbid (severe) obesity due to excess calories (E66.01) Active confirmed Problem Tobacco user (956025775) Nicotine dependence, unspecified, uncomplicated (F17.200) Active confirmed Problem Hyperlipidemia (93398843) Hyperlipidemia (E78.5) Active confirmed Problem Depression (461375160) Depression (F32.9) Active confirmed Problem Anxiety (01299838) Anxiety (F41.9) Active confi rmed Problem Attention deficit hyperactivity disorder (146503309) ADHD (attention deficit hyperactivity disorder) (F90.9) Active confirmed Problem Hypothyroidism (53976548) Hypothyroidism (E03.9) Active confirmed Problem Upper respiratory infection (00613548) Upper respiratory infection (J06.9) Active confirmed Problem Muscle spasm (47164310) Muscle spasm (M62.838) Active confirmed Problem Bipolar 2 disorder (95304110) Bipolar 2 disorder (F31.81) Active confirmed Problem Overweight (831301273) Over weight (E66.3) Active confirmed Problem Obstructive sleep apnea syndrome (63763755) Sleep apnea in adult (G47.33) Active confirmed Problem Chronic fatigue syndrome (24747024) Chronic fatigue (R53.82) Active confirmed Problem Nephrolithiasis (18281592) Nephrolithiasis (N20.0) Active confirmed Problem Abdominal discomfort (43978051) Abdominal discomfort (R10.9) Active confirmed Problem Drug monitoring done (224522128) Therapeutic drug monitoring (Z51.81) Active confirmed Problem Migraine without aura, not refractory (900891084) Migraine without aura and without status migrainosus, not intractable (G43.009) Active confirmed Problem Sciatica (08620760) Back pain of lumbosacaral region with sciatica (M54.40) Active confirmed Problem Gallstones (982111592) Gallstones (K80.20) Active confirmed Vital Signs Heart Rate 64 /min 02/04/2025 Temperature 98.2 degrees Fahrenheit 02/04/2025 Respiratory Rate 16 /min 02/04/2025 Oximetry 96 % 02/04/2025 Blood pressure diastolic 84 mm Hg 02/04/2025 Height 61 in 02/04/2025 Blood pressure systolic 136 mm Hg 02/04/2025 Weight 325.4 lbs 02/04/2025 BMI 61.48 kg/m2 02/04/2025 Encounters Encounter Location Date Provider Diagnosis [address] [place] [address] 12/12/2024 Kylah Aldrich Bipolar 2 disorder F31.81 ; Therapeutic drug monitoring Z51.81 and ADHD (attention deficit hyperactivity disorder) F90.9 [facility] [address] [place] [address] 06/12/2024 Kylah Aldrich Bipolar 2 disorder F31.81 ; ADHD (attention deficit hyperactivity disorder) F90.9 ; Anxiety F41.9 ; Depression F32.9 ; Therapeutic drug monitoring Z51.81 and Nicotine dependence, unspecified, uncomplicated F17.[address] [place] [address] 10/01/2024 Kylah Aldrich Bipolar 2 disorder F31.81 ; ADHD (attention deficit hyperactivity disorder) F90.9 ; Anxiety F41.9 ; Depression F32.9 ; Therapeutic drug monitoring Z51.81 and Nicotine dependence, unspecified, uncomplicated F17.200 [place] [address] [address] [facility] [place] [address] 01/07/2025 Barry Beltran Over weight E66.3 ; Hypothyroidism E03.9 ; Hyperlipidemia E78.5 ; Hyperglycemia R73.9 ; Abnormal liver enzymes R74.8 ; Sleep apnea in adult G47.33 and Chronic fatigue R53.[address] [address] 02/04/2025 Kylah Aldrich Bipolar 2 disorder F31.81 ; ADHD (attention deficit hyperactivity disorder) F90.9 ; Anxiety F41.9 ; Depression F32.9 ; Therapeutic drug monitoring Z51.81 and Nicotine dependence, unspecified, uncomplicated F17.[address] [place] [address] 04/02/2024 Rosaura Waterman [address] [place] [address] 10/02/2024 Barry Beltran [address] [place] [address] 12/31/2024 Kylah Aldrich Depression F32.9 and Bipolar 2 disorder F31.[address] [place] [address] 01/04/2025 Barry Beltran [place] [address] [place] [address] 01/07/2025 Barry Beltran [address] [place] [address] 01/21/2025 Kylah Aldirch Depression F32.9 and Bipolar 2 disorder F31.81 Assessments Encounter Date Diagnosis (ICD Code) Assessment Notes Treatment Notes Treatment Clinical Notes Section Notes 12/31/2024 Depression (ICD-10 - F32.9) 01/07/2025 Hypothyroidism (ICD-10 - E03.9) TSH A LITTLE OVER 5. INCREASE LEVOTHYROXING FROM 100 TO 112. 01/07/2025 Over weight (ICD-10 - E66.3) 01/21/2025 Depression (ICD-10 - F32.9) 12/12/2024 Bipolar 2 disorder (ICD-10 - F31.81) 10/01/2024 Bipolar 2 disorder (ICD-10 - F31.81) To stop if notices rash and let the office know. 06/12/2024 Bipolar 2 disorder (ICD-10 - F31.81) To stop if notices rash and let the office know. 02/04/2025 Bipolar 2 disorder (ICD-10 - F31.81) To stop if notices rash and let the office know. 02/04/2025 ADHD (attention deficit hyperactivity disorder) (ICD-10 - [...] a full listing of side effects. 06/12/2024 ADHD (attention deficit hyperactivity disorder) (ICD-10 [...] for a full listing of side effects. 10/01/2024 ADHD (attention deficit hyperactivity disorder) (ICD-10 [...] for a full listing of side effects. 12/12/2024 Therapeutic drug monitoring (ICD-10 - Z51.81) 01/21/2025 Bipolar 2 disorder (ICD-10 - F31.81) 12/31/2024 Bipolar 2 disorder (ICD-10 - F31.81) 01/07/2025 Hyperlipidemia (ICD-10 - E78.5) DISCUSSED HEALTHY DIET, EXERCISE 12/12/2024 ADHD (attention deficit hyperactivity disorder) (ICD-10 - F90.9) 01/07/2025 Hyperglycemia (ICD-10 - R73.9) AT RISK FOR DM2. 10/01/2024 Anxiety (ICD-10 - F41.9) Client reports no longer taking alprazolam. Continue coping mechanisms. Therapy encouraged. 06/12/2024 Anxiety (ICD-10 - F41.9) Client reports no longer taking alprazolam. Continue coping mechanisms. Therapy encouraged. 02/04/2025 Anxiety (ICD-10 - F41.9) Client reports no longer taking alprazolam. Continue coping mechanisms. Therapy encouraged. 02/04/2025 Depression (ICD-10 - F32.9) 06/12/2024 Depression (ICD-10 - F32.9) 10/01/2024 Depression (ICD-10 - F32.9) 01/07/2025 Abnormal liver enzymes (ICD-10 - R74.8) SUSPECT MALD. DOUBT VIRAL HEPATITIS. 01/07/2025 Sleep apnea in adult (ICD-10 - G47.33) 06/12/2024 Therapeutic drug monitoring (ICD-10 - Z51.81) 10/01/2024 Therapeutic drug monitoring (ICD-10 - Z51.81) 02/04/2025 Therapeutic drug monitoring (ICD-10 - Z51.81) 02/04/2025 Nicotine dependence, unspecified, uncomplicated (ICD-10 - F17.200) 06/12/2024 Nicotine dependence, unspecified, uncomplicated (ICD-10 - F17.200) 01/07/2025 Chronic fatigue (ICD-10 - R53.82) 10/01/2024 Nicotine dependence, unspecified, uncomplicated (ICD-10 - [...] May also contact the 24-hour crisis hotline ([facility]), refer to the closest emergency [...] May also contact the 24-hour crisis hotline ([facility]), refer to the closest emergency [...] of education, treatment plan and follow up. 02/04/2025 Other Reasons, potential benefits, potential risks, interactions [...] May also contact the 24-hour crisis hotline ([facility]), refer to the closest emergency [...] 05/05/2023 Future Test Test Name Order Date HIV Screen *HIV 1, 2 Ab, p24 Ag ([id number]) 02/18/2025 Vitamin B12 and Folate 02/18/2025 Iron and TIBC* 02/18/2025 Hemoglobin A1c* 02/18/2025 Hepatitis B Surface Antigen (HBsAg Scree n) 02/18/2025 C-Reactive Protein, Quant 02/18/2025 Lipid Panel* 02/18/2025 CMP 14 Comprehensive Metabolic Panel* TSH Rfx on Abnormal to Free T4 Insurance Providers Payer Name Payer Address Payer Phone Subscriber Number Group Number Insured Name Patient Relationship to Insured Coverage Start Date Coverage End Date [facility] Attn Claims Department [address] [place] [address] [phone] [id number] Merle Tiwari Self - patient is the insured 3 [facility] Attn Claims Department [address] [place] [address] [phone] [id number] Merle Tiwari Self - patient is the [...]
--- OUTSIDE RECORDS SUMMARY | 2025-03-04 10:42 | XMS_ITS ---
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 Name Role Phone Barry Beltran Primary Care Provider Kylah Aldrich Unavailable [phone] REASON FOR VISIT missed appt on 12/31/24- 1 month f u Social History Sex Assigned At : Social History Observation Description Sex Assigned At Female Encounters Encounter Location Date Provider Diagnosis [address] [address] 01/21/2025 Kylah Aldrich Plan Of Treatment No Information Progress Notes * Brook TIWARIeDOB: [birth year] (34 yo F)Acc No.[id number]:01/21/2025 UNLOCKED PROGRESS NOTE Patient: Wendy Merle LEAL Provider: Viet Aldrich, MSN, INSTALL AND REPAIR TECHNICIAN, SCREEN PRINTING STENCIL PREPARER-C :1990 A ge:34 Y S ex:Female Date:01/21/2025 Address:[address] [place], [place] [id number] Pcp:Barry Beltran Subjective: * Chief Complaints: * 1 . Missed appt on 12/31/24- 1 month f u. * Medical History: Objective: * Vitals: Assessment: Plan: * Treatment: * * Electronic signature of Artur Aldrich [id number] on 03/04/2025 at 10:41 AM CDT Sign off status: Pending * Provider: Viet Aldrich, MARIBETH, INSTALL AND REPAIR TECHNICIAN, SCREEN PRINTING STENCIL PREPARER-C Date: 0 01/21/2025 Generated for Shruti douglas/Elizabeth/Daviditting on: 0 03/04/2025 10:41 AM CDT
--- NOTE | 2025-03-04 10:50 | ED_ITS ---
HPI - Female Genitourinary General Chief complaint: Urogenital-Female Stated complaint: Urinary Problem Time Seen by Provider: 03/04/25 10:51 Source: patient and RN notes reviewed Mode of arrival: ambulatory Limitations: no limitations History of Present Illness HPI Narrative: 34-year-old female sweats concern for 5 day history of dysuria, mild low back ache, urgency. She denies fever, body aches, chills, sweats, nausea. Denies abnormal vaginal discharge. MD elicited complaint: UTI Related Data Home Medications ?Medication ?Instructions ?Recorded ?Confirmed ?Last Taken ?Type alprazolam 0.25 mg tablet 0.25 mg PO DAILY 10/12/21 07/28/24 Unknown History fluoxetine 40 mg capsule 40 mg PO DAILY 10/16/22 07/28/24 Unknown History lamotrigine 100 mg tablet 200 mg PO DAILY 02/10/23 07/28/24 Unknown History dextroamphetamine-amphetamine ER 30 mg PO DAILY 01/04/24 07/28/24 Unknown History 30 mg 24hr capsule,extend release levothyroxine 100 mcg tablet mcg 07/28/24 Unknown History Allergies Allergy/AdvReac Type Severity Reaction Status Date / Time Sulfa (Sulfonamide Allergy Severe Anaphylaxis Verified 01/30/25 18:40 Antibiotics) sulfamethoxazole (From Allergy Severe Anaphylactic Verified 01/30/25 18:40 Bactrim) Shock trimethoprim (From Bactrim) Allergy Severe Anaphylactic Verified 01/30/25 18:40 Shock Review of Systems Review of Systems: CONSTITUTIONAL: Denies malaise, chills, sweats, or fever. CARDIOVASCULAR: Denies chest pain, palpitations, or edema. RESPIRATORY: Denies cough or dyspnea. GASTROINTESTINAL: Denies abdominal pain, nausea, vomiting, diarrhea GENITOURINARY: Reports dysuria, frequency, urgency, suprapubic pressure. Denies flank pain or hematuria. SKIN: Denies rash or itching. MUSCULOSKELETAL: Reports low back ache. Denies myalgia. All systems reviewed & are unremarkable except as noted in HPI and below PMFSH Past Medical History Medical History Mass of left forearm Kidney stones, calcium oxalate Abnormal uterine bleeding Bipolar 1 disorder Menometrorrhagia Depression Anxiety Gastroesophageal reflux disease Asthma Migraine Morbid obesity with BMI of 50.0-59.9, adult Family History Family History Mother Family history of bipolar disorder Father Family history of chronic obstructive pulmonary disease Social History Social History Years smoked: 3 Smoking status: Current every day smoker Tobacco type: e-cigarettes/vaping Second hand tobacco smoke exposure: Yes Additional smoking assessment comments: former cigarette smoker now vapes Alcohol intake: current Drinks per week: 0 Alcohol use details: 3/YEAR Substance use: never Substance use type: does not use Living arrangements: with family Gender identity (if verbalized by the patient): Female Spiritual care concerns: No Comments At time of signature, agree with nursing past medical, surgical, social and family history. There is no relevant family history pertinent to the presenting complaint Exam Narrative: GENERAL: Well-appearing, well-nourished, and in no acute distress. HEAD: Normocephalic. EYES: PERRLA, conjunctivae clear. NECK: Supple. No lymphadenopathy CHEST: Clear to auscultation. No respiratory distress. HEART: Regular rate and rhythm. ABDOMEN: Soft, nontender upon palpation, nondistended, no palpable or pulsatile masses, no guarding. No CVA tenderness SKIN: Warm, dry, no rash. NEURO: Alert and oriented x3. PSYCH: Normal mood and affect Course Course Emergency Course: Patient is aware of diagnosis, understands and agrees to treatment plan. Anticipatory guidance given. Patient agrees to follow-up as directed and is aware of reasons to seek care at the emergency department. Portions of this record may have been created with voice recognition software Level of Care: Express Care Visit Vital Signs Vital signs: Reviewed. MDM - Female Genitourinary MDM Narrative Medical decision making narrative: Exam findings and UA show no acute concerns or changes; patient is non-toxic appearing and is in no distress. Patient is appropriate for outpatient treatment and follow-up. Differential Diagnosis Differential diagnosis: Likely urinary tract infection and cystitis Critical Care Time Critical Care Time Critical Care Time: No Discharge Plan Discharge Clinical Impression: Urinary tract infection Patient Disposition: Home Condition: Stable Instructions: Antibiotic Form, Urinary Tract Infection in Women (ED) Additional Instructions: We will send a urine culture to the lab; if the culture identifies an organism that the prescribed antibiotic will not treat, you will receive a phone call from an urgent care staff member and an appropriate antibiotic will be prescribed. -Your symptoms should begin to improve within a day of starting antibiotics. But you should finish all the antibiotic pills you get. Otherwise your infection might come back. -Also recommend: increase water intake. Tylenol/ibuprofen as needed for pain or fever -Follow-up with your primary care provider for urine recheck or seek ER visit if condition worsens with high fever, nausea, vomiting and severe back pain. Patient Language: Guatemalan Prescriptions: New amoxicillin-pot clavulanate 875-125 mg tablet 1 tablet PO Q12H 10 Days Qty: 20 0RF No Action alprazolam 0.25 mg Tablet 0.25 mg PO DAILY fluoxetine 40 mg capsule 40 mg PO DAILY lamotrigine 100 mg Tablet 200 mg PO DAILY dextroamphetamine-amphetamine 30 mg capsule,extended release 24hr 30 mg PO DAILY levothyroxine 100 mcg tablet Follow-up/Referrals: Barry Beltran MD [Primary Care Provider] - Time of Disposition: 10:56
[2025-03-04 11:05] LABS: EDUAAPPEAR Cloudy; EDUABILI Negative (Negative); EDUABLOOD 1+ (Negative); EDUACOLOR1 Yellow; EDUAGLUCOSE Negative (Negative); EDUAKETONE Negative (Negative); EDUALEUKO 1+ (Negative); EDUANITRATE Negative (Negative); EDUAPH 7.0; EDUAPROTEIN 2+ (Negative); EDUASPGRAVITY 1.025; EDUAUROBILI 0.2
== END 2025-03-04 11:02 | disposition home or self-care (01) ==
PROVIDERS: Emergency Provider Nurse Practitioner; PCP Internal Medicine
DX: N39.0 Urinary tract infection, site not specified (principal); F17.290 Nicotine dependence, other tobacco product, uncomplicated; K21.9 Gastro-esophageal reflux disease without esophagitis; J45.909 Unspecified asthma, uncomplicated; E66.01 Morbid (severe) obesity due to excess calories; F41.9 Anxiety disorder, unspecified; F31.9 Bipolar disorder, unspecified
CPT/HCPCS: 81003; 87086; 99213; G0463

== ENCOUNTER 2025-03-17 09:58 | Emergency (ER) | payer OTHER, SELFPAY ==
--- OUTSIDE RECORDS SUMMARY | 2025-01-21 04:20 | XMS_ITS ---
Author Organization [facility] Address [address] [place] [address] Care Team Providers Care Assortment Planner Name Role Phone Barry Beltran Primary Care Provider [phone] Kylah Aldrich Unavailable [phone] REASON FOR VISIT missed appt on 12/31/24- 1 month f u Social History Sex Assigned At : Social History Observation Description Sex Assigned At Female Encounters Encounter Location Date Provider Diagnosis [address] [address] 01/21/2025 Kylah Aldrich Plan Of Treatment No Information Progress Notes * Brook TIWARIeDOB: [birth year] (34 yo F)Acc No.[id number]:01/21/2025 UNLOCKED PROGRESS NOTE Patient: Wendy Merle LEAL Provider: Viet Aldrich, MSN, CLERK TO JUSTICE, FLOORWORKER LASTING-C :1990 A ge:34 Y S ex:Female Date:01/21/2025 Address:[address] [place], [place] [id number] Pcp:Barry Beltran Subjective: * Chief Complaints: * 1 . Missed appt on 12/31/24- 1 month f u. * Medical History: Objective: * Vitals: Assessment: Plan: * Treatment: * * Electronic signature of Artur Aldrich [id number] on 03/17/2025 at 10:00 AM CDT Sign off status: Pending * Provider: Viet Aldrich, MARIBETH, CLERK TO JUSTICE, FLOORWORKER LASTING-C Date: 0 01/21/2025 Generated for Shruti douglas/Elizabeth/Daviditting on: 0 03/17/2025 10:00 AM CDT
--- OUTSIDE RECORDS SUMMARY | 2025-02-18 04:00 | XMS_ITS ---
Author Organization [facility] Address [address] [place] [address] Care Team Providers Care Kiln Drawer Name Role Phone Barry Beltran Primary Care Provider [phone] Kylah Aldrich Unavailable [phone] REASON FOR VISIT Labs-fasting Social History Sex Assigned At : Social History Observation Description Sex Assigned At Female Encounters Encounter Location Date Provider Diagnosis [address] [place] [address] 02/18/2025 Barry Beltran Plan Of Treatment No Information Progress Notes * Brook TIWARIeDOB: [birth year] (34 yo F)Acc No.[id number]:02/18/2025 UNLOCKED PROGRESS NOTE Patient: Bailey SHAHIDerie Provider: Anitha Beltran :1990 A ge:34 Y S ex:Female Date:02/18/2025 Address:[address] [place], [place] [id number] Subjective: * Chief Complaints: * 1 . Labs-fasting. * Medical History: Objective: * Vitals: Assessment: Plan: * Treatment: * * Electronic signature of Maribel Beltran , [id number] on 03/17/2025 at 10:01 AM CDT Sign off status: Pending * Provider: Anitha Beltran Date: 02/18/2025 Generated for Shruti douglas/Elizabeth/eTchausmramu on: 03/17/2025 10:01 AM CDT
--- OUTSIDE RECORDS SUMMARY | 2025-03-17 10:00 | XMS_ITS | Clinical Summary ---
Author Organization 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 [address] [id number] Sugar Bond NP Cholecystitis 01/28/2025 [facility] Post Discharge Follow up phone call [address] [address] Dinorah Nowak RN 01/25/2025 10:28 PM CDT - 01/26/2025 1:46 AM CDT Emergency [facility] Emergency Department [address] [place] [address] Albert Clark MD Postoperative pain (Primary Dx) Discharge Disposition: Discharge to home or self care 01/23/2025 8:37 AM CDT Anesthesia Event [facility] Operating Room [address] [place] [address] Geovanna Naqvi Jr., MD Gibbons, Jesse Graham, AA 01/23/2025 8:30 AM CDT - 01/23/2025 10:30 AM CDT Surgery [facility] Operating Room [address] [place] [address] Esteban Barahona MD LAPAROSCOPIC CHOLECYSTECTOMY WITH CHOLANGIOGRAMS 01/23/2025 3:04 AM CDT - 01/24/2025 1:04 PM CDT Hospital Encounter [address] [address] Sharad Dejesus MD Rivera, Samantha, MD Cholecystitis Discharge Disposition: Discharge to home or self care 01/23/2025 2:44 AM CDT - 01/23/2025 11:59 PM CDT Hospital Encounter [facility] Emergency, Room R Discharge Disposition: Discharge to home or self care 01/22/2025 7:39 PM CDT - 01/23/2025 2:43 AM CDT Emergency [facility] Emergency Department [address] [place] [address] Vaughn Flynn PA Cholecystitis (Primary Dx); Calculus [...] on file Legal 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 KH: LORE Report ID: [id number] Reading Location: [id number] Procedure Note Barry Christianson MD - 01/26/2025 [...] Barry Christianson M.D. KH: LORE Report ID: [id number] Reading Location: [id number] Albert Clark MD IMG CT PROCEDURES Final [...] LAB BLOOD ORDERABLES Danielle l Result [facility] ([place]) [address] [facility] Department [place] [address] * Differential, auto (01/25/2025 10:34 PM CDT) Neutrophil abs 4.10 1.50 - 6.50 K/cumm Imm gran abs 0.04 0.00 - 0.10 K/cumm [facility] ([place]) Lymphocyte abs 2.80 0.80 - 3.30 K/cumm [...] Danielle l Result [facility] ([place]) 1 [facility] Department [place] [address] * (ABNORMAL) CBC with auto differential (01/25/2025 10:34 PM CDT) Pathologist [facility] WBC 7.93 3.80 - 9.90 K/cumm Hgb [...] Danielle l Result [facility] ([place]) 1 [facility] Department [place] [address] * (ABNORMAL) Comprehensive metabolic panel (01/25/2025 10:34 PM CDT) Pathologist [facility] Sodium 138 135 - 145 mmol/L [...] Danielle kendrick Result [facility] ([place]) [address] [facility] Department [place] [address] * Infection Prevention Layla auris PCR, surveillance Axilla/Groin (01/24/2025 11:52 AM CDT) Layla auris DNA Not Detected Not Detected [facility] Comment: Interpretive Data Testing performed by [facility] Molecular Infectious Disease Laboratory using the Mickey jorge 6800 Layla auris assay. This assay detects DNA from Layla auris using Real-Time PCR. This assay is laboratory developed and is not cleared by the [place] Food and Drug Administration. The performance characteristics have been verified by the [facility] Molecular Infectious Disease Laboratory. Testing performed by: [facility], [address] [place]., [address] Axilla/Groin 01/24/2025 11:5 2 AM CDT 01/24/2025 3:43 PM CDT Narrative [facility] - 01/25/2025 8:16 AM CDT Order placed by [facility] due to ring surveillance. us Instant Order Generic Provider LAB MICROBIOLOGY - GENERAL ORDERABLES Final Result [facility] [address] Department [place] [address] [facility] * (ABNORMAL) Differential, auto (01/24/2025 4:00 AM CDT) Neutrophil abs 6.87(H) 1.50 - 6.50 K/cumm Imm gran abs 0.03 0.00 - 0.10 K/cumm [facility] Lymphocyte abs 1.18 0.80 - 3.30 K/cumm [facility] Monocyte abs 0.77 0.20 - 0.80 K/cumm [facility] Eosinophil abs 0.01 0.00 - 0.50 K/cumm [facility] Basophil abs 0.02 0.00 - 0.10 K/cumm [facility] Neutrophil pct 77.4 % [facility] Comment: Interpretive Data Percent cell count reference [...] revised on 2017. Lymphocyte pct 13.3 % [facility] Comment: Interpretive Data Percent cell count reference ranges are not reported, since discordance with absolute values may lead to misinterpretation of CBC data. Current Interpretive Data was last revised on 2017. Monocyte pct 8.7 % [facility] Comment: Interpretive Data Percent cell count reference ranges are not reported, since discordance with absolute values may lead to misinterpretation of CBC data. Current Interpretive Data was last revised on 2017. Eosinophil pct 0.1 % [facility] Comment: Interpretive Data Percent cell count reference ranges are not reported, since discordance with absolute values may lead to misinterpretation of CBC data. Current Interpretive Data was last revised on 2017. Basophil pct 0.2 % [facility] Comment: Interpretive Data Percent cell count reference ranges are not reported, since discordance with absolute values may lead to misinterpretation of CBC data. Current Interpretive Data was last revised on 2017. Blood 01/24/2025 4:00 AM CDT 01/24/2025 4:56 AM CDT us Pao Yan MD LAB BLOOD ORDERABLES Final Re sult [facility] [address] Department [place] [address] * (ABNORMAL) CBC with auto differential (01/24/2025 4:00 AM CDT) WBC 8.88 3.80 - 9.90 K/cumm Hgb 12.5 11.9 - 15.5 g/dL [facility] Hct 41.3 35.6 - 45.5 % [facility] Plt 240 150 - 400 K/cumm [facility] MPV 10.0 9.1 - 12.3 fL [facility] RBC 4.67 3.90 - 5.20 M/cumm [facility] MCV 88.4 81.3 - 96.4 fL [facility] MCH 26.8(L) 27.1 - 33.3 pg [facility] MCHC 30.3(L) 32.3 - 35.7 g/dL [facility] RDW CV 13.3 11.1 - 14.9 % [facility] RDW SD 43.3 35.7 - 48.1 fL [facility] NRBC abs 0.00 0.00 - 0.01 K/cumm [facility] Blood 01/24/2025 4:00 AM CDT 01/24/2025 4:56 AM CDT Pao Yan MD LAB BLOOD ORDERABLES Final Re sult Performing Organization Address City/[facility] Co de Phone Number [facility] [address] [facility] Department [place] [address] * (ABNORMAL) Hepatic function panel [...] ORDERABLES Final Re sult Performing Organization Address City/[facility] Co de Phone Number [facility] [address] [facility] Department [place] [address] * Surgical pathology (01/23/2025 1:27 PM CDT) Tissue (Gallbladder) 01/23/2025 10:04 AM CDT Narrative PATHOLOGY [facility] - 01/24/2025 6:05 PM CDT EPIC results best viewed via link to PDF [facility] Department of Pathology [address] [place] [address] Note to Patients: This report may [...] Final Report Patient Name: SUSANNA TIWARI Address: [address] [place] [address] Gender: F : 1990 (Age: 34) Service: Medical Location: [facility] Hospital #: [id number] Patient Type: [facility] Taken: 01/23/2025 Received: 01/23/2025 Accessioned: 01/23/2025 [...] in one cassette. Efe Xie R.N., P.A./Selam Natarajan, M.D. REPORT IMAGES AND SCANNED DOCUMENTS, IF INCLUDED, ONLY VIEWABLE IN PDF VERSION OF REPORT The performance characteristics of some immunohistochemical stains, fluorescence in-situ hybridization tests and immunophenotyping by flow cytometry cited in this report (if any) were determined by the Surgical Pathology Department at [facility] as part of an ongoing quality director program and in compliance with federally mandated [...] characteristics determined by the Surgical Pathology Department [facility]. It has not been cleared or approved by the [place]. S. Food and Drug Administration. Note for decalcified specimens: This assay has not been validated on decalcified tissues. Results should be interpreted with caution given the possibility of false negativity on decalcified specimens Esteban Barahona MD LAB PATHOLOGY ORDERABLES F inal Result PATHOLOGY [address] [place] [address] * [place] Cholangiogram Intraoperative (01/23/2025 10:09 AM [...] LAB BLOOD ORDERABLES Danielle kendrick Result FREDDY [address] [place] [place] [address] * (ABNORMAL) CBC without differential (01/23/2025 5:31 AM CDT) [facility] WBC 5.95 3.80 - 9.90 K/cumm Hgb 13.3 11.9 - 15.5 g/dL [facility] Hct 43.0 35.6 - 45.5 % [facility] Plt 231 150 - 400 K/cumm [facility] MPV 9.9 9.1 - 12.3 fL [facility] RBC 4.84 3.90 - 5.20 M/cumm [facility] MCV 88.8 81.3 - 96.4 fL [facility] MCH 27.5 27.1 - 33.3 pg [facility] MCHC 30.9(L) 32.3 - 35.7 g/dL [facility] CH RDW CV 13.3 11.1 - 14.9 % [facility] RDW SD 43.5 35.7 - 48.1 fL [facility] NRBC abs 0.00 0.00 - 0.01 K/cumm [facility] Blood 01/23/2025 5:31 AM CDT 01/23/2025 5:48 AM CDT us Jacquelin Stone NP LAB BLOOD ORDERABLES Danielle kendrick Result [facility] [address] Department [place] [address] * Basic metabolic panel (01/23/2025 5:31 AM CDT) [facility] Sodium 139 135 - 145 mmol/L Potassium, pl 4.5 3.3 - 4.9 mmol/L [facility] Chloride 107 97 - 110 mmol/L [facility] CO2 23 22 - 32 mmol/L [facility] Anion gap 9 2 - 15 mmol/L [facility] BUN 13 6 - 25 mg/dL [facility] Creatinine 0.90 0.60 - 1.10 mg/dL [facility] Glucose 103 70 - 199 mg/dL [facility] Comment: Interpretive Data Fasting glucose >/= 126 [...] BLOOD ORDERABLES Danielle kendrick Result [facility] [place] [address] Department [place] [address] * CT Abdomen Pelvis W Contrast (01/22/2025 [...] Azam Steve M.D. AT: AT Report ID: [id number] Reading Location: [id number] Procedure Note Azam Steve MD - 01/22/2025 [...] Azam Steve M.D. AT: AT Report ID: [id number] Reading Location: [place] [address] PROCEDURE S Final [...] tendency for uric acid stone formation. Source: [facility] [employer] Current Interpretive Data was last revised on [...] ORDERABLES Final Result [facility] ([place]) [address] [facility] Department of Laboratories [place], [place] [id number] * eGFR (01/22/2025 4:35 PM CDT) eGFR [...] BLOOD ORDERA BLES Final Result [facility] ([place]) [address] [facility] Department [place] [address] * Differential, auto (01/22/2025 4:35 PM CDT) [...] BLOOD ORDERA BLES Final Result [facility] ([place]) [address] [facility] Department [place] [address] * (ABNORMAL) CBC with auto differential (01/22/2025 [...] NRBC abs 0.00 0.00 - 0.01 K/cumm [facility] Blood Venous blood specimen / Unknown 01/22/2025 4:35 PM CDT 01/22/2025 4:45 PM CDT Vaughn HAYS LAB BLOOD ORDERA BLES Final Result Performing Organization Address [facility] Co de Phone Number [facility] ([place]) [address] [facility] [place] [address] * hCG, blood, quantitative (01/22/2025 4:35 PM CDT) [facility] hCG, quant <5.0 0.0 - 5.0 IUnits/L [...] BLES Edited Result - Final [facility] ([place]) [address] [facility] [place] [address] * Lipase (01/22/2025 4:35 PM CDT) Lipase 28 10 - 99 Units/L Blood Venous blood specimen / Unknown 01/22/2025 4:35 PM CDT 01/22/2025 4:45 PM CDT us Vaughn HAYS LAB BLOOD ORDERA BLES Final Result [facility] ([place]) 1 [facility] Department [place] [address] * (ABNORMAL) Comprehensive metabolic panel (01/22/2025 4:35 PM CDT) Sodium 137 135 - 145 mmol/L Potassium, pl 4.2 3.3 - 4.9 mmol/L [facility] ([place]) Chloride 101 97 - 110 mmol/L [facility] ([place]) CO2 24 22 - 32 mmol/L [facility] ([place]) Anion gap 12 2 - 15 mmol/L [facility] ([place]) BUN 10 6 - 25 mg/dL [facility] ([place]) Creatinine 0.87 0.60 - [...] BLES Final Result [facility] ([place]) [address] [facility] [place] [address] from Last 3 Months Insurance [facility] Advance Directives For more information, please contact: [phone] * Full Code (Latest Code Status on File) Date Activated Date Inactivated Comments 01/23/2025 3:48 AM 01/24/2025 5:09 PM Care Teams Central Supply Manager Relationship Specialty Start Date End Date Barry Beltran MD [address] [place] [address] PCP - General Internal Medicine 10/28/23 [place] [address] [address] [facility] [address] [place] [address] Surgeon General Surgery 01/23/25
--- OUTSIDE RECORDS SUMMARY | 2025-03-17 10:00 | XMS_ITS | Clinical Summary ---
Author Organization [facility] Address [address] [facility] [place] [address] Phone Care Team Providers Care Sql Server Developer Name Role Phone Hoa Kong BRUNO Primary Care Provider [phone] Allergies Active Allergy Reactions Criticality Noted Date Comments Sulfa Antibiotics Other (see Comments) 06/09/20 20 Medications labetalol (NORMODYNE) 100 MG Tablet 9 Active ondansetron (ZOFRAN) 4 MG Tablet 8 Active [id number]-Usa-Jt- FA (PRE- PO) Take by mouth. Active [...] [facility] [address] [place] [address] Chetan Cooley MD from Last [...] Insurance [employer] Care Teams Sql Server Developer Relationship Specialty Start Date End Date Hoa Kong APRN PCP - General Advanced Practice Nurse 04/27/22
--- OUTSIDE RECORDS SUMMARY | 2025-03-17 10:00 | XMS_ITS | Clinical Summary ---
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[employer] Gender Identity Female 03/14/2024 7:53 AM [...] Every 3 Years 1990 Annual Physical 1995 HPV Vaccines (1 - 3-dose SCDM series) 2019 Cervical Cancer Screening Pap with HPV Testing (Age 30 to 64) Every 5 Years 2022 Cervical Cancer Screening with HPV 2022 COVID-19 Vaccine ( season) 2024 11/12/2022, 02/11/2022, 04/06/2021, Additional history exists DTaP, Tdap and Td Vaccines (8 - Td or Tdap) 12/06/2028 12/06/2018, 07/06/2005, 04/12/2003, Additional history exists Hepatitis B Vaccines Completed 08/24/1993, 1990, 1990 Hepatitis C Completed 02/25/2017, 02/25/2017 Meningococcal B Vaccine Aged Out No l [...] patient's age to complete this topic [place] [address] [place] [address] Care Teams Order Filler Relationship Specialty Start Date End Date Barry Beltran MD [address] [facility] [address] [place] [id number] PCP - General INTERNAL MEDICINE 03/17/23
--- OUTSIDE RECORDS SUMMARY | 2025-03-17 10:00 | XMS_ITS | Patient Health Record ---
Author Organization [facility] Address [address] [place] [address] Care Team Providers Care Pneumatic Tool Repairer Name Role Phone Ruby Barry Primary Care Provider [phone] ValdemarKylah rodrigues Unavailable [phone] Rosaura Waterman Unavailable [phone] Allergies Allergen (clinical drug ingredient) Drug/Non Drug Allergy documented on EMR Reaction Allergy Type Onset Date Status sulfamethoxazole / trimethoprim Bactrim (uncoded) anaphylaxis Allergy Active Feta cheese feta cheese (uncoded) anaphylaxis Allergy Active Results Component Value Reference Range Notes TSH* Reviewed date:12/27/2024 10:20:30 AM Interpretation:High Performing Lab:[facility] [facility], [address] [facility], Phone - [phone], Director - [facility] Notes/Report: TSH 5.720 0.450-4.500 uIU/mL Request Problem TNP Test not performed. No urine specimen received. TEST: [id number] Comprehensive Drug Analysis,Ur CBC With Differential/Platel et* Reviewed date:12/27/2024 10:19:33 AM Interpretation:Abnormal Performing Lab:[employer], [address] [facility], Phone - [phone], Director - [facility] Notes/Report: WBC 5.4 3.4-10.8 x10E3/uL RBC 5.30 [...] Panel* Reviewed date:12/27/2024 10:20:48 AM Interpretation:Abnormal Performing Lab:[employer] [place], [address] [facility], Phone - [phone], Director - [facility] Notes/Report: Cholesterol, Total 205 100-199 mg/dL Triglycerides 154 0-149 mg/dL HDL Cholesterol 33 >39 mg/dL VLDL Cholesterol Chi 28 5-40 mg/dL LDL Chol Calc (NIH) 144 0-99 mg/dL CMP 14 Comprehensive Metabol ic Panel* Reviewed date:12/27/2024 10:20:08 AM Interpretation:Abnormal Performing Lab:[employer] [place], [address] [facility], Phone - [phone], Director - [facility] Notes/Report: Glucose 133 70-99 mg/dL BUN 10 [...] 0-40 IU/L ALT (SGPT) 73 0-32 IU/L 12 Panel Urine Drug Screen Reviewed date:12/27/2024 10:21:08 AM Interpretation:Normal Performing Lab: Notes/Report: Normal THC neg NICKIE neg MOP (OPI) neg AMP neg MET neg BAR neg BZO neg MDMA neg MTD en OXY ge PCP neg BUP neg Reason For Referral Reason EPWORTH SCORE 15, HO ME SLEEP STUDY WITH REFLEX TO PSG IF ABNL, PREFERS DR. HASTINGS. 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 Stress is when someone feels tense, nervous, anxious, or can\t sleep at night because their mind is troubled Quite a bit In the past year have you sp ent more than 2 nights in a row in a intermediate, usp, halfway center, or juvenile correctional facility? No Do you feel physically and e motionally safe where you currently live? Yes In the past year, have you b een afraid of your partner or ex-partner? No PRAPARE Score: 5 Problems Problem Type SNOMED Code ICD Code Onset Dates Problem Status W/U Status Risk Notes Problem Morbid obesity (disorder) (579223803) Morbid (severe) obesity due to excess calories (E66.01) Active confirmed Problem Tobacco user (610817959) Nicotine dependence, unspecified, uncomplicated (F17.200) Active confirmed Problem Hyperlipidemia (10131910) Hyperlipidemia (E78.5) Active confirmed Problem Depression (329054800) Depression (F32.9) Active confirmed Problem Anxiety (19325279) Anxiety (F41.9) Active confi rmed Problem Attention deficit hyperactivity disorder (250694187) ADHD (attention deficit hyperactivity disorder) (F90.9) Active confirmed Problem Hypothyroidism (09222987) Hypothyroidism (E03.9) Active confirmed Problem Upper respiratory infection (86713408) Upper respiratory infection (J06.9) Active confirmed Problem Muscle spasm (51308389) Muscle spasm (M62.838) Active confirmed Problem Bipolar 2 disorder (83510224) Bipolar 2 disorder (F31.81) Active confirmed Problem Overweight (377559742) Over weight (E66.3) Active confirmed Problem Obstructive sleep apnea syndrome (48486397) Sleep apnea in adult (G47.33) Active confirmed Problem Chronic fatigue syndrome (77154036) Chronic fatigue (R53.82) Active confirmed Problem Nephrolithiasis (52205899) Nephrolithiasis (N20.0) Active confirmed Problem Abdominal discomfort (56436930) Abdominal discomfort (R10.9) Active confirmed Problem Drug monitoring done (157290375) Therapeutic drug monitoring (Z51.81) Active confirmed Problem Migraine without aura, not refractory (119792354) Migraine without aura and without status migrainosus, not intractable (G43.009) Active confirmed Problem Sciatica (86587440) Back pain of lumbosacaral region with sciatica (M54.40) Active confirmed Problem Gallstones (589002044) Gallstones (K80.20) Active confirmed Vital Signs Heart Rate 64 /min 02/04/2025 Temperature 98.2 degrees Fahrenheit 02/04/2025 Respiratory Rate 16 /min 02/04/2025 Oximetry 96 % 02/04/2025 Blood pressure diastolic 84 mm Hg 02/04/2025 Height 61 in 02/04/2025 Blood pressure systolic 136 mm Hg 02/04/2025 Weight 325.4 lbs 02/04/2025 BMI 61.48 kg/m2 02/04/2025 Encounters Encounter Location Date Provider Diagnosis [address] [place] [address] 12/12/2024 Kylah Aldrich Bipolar 2 disorder F31.81 ; Therapeutic drug monitoring Z51.81 and ADHD (attention deficit hyperactivity disorder) F90.9 [facility] [address] [place] [address] 06/12/2024 Kylah Aldrich Bipolar 2 disorder F31.81 ; ADHD (attention deficit hyperactivity disorder) F90.9 ; Anxiety F41.9 ; Depression F32.9 ; Therapeutic drug monitoring Z51.81 and Nicotine dependence, unspecified, uncomplicated F17.[address] [place] [address] 10/01/2024 Kylah Aldrich Bipolar 2 disorder F31.81 ; ADHD (attention deficit hyperactivity disorder) F90.9 ; Anxiety F41.9 ; Depression F32.9 ; Therapeutic drug monitoring Z51.81 and Nicotine dependence, unspecified, uncomplicated F17.[address] [place] [address] [address] [facility] [address] 01/07/2025 Barry Beltran Over weight E66.3 ; Hypothyroidism E03.9 ; Hyperlipidemia E78.5 ; Hyperglycemia R73.9 ; Abnormal liver enzymes R74.8 ; Sleep apnea in adult G47.33 and Chronic fatigue R53.[address] [address] 02/04/2025 Kylah Aldrich Bipolar 2 disorder F31.81 ; ADHD (attention deficit hyperactivity disorder) F90.9 ; Anxiety F41.9 ; Depression F32.9 ; Therapeutic drug monitoring Z51.81 and Nicotine dependence, unspecified, uncomplicated F17.[address] [place] [address] 04/02/2024 Rosaura Waterman [address] [place] [address] 10/02/2024 Barry Beltran [address] [facility] [place] [address] 12/31/2024 Kylah Aldrich Depression F32.9 and Bipolar 2 disorder F31.[address] [place] [address] 01/04/2025 Barry Beltran [place] [address] [place] [address] 01/07/2025 Barry Beltran [address] [place] [address] 01/21/2025 Kylah Aldrich Depression F32.9 and Bipolar 2 disorder F31.81 Assessments Encounter Date Diagnosis (ICD Code) Assessment Notes Treatment Notes Treatment Clinical Notes Section Notes 06/12/2024 Bipolar 2 disorder (ICD-10 - F31.81) To stop if notices rash and let the office know. 10/01/2024 Bipolar 2 disorder (ICD-10 - F31.81) To stop if notices rash and let the office know. 02/04/2025 Bipolar 2 disorder (ICD-10 - F31.81) To stop if notices rash and let the office know. 01/07/2025 Hypothyroidism (ICD-10 - E03.9) TSH A LITTLE OVER 5. INCREASE LEVOTHYROXING FROM 100 TO 112. 01/07/2025 Over weight (ICD-10 - E66.3) 01/21/2025 Depression (ICD-10 - F32.9) 12/31/2024 Depression (ICD-10 - F32.9) 12/12/2024 Bipolar 2 disorder (ICD-10 - F31.81) 12/12/2024 Therapeutic drug monitoring (ICD-10 - Z51.81) 12/31/2024 Bipolar 2 disorder (ICD-10 - F31.81) 01/21/2025 Bipolar 2 disorder (ICD-10 - F31.81) 01/07/2025 Hyperlipidemia (ICD-10 - E78.5) DISCUSSED HEALTHY DIET, EXERCISE 02/04/2025 ADHD (attention deficit hyperactivity disorder) (ICD-10 [...] alprazolam. Continue coping mechanisms. Therapy encouraged. 10/01/2024 Anxiety (ICD-10 - F41.9) Client reports no longer taking alprazolam. Continue coping mechanisms. Therapy encouraged. 02/04/2025 Anxiety (ICD-10 - F41.9) Client reports no longer taking alprazolam. Continue coping mechanisms. Therapy encouraged. 12/12/2024 ADHD (attention deficit hyperactivity disorder) (ICD-10 - F90.9) 01/07/2025 Hyperglycemia (ICD-10 - R73.9) AT RISK FOR DM2. 01/07/2025 Abnormal liver enzymes (ICD-10 - R74.8) SUSPECT MALD. DOUBT VIRAL HEPATITIS. 02/04/2025 Depression (ICD-10 - F32.9) 10/01/2024 Depression (ICD-10 - F32.9) 06/12/2024 Depression (ICD-10 - F32.9) 06/12/2024 Therapeutic drug monitoring (ICD-10 - Z51.81) 10/01/2024 Therapeutic drug monitoring (ICD-10 - Z51.81) 02/04/2025 Therapeutic drug monitoring (ICD-10 - Z51.81) 01/07/2025 Sleep apnea in adult (ICD-10 - G47.33) 01/07/2025 Chronic fatigue (ICD-10 - R53.82) 02/04/2025 Nicotine dependence, unspecified, uncomplicated (ICD-10 - F17.200) 10/01/2024 Nicotine dependence, unspecified, uncomplicated (ICD-10 - [...] May also contact the 24-hour crisis hotline ([facility]), refer to the closest emergency room or [...] May also contact the 24-hour crisis hotline ([facility]), refer to the closest emergency room or [...] May also contact the 24-hour crisis hotline ([facility]), refer to the closest emergency room or [...] Screen *HIV 1, 2 Ab, p24 Ag (111984) 02/18/2025 Vitamin B12 and Folate 02/18/2025 Iron [...] Insured Coverage Start Date Coverage End Date [facility] Attn Claims Department [address] [place] [address] [phone] [id number] Merle Tiwari Self - patient is the insured 3 [facility] Attn Claims Department [address] [place] [address] [phone] [id number] Merle Tiwari Self - patient is the [...]
[2025-03-17 10:02] VITALS: BP 146/97; PULSE 80; RESP 20; TEMP 36.6; O2SAT 100
--- NOTE | 2025-03-17 10:02 | ED.URI ---
HPI - URI/Sore Throat General Chief Complaint: Upper Respiratory Infection Stated Complaint: Sinus Probelm,Body Aches,Cough Time Seen by Provider: 03/17/25 10:20 Source: patient and RN notes reviewed Mode of arrival: ambulatory Limitations: no limitations History of Present Illness HPI Narrative: 34-year-old female presents with concern for sore throat, sinus pressure, body aches, cough that is productive. Reports symptoms started yesterday. She has been taking Benadryl in [id number]-daojjuf cold medicine several family members have similar symptoms. MD elicited complaint: cough and sore throat Related Data Home Medications ?Medication ?Instructions ?Recorded ?Confirmed ?Last Taken ?Type fluoxetine 40 mg capsule 40 mg PO DAILY 10/16/22 07/28/24 Unknown History lamotrigine 100 mg tablet 200 mg PO DAILY 02/10/23 07/28/24 Unknown History dextroamphetamine-amphetamine ER 30 mg PO DAILY 01/04/24 07/28/24 Unknown History 30 mg 24hr capsule,extend release Allergies Allergy/AdvReac Type Severity Reaction Status Date / Time Sulfa (Sulfonamide Allergy Severe Anaphylaxis Verified 03/17/25 10:07 Antibiotics) sulfamethoxazole (From Allergy Severe Anaphylactic Verified 03/17/25 10:07 Bactrim) Shock trimethoprim (From Bactrim) Allergy Severe Anaphylactic Verified 03/17/25 10:07 Shock Review of Systems Review of Systems: CONSTITUTIONAL: Denies malaise. Denies chills, sweats, or fever. EYES: Denies visual changes, redness, or discharge. ENT: Reports rhinorrhea, congestion, sinus pain, and sore throat. CARDIOVASCULAR: Denies chest pain, palpitations, or edema. RESPIRATORY: Reports cough. Denies dyspnea. GASTROINTESTINAL: Denies abdominal pain, nausea, vomiting, diarrhea SKIN: Denies rash or itching. MUSCULOSKELETAL: Denies myalgia. NEUROLOGIC: Reports headache. All systems reviewed & are unremarkable except as noted in HPI and below PMFSH Past Medical History Medical History Mass of left forearm Kidney stones, calcium oxalate Abnormal uterine bleeding Bipolar 1 disorder Menometrorrhagia Depression Anxiety Gastroesophageal reflux disease Asthma Migraine Morbid obesity with BMI of 50.0-59.9, adult Family History Family History Mother Family history of bipolar disorder Father Family history of chronic obstructive pulmonary disease Social History Social History Years smoked: 3 Smoking status: Current every day smoker Tobacco type: e-cigarettes/vaping Second hand tobacco smoke exposure: Yes Additional smoking assessment comments: former cigarette smoker now vapes Alcohol intake: current Drinks per week: 0 Alcohol use details: 3/YEAR Substance use: never Substance use type: does not use Living arrangements: with family Gender identity (if verbalized by the patient): Female Spiritual care concerns: No Comments At time of signature, agree with nursing past medical, surgical, social and family history. There is no relevant family history pertinent to the presenting complaint Exam Narrative: GENERAL: Nontoxic-appearing, well-nourished, and in no acute distress. HEAD: Normocephalic EYES: PERRLA, conjunctivae clear ENT: Nares clear. Mucous membranes moist. TM pearly mix with dull light reflex bilaterally; no tragal tenderness. Oropharynx not erythematous without lesions. Tonsils not enlarged and without exudate, no drooling, no hoarseness, no trismus, uvula midline. NECK: Supple. No lymphadenopathy CHEST: Clear to auscultation, breath sounds equal. No wheezing, rhonchi, rales, or stridor. No respiratory distress, speaks in full sentences. HEART: Regular rate and rhythm. No murmur heard. SKIN: Warm, dry, no rash. NEURO: Alert and oriented x3. PSYCH: Normal mood and affect Course Course Emergency Course: Patient is aware of diagnosis, understands and agrees to treatment plan. Anticipatory guidance given. Patient agrees to follow-up as directed and is aware of reasons to seek care at the emergency department. Portions of this record may have been created with voice recognition software Level of Care: Express Care Visit Vital Signs Vital signs: Reviewed. MDM - URI/Sore Throat MDM Narrative Medical decision making narrative: Differential diagnosis considered: Davila virus, strep pharyngitis, allergic rhinitis, upper respiratory tract infection, sinusitis, rhinosinusitis, nasopharyngitis. viral pharyngitis, otitis media, otitis externa, pneumonia, bronchitis, viral cough syndrome, viral syndrome, and influenza. Exam findings show no acute concerns or changes; patient is non-toxic appearing and is in no distress. Patient is appropriate for outpatient treatment and follow-up. Lab Data Attestation: I reviewed the patient's lab results. Critical Care Time Critical Care Time Critical Care Time: No Discharge Plan Discharge Clinical Impression: Upper respiratory infection Patient Disposition: Home Condition: Stable Instructions: Upper Respiratory Infection (ED) Additional Instructions: Your rapid COVID and flu tests are negative Your rapid strep swab was negative today at [facility]. A throat culture will be sent to the laboratory for further testing. If the test is positive, you will receive a phone call within 48 hours and an appropriate antibiotic will be initiated at that time. Your symptoms are likely due to a viral illness, which is not treated with antibiotics. Viral symptoms can be present for up to a few weeks. -Alternate Tylenol and Motrin per package directions for fever or pain. -Antihistamine medication such as Benadryl at night and Zyrtec during the day can help improve symptoms. -Eat and drink things that are easy to swallow, like tea or soup, or popsicles to suck on. -Oral rinses such as: Salt water gargles and/or may use topical anesthetic (eg. Chloraseptic spray) or lozenges to relieve dryness or throat pain). -Frequent hand washing or hand director of enrollment is one of the best ways to prevent spread of infection. -Follow up with primary care provider in 2-3 days if condition is not improving; or seek ER visit if you have trouble breathing, cannot drink enough fluids, have muffled voice, difficulty opening your mouth, or severe swelling. Patient Language: Mongolian Prescriptions: New pseudoephedrine HCl [12 Hour Decongestant] 120 mg tablet extended release 120 mg PO Q12H PRN (Reason: nasal congestion) Qty: 20 0RF dextromethorphan-guaifenesin [Mucinex DM] 60-1,200 mg tablet extended release 12 hr 1 tablet PO Q12H Qty: 12 0RF No Action fluoxetine 40 mg capsule 40 mg PO DAILY lamotrigine 100 mg Tablet 200 mg PO DAILY dextroamphetamine-amphetamine 30 mg capsule,extended release 24hr 30 mg PO DAILY Follow-up/Referrals: Barry Beltran MD [Primary Care Provider, Hospitalist] Stand Alone Forms: Work/School Release IP Time of Disposition: 10:30
[2025-03-17 10:27] LABS: EDCOVIDSCREEN Negative (Negative); EDINFLUASCREEN Negative (Negative); EDINFLUBSCREEN Negative (Negative); EDSTREPNEGPOS1 Negative (Negative)
== END 2025-03-17 10:34 | disposition home or self-care (01) ==
PROVIDERS: Emergency Provider Nurse Practitioner; PCP Internal Medicine
DX: J06.9 Acute upper respiratory infection, unspecified (principal); F31.9 Bipolar disorder, unspecified; F41.8 Other specified anxiety disorders; K21.9 Gastro-esophageal reflux disease without esophagitis; J45.909 Unspecified asthma, uncomplicated; F17.290 Nicotine dependence, other tobacco product, uncomplicated; E66.01 Morbid (severe) obesity due to excess calories; Z68.43 Body mass index [BMI] 50.0-59.9, adult; Z20.822 Contact with and (suspected) exposure to COVID-19
CPT/HCPCS: 87081; 87426; 87804; 87880; 99213; G0463